=== PATIENT | female | born 1970 | race African-American/Black ===

== ENCOUNTER → 2016-05-26 | Outpatient (REF) | payer OTHER ==
[~2016-05-26] MED LIST: /CELE20CA OR; PERC5TAB8 OR; VALI10TA OR; VICO5TAB; ZITHTAB OR
[2016-05-26 13:46] LABS: AMPHETAMINES URINE REFLEX NEGATIVE (NEGATIVE); BARBITURATES URINE REFLEX NEGATIVE (NEGATIVE); BENZODIAZEPINES URINE REFLEX NEGATIVE (NEGATIVE); COCAINE METABOLITE URINE REFLE NEGATIVE (NEGATIVE); CONTROL LINE INT CTR LINE PRESENT; METHADONE URINE REFLEX NEGATIVE (NEGATIVE); OPIATES URINE REFLEX NEGATIVE (NEGATIVE); TRICYCLIC ANTIDEPRESS UR REFL NEGATIVE (NEGATIVE)
[2016-06-01 00:15] LABS: BENZODIAZEPINES, URINE SCREEN Negative ng/mL (Cutoff=200); METHADONE, URINE SCREEN Negative ng/mL (Cutoff=300); OXYCODONE URINE Negative (Cutoff=100); pH, URINE 5.7 (4.5-8.9)
== END | disposition home or self-care (01) ==
LOC: M SFHCPLAZ 12:44
PROVIDERS: ATTEND Internal Medicine
DX: R89.2 Abnormal level of other drugs, medicaments and biological substances in specimens from other organs, systems and tissues (principal)
CPT/HCPCS: G0479 ×2

== ENCOUNTER 2016-06-16 08:08 | Inpatient (IN) | payer MEDICAID, OTHER ==
[~2016-06-16] VITALS: Ht 172.7 cm; Wt 113.1 kg
[2016-06-16 08:52] LABS: BASO % 0.6 % (0.0-1.0); EOS # 0.1 K/mm3 (0.0-0.50); EOS % 1.4 % (0.0-3.0); LARGE UNSTAINED CELL # 0.1 K/mm3 (0.0-0.4); LARGE UNSTAINED CELL % 2.2 % (0.0-4.0); LYMPH # 2.7 K/mm3 (1.5-4.5); LYMPH % 45.6 % (24.0-44.0); MEAN CORPUSCULAR HEMOGLOBIN 33.6 pg (27.0-33.0); MEAN CORPUSCULAR HGB CONC 34.4 g/dl (32.0-36.5); MEAN CORPUSCULAR VOLUME 97.6 fl (80.0-96.0); MONO # 0.2 K/mm3 (0.0-0.8); MONO % 3.8 % (0.0-5.0); NEUTROPHILS # 2.8 K/mm3 (1.8-7.7); NEUTROPHILS % 46.4 % (36.0-66.0); PLATELET COUNT, AUTOMATED 266 k/mm3 (150-450); RED CELL DISTRIBUTION WIDTH 12.1 % (11.5-14.5)
[2016-06-16] MEDS ORDERED: ONDANSETRON 4MG/2ML VIAL (J2405) As Ordered ONE (08:57)
[2016-06-16] MEDS ORDERED: HYDROmorphone HCL 1 MG/ML SYRINGE (J1170) As Ordered ONE ×2 (08:57→11:01)
[2016-06-16] MEDS: SYMBICORT 160/4.5MCG INHALER 6GM INH SCH ×2 (09:00→21:00)
[2016-06-16 09:17] LABS: CONTROL LINE HCG INT CTR LINE PRESENT
[2016-06-16 09:21] LABS: ALBUMIN 3.8 GM/DL (3.2-5.2); ALBUMIN/GLOBULIN RATIO 0.97 (1.00-1.93); ALKALINE PHOSPHATASE 59 U/L (45-117); ALT/SGPT 43 U/L (12-78); ANION GAP 9 MEQ/L (8-16); AST/SGOT 30 U/L (15-37); BILIRUBIN,DIRECT 0.2 MG/DL (0.0-0.2); BILIRUBIN,TOTAL 0.7 MG/DL (0.2-1.0); BLOOD UREA NITROGEN 9 MG/DL (7-18); CALCIUM LEVEL 8.7 MG/DL (8.5-10.1); CARBON DIOXIDE LEVEL 25 MEQ/L (21-32); CHLORIDE LEVEL 108 MEQ/L (98-107); CREATININE FOR GFR 0.89 MG/DL (0.55-1.02); GLOMERULAR FILTRATION RATE > 60.0 (>58); GLUCOSE, FASTING 100 MG/DL (70-105); POTASSIUM SERUM 3.6 MEQ/L (3.5-5.1); SODIUM LEVEL 142 MEQ/L (136-145); TOTAL PROTEIN 7.7 GM/DL (6.4-8.2)
[2016-06-16] MEDS ORDERED: ISOVUE-370 76% 100ML VIAL (Q9967) As Ordered ONE (09:26)
--- NOTE | 2016-06-16 10:03 | REP ---
CT STUDY OF THE ABDOMEN AND PELVIS WITH IV BUT WITHOUT ORAL CONTRAST: HISTORY: Abdominal pain. CT contrast dose: 100 mL of Isovue 370 is administered intravenously by auto injector. FINDINGS: Digital preliminary inbound customer service representative radiograph demonstrates dilated loops of small bowel in the left mid abdomen. Axial images show that the lung bases are clear. There is no evidence of pleural effusion. The liver and the spleen are normal in size and homogeneous in texture. Gallbladder and pancreas show no abnormality. No adrenal lesion is seen on either side. The kidneys enhance symmetrically and are morphologically intact. No retroperitoneal mass or adenopathy is observed. Normal caliber aorta is seen with some vascular calcification. There is no evidence of free intraperitoneal air. There are air-filled, mildly dilated loops of jejunum in the left mid and upper abdomen. The distal ileum is decompressed suggesting partial small bowel obstruction. No mass lesion is appreciated. There is no evidence of abdominal wall defect. A normal appendix is seen. The patient is status post hysterectomy. There is a cyst in the left ovary measuring 4.7 cm in greatest diameter. A small quantity of fluid is seen in the cul-de-sac. No pelvic mass or adenopathy is appreciated otherwise. Bone window settings show no bony destructive lesion. IMPRESSION: Patient status post hysterectomy. 4.7 cm cystic lesion in the left ovary. Partial small bowel obstruction pattern with dilated jejunal loops and decompressed ileal loops. No obstructive lesion is seen. No free air is seen. Minimal fluid in the cul-de-sac. Signed by Ariel Lerma MD 06/16/2016 06:33 P
[2016-06-16] MEDS ORDERED: DULE200A INH (10:34)
[2016-06-16] MEDS ORDERED: ALBU17IN INH (10:34)
[2016-06-16] MEDS ORDERED: IBUP800T23 PO (10:34)
[2016-06-16] MEDS ORDERED: FLUO10TA30 PO (10:34)
[2016-06-16] MEDS ORDERED: TRAZ10TA PO (10:34)
[2016-06-16] MEDS ORDERED: CLON1TAB PO (10:34)
[2016-06-16] MEDS ORDERED: LORazepam 2 MG/ML VIAL (J2060) As Ordered ONE (11:01)
[2016-06-16] MEDS ORDERED: ALBUTEROL 90 MCG/ACT 8GM HFA INHALER INH PRN (11:30)
[2016-06-16] MEDS ORDERED: MORPHINE 2 MG/ML 1ML SYRINGE IV PRN (11:45)
[2016-06-16] MEDS ORDERED: ACETAMINOPHEN TAB 650MG DOSE (2X325MG) PO PRN (11:45)
[2016-06-16] MEDS ORDERED: ONDANSETRON 4MG/2ML VIAL (J2405) IV PRN (11:45)
--- NOTE | 2016-06-16 13:47 | EDDOCDS ---
Nurse's Notes [facility] Name: Grant Simms Age: 46 yrs Sex: Female : 1970 Arrival Date: 06/16/2016 Time: 08:08 Bed 7 Private MD: Diagnosis: Abdominal and pelvic pain Presentation: 06/16 08:16 Presenting complaint: Patient states: Has abdominal pain in lower abdomen. Risk mcp factors: the patient reports no vaginal bleeding. Adult Sepsis Screening: The patient does not have new or worsening altered mentation. Patient's respiratory rate is less than 22. Systolic blood pressure is greater than 100. Patient has a qSOFA score of 0- Negative Sepsis Screen. Suicide/Homicide risk assessment- the patient denies having any suicidal and/or homicidal ideations and does not present with any other emotional, behavioral or mental health complaints. Status: Patient is not a adoption services manager or dependent. Transition of care: patient was not received from another setting of care. 08:16 Acuity: CONRAD Level 3 [facility] 08:16 Method Of Arrival: Walkin/Carried/Asstd [facility] Triage Assessment: 08:20 General: Appears uncomfortable, Behavior is cooperative. Pain: Location: suprapubic [facility] area Pain currently is 9 out of 10 on a pain scale. HIV screening NA for this visit Offered previously. Neurological: No deficits noted. Respiratory: Airway is patent Respiratory effort is even, unlabored. GI: Reports lower abdominal pain. Derm: Skin is normal. 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 Klonopin 1 mg Oral tab 1 tab 2 times per day 2. Trazodone 250mg Oral 3. Prozac 10 mg Oral cap once daily 4. albuterol sulfate 90 mcg/actuation Inhl HFAA prn 5. Dulera inhalation 2 puffs 2 times per day - PMHx: Asthma; chronic abdominal pain; GERD; Sleep Apnea w/ CPAP; - PSHx: Hysterectomy; ; ovarian cyst removal; - Social history: Smoking status: Patient uses tobacco products, current some day smoker. No barriers to communication noted, The patient speaks fluent Egyptian. - Family history: Not pertinent. - : The pt / caregiver states he / she is not on anticoagulants. Home medication list is obtained from the patient. - Exposure Risk Screening:: None identified. Screenin:35 Screening information is obtained from the patient. Fall risk: No risks identified. ck1 Assistance ADL's: requires no assistance with activities of daily living. Abuse/DV Screen: The patient / caregiver reports he/she is: not in a situation that causes fear, pain or injury. Nutritional screening: No deficits noted. Advance Directives: Currently, there is no health care proxy. home support is adequate. Assessment: 08:35 General: Appears distressed, Behavior is crying. Pain: Location: suprapubic area Pain ck1 currently is 9 out of 10 on a pain scale. Neurological: Level of Consciousness is awake, alert, obeys commands, Oriented to person, place, time. Respiratory: Respiratory effort is unlabored, Respiratory pattern is regular, symmetrical. GI: Abdomen is obese, Bowel sounds present X 4 quads. Abd is soft and non tender X 4 quads. Reports anorexia, nausea. : Reports discharge "inside vagina" Denies burning with urination, vaginal bleeding. Derm: Skin is pink, warm & dry. Musculoskeletal: No deficits noted. 09:24 General: Appears distressed, Behavior is crying. Pain: Location: suprapubic area Pain ck1 currently is 5 out of 10 on a pain scale. Neurological: Level of Consciousness is awake, alert, obeys commands, Oriented to person, place, time. Respiratory: Respiratory effort is unlabored, Respiratory pattern is regular, symmetrical. GI: No deficits noted. Derm: Skin is intact, is healthy with good turgor, Skin is pink, warm & dry. Musculoskeletal: Circulation, motion, and sensation intact Range of motion intact in all extremities. 10:23 Reassessment: Patient appears in no apparent distress at this time. ck1 11:06 General: Appears distressed, Behavior is anxious, crying. Pain: Location: suprapubic ck1 area Pain currently is 8 out of 10 on a pain scale. Neurological: Level of Consciousness is awake, alert, obeys commands, Oriented to person, place, time. Respiratory: Respiratory effort is unlabored, Respiratory pattern is regular, symmetrical. GI: Denies nausea, vomiting. Derm: Skin is intact, is healthy with good turgor, Skin is pink, warm & dry. 11:10 General: Patient requesting provider explain to daughter diagnosis and plan of care. ck1 Provider aware. 12:00 General: Appears distressed, Behavior is anxious. Pain: Location: abdomen Pain ck1 currently is 10 out of 10 on a pain scale. Neurological: Level of Consciousness is awake, alert, obeys commands, Oriented to person, place, time. Respiratory: Respiratory effort is unlabored, Respiratory pattern is regular, symmetrical. GI: Denies nausea, vomiting. Derm: Skin is intact, is healthy with good turgor, Skin is pink, warm & dry. Musculoskeletal: Circulation, motion, and sensation intact Range of motion intact in all extremities. 12:37 General: Nursing Manager Fashion in room to discuss treatment plan with patient and family. ck1 12:49 General: Patient is resting quietly on stretcher. No acute distress noted at this time. ck1 Daughter at bedside. Awaiting bed availability on 4 bee. Call light in reach, will continue to monitor patient. 13:45 General: Appears Patient is sitting up in stretcher talking on cell phone. Tolerating ck1 diet tray without difficulty, also tolerating food in to go container from cafeteria without difficulty. No acute distress noted. Vital Signs: 08:19 BP 140 / 88; Pulse 80; Resp 18; Temp 98.3; Pulse Ox 97% on R/A; Weight 104.33 kg; [facility] Height 5 ft. 8 in. (172.72 cm); Pain 9/10; 09:20 BP 132 / 78; Pulse 72; Resp 18; Temp 98.7(O); Pulse Ox 99% on R/A; Pain 5/10; ck1 12:00 BP 153 / 66; Pulse 64; Resp 18; Temp 98.1(O); Pulse Ox 99% on R/A; Pain 10/10; ck1 13:45 BP 126 / 64 LA Sitting (auto/lg); Pulse 73; Resp 20; Temp 99.5; Pulse Ox 99% on R/A; bnb Pain 9/10; 08:19 Body Mass Index 34.97 (104.33 kg, 172.72 cm) [facility] Vitals: 08:19 Log In Time: June 16, 2016 at 08:08. [facility] ED Course: 08:09 Patient visited by Ronan Kellogg. mm15 08:09 Patient moved to Waiting mm15 08:17 Triage Initiated [facility] 08:21 Patient visited by Danielle Herrera RN. [facility] 08:21 Flor Starr MD is Attending Physician. fg 08:21 Patient moved to 7 [facility] 08:24 Patient visited by Flor Starr MD. fg 08:27 Urinalysis Sent. ck1 08:27 Urine Culture Sent. ck1 08:34 Patient visited by Lula Dominguez,SUZETTE. ck1 08:34 Basic Metabolic Profile Sent. ck1 08:34 CBC with Diff Sent. ck1 08:34 HCG,Serum Qualitative Sent. ck1 08:34 Lipase Sent. ck1 08:34 Liver Profile Sent. ck1 08:35 The patient / caregiver is instructed regarding the plan of care and ED course. ck1 08:35 Inserted saline lock: 20 gauge in left hand and blood collected. The patient tolerated ck1 the procedure well. 08:46 Patient visited by Amanda Gonzalez PCA. bnb 08:46 EKG done. (by ED staff). Reviewed by Flor Starr MD. bnb 08:56 Assist provider with pelvic exam: Set up pelvic tray. Specimens sent to lab. Performed ck1 by Flor Starr MD Patient tolerated well. 09:02 Patient visited by Lula Dominguez,SUZETTE. ck1 09:20 Patient name changed from Itia\\S\\Swapna\\S\\Delinquency Prevention Officer\\S\\ to Itia\\S\\T\\S\\Delinquency Prevention Officer. EDMS 09:20 [facility] Payment Agreement was scanned into [employer] and attached to record. lg 09:24 Patient visited by Lula Dominguez RN. ck1 09:40 Patient visited by Lula Dominguez RN. ck1 09:40 Warm blanket given. ck1 10:02 GC & Chlamydia Amplification Sent. ck1 10:02 Wet Prep Sent. ck1 10:03 Patient visited by Lula Dominguez,SUZETTE. ck1 10:16 CT ABD & PELVIS: IV Contrast Only Returned. EDMS 10:23 Carol Grande is Hospitalizing Provider. fg 13:20 Patient visited by Shelbi Flores PCA. rs6 13:20 Diet: Patient given regular meal. Tolerated well. rs6 13:28 T-Sheet-- Draft Copy was scanned into [employer] and attached to record. gb 13:46 Patient visited by Amanda Gonzalez PCA. bnb Administered Medications: 09:02 Drug: Dilaudid - HYDROmorphone 1 mg [hydromorphone 1 mg/mL injection syringe (1 mL)] ck1 Route: IVP; Site: left hand; 09:20 Follow up: BP 132 / 78; Pulse 72 bpm; Resp 18 bpm; Temp 98.7 Oral; Pulse Ox 99% RA; ck1 Pain 5/10 Adult; Response: Confirmed pt not driving.; No Adverse Reaction; Pain is decreased 09:02 Drug: Ondansetron 4 mg [ondansetron HCl 2 mg/mL intravenous solution (2 mL)] Route: ck1 IVP; Site: left hand; 11:05 Drug: Dilaudid - HYDROmorphone 1 mg [hydromorphone 1 mg/mL injection syringe (1 mL)] 1 Route: IVP; Site: left hand; 12:00 Follow up: BP 153 / 66; Pulse 64 bpm; Resp 18 bpm; Temp 98.1 Oral; Pulse Ox 99% RA; ck1 Pain 10/10 Adult; Response: Confirmed pt not driving.; No Adverse Reaction; No significant change. 11:05 Drug: LORazepam 0.5 mg [lorazepam 2 mg/mL injection solution (0.25 mL)] Route: IVP; ck1 Site: left hand; Order Results: Lab Order: Basic Metabolic Profile; SPEC'M 06/16/16 08:33 Test: GLUCOSE, FASTING; Value: 100; Range: 70-105; Units: MG/DL; Status: F Test: BLOOD UREA NITROGEN; Value: 9; Range: 7-18; Units: MG/DL; Status: F Test: CREATININE FOR GFR; Value: 0.89; Range: 0.55-1.02; Units: MG/DL; Status: F Test: SODIUM LEVEL; Range: 136-145; Units: MEQ/L; Status: I Test: POTASSIUM SERUM; Range: 3.5-5.1; Units: MEQ/L; Status: I Test: CHLORIDE LEVEL; Range: 98-107; Units: MEQ/L; Status: I Test: CARBON DIOXIDE LEVEL; Range: 21-32; Units: MEQ/L; Status: I Test: ANION GAP; Range: 8-16; Units: MEQ/L; Status: I Test: CALCIUM LEVEL; Range: 8.5-10.1; Units: MG/DL; Status: I Test: GLOMERULAR FILTRATION RATE; Value: > 60.0; Range: >58; Status: F Test: SODIUM LEVEL; Value: 142; Range: 136-145; Units: MEQ/L; Status: F Test: POTASSIUM SERUM; Value: 3.6; Range: 3.5-5.1; Units: MEQ/L; Status: F Test: CHLORIDE LEVEL; Value: 108; Range: 98-107; Abnormal: Above high normal; Units: MEQ/L; Status: F Test: CARBON DIOXIDE LEVEL; Value: 25; Range: 21-32; Units: MEQ/L; Status: F Test: ANION GAP; Value: 9; Range: 8-16; Units: MEQ/L; Status: F Test: CALCIUM LEVEL; Value: 8.7; Range: 8.5-10.1; Units: MG/DL; Status: F Test Note: ; Units are mL/min/1.73 m2 Chronic Kidney Disease Staging per NKF: Stage I & II GFR >=60 Normal to Mildly Decreased Stage III GFR 30-59 Moderately Decreased Stage IV GFR 15-29 Severely Decreased Stage V GFR <15 Very Little GFR Left ESRD GFR <15 on FORMULA CLERK Lab Order: CBC with Diff; SPEC'M 06/16/16 08:33 Test: WHITE BLOOD COUNT; Value: 6.0; Range: 4.0-10.0; Units: K/mm3; Status: F Test: RED BLOOD COUNT; Value: 3.80; Range: 4.00-5.40; Abnormal: Below low normal; Units: M/mm3; Status: F Test: HEMOGLOBIN; Value: 12.8; Range: 12.0-16.0; Units: g/dl; Status: F Test: HEMATOCRIT; Value: 37.1; Range: 36.0-47.0; Units: %; Status: F Test: MEAN CORPUSCULAR VOLUME; Value: 97.6; Range: 80.0-96.0; Abnormal: Above high normal; Units: fl; Status: F Test: MEAN CORPUSCULAR HEMOGLOBIN; Value: 33.6; Range: 27.0-33.0; Abnormal: Above high normal; Units: pg; Status: F Test: MEAN CORPUSCULAR HGB CONC; Value: 34.4; Range: 32.0-36.5; Units: g/dl; Status: F Test: RED CELL DISTRIBUTION WIDTH; Value: 12.1; Range: 11.5-14.5; Units: %; Status: F Test: PLATELET COUNT, AUTOMATED; Value: 266; Range: 150-450; Units: k/mm3; Status: F Test: NEUTROPHILS %; Value: 46.4; Range: 36.0-66.0; Units: %; Status: F Test: LYMPH %; Value: 45.6; Range: 24.0-44.0; Abnormal: Above high normal; Units: %; Status: F Test: MONO %; Value: 3.8; Range: 0.0-5.0; Units: %; Status: F Test: EOS %; Value: 1.4; Range: 0.0-3.0; Units: %; Status: F Test: BASO %; Value: 0.6; Range: 0.0-1.0; Units: %; Status: F Test: LARGE UNSTAINED CELL %; Value: 2.2; Range: 0.0-4.0; Units: %; Status: F Test: NEUTROPHILS #; Value: 2.8; Range: 1.8-7.7; Units: K/mm3; Status: F Test: LYMPH #; Value: 2.7; Range: 1.5-4.5; Units: K/mm3; Status: F Test: MONO #; Value: 0.2; Range: 0.0-0.8; Units: K/mm3; Status: F Test: EOS #; Value: 0.1; Range: 0.0-0.50; Units: K/mm3; Status: F Test: BASO #; Value: 0.0; Range: 0.0-0.2; Units: K/mm3; Status: F Test: LARGE UNSTAINED CELL #; Value: 0.1; Range: 0.0-0.4; Units: K/mm3; Status: F Lab Order: HCG,Serum Qualitative; SPEC'M 06/16/16 08:33 Test: HCG, SERUM QUALITATIVE; Value: NEGATIVE; Range: NEGATIVE; Status: F Lab Order: Lipase; SPEC'M 06/16/16 08:33 Test: LIPASE; Value: 94; Range: 73-393; Units: U/L; Status: F Lab Order: Liver Profile; [facility] 06/16/16 08:33 Test: AST/SGOT; Value: 30; Range: 15-37; Units: U/L; Status: F Test: ALT/SGPT; Value: 43; Range: 12-78; Units: U/L; Status: F Test: ALKALINE PHOSPHATASE; Value: 59; Range: 45-117; Units: U/L; Status: F Test: BILIRUBIN,TOTAL; Value: 0.7; Range: 0.2-1.0; Units: MG/DL; Status: F Test: BILIRUBIN,DIRECT; Value: 0.2; Range: 0.0-0.2; Units: MG/DL; Status: F Test: TOTAL PROTEIN; Value: 7.7; Range: 6.4-8.2; Units: GM/DL; Status: F Test: ALBUMIN; Value: 3.8; Range: 3.2-5.2; Units: GM/DL; Status: F Test: ALBUMIN/GLOBULIN RATIO; Value: 0.97; Range: 1.00-1.93; Abnormal: Below low normal; Status: F Lab Order: Urinalysis; [facility] 06/16/16 08:26 Test: APPEARANCE, URINE; Value: CLEAR; Range: CLEAR; Status: F Test: COLOR, URINE; Value: YELLOW; Range: YELLOW; Status: F Test: PH,URINE; Value: 5.0; Range: 5.0-9.0; Units: UNITS; Status: F Test: SPECIFIC GRAVITY URINE AUTO; Value: 1.029; Range: 1.002-1.035; Status: F Test: PROTEIN, URINE AUTO; Value: NEGATIVE; Range: NEGATIVE; Units: mg/dL; Status: F Test: GLUCOSE, URINE (UA) AUTO; Value: NEGATIVE; Range: NEGATIVE; Units: mg/dL; Status: F Test: KETONE, URINE AUTO; Value: TRACE; Range: NEGATIVE; Abnormal: Above high normal; Units: mg/dL; Status: F Test: UROBILINOGEN, URINE AUTO; Value: 0.2; Range: 0.0-2.0; Units: mg/dL; Status: F Test: BILIRUBIN, URINE AUTO; Value: NEGATIVE; Range: NEGATIVE; Status: F Test: NITRITE, URINE AUTO; Value: NEGATIVE; Range: NEGATIVE; Status: F Test: LEUKOCYTE ESTERASE, URINE AUTO; Value: NEGATIVE; Range: NEGATIVE; Status: F Test: BLOOD, URINE BLOOD; Value: 2+; Range: NEGATIVE; Abnormal: Above high normal; Status: F Test: WBC, URINE AUTO; Value: 1; Range: 0-3; Units: /HPF; Status: F Test: RBC, URINE AUTO; Value: 16; Range: 0-3; Abnormal: Above high normal; Units: /HPF; Status: F Test: BACTERIA, URINE AUTO; Value: NEGATIVE; Range: NEGATIVE; Status: F Test: SQUAMOUS EPITHELIAL CELL UR AU; Value: 4; Range: 0-6; Units: /HPF; Status: F Test: MUCUS, URINE; Value: SMALL; Range: NEGATIVE; Status: F Test: HYALINE CAST, URINE AUTO; Value: 0; Range: 0-1; Units: /LPF; Status: F Lab Order: Wet Prep; SPEC'M 06/16/16 08:54 Test: WET PREP; Value: WET PREP RESULT; Status: F Test: WET PREP; Value: MANY EPITHELIAL CELLS PRESENT; Status: F Test: WET PREP; Value: FEW SHORT RODS PRESENT; Status: F Test: WET PREP; Value: Comments:; Status: F Test Note: ; Specimen did not meet the 1 hour time limit from collection to examination. Trichomonas vaginalis loses motility quickly therefore, samples need to be examined within 1 hour of collection to optimally identify this organism. Lab Order: GC & Chlamydia Amplification; SPEC'M 06/16/16 08:54 Test: CHLAMYDIA DNA AMPLIFICATION; Value: NEGATIVE; Range: NEGATIVE; Status: F Test: GC DNA AMPLIFICATION; Value: NEGATIVE; Range: NEGATIVE; Status: F Lab Order: LACTIC ACID LEVEL, LACTATE; SPEC'M 06/16/16 11:45 Test: LACTIC ACID LEVEL, LACTATE; Value: 0.7; Range: 0.4-2.0; Units: MMOL/L; Status: F Radiology Order: CT ABD & PELVIS: IV Contrast Only Test: CT ABD & PELVIS: IV Contrast Only REASON FOR EXAMINATION: Abdomen Pain; CT STUDY OF THE ABDOMEN AND PELVIS WITH IV BUT WITHOUT ORAL CONTRAST:; ; HISTORY: Abdominal pain.; ; CT contrast dose: 100 mL of Isovue 370 is administered intravenously by auto; injector.; ; FINDINGS: Digital preliminary facilities administrator radiograph demonstrates dilated loops of; small bowel in the left mid abdomen. Axial images show that the lung bases are; clear. There is no evidence of pleural effusion. The liver and the spleen are; normal in size and homogeneous in texture. Gallbladder and pancreas show no; abnormality. No adrenal lesion is seen on either side. The kidneys enhance; symmetrically and are morphologically intact. No retroperitoneal mass or; adenopathy is observed. Normal caliber aorta is seen with some vascular; calcification.; ; There is no evidence of free intraperitoneal air. There are air-filled, mildly; dilated loops of jejunum in the left mid and upper abdomen. The distal ileum is; decompressed suggesting partial small bowel obstruction. No mass lesion is; appreciated. There is no evidence of abdominal wall defect. A normal appendix; is seen.; ; The patient is status post hysterectomy. There is a cyst in the left ovary; measuring 4.7 cm in greatest diameter. A small quantity of fluid is seen in the; cul-de-sac. No pelvic mass or adenopathy is appreciated otherwise. Bone window; settings show no bony destructive lesion.; ; IMPRESSION:; Patient status post hysterectomy. 4.7 cm cystic lesion in the left ovary.; Partial small bowel obstruction pattern with dilated jejunal loops and; decompressed ileal loops. No obstructive lesion is seen. No free air is seen.; Minimal fluid in the cul-de-sac.; ; ; ; ; Unreviewed; Outcome: 09:40 CT Study completed. ck1 10:23 Decision to Hospitalize by Provider. fg 13:38 Discharge Assessment: Patient awake, alert and oriented x 3. No cognitive and/or ck1 functional deficits noted. Patient verbalized understanding of disposition instructions. patient administered narcotics - yes. Patient was admitted to the hospital or transferred to another facility. The following High Risk Discharge criteria are identified: None. Admitted to Med/Surg accompanied by tech, via wheelchair, with chart. Condition: stable. Admission hand-off: Report Faxed Fax receipt verified by SUZETTE Leblanc. Property :Personal belongings accompany Pt. 13:47 Patient left the ED. ck1 Signatures: Dispatcher [facility] Danielle Oro RN RN mcp Barnhardt, Gloria, Reg Reg gb Yumiko Diaz, Reg Reg lg Alberto,Lula,RN RN ck1 Ronan Kellogg mm15 Shelbi Flores, DISTILLERY WORKER GENERAL DISTILLERY WORKER GENERAL rs6 Flor Starr MD MD Amanda Gonzalez, DISTILLERY WORKER GENERAL DISTILLERY WORKER GENERAL bnb MTDD
--- NOTE | 2016-06-16 13:47 | EDDOCDS ---
Physician Documentation [facility] Name: Grant Simms Age: 46 yrs Sex: Female : 1970 Arrival Date: 06/16/2016 Time: 08:08 Bed 7 Private MD: Disposition: 06/16/16 10:23 Hospitalization ordered by Carol Grande for Inpatient Admission. Preliminary diagnosis is Abdominal and pelvic pain. - Bed requested for 4 [place]. - Status is Inpatient Admission. ck1 - Condition is Stable. - Problem is chronic. - Symptoms have worsened. Historical: - Allergies: no known allergies; - Home Meds: 1. Klonopin 1 mg Oral tab 1 tab 2 times per day 2. Trazodone 250mg Oral 3. Prozac 10 mg Oral cap once daily 4. albuterol sulfate 90 mcg/actuation Inhl HFAA prn 5. Dulera inhalation 2 puffs 2 times per day - PMHx: Asthma; chronic abdominal pain; GERD; Sleep Apnea w/ CPAP; - PSHx: Hysterectomy; ; ovarian cyst removal; - Social history: Smoking status: Patient uses tobacco products, current some day smoker. No barriers to communication noted, The patient speaks fluent Kinyarwanda. - Family history: Not pertinent. - : The pt / caregiver states he / she is not on anticoagulants. Home medication list is obtained from the patient. - Exposure Risk Screening:: None identified. 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 8 in. (172.72 cm); Pain 9/10; 09:20 BP 132 / 78; Pulse 72; Resp 18; Temp 98.7(O); Pulse Ox 99% on R/A; Pain 5/10; ck1 12:00 BP 153 / 66; Pulse 64; Resp 18; Temp 98.1(O); Pulse Ox 99% on R/A; Pain 10/10; ck1 13:45 BP 126 / 64 LA Sitting (auto/lg); Pulse 73; Resp 20; Temp 99.5; Pulse Ox 99% on R/A; bnb Pain 9/10; 08:19 Body Mass Index 34.97 (104.33 kg, 172.72 cm) mcp MDM: 08:22 IV Saline Lock ordered. fg 08:22 Undress patient appropriately for examination ordered. fg 08:23 Basic Metabolic Profile Ordered. EDMS 08:23 CBC with Diff Ordered. EDMS 08:23 HCG,Serum Qualitative Ordered. EDMS 08:23 Lipase Ordered. EDMS 08:23 Liver Profile Ordered. EDMS 08:23 Urinalysis Ordered. EDMS 08:23 Urine Culture Ordered. EDMS 08:25 ECG WITH READING ER PHYS+CARDIAG ordered. EDMS 08:54 Dilaudid - HYDROmorphone 1 mg IVP once ordered. fg 08:54 Ondansetron 4 mg IVP once ordered. fg 08:56 CT ABD & PELVIS: IV Contrast Only Ordered. EDMS 09:07 Financial registration complete. lg 09:20 [facility] was scanned into [employer] and attached to record. lg 10:02 GC & Chlamydia Amplification Ordered. EDMS 10:02 Wet Prep Ordered. EDMS 10:23 BED REQUEST+ADM ordered. EDMS 10:51 Dilaudid - HYDROmorphone 1 mg IVP once ordered. fg 10:51 LORazepam 0.5 mg IVP once ordered. fg 11:33 LACTIC ACID LEVEL, LACTATE Ordered. EDMS 11:33 STOOL SODIUM Ordered. EDMS 11:33 STOOL POTASSIUM Ordered. EDMS 11:33 STOOL CHLORIDE Ordered. EDMS 11:33 OSMOLARITY STOOL Ordered. EDMS 11:33 STOOL POLYS Ordered. EDMS 11:33 GASTROINTESTINAL (GI) PANEL Ordered. EDMS 11:42 Admission / Observation Status ordered. EDMS 12:04 REGULAR DIET ordered. EDMS 13:28 T-Sheet-- Draft Copy was scanned into [employer] and attached to record. gb Administered Medications: 09:02 Drug: Dilaudid - HYDROmorphone 1 mg [hydromorphone 1 mg/mL injection syringe (1 mL)] ck1 Route: IVP; Site: left hand; 09:20 Follow up: BP 132 / 78; Pulse 72 bpm; Resp 18 bpm; Temp 98.7 Oral; Pulse Ox 99% RA; ck1 Pain 5/10 Adult; Response: Confirmed pt not driving.; No Adverse Reaction; Pain is decreased 09:02 Drug: Ondansetron 4 mg [ondansetron HCl 2 mg/mL intravenous solution (2 mL)] Route: ck1 IVP; Site: left hand; 11:05 Drug: Dilaudid - HYDROmorphone 1 mg [hydromorphone 1 mg/mL injection syringe (1 mL)] ck1 Route: IVP; Site: left hand; 12:00 Follow up: BP 153 / 66; Pulse 64 bpm; Resp 18 bpm; Temp 98.1 Oral; Pulse Ox 99% RA; ck1 Pain 03/01 Adult; Response: Confirmed pt not driving.; No Adverse Reaction; No significant change. 11:05 Drug: LORazepam 0.5 mg [lorazepam 2 mg/mL injection solution (0.25 mL)] Route: IVP; ck1 Site: left hand; Signatures: Dispatcher [employer] EDDanielle Singh, RN SUZETTE [facility] Maryam Hall, Reg Reg gb Yumiko Diaz, Reg Reg lg Lula Dominguez RN RN ck1 Harsh Russell, [employer]ATION WORKER William Benavides RN RN [facility] Flor Starr MD MD The chart was reviewed and I authenticate all verbal orders and agree with the evaluation and treatment provided.Corrections: (The following items were deleted from the chart) 11:33 11:33 GASTROINTESTINAL (GI) PANEL ordered. EDMS EDMS 11:33 11:33 GASTROINTESTINAL (GI) PANEL ordered. EDMS EDMS 12:04 08:23 NOTHING BY MOUTH+DIET ordered. EDMS EDMS Attachments: 09:20 [facility] Agreement lg 13:28 T-Sheet-- Draft Copy gb [facility]
[2016-06-16 14:00] VITALS: BP 126/62
[2016-06-16] MEDS: HEPARIN SOD (PORCINE) 5000 UNITS/ML VIAL SC SCH ×2 (14:30→20:14)
[2016-06-16] MEDS: FLUoxetine 10 MG CAP PO SCH (14:30)
[2016-06-16] MEDS: KCL 20MEQ IN D5/0.45NS 1000ML 1,000 ML IV SCH ×2 (14:31→23:47)
[2016-06-16] MEDS: PANTOPRAZOLE 40MG INJ (PROTONIX) (C9113) IV SCH (14:44)
[2016-06-16] MEDS: MORPHINE 2 MG/ML 1ML SYRINGE IV PRN ×3 (14:45→20:24)
--- NOTE | 2016-06-16 16:00 | HPEPDOC ---
General Date of Admission Jun 16, 2016 at 11:36 Primary Care Physician: MAGY TOM DO Attending Physician: ARTHUR ZEE MD Chief Complaint The patient is a 46-year-old female admitted with a reason for visit of Abdominal Pain. Source: Patient Exam Limitations: No limitations Timing/Duration: Getting worse Severity: Severe Associated Symptoms: Other (diarrhea) History of Present Illness 46 y/o F with h/o asthma, NIRALI not compliant with CPAP, GERD, smoker chronic abd pain presented with worsening abd pain. Patient reported cramping suprapubic abd pain with intermittent contractions for 4 years. recently primary provider stopped her pain medication because she is buying pain meds on the street, failed urine screening. Last taken vicodin 3am today, Vicodin from the street. reported diarrhea since Tuesday, 10 times watery non bloody over 24 hours. Denied fever chill, chest pain, palpitation, n/v, headache, or abnormal vaginal discharge. Spoke to primary provider Dr Tom, patient failed utox screen, uses medication that she purchased from street. Home Medications Scheduled (Fluoxetine HCl) 10 Mg Tab 10 MG PO DAILY (Reported) (Dulera 200-5 Mcg/Act) 1 Aer Aer 2 PUFFS INH BID (Reported) Scheduled PRN Albuterol Sulfate (Ventolin Hfa) 200 Puff/8 Gm Aers 2 PUFF INH Q4H PRN PRN SHORTNESS OF BREATH (Reported) Clonazepam (Clonazepam) 1 Mg Tab 1 MG PO BID PRN PRN ANXIETY (Reported) Ibuprofen (Ibuprofen) 800 Mg Tab 800 MG PO TID PRN PRN PAIN (Reported) Trazodone HCl (Trazodone HCl) 100 Mg Tab 250 MG PO QHS PRN PRN SLEEP (Reported) Allergies Coded Allergies: No Known Drug Allergy (Verified Allergy, Unknown, 08/21/12) Past Medical History Medical History Asthma, chronic abd pain, gerd, nirali Surgical History hysterectomy, , ovarian cyst removal Family History Significant Family History: Noncontributory Social History * Smoker: current smoker (1pack Q 2 weeks) Alcohol: occationally (q weekly) Drugs: other (opiods on the street) Recent Travel/Sick Contacts: Denies: Recent sick contacts, Recent travel Review of Symptoms Constitutional: Denies: Chills, Fever, Night Sweats Eyes: Denies: Pain, Vision change ENT: Denies: Dysphagia, Head Aches Skin: Denies: Lesions, Rash Pulmonary: Denies: Cough, Dyspnea Cardiovascular: Denies: Chest Pain, Palpitations Gastrointestinal: Reports: Abdominal Pain, Diarrhea, Denies: Nausea, Vomiting Genitourinary: Denies: Dysuria, Frequency Hematologic: Denies: Bleeding Excessively, Bruising Endocrine: Denies: Polydipsia, Polyphagia Neurological: Denies: Numbness, Weakness Psych: Reports: Anxiety, Denies: Depression Physical Examination General Exam: Positive: Alert, Mild Distress Eye Exam: Positive: Conjunctiva & lids normal, PERRLA ENT Exam: Positive: Atraumatic, Mucous membr. moist/pink Neck Exam: Positive: Supple Chest Exam: Positive: Clear to auscultation, Normal air movement Heart Exam: Positive: Normal S1, Normal S2, Rate Normal, Regular Rhythm Abdomen Exam: Positive: Mass, Normal bowel sounds, Soft, Tenderness ( suprapubic mild tender, pain out of proportion to exam, no reound no guarding) Skin Exam: Negative: Breakdown, Rash Vital Signs 140/88 hr 80, RR18, temp 98.3, pul ox97% Laboratory Data Labs 24H Laboratory Tests 2 06/16/16 08:26: Urine Amorphous Sediment , Urine Appearance CLEAR, Urine Color YELLOW, Urine pH 5.0, Urine Specific [place] 1.029, Urine Protein NEGATIVE, Urine Glucose (UA) NEGATIVE, Urine Ketones TRACEH, Urine Urobilinogen 0.2, Urine Bilirubin NEGATIVE , Urine Leukocyte Esterase NEGATIVE, Urine Bacteria (Auto) NEGATIVE, Urine Blood 2+H, Urine Calcium Carbonate Cryst(Auto) , Urine Calcium Oxalate Cryst ( Auto) , Urine Calcium Phosphate [place] (Auto) , Urine Cellular Casts , Urine Cystine Crystals , Urine Granular Casts (Auto) , Urine Hyaline Casts (Auto) 0, Urine Leucine Crystals , Urine Mucus (Auto) SMALL, Urine Nitrite NEGATIVE, Urine Oval Fat Bodies (Auto) , Urine RBC (Auto) 16H, Urine Renal Epithelial Cells , Urine Sperm (Auto) , Urine Squamous Epithelial Cells 4, Urine Transitional Epithelial Cells , Urine Trichomonas (Auto) , Urine Triple Phosphate Cryst (Auto) , Urine Tyrosine Crystals , Urine Uric Acid Crystals ( Auto) , Urine WBC (Auto) 1, Urine Waxy Casts (Auto) , Urine Yeast-Like Cells ( Auto) 06/16/16 08:33: Aspartate Amino Transf (AST/SGOT) 30, Alanine Aminotransferase (ALT/SGPT) 43, Alkaline Phosphatase 59, Total Bilirubin 0.7, Direct Bilirubin 0.2, Albumin 3.8 , Albumin/Globulin Ratio 0.97L, Anion Gap 9, White Blood Count 6.0, Red Blood Count 3.80L, Hemoglobin 12.8, Hematocrit 37.1, Mean Corpuscular Volume 97.6H, Mean Corpuscular Hemoglobin 33.6H, Mean Corpuscular Hemoglobin Concent 34.4, Red Cell Distribution Width 12.1, Platelet Count 266, Neutrophils (%) (Auto) 46.4, Lymphocytes (%) (Auto) 45.6H, Monocytes (%) (Auto) 3.8, Eosinophils (%) ( Auto) 1.4, Basophils (%) (Auto) 0.6, Neutrophils # (Auto) 2.8, Lymphocytes # ( Auto) 2.7, Monocytes # (Auto) 0.2, Eosinophils # (Auto) 0.1, Basophils # (Auto) 0.0, Calcium Level 8.7, Glomerular Filtration Rate > 60.0, Human Chorionic Gonadotropin, Qual NEGATIVE, Large Unclassified Cells # 0.1, Large Unclassified Cells % 2.2, Lipase 94, Total Protein 7.7 06/16/16 08:54: Chlamydia trachomatis DNA (KARINA) NEGATIVE, Neisseria gonorrhoeae DNA (KARINA) NEGATIVE 06/16/16 11:45: Lactic Acid Level 0.7 CBC/BMP Laboratory Tests 06/16/16 08:33 Red Blood Count 3.80 L, Mean Corpuscular Volume 97.6 H, Mean Corpuscular Hemoglobin 33.6 H, Mean Corpuscular Hemoglobin Concent 34.4, Red Cell Distribution Width 12.1, Neutrophils (%) (Auto) 46.4, Lymphocytes (%) (Auto) 45.6 H, Monocytes (%) (Auto) 3.8, Eosinophils (%) (Auto) 1.4, Basophils (%) ( Auto) 0.6, Neutrophils # (Auto) 2.8, Lymphocytes # (Auto) 2.7, Monocytes # (Auto ) 0.2, Eosinophils # (Auto) 0.1, Basophils # (Auto) 0.0 Microbiology Microbiology 06/16/16 Wet Prep - Final, Complete 06/16/16 Urine Culture, Received Pending Assessment/Plan Problems: (1) Abdominal pain Status: Acute Problem Text: acute on chronic abd pain, pain med, ct appreciated, lactic acid neg, pain management IVF (2) Partial small bowel obstruction Status: Acute Problem Text: have diarrhea, Surgery consulted, advanced diet and monitor IVF (3) Opioid withdrawal Status: Acute Problem Text: pain medication, supportive care, pain management consulted (4) Diarrhea Status: Acute Problem Text: likely due to opioid withdrawal, opioid addiction, stool studies , GI panel (5) Asthma Status: Chronic Problem Text: con't home med (6) NIRALI (obstructive sleep apnea) Status: Chronic Problem Text: non-compliance, nirali protocol Plan / VTE VTE Prophylaxis Ordered?: Yes (heparin SQ) Plan Plan pain control REBEKAH RUEDA MD Jun 16, 2016 16:00
[2016-06-16] MEDS: PERCOCET 5MG/325MG TAB PO PRN ×2 (16:07→20:15)
[2016-06-16 17:30] VITALS: BP 108/75
[2016-06-16] MEDS: SENOKOT S TAB PO SCH (20:14)
[2016-06-16] MEDS: traZODone 100 MG TAB PO PRN (20:14)
[2016-06-16] MEDS: clonazePAM 1 MG TAB PO PRN (20:34)
[2016-06-16 22:00] VITALS: BP 122/69
[2016-06-17] MEDS: PERCOCET 5MG/325MG TAB PO PRN ×4 (00:57→20:54)
[2016-06-17 06:00] VITALS: BP 99/61
[2016-06-17] MEDS: HEPARIN SOD (PORCINE) 5000 UNITS/ML VIAL SC SCH ×3 (06:22→20:53)
--- NOTE | 2016-06-17 06:44 | ECGEPIP ---
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
[2016-06-17 06:55] LABS: MEAN CORPUSCULAR HEMOGLOBIN 33.7 pg (27.0-33.0); MEAN CORPUSCULAR HGB CONC 33.1 g/dl (32.0-36.5); MEAN CORPUSCULAR VOLUME 101.8 fl (80.0-96.0); RED CELL DISTRIBUTION WIDTH 13.1 % (11.5-14.5)
[2016-06-17 07:07] LABS: ANION GAP 5 MEQ/L (8-16); BLOOD UREA NITROGEN 11 MG/DL (7-18); CALCIUM LEVEL 8.4 MG/DL (8.5-10.1); CARBON DIOXIDE LEVEL 27 MEQ/L (21-32); CHLORIDE LEVEL 111 MEQ/L (98-107); CREATININE FOR GFR 0.91 MG/DL (0.55-1.02); GLOMERULAR FILTRATION RATE > 60.0 (>58); GLUCOSE, FASTING 106 MG/DL (70-105); MAGNESIUM LEVEL 2.1 MG/DL (1.8-2.4); POTASSIUM SERUM 4.3 MEQ/L (3.5-5.1); SODIUM LEVEL 143 MEQ/L (136-145)
[2016-06-17] MEDS: SENOKOT S TAB PO SCH ×2 (08:09→20:54)
[2016-06-17] MEDS: FLUoxetine 10 MG CAP PO SCH (08:09)
[2016-06-17] MEDS: NS 1,000 ML IV SCH ×2 (08:09→17:46)
[2016-06-17] MEDS: PANTOPRAZOLE 40MG INJ (PROTONIX) (C9113) IV SCH (08:09)
[2016-06-17] MEDS: MORPHINE 2 MG/ML 1ML SYRINGE IV PRN ×4 (08:10→17:46)
[2016-06-17] MEDS ORDERED: IBUPROFEN 400 MG TAB PO PRN (09:15)
[2016-06-17] MEDS: SYMBICORT 160/4.5MCG INHALER 6GM INH SCH ×2 (10:56→19:59)
[2016-06-17] MEDS: MIRALAX *UNIT DOSE* 17GM PACKET PO SCH ×2 (10:58→20:53)
[2016-06-17] MEDS: clonazePAM 1 MG TAB PO PRN ×2 (13:02→20:54)
[2016-06-17 14:00] VITALS: BP 107/70
--- NOTE | 2016-06-17 17:49 | CR ---
DATE OF CONSULTATION: 06/16/2016 REQUESTING PHYSICIAN: Emergency room physician REASON FOR CONSULTATION: Regarding abdominal pain. HISTORY OF PRESENT ILLNESS: Ms. Simms has a 46-year-old female who has longstanding history of chronic abdominal pain. She presented herself to the emergency department today complaining of worsening of her chronic abdominal pain for the past two days. She reports that approximately three weeks ago, her primary care doctor was trying to wean her off the narcotics. Over the weekend, she started having multiple loose stools. She denies any sick contacts or any overseas travel. She describes about 5-6 loose watery stools, nonbloody every day, though last bowel movement was overnight. By Tuesday evening, her pain that is located right at the midline of her Pfannenstiel incision has gotten worse, become steady, causing her to stop what she is doing, and this persists throughout the night. She denies nausea or vomiting. She denies fevers or chills. She has no prior episodes of bowel obstruction. She reports that due to the pain, some time three years ago they had to take her year as an right ovary out, though after the surgery, she continues to have significant pain. She has been seen at the pain clinic but none of the modalities she has gotten, including trigger point injections, has relieved her pain and only the narcotics have helped her with the pain. ALLERGIES: No known drug allergies. MEDICATIONS: - albuterol sulfate. - clonazepam. - Dulera - fluoxetine - Ibuprofen 800 mg by mouth three times a day - trazodone 100 mg tablet at bedtime PAST MEDICAL HISTORY: 1. Asthma. 2 Chronic abdominal pain. 3. Gastroesophageal reflux disease. 4. Obstructive sleep apnea. PAST SURGICAL HISTORY: 1. Multiple sections 2. Hysterectomy and right salpingectomy. FAMILY HISTORY: Noncontributory. SOCIAL HISTORY: The patient smokes a pack every two weeks. Occasional alcohol intake. Reports to buying narcotic drugs off the street since her doctor is not prescribing her narcotics. REVIEW OF SYSTEMS: The patient denies fevers, chills, or any ongoing weight loss. Denies any problems with vision or hearing. The patient denies any chronic cough or colds. Denies chest pains, palpitations. Gastrointestinal symptoms enumerated in history of present illness (HPI). The patient denies any dysuria, reports chronic hematuria. Denies polydipsia, polyphagia, polyuria. Denies any migraine headaches, seizures, strokes. The patient reports anxiety. PHYSICAL EXAMINATION: GENERAL: Patient is seen in the emergency room sitting up on the stretcher folded over. Reports this is the most comfortable position for her. Visibly in some discomfort. She is awake. She is alert. She is cooperative. Moderately obese in built. SKIN: Is warm and moist. HEENT: Normocephalic, atraumatic. Has pink palpebral conjunctivae. Anicteric sclerae. Lips appear moist. NECK: Short but supple. No thyromegaly appreciated. RESPIRATORY: Lung sounds are clear to auscultation bilaterally. No wheezing appreciated. HEART: Rate and rhythm are regular with no murmurs. ABDOMEN: Is round, soft, nondistended. She has point tenderness at the center of her Pfannenstiel incision mostly on deep palpation, with some guarding, nontender anywhere else. EXTREMITIES: Without any edema or cyanosis. LABORATORY: White cell count 6.0, hemoglobin of 12.8, hematocrit 37.1, platelet count is 266. Chemistry: Sodium is 143, potassium 3.6, chloride is 108, BUN of 9, creatinine 0.89, lactic acid 0.7, glucose is 100. LFTs are all normal. Albumin is 3.8. HCG qualitative is negative. Lipase is 94. IMAGING: CT of the abdomen and pelvis was done. This was done with contrast both oral and IV. The radiologist read this as air-filled mildly dilated loops of jejunum in the left mid and upper abdomen. Distal ileum is decompressed suggesting partial small-bowel obstruction. No mass lesions appreciated. No evidence of abdominal wall defect. Normal appendix is seen. The patient is status post hysterectomy. There is a cyst in the left ovary measuring 4.7 cm. A small quantity of fluid is seen in the cul-de-sac. No pelvic mass or adenopathy. IMPRESSION: Acute worsening of her chronic abdominal pain. I was called in to see the patient to worsen with regard to possibility of bowel obstruction. By her history not complaining of any nausea or vomiting. Her more prominent symptom is diarrhea, probably some sort of viral enteritis which could also explain the mild dilatation of the left upper abdomen. Despite the proximal small bowel being mildly distended, the patient is without any nausea or vomiting. Her abdominal exam also not consistent with bowel obstruction. This is soft. This does not look to be distended. Her main area of tenderness centers on her Pfannenstiel incision and only on deep palpation. No rebound appreciated. Could be multifactorial. She is being weaned off from her narcotic so this could be rebound. She does not show any signs or symptoms of any inflammatory or infectious process. She does not show any signs of sepsis. A rupture of the ovarian cyst could worsen her already chronic abdominal discomfort. I do not think that she has bowel obstruction. I think she can resume diet. The patient is going to be admitted for observation and probably for pain control by the hospitalist service. I suggest asking the pain service to come take a look at her and suggest some pain regimen to help control her pain, as eventually she would still be needed to be weaned off her narcotics. I am not sure if this is feasible for her specifically. I will follow along during this admission but otherwise I see no need for any further imaging. I think this will be self evident if she has obstruction in the next day or so.
--- NOTE | 2016-06-17 18:12 | IPN ---
DATE: 06/17/2016 SUBJECTIVE: This is a 46-year-old female who was seen and examined at bedside. Overnight, no acute events. Was admitted for abdominal pain and opioid withdrawal. This morning, states that her pain is still persistent mostly suprapubic area. Has not had bowel movement. No fever, chills, nausea, vomiting, chest pain, shortness of breath. OBJECTIVE: VITAL SIGNS: Blood pressure this morning 99/61, heart rate 54, temperature 96.4, respiration rate 17, pulse oximetry 99% on room air. Intake and output in the last 24 hours 900 and 500. No bowel movement documented. GENERAL: The patient is sitting in bed eating breakfast. Comfortable, no acute distress. She is alert, awake, oriented times three. Cooperative. HEENT: Normocephalic, atraumatic. Moist oral mucosa. NECK: Supple. Trachea midline. CHEST: Symmetric chest rise. No accessory muscle use. Breath sounds were clear to auscultation bilaterally. HEART: Regular rate and rhythm. S1, S2 present. ABDOMEN: Soft, mildly tender to palpation suprapubic area. No guarding, no rebound, no peritoneal signs. EXTREMITIES: No pedal edema. Pedal pulses present bilaterally. LABORATORY DATA: WBC 5, hemoglobin 11.4 which is decreased from 12.8, hematocrit 34.4, platelets 231. Sodium 143, potassium 4.3, chloride 111, carbon dioxide 27, BUN 11, creatinine 0.91, glucose 106, calcium 8.4, magnesium 2.1. CRP is negative. IMAGING: CT abdomen and pelvis showed status post hysterectomy, 4.7 cystic lesion in left ovary, partial small bowel obstruction pattern with dilated jejunal loops and decompressed ileal loops. No obstructive lesion. Minimal fluid in the cul-de-sac. IMPRESSION AND PLAN: Ms. Simms is a 46-year-old female with history of adenomyosis status post total abdominal hysterectomy, presents with worsening abdominal pain and possible opiate withdrawal. 1. Abdominal pain. CT findings show a 4.7 cm cyst in her left ovary with a small amount of fluid in the cul-de-sac. Case discussed with Dr. Osborne. Per Dr. Osborne, the patient had already been seen by him outside in the past. She was supposed to followup with him; however, this was somehow not followed through. Although CT imaging showed an increase in her cystic lesion compared to the prior records, he does not think that she will benefit from surgery as this is not likely to be the cause of her pain and might worsen her adhesions and scarring. However, he did recommend to check pelvic ultrasound and also repeat in 6-8 weeks to reevaluate the size of the cyst. He would like to also see the patient whenever she is discharged. 2. Abnormal CT. CT abdomen and pelvis showed dilated jejunal loops and decompressed ileal loops, which was concerning for partial small bowel obstruction. However, the case was discussed between admitting provider and Dr. Irby, and at this time, it is believed that she likely does not have any small bowel obstruction. She appears to be tolerating oral diet well this morning. 3 Diarrhea. Has not had a bowel movement documented in the system since she got admitted. She is currently on pain regimen including morphine 2 mg IV, ibuprofen 400 every six, Percocet every four. 4. Anxiety. She is currently on Klonopin 1 mg by mouth twice a day as needed. 5. Obstructive sleep apnea (NIRALI). Recommend bringing in her home continuous positive airway pressure (CPAP). 6. Asthma. Continue Proventil two puffs every four hours. Symbicort two puffs inhaled twice a day. 7. Insomnia. She has trazodone by mouth at bedtime as needed. 8. Substance abuse. The patient has a history of abusing narcotics, both prescribed medications and also buying drugs off the street. This will continue to complicate medical management. 9. Deep venous thrombosis (DVT) prophylaxis. Sequential compression devices (SCDs), thromboembolism deterrent stockings (TEDs) and heparin. My preceptor for this patient encounter was Juan Carlos Taveras MD. The preceptor was physically present in the building during the encounter and was fully available as needed. All aspects of the patient interview, examination, medical decision making process, and medical care plan development were reviewed and approved by the preceptor. The preceptor is aware and concurs with the plan as stated in the body of this note and will attest to such by his/her co-signature. TRE
[2016-06-17] MEDS: traZODone 100 MG TAB PO PRN (20:53)
[2016-06-17 22:00] VITALS: BP 120/66
[2016-06-18] MEDS: MORPHINE 2 MG/ML 1ML SYRINGE IV PRN ×5 (02:12→17:47)
[2016-06-18] MEDS: NS 1,000 ML IV SCH ×3 (03:06→22:54)
--- NOTE | 2016-06-18 04:48 | REP ---
Clinical: Follow-up ovarian cyst. Comparison: CT dated 06/16/2016 . Technique: Transabdominal pelvic ultrasound followed by transvaginal examination for better evaluation of the adnexa with color Doppler evaluation of the ovary. Findings: Bladder is unremarkable and measures 7.9 x 8.7 x 6.9 cm . The patient is noted to be status post hysterectomy and right oophorectomy. Left ovary measures 4.9 x 4.4 x 4.2 cm and is dominated by a 4.1 cm cyst with mural soft tissue component measuring 2.7 cm maximal diameter. The left ovary demonstrates normal vascularity without evidence for torsion; RI equal 0.62. Trace pelvic free fluid is appreciated and likely physiologic. Impression: 1. 4.1 cm complex left ovarian cyst with mural soft tissue component. Finding likely represents a physiologic hemorrhagic cyst given the fact that it was not present on prior CTs dated 09/18/2015 or 10/24/2013 and only visible on recent CT dated 06/16/2016. Follow-up ultrasound in 4-6 weeks may be warranted to evaluate for resolution. Signed by Max Salazar MD 06/18/2016 04:40 A
[2016-06-18 06:00] VITALS: BP 127/59
[2016-06-18] MEDS: HEPARIN SOD (PORCINE) 5000 UNITS/ML VIAL SC SCH ×3 (06:03→21:51)
[2016-06-18] MEDS: PERCOCET 5MG/325MG TAB PO PRN ×3 (06:03→16:44)
[2016-06-18 07:03] LABS: ANION GAP 10 MEQ/L (8-16); BLOOD UREA NITROGEN 8 MG/DL (7-18); CALCIUM LEVEL 7.9 MG/DL (8.5-10.1); CARBON DIOXIDE LEVEL 22 MEQ/L (21-32); CHLORIDE LEVEL 113 MEQ/L (98-107); CREATININE FOR GFR 0.84 MG/DL (0.55-1.02); GLOMERULAR FILTRATION RATE > 60.0 (>58); GLUCOSE, FASTING 141 MG/DL (70-105); MAGNESIUM LEVEL 1.9 MG/DL (1.8-2.4); POTASSIUM SERUM 3.7 MEQ/L (3.5-5.1); SODIUM LEVEL 145 MEQ/L (136-145)
[2016-06-18 07:12] LABS: MEAN CORPUSCULAR HEMOGLOBIN 32.9 pg (27.0-33.0); MEAN CORPUSCULAR HGB CONC 32.9 g/dl (32.0-36.5); MEAN CORPUSCULAR VOLUME 99.9 fl (80.0-96.0); RED CELL DISTRIBUTION WIDTH 13.1 % (11.5-14.5); WHITE BLOOD COUNT 5.5 K/mm3 (4.0-10.0)
[2016-06-18] MEDS: SYMBICORT 160/4.5MCG INHALER 6GM INH SCH ×2 (07:16→21:00)
[2016-06-18] MEDS: PANTOPRAZOLE 40MG INJ (PROTONIX) (C9113) IV SCH (07:49)
[2016-06-18] MEDS: SENOKOT S TAB PO SCH ×2 (07:49→20:16)
[2016-06-18] MEDS: MIRALAX *UNIT DOSE* 17GM PACKET PO SCH ×2 (07:49→20:17)
[2016-06-18] MEDS: FLUoxetine 10 MG CAP PO SCH (07:49)
[2016-06-18] MEDS: clonazePAM 1 MG TAB PO PRN (08:03)
[2016-06-18] MEDS ORDERED: MOM 30ML SUSPENSION UDC PO SCH (09:00)
[2016-06-18] MEDS ORDERED: FLEET ENEMA PR PRN (14:45)
--- NOTE | 2016-06-18 14:47 | EDDOCDS ---
Physician Documentation [facility] Name: Grant Simms Age: 46 yrs Sex: Female : 1970 Arrival Date: 06/16/2016 Time: 08:08 Bed 7 Private MD: Disposition: 06/16/16 10:23 Hospitalization ordered by Carol Grande for Inpatient Admission. Preliminary diagnosis is Abdominal and pelvic pain. - Bed requested for 4 [place]. - Status is Inpatient Admission. ck1 - Condition is Stable. - Problem is chronic. - Symptoms have worsened. Historical: - Allergies: no known allergies; - Home Meds: 1. Klonopin 1 mg Oral tab 1 tab 2 times per day 2. Trazodone 250mg Oral 3. Prozac 10 mg Oral cap once daily 4. albuterol sulfate 90 mcg/actuation Inhl HFAA prn 5. Dulera inhalation 2 puffs 2 times per day - PMHx: Asthma; chronic abdominal pain; GERD; Sleep Apnea w/ CPAP; - PSHx: Hysterectomy; ; ovarian cyst removal; - Social history: Smoking status: Patient uses tobacco products, current some day smoker. No barriers to communication noted, The patient speaks fluent Tajik. - Family history: Not pertinent. - : The pt / caregiver states he / she is not on anticoagulants. Home medication list is obtained from the patient. - Exposure Risk Screening:: None identified. 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 8 in. (172.72 cm); Pain 9/10; 09:20 BP 132 / 78; Pulse 72; Resp 18; Temp 98.7(O); Pulse Ox 99% on R/A; Pain 5/10; ck1 12:00 BP 153 / 66; Pulse 64; Resp 18; Temp 98.1(O); Pulse Ox 99% on R/A; Pain 10/10; ck1 13:45 BP 126 / 64 LA Sitting (auto/lg); Pulse 73; Resp 20; Temp 99.5; Pulse Ox 99% on R/A; bnb Pain 9/10; 08:19 Body Mass Index 34.97 (104.33 kg, 172.72 cm) mcp MDM: 08:22 IV Saline Lock ordered. fg 08:22 Undress patient appropriately for examination ordered. fg 08:23 Basic Metabolic Profile Ordered. EDMS 08:23 CBC with Diff Ordered. EDMS 08:23 HCG,Serum Qualitative Ordered. EDMS 08:23 Lipase Ordered. EDMS 08:23 Liver Profile Ordered. EDMS 08:23 Urinalysis Ordered. EDMS 08:23 Urine Culture Ordered. EDMS 08:25 ECG WITH READING ER PHYS+CARDIAG ordered. EDMS 08:54 Dilaudid - HYDROmorphone 1 mg IVP once ordered. fg 08:54 Ondansetron 4 mg IVP once ordered. fg 08:56 CT ABD & PELVIS: IV Contrast Only Ordered. EDMS 09:07 Financial registration complete. lg 09:20 [facility] Payment Agreement was scanned into [employer] and attached to record. lg 10:02 GC & Chlamydia Amplification Ordered. EDMS 10:02 Wet Prep Ordered. EDMS 10:23 BED REQUEST+ADM ordered. EDMS 10:51 Dilaudid - HYDROmorphone 1 mg IVP once ordered. fg 10:51 LORazepam 0.5 mg IVP once ordered. fg 11:33 LACTIC ACID LEVEL, LACTATE Ordered. EDMS 11:33 STOOL SODIUM Ordered. EDMS 11:33 STOOL POTASSIUM Ordered. EDMS 11:33 STOOL CHLORIDE Ordered. EDMS 11:33 OSMOLARITY STOOL Ordered. EDMS 11:33 STOOL POLYS Ordered. EDMS 11:33 GASTROINTESTINAL (GI) PANEL Ordered. EDMS 11:42 Admission / Observation Status ordered. EDMS 12:04 REGULAR DIET ordered. EDMS 13:28 T-Sheet-- Draft Copy was scanned into [employer] and attached to record. gb 15:17 ECG/EKG was scanned into [employer] and attached to record. gb Administered Medications: 09:02 Drug: Dilaudid - HYDROmorphone 1 mg [hydromorphone 1 mg/mL injection syringe (1 mL)] ck1 Route: IVP; Site: left hand; 09:20 Follow up: BP 132 / 78; Pulse 72 bpm; Resp 18 bpm; Temp 98.7 Oral; Pulse Ox 99% RA; ck1 Pain 5/10 Adult; Response: Confirmed pt not driving.; No Adverse Reaction; Pain is decreased 09:02 Drug: Ondansetron 4 mg [ondansetron HCl 2 mg/mL intravenous solution (2 mL)] Route: ck1 IVP; Site: left hand; 11:05 Drug: Dilaudid - HYDROmorphone 1 mg [hydromorphone 1 mg/mL injection syringe (1 mL)] ck1 Route: IVP; Site: left hand; 12:00 Follow up: BP 153 / 66; Pulse 64 bpm; Resp 18 bpm; Temp 98.1 Oral; Pulse Ox 99% RA; ck1 Pain 03/01 Adult; Response: Confirmed pt not driving.; No Adverse Reaction; No significant change. 11:05 Drug: LORazepam 0.5 mg [lorazepam 2 mg/mL injection solution (0.25 mL)] Route: IVP; ck1 Site: left hand; Signatures: Dispatcher [employer] Danielle Oro RN RN [facility] Maryam Hall, Reg Reg gb Yumiko Diaz, Reg Reg lg Lula Dominguez RN RN ck1 Harsh Russell, TUSHAR MANAGER BUSINESS PROCESS William Benavides RN RN [facility] Flor Starr MD MD The chart was reviewed and I authenticate all verbal orders and agree with the evaluation and treatment provided.Corrections: (The following items were deleted from the chart) 11:33 11:33 GASTROINTESTINAL (GI) PANEL ordered. EDMS EDMS 11:33 11:33 GASTROINTESTINAL (GI) PANEL ordered. EDMS EDMS 12:04 08:23 NOTHING BY MOUTH+DIET ordered. EDMS EDMS Attachments: 09:20 [facility] Payment Agreement lg 13:28 T-Sheet-- Draft Copy gb 15:17 ECG/EKG gb Chart Complete [facility]
--- NOTE | 2016-06-18 14:47 | EDDOCDS ---
Physician Documentation [facility] Name: Grant Simms Age: 46 yrs Sex: Female : 1970 Arrival Date: 06/16/2016 Time: 08:08 Bed 7 Private MD: Disposition: 06/16/16 10:23 Hospitalization ordered by Carol Grande for Inpatient Admission. Preliminary diagnosis is Abdominal and pelvic pain. - Bed requested for 4 [place]. - Status is Inpatient Admission. ck1 - Condition is Stable. - Problem is chronic. - Symptoms have worsened. Historical: - Allergies: no known allergies; - Home Meds: 1. Klonopin 1 mg Oral tab 1 tab 2 times per day 2. Trazodone 250mg Oral 3. Prozac 10 mg Oral cap once daily 4. albuterol sulfate 90 mcg/actuation Inhl HFAA prn 5. Dulera inhalation 2 puffs 2 times per day - PMHx: Asthma; chronic abdominal pain; GERD; Sleep Apnea w/ CPAP; - PSHx: Hysterectomy; ; ovarian cyst removal; - Social history: Smoking status: Patient uses tobacco products, current some day smoker. No barriers to communication noted, The patient speaks fluent Hungarian. - Family history: Not pertinent. - : The pt / caregiver states he / she is not on anticoagulants. Home medication list is obtained from the patient. - Exposure Risk Screening:: None identified. 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 8 in. (172.72 cm); Pain 9/10; 09:20 BP 132 / 78; Pulse 72; Resp 18; Temp 98.7(O); Pulse Ox 99% on R/A; Pain 5/10; ck1 12:00 BP 153 / 66; Pulse 64; Resp 18; Temp 98.1(O); Pulse Ox 99% on R/A; Pain 10/10; ck1 13:45 BP 126 / 64 LA Sitting (auto/lg); Pulse 73; Resp 20; Temp 99.5; Pulse Ox 99% on R/A; bnb Pain 9/10; 08:19 Body Mass Index 34.97 (104.33 kg, 172.72 cm) mcp MDM: 08:22 IV Saline Lock ordered. fg 08:22 Undress patient appropriately for examination ordered. fg 08:23 Basic Metabolic Profile Ordered. EDMS 08:23 CBC with Diff Ordered. EDMS 08:23 HCG,Serum Qualitative Ordered. EDMS 08:23 Lipase Ordered. EDMS 08:23 Liver Profile Ordered. EDMS 08:23 Urinalysis Ordered. EDMS 08:23 Urine Culture Ordered. EDMS 08:25 ECG WITH READING ER PHYS+CARDIAG ordered. EDMS 08:54 Dilaudid - HYDROmorphone 1 mg IVP once ordered. fg 08:54 Ondansetron 4 mg IVP once ordered. fg 08:56 CT ABD & PELVIS: IV Contrast Only Ordered. EDMS 09:07 Financial registration complete. lg 09:20 [facility] [place] Agreement was scanned into [email or web address] and attached to record. lg 10:02 GC & Chlamydia Amplification Ordered. EDMS 10:02 Wet Prep Ordered. EDMS 10:23 BED REQUEST+ADM ordered. EDMS 10:51 Dilaudid - HYDROmorphone 1 mg IVP once ordered. fg 10:51 LORazepam 0.5 mg IVP once ordered. fg 11:33 LACTIC ACID LEVEL, LACTATE Ordered. EDMS 11:33 STOOL SODIUM Ordered. EDMS 11:33 STOOL POTASSIUM Ordered. EDMS 11:33 STOOL CHLORIDE Ordered. EDMS 11:33 OSMOLARITY STOOL Ordered. EDMS 11:33 STOOL POLYS Ordered. EDMS 11:33 GASTROINTESTINAL (GI) PANEL Ordered. EDMS 11:42 Admission / Observation Status ordered. EDMS 12:04 REGULAR DIET ordered. EDMS 13:28 T-Sheet-- Draft Copy was scanned into [email or web address] and attached to record. gb 15:17 ECG/EKG was scanned into [email or web address] and attached to record. gb Administered Medications: 09:02 Drug: Dilaudid - HYDROmorphone 1 mg [hydromorphone 1 mg/mL injection syringe (1 mL)] ck1 Route: IVP; Site: left hand; 09:20 Follow up: BP 132 / 78; Pulse 72 bpm; Resp 18 bpm; Temp 98.7 Oral; Pulse Ox 99% RA; ck1 Pain 5/10 Adult; Response: Confirmed pt not driving.; No Adverse Reaction; Pain is decreased 09:02 Drug: Ondansetron 4 mg [ondansetron HCl 2 mg/mL intravenous solution (2 mL)] Route: ck1 IVP; Site: left hand; 11:05 Drug: Dilaudid - HYDROmorphone 1 mg [hydromorphone 1 mg/mL injection syringe (1 mL)] ck1 Route: IVP; Site: left hand; 12:00 Follow up: BP 153 / 66; Pulse 64 bpm; Resp 18 bpm; Temp 98.1 Oral; Pulse Ox 99% RA; ck1 Pain 03/01 Adult; Response: Confirmed pt not driving.; No Adverse Reaction; No significant change. 11:05 Drug: LORazepam 0.5 mg [lorazepam 2 mg/mL injection solution (0.25 mL)] Route: IVP; ck1 Site: left hand; Signatures: Dispatcher [employer] Danielle Oro RN RN [facility] Maryam Hall, Reg Reg gb Yumiko Diaz, Reg Reg lg Lula Dominguez RN RN ck1 Harsh Russell, TUSHAR CARPENTER APPRENTICE William Benavides RN RN [facility] Flor Starr MD MD The chart was reviewed and I authenticate all verbal orders and agree with the evaluation and treatment provided.Corrections: (The following items were deleted from the chart) 11:33 11:33 GASTROINTESTINAL (GI) PANEL ordered. EDMS EDMS 11:33 11:33 GASTROINTESTINAL (GI) PANEL ordered. EDMS EDMS 12:04 08:23 NOTHING BY MOUTH+DIET ordered. EDMS EDMS Attachments: 09:20 [facility] Payment Agreement lg 13:28 T-Sheet-- Draft Copy gb 15:17 ECG/EKG gb Chart [facility]
--- NOTE | 2016-06-18 14:48 | EDDOCDS ---
Nurse's Notes [facility] Name: Grant Simms Age: 46 yrs Sex: Female : 1970 Arrival Date: 06/16/2016 Time: 08:08 Bed 7 Private MD: Diagnosis: Abdominal and pelvic pain Presentation: 06/16 08:16 Presenting complaint: Patient states: Has abdominal pain in lower abdomen. Risk mcp factors: the patient reports no vaginal bleeding. Adult Sepsis Screening: The patient does not have new or worsening altered mentation. Patient's respiratory rate is less than 22. Systolic blood pressure is greater than 100. Patient has a qSOFA score of 0- Negative Sepsis Screen. Suicide/Homicide risk assessment- the patient denies having any suicidal and/or homicidal ideations and does not present with any other emotional, behavioral or mental health complaints. 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 Transition of care: patient was not received from another setting of care. 08:16 Acuity: CONRAD Level 3 [facility] 08:16 Method Of Arrival: Walkin/Carried/Asstd [facility] Triage Assessment: 08:20 General: Appears uncomfortable, Behavior is cooperative. Pain: Location: suprapubic [facility] area Pain currently is 9 out of 10 on a pain scale. HIV screening NA for this visit Offered previously. Neurological: No deficits noted. Respiratory: Airway is patent Respiratory effort is even, unlabored. GI: Reports lower abdominal pain. Derm: Skin is normal. 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 Klonopin 1 mg Oral tab 1 tab 2 times per day 2. Trazodone 250mg Oral 3. Prozac 10 mg Oral cap once daily 4. albuterol sulfate 90 mcg/actuation Inhl HFAA prn 5. Dulera inhalation 2 puffs 2 times per day - PMHx: Asthma; chronic abdominal pain; GERD; Sleep Apnea w/ CPAP; - PSHx: Hysterectomy; ; ovarian cyst removal; - Social history: Smoking status: Patient uses tobacco products, current some day smoker. No barriers to communication noted, The patient speaks fluent Bermudian. - Family history: Not pertinent. - : The pt / caregiver states he / she is not on anticoagulants. Home medication list is obtained from the patient. - Exposure Risk Screening:: None identified. Screenin:35 Screening information is obtained from the patient. Fall risk: No risks identified. ck1 Assistance ADL's: requires no assistance with activities of daily living. Abuse/DV Screen: The patient / caregiver reports he/she is: not in a situation that causes fear, pain or injury. Nutritional screening: No deficits noted. Advance Directives: Currently, there is no health care proxy. home support is adequate. Assessment: 08:35 General: Appears distressed, Behavior is crying. Pain: Location: suprapubic area Pain ck1 currently is 9 out of 10 on a pain scale. Neurological: Level of Consciousness is awake, alert, obeys commands, Oriented to person, place, time. Respiratory: Respiratory effort is unlabored, Respiratory pattern is regular, symmetrical. GI: Abdomen is obese, Bowel sounds present X 4 quads. Abd is soft and non tender X 4 quads. Reports anorexia, nausea. : Reports discharge "inside vagina" Denies burning with urination, vaginal bleeding. Derm: Skin is pink, warm & dry. Musculoskeletal: No deficits noted. 09:24 General: Appears distressed, Behavior is crying. Pain: Location: suprapubic area Pain ck1 currently is 5 out of 10 on a pain scale. Neurological: Level of Consciousness is awake, alert, obeys commands, Oriented to person, place, time. Respiratory: Respiratory effort is unlabored, Respiratory pattern is regular, symmetrical. GI: No deficits noted. Derm: Skin is intact, is healthy with good turgor, Skin is pink, warm & dry. Musculoskeletal: Circulation, motion, and sensation intact Range of motion intact in all extremities. 10:23 Reassessment: Patient appears in no apparent distress at this time. ck1 11:06 General: Appears distressed, Behavior is anxious, crying. Pain: Location: suprapubic ck1 area Pain currently is 8 out of 10 on a pain scale. Neurological: Level of Consciousness is awake, alert, obeys commands, Oriented to person, place, time. Respiratory: Respiratory effort is unlabored, Respiratory pattern is regular, symmetrical. GI: Denies nausea, vomiting. Derm: Skin is intact, is healthy with good turgor, Skin is pink, warm & dry. 11:10 General: Patient requesting provider explain to daughter diagnosis and plan of care. ck1 Provider aware. 12:00 General: Appears distressed, Behavior is anxious. Pain: Location: abdomen Pain ck1 currently is 10 out of 10 on a pain scale. Neurological: Level of Consciousness is awake, alert, obeys commands, Oriented to person, place, time. Respiratory: Respiratory effort is unlabored, Respiratory pattern is regular, symmetrical. GI: Denies nausea, vomiting. Derm: Skin is intact, is healthy with good turgor, Skin is pink, warm & dry. Musculoskeletal: Circulation, motion, and sensation intact Range of motion intact in all extremities. 12:37 General: Nursing Security Escort in room to discuss treatment plan with patient and family. ck1 12:49 General: Patient is resting quietly on stretcher. No acute distress noted at this time. ck1 Daughter at bedside. Awaiting bed availability on 4 bee. Call light in reach, will continue to monitor patient. 13:45 General: Appears Patient is sitting up in stretcher talking on cell phone. Tolerating ck1 diet tray without difficulty, also tolerating food in to go container from cafeteria without difficulty. No acute distress noted. Vital Signs: 08:19 BP 140 / 88; Pulse 80; Resp 18; Temp 98.3; Pulse Ox 97% on R/A; Weight 104.33 kg; [facility] Height 5 ft. 8 in. (172.72 cm); Pain 9/10; 09:20 BP 132 / 78; Pulse 72; Resp 18; Temp 98.7(O); Pulse Ox 99% on R/A; Pain 5/10; ck1 12:00 BP 153 / 66; Pulse 64; Resp 18; Temp 98.1(O); Pulse Ox 99% on R/A; Pain 10/10; ck1 13:45 BP 126 / 64 LA Sitting (auto/lg); Pulse 73; Resp 20; Temp 99.5; Pulse Ox 99% on R/A; bnb Pain 9/10; 08:19 Body Mass Index 34.97 (104.33 kg, 172.72 cm) [facility] Vitals: 08:19 Log In Time: June 16, 2016 at 08:08. [facility] ED Course: 08:09 Patient visited by Ronan Kellogg. mm15 08:09 Patient moved to Waiting mm15 08:17 Triage Initiated [facility] 08:21 Patient visited by Danielle Herrera RN. [facility] 08:21 Flor Starr MD is Attending Physician. fg 08:21 Patient moved to 7 [facility] 08:24 Patient visited by Flor Starr MD. fg 08:27 Urinalysis Sent. ck1 08:27 Urine Culture Sent. ck1 08:34 Patient visited by Lula Dominguez,SUZETTE. ck1 08:34 Basic Metabolic Profile Sent. ck1 08:34 CBC with Diff Sent. ck1 08:34 HCG,Serum Qualitative Sent. ck1 08:34 Lipase Sent. ck1 08:34 Liver Profile Sent. ck1 08:35 The patient / caregiver is instructed regarding the plan of care and ED course. ck1 08:35 Inserted saline lock: 20 gauge in left hand and blood collected. The patient tolerated ck1 the procedure well. 08:46 Patient visited by Amanda Gonzalez PCA. bnb 08:46 EKG done. (by ED staff). Reviewed by Flor Starr MD. bnb 08:56 Assist provider with pelvic exam: Set up pelvic tray. Specimens sent to lab. Performed ck1 by Flor Starr MD Patient tolerated well. 09:02 Patient visited by Lula Dominguez,SUZETTE. 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 EDMS 09:20 [facility] Payment Agreement was scanned into [employer] and attached to record. lg 09:24 Patient visited by Lula Dominguez RN. ck1 09:40 Patient visited by Lula Dominguez RN. ck1 09:40 Warm blanket given. ck1 10:02 GC & Chlamydia Amplification Sent. ck1 10:02 Wet Prep Sent. ck1 10:03 Patient visited by Lula Dominguez,SUZETTE. ck1 10:16 CT ABD & PELVIS: IV Contrast Only Returned. EDMS 10:23 Carol Grande is Hospitalizing Provider. fg 13:20 Patient visited by Shelbi Flroes PCA. rs6 13:20 Diet: Patient given regular meal. Tolerated well. rs6 13:28 T-Sheet-- Draft Copy was scanned into [employer] and attached to record. gb 13:46 Patient visited by Amanda Gonzalez PCA. bnb 15:17 ECG/EKG was scanned into [employer] and attached to record. gb Administered Medications: 09:02 Drug: Dilaudid - HYDROmorphone 1 mg [hydromorphone 1 mg/mL injection syringe (1 mL)] ck1 Route: IVP; Site: left hand; 09:20 Follow up: BP 132 / 78; Pulse 72 bpm; Resp 18 bpm; Temp 98.7 Oral; Pulse Ox 99% RA; ck1 Pain 5/10 Adult; Response: Confirmed pt not driving.; No Adverse Reaction; Pain is decreased 09:02 Drug: Ondansetron 4 mg [ondansetron HCl 2 mg/mL intravenous solution (2 mL)] Route: ck1 IVP; Site: left hand; 11:05 Drug: Dilaudid - HYDROmorphone 1 mg [hydromorphone 1 mg/mL injection syringe (1 mL)] ck1 Route: IVP; Site: left hand; 12:00 Follow up: BP 153 / 66; Pulse 64 bpm; Resp 18 bpm; Temp 98.1 Oral; Pulse Ox 99% RA; ck1 Pain 10/10 Adult; Response: Confirmed pt not driving.; No Adverse Reaction; No significant change. 11:05 Drug: LORazepam 0.5 mg [lorazepam 2 mg/mL injection solution (0.25 mL)] Route: IVP; ck1 Site: left hand; Order Results: Lab Order: Basic Metabolic Profile; SPEC'M 06/16/16 08:33 Test: GLUCOSE, FASTING; Value: 100; Range: 70-105; Units: MG/DL; Status: F Test: BLOOD UREA NITROGEN; Value: 9; Range: 7-18; Units: MG/DL; Status: F Test: CREATININE FOR GFR; Value: 0.89; Range: 0.55-1.02; Units: MG/DL; Status: F Test: SODIUM LEVEL; Range: 136-145; Units: MEQ/L; Status: I Test: POTASSIUM SERUM; Range: 3.5-5.1; Units: MEQ/L; Status: I Test: CHLORIDE LEVEL; Range: 98-107; Units: MEQ/L; Status: I Test: CARBON DIOXIDE LEVEL; Range: 21-32; Units: MEQ/L; Status: I Test: ANION GAP; Range: 8-16; Units: MEQ/L; Status: I Test: CALCIUM LEVEL; Range: 8.5-10.1; Units: MG/DL; Status: I Test: GLOMERULAR FILTRATION RATE; Value: > 60.0; Range: >58; Status: F Test: SODIUM LEVEL; Value: 142; Range: 136-145; Units: MEQ/L; Status: F Test: POTASSIUM SERUM; Value: 3.6; Range: 3.5-5.1; Units: MEQ/L; Status: F Test: CHLORIDE LEVEL; Value: 108; Range: 98-107; Abnormal: Above high normal; Units: MEQ/L; Status: F Test: CARBON DIOXIDE LEVEL; Value: 25; Range: 21-32; Units: MEQ/L; Status: F Test: ANION GAP; Value: 9; Range: 8-16; Units: MEQ/L; Status: F Test: CALCIUM LEVEL; Value: 8.7; Range: 8.5-10.1; Units: MG/DL; Status: F Test Note: ; Units are mL/min/1.73 m2 Chronic Kidney Disease Staging per NKF: Stage I & II GFR >=60 Normal to Mildly Decreased Stage III GFR 30-59 Moderately Decreased Stage IV GFR 15-29 Severely Decreased Stage V GFR <15 Very Little GFR Left ESRD GFR <15 on TEA TASTER Lab Order: CBC with Diff; SPEC'M 06/16/16 08:33 Test: WHITE BLOOD COUNT; Value: 6.0; Range: 4.0-10.0; Units: K/mm3; Status: F Test: RED BLOOD COUNT; Value: 3.80; Range: 4.00-5.40; Abnormal: Below low normal; Units: M/mm3; Status: F Test: HEMOGLOBIN; Value: 12.8; Range: 12.0-16.0; Units: g/dl; Status: F Test: HEMATOCRIT; Value: 37.1; Range: 36.0-47.0; Units: %; Status: F Test: MEAN CORPUSCULAR VOLUME; Value: 97.6; Range: 80.0-96.0; Abnormal: Above high normal; Units: fl; Status: F Test: MEAN CORPUSCULAR HEMOGLOBIN; Value: 33.6; Range: 27.0-33.0; Abnormal: Above high normal; Units: pg; Status: F Test: MEAN CORPUSCULAR HGB CONC; Value: 34.4; Range: 32.0-36.5; Units: g/dl; Status: F Test: RED CELL DISTRIBUTION WIDTH; Value: 12.1; Range: 11.5-14.5; Units: %; Status: F Test: PLATELET COUNT, AUTOMATED; Value: 266; Range: 150-450; Units: k/mm3; Status: F Test: NEUTROPHILS %; Value: 46.4; Range: 36.0-66.0; Units: %; Status: F Test: LYMPH %; Value: 45.6; Range: 24.0-44.0; Abnormal: Above high normal; Units: %; Status: F Test: MONO %; Value: 3.8; Range: 0.0-5.0; Units: %; Status: F Test: EOS %; Value: 1.4; Range: 0.0-3.0; Units: %; Status: F Test: BASO %; Value: 0.6; Range: 0.0-1.0; Units: %; Status: F Test: LARGE UNSTAINED CELL %; Value: 2.2; Range: 0.0-4.0; Units: %; Status: F Test: NEUTROPHILS #; Value: 2.8; Range: 1.8-7.7; Units: K/mm3; Status: F Test: LYMPH #; Value: 2.7; Range: 1.5-4.5; Units: K/mm3; Status: F Test: MONO #; Value: 0.2; Range: 0.0-0.8; Units: K/mm3; Status: F Test: EOS #; Value: 0.1; Range: 0.0-0.50; Units: K/mm3; Status: F Test: BASO #; Value: 0.0; Range: 0.0-0.2; Units: K/mm3; Status: F Test: LARGE UNSTAINED CELL #; Value: 0.1; Range: 0.0-0.4; Units: K/mm3; Status: F Lab Order: HCG,Serum Qualitative; SPEC'M 06/16/16 08:33 Test: HCG, SERUM QUALITATIVE; Value: NEGATIVE; Range: NEGATIVE; Status: F Lab Order: Lipase; SPEC'M 06/16/16 08:33 Test: LIPASE; Value: 94; Range: 73-393; Units: U/L; Status: F Lab Order: Liver Profile; SPEC'M 06/16/16 08:33 Test: AST/SGOT; Value: 30; Range: 15-37; Units: U/L; Status: F Test: ALT/SGPT; Value: 43; Range: 12-78; Units: U/L; Status: F Test: ALKALINE PHOSPHATASE; Value: 59; Range: 45-117; Units: U/L; Status: F Test: BILIRUBIN,TOTAL; Value: 0.7; Range: 0.2-1.0; Units: MG/DL; Status: F Test: BILIRUBIN,DIRECT; Value: 0.2; Range: 0.0-0.2; Units: MG/DL; Status: F Test: TOTAL PROTEIN; Value: 7.7; Range: 6.4-8.2; Units: GM/DL; Status: F Test: ALBUMIN; Value: 3.8; Range: 3.2-5.2; Units: GM/DL; Status: F Test: ALBUMIN/GLOBULIN RATIO; Value: 0.97; Range: 1.00-1.93; Abnormal: Below low normal; Status: F Lab Order: Urinalysis; SPEC'M 06/16/16 08:26 Test: APPEARANCE, URINE; Value: CLEAR; Range: CLEAR; Status: F Test: COLOR, URINE; Value: YELLOW; Range: YELLOW; Status: F Test: PH,URINE; Value: 5.0; Range: 5.0-9.0; Units: UNITS; Status: F Test: SPECIFIC GRAVITY URINE AUTO; Value: 1.029; Range: 1.002-1.035; Status: F Test: PROTEIN, URINE AUTO; Value: NEGATIVE; Range: NEGATIVE; Units: mg/dL; Status: F Test: GLUCOSE, URINE (UA) AUTO; Value: NEGATIVE; Range: NEGATIVE; Units: mg/dL; Status: F Test: KETONE, URINE AUTO; Value: TRACE; Range: NEGATIVE; Abnormal: Above high normal; Units: mg/dL; Status: F Test: UROBILINOGEN, URINE AUTO; Value: 0.2; Range: 0.0-2.0; Units: mg/dL; Status: F Test: BILIRUBIN, URINE AUTO; Value: NEGATIVE; Range: NEGATIVE; Status: F Test: NITRITE, URINE AUTO; Value: NEGATIVE; Range: NEGATIVE; Status: F Test: LEUKOCYTE ESTERASE, URINE AUTO; Value: NEGATIVE; Range: NEGATIVE; Status: F Test: BLOOD, URINE BLOOD; Value: 2+; Range: NEGATIVE; Abnormal: Above high normal; Status: F Test: WBC, URINE AUTO; Value: 1; Range: 0-3; Units: /HPF; Status: F Test: RBC, URINE AUTO; Value: 16; Range: 0-3; Abnormal: Above high normal; Units: /HPF; Status: F Test: BACTERIA, URINE AUTO; Value: NEGATIVE; Range: NEGATIVE; Status: F Test: SQUAMOUS EPITHELIAL CELL UR AU; Value: 4; Range: 0-6; Units: /HPF; Status: F Test: MUCUS, URINE; Value: SMALL; Range: NEGATIVE; Status: F Test: HYALINE CAST, URINE AUTO; Value: 0; Range: 0-1; Units: /LPF; Status: F Lab Order: Wet Prep; SPEC'M 06/16/16 08:54 Test: WET PREP; Value: WET PREP RESULT; Status: F Test: WET PREP; Value: MANY EPITHELIAL CELLS PRESENT; Status: F Test: WET PREP; Value: FEW SHORT RODS PRESENT; Status: F Test: WET PREP; Value: Comments:; Status: F Test Note: ; Specimen did not meet the 1 hour time limit from collection to examination. Trichomonas vaginalis loses motility quickly therefore, samples need to be examined within 1 hour of collection to optimally identify this organism. Lab Order: GC & Chlamydia Amplification; SPEC'M 06/16/16 08:54 Test: CHLAMYDIA DNA AMPLIFICATION; Value: NEGATIVE; Range: NEGATIVE; Status: F Test: GC DNA AMPLIFICATION; Value: NEGATIVE; Range: NEGATIVE; Status: F Lab Order: LACTIC ACID LEVEL, LACTATE; SPEC'M 06/16/16 11:45 Test: LACTIC ACID LEVEL, LACTATE; Value: 0.7; Range: 0.4-2.0; Units: MMOL/L; Status: F Radiology Order: CT ABD & PELVIS: IV Contrast Only Test: CT ABD & PELVIS: IV Contrast Only REASON FOR EXAMINATION: Abdomen Pain; CT STUDY OF THE ABDOMEN AND PELVIS WITH IV BUT WITHOUT ORAL CONTRAST:; ; HISTORY: Abdominal pain.; ; CT contrast dose: 100 mL of Isovue 370 is administered intravenously by auto; injector.; ; FINDINGS: Digital preliminary beater dumper radiograph demonstrates dilated loops of; small bowel in the left mid abdomen. Axial images show that the lung bases are; clear. There is no evidence of pleural effusion. The liver and the spleen are; normal in size and homogeneous in texture. Gallbladder and pancreas show no; abnormality. No adrenal lesion is seen on either side. The kidneys enhance; symmetrically and are morphologically intact. No retroperitoneal mass or; adenopathy is observed. Normal caliber aorta is seen with some vascular; calcification.; ; There is no evidence of free intraperitoneal air. There are air-filled, mildly; dilated loops of jejunum in the left mid and upper abdomen. The distal ileum is; decompressed suggesting partial small bowel obstruction. No mass lesion is; appreciated. There is no evidence of abdominal wall defect. A normal appendix; is seen.; ; The patient is status post hysterectomy. There is a cyst in the left ovary; measuring 4.7 cm in greatest diameter. A small quantity of fluid is seen in the; cul-de-sac. No pelvic mass or adenopathy is appreciated otherwise. Bone window; settings show no bony destructive lesion.; ; IMPRESSION:; Patient status post hysterectomy. 4.7 cm cystic lesion in the left ovary.; Partial small bowel obstruction pattern with dilated jejunal loops and; decompressed ileal loops. No obstructive lesion is seen. No free air is seen.; Minimal fluid in the cul-de-sac.; ; ; ; ; Unreviewed; Outcome: 09:40 CT Study completed. ck1 10:23 Decision to Hospitalize by Provider. fg 13:38 Discharge Assessment: Patient awake, alert and oriented x 3. No cognitive and/or ck1 functional deficits noted. Patient verbalized understanding of disposition instructions. patient administered narcotics - yes. Patient was admitted to the hospital or transferred to another facility. The following High Risk Discharge criteria are identified: None. Admitted to Med/Surg accompanied by tech, via wheelchair, with chart. Condition: stable. Admission hand-off: Report Faxed Fax receipt verified by SUZETTE Leblanc. Property :Personal belongings accompany Pt. 13:47 Patient left the ED. ck1 Signatures: [facility] Danielle [facility], RN RN mcp Maryam Hall, Reg Reg gb Yumiko Diaz, Reg Reg lg Lula Dominguez,SUZETTE RN ck1 Ronan Kellogg mm15 Sandra, Shelbi, BOOT AND SHOE REPAIRMAN BOOT AND SHOE REPAIRMAN rs6 Flor Starr MD MD Amanda Gonzalez, BOOT AND SHOE REPAIRMAN BOOT AND SHOE REPAIRMAN bnb Chart Complete MTDD
[2016-06-18] MEDS: LACTULOSE 20 GM/30 ML SYRUP UD PO SCH ×2 (16:44→20:16)
--- NOTE | 2016-06-18 17:06 | CR ---
DATE OF CONSULTATION: 06/18/2016 CHIEF COMPLAINT: Abdominal pain. HISTORY OF PRESENT ILLNESS: Grant is a 46-year-old female with a 2-year history of abdominal pain. History of six section incisions. Also states she had a hysterectomy, which did not relieve pain. Was recently weaned down to 4 tablets from 8 tablets of Percocet 5-325 a day by family practice at [facility]. Actually, the patient states she was stopped completely two weeks ago. States that pain became unbearable in the suprapubic area. Describes pain as stabbing all the way through to her spine. Has trialed multiple different neuropathic pain medications without improvement in pain over the years. Has trialed what sounds like scar neuroma injections at [facility] here locally without improvement. Rating pain level as a 5/10. Currently receiving Percocet as needed (p.r.n.) and IV morphine p.r.n. that does seem to help for a short time. Also, the patient reports no bowel movement in 3 days. PAST MEDICAL HISTORY: Asthma, chronic abdominal pain, gastroesophageal reflux disease, obstructive sleep apnea (NIRALI). PAST SURGICAL HISTORY: Hysterectomy, , ovarian cyst removal. FAMILY HISTORY: Noncontributory. SOCIAL HISTORY: Current smoker, one pack every 2 weeks. Alcohol occasional every week. Apparently has reported at one point that she has obtained opioids on the street. She does works nights. REVIEW OF SYSTEMS: Constitutional: Denies recent fever, illness or weight loss. Eyes: Denies pain or visual changes. ENT: Denies dysphasia or headaches. Skin: Denies skin rash or lesions. Pulmonary: Denies cough or shortness of breath. Cardiovascular: Denies chest pain or palpitations. Gastrointestinal: Reporting abdominal pain, diarrhea, nausea, vomiting and constipation. : Denies dysuria. Denies frequency. Hematologic: Denies bleeding or excessive bruising. Endocrine: Denies polydipsia or polyphagia. Neurological: Denies numbness or weakness. Psychological: Reports chronic anxiety. Denies depression. PHYSICAL EXAMINATION: Awake, alert. Mild distress. Vital signs: 98.4, 62, 17, BP 127/59, O2 sats 94% on room air. Cardiac: S1-S2, normal rate and rhythm. Respiratory: Lung sounds clear. Respirations nonlabored. Abdomen is soft times four quadrants. Positive for bowel sounds x4 quadrants. Mildly tender over the left lower quadrant. The patient reports pain with light palpation over suprapubic scar. No redness or swelling noted. ASSESSMENT: Chronic abdominal pain. PLAN: I would recommend a trial of OxyContin 15 mg three times a day. Recommend stopping Percocet. Continue morphine IV periodically. She has exhausted all other conservative measures. Obviously she would need close monitoring upon discharge. Continue bowel regimen of Colace 100 mg three times a day. Thank you for allowing us to participate in the care of your patient. Should you have any questions or concerns please do not hesitate to contact me. Sincerely, Ena Flores Pain Management [facility]
[2016-06-18] MEDS: MOM 30ML SUSPENSION UDC PO SCH ×2 (17:46→22:54)
--- NOTE | 2016-06-18 18:06 | IPNPDOC ---
Text Note Date of Service The patient was seen on 06/18/16 at 17:46. NOTE Subjective: Patient states that she still has pelvic/suprapubic pain. Is very concerned about this ovarian cyst that was noted. I did spend more than 45 minutes discussing the findings on imaging as well as the recommendations of Dr. Regalado and Dr. Anne. Dr. Regalado has recommended an outpatient follow-up, and can be seen as soon as one week after discharge. The patient also had a pelvic ultrasound which was noted to be repeated in 4-6 weeks. I have explained to the patient these recommendations as this is said to be an outpatient follow- up per the grocery deliverer. The patient was also upset about her previous managements of her pain prior to presentation to the ED. She states that's her pain medications were stopped in the clinic. I have reassured her that we will be having her pain specialist evaluating her so that we may better control her pain. The patient was very tearful and upset and frustrated, and I have done my best to reassure her that we will help her obtain close outpt follow up on discharge. I have attempted to make a gynecology referral so that the patient may see Dr. Regalado as soon as possible after being discharged, however the office stated that the primary care physician will need to refer her. I have also spoken to Dr. Anne who does not feel that this is a bowel obstruction. Dr. Barnes was also contacted, and has agreed to evaluate the patient tomorrow morning. The patient states that if he tells her that she will need to follow- up outpatient and have her imaging repeated, she will leave here with her medical reports and seek a second opinion. I reassured her that she is well within her rights. She also states she would not want to go back to the resident clinic. Objective: Vitals: (see below) General: No acute distress, laying comfortably in bed. HEENT: Moist mucous membranes. Neck: No JVD or lymphadenopathy Cardiac: RRR, No murmurs Pulm: Clear to auscultation b/l. No wheezing, rhonchi Abd: Tenderness to palpation in the suprapubic region/ left lower quadrant. No rebound guarding or rigidity.ND + BS Ext: No edema or cyanosis Labs (see below) Images: CT abdomen/pelvis with contrast 06/18/16 FINDINGS: Digital preliminary prison officer radiograph demonstrates dilated loops of small bowel in the left mid abdomen. Axial images show that the lung bases are clear. There is no evidence of pleural effusion. The liver and the spleen are normal in size and homogeneous in texture. Gallbladder and pancreas show no abnormality. No adrenal lesion is seen on either side. The kidneys enhance symmetrically and are morphologically intact. No retroperitoneal mass or adenopathy is observed. Normal caliber aorta is seen with some vascular calcification. There is no evidence of free intraperitoneal air. There are air-filled, mildly dilated loops of jejunum in the left mid and upper abdomen. The distal ileum is decompressed suggesting partial small bowel obstruction. No mass lesion is appreciated. There is no evidence of abdominal wall defect. A normal appendix is seen. The patient is status post hysterectomy. There is a cyst in the left ovary measuring 4.7 cm in greatest diameter. A small quantity of fluid is seen in the cul-de-sac. No pelvic mass or adenopathy is appreciated otherwise. Bone window settings show no bony destructive lesion. IMPRESSION: Patient status post hysterectomy. 4.7 cm cystic lesion in the left ovary. Partial small bowel obstruction pattern with dilated jejunal loops and decompressed ileal loops. No obstructive lesion is seen. No free air is seen. Minimal fluid in the cul-de-sac. Pelvic u/s 06/18/16 Findings: Bladder is unremarkable and measures 7.9 x 8.7 x 6.9 cm . The patient is noted to be status post hysterectomy and right oophorectomy. Left ovary measures 4.9 x 4.4 x 4.2 cm and is dominated by a 4.1 cm cyst with mural soft tissue component measuring 2.7 cm maximal diameter. The left ovary demonstrates normal vascularity without evidence for torsion; RI equal 0.62. Trace pelvic free fluid is appreciated and likely physiologic. Impression: 1. 4.1 cm complex left ovarian cyst with mural soft tissue component. Finding likely represents a physiologic hemorrhagic cyst given the fact that it was not present on prior CTs dated 09/18/2015 or 10/24/2013 and only visible on recent CT dated 06/16/2016. Follow-up ultrasound in 4-6 weeks may be warranted to evaluate for resolution. Assessment/Plan 1. Acute on chronic abdominal pain- the patient has been evaluated outpatient for her chronic pain has felt to be secondary to possible scar tissue from her multiple abdominal surgeries. Patient was previously being followed in the resident clinic, and has been noted to have taken Vicodin on top of her prescribed opioid medications. Given multiple attempts to obtain a urine drug screen, and taking additional pain medications than prescribed, the patient's pain medication was stopped outpatient. Patient now presents with acute on chronic suprapubic pain, and initially had a CAT scan of the abdomen and pelvis which was thought to have a partial small bowel obstruction. Dr. Anne has evaluated the patient and does not believe that this is a small bowel obstruction. The patient was also noted to have an enlarged ovary with a greater than 4 cm cyst. A follow-up pelvic ultrasound was done noting this cystic lesion which may represent a hemorrhagic cyst. Dr. Regalado was contacted and recommended an outpatient follow-up in his clinic, as he has seen her in his clinic before. The patient was very concerned, as she had a prior cyst that enlarged rapidly on her right ovary which necessitated resection of the ovary. We have contacted Dr. Barnes who has agreed to evaluate the patient tomorrow. In the meantime, pain management has evaluated the patient today with recommendations for OxyContin 15 mg 3 times a day, which has been ordered. We' ll transfer patient to PCU for close monitoring and she does have a history of obstructive sleep apnea. 2. Asthma- continue Symbicort 3. History of substance abuse- history of abusing narcotics. Also history of buying drugs of the street, per medical records. 4. Constipation- patient has been started on the above bowel regimen. If this does continue, will obtain an obstructive series tomorrow. DVT prophy: Heparin subcutaneous Dispo: Plan to discharge patient in the next 24-48 hours after pain management is achieved. VS,Fishbone, I+O VS, Fishbone, I+O Laboratory Tests 06/18/16 06:22 Calcium Level 7.9 L, Red Blood Count 3.37 L, Mean Corpuscular Volume 99.9 H, Mean Corpuscular Hemoglobin 32.9, Mean Corpuscular Hemoglobin Concent 32.9, Red Cell Distribution Width 13.1 Vital Signs Date Time Temp Pulse Resp B/P Pulse Ox O2 Delivery O2 Flow Rate FiO2 06/18/16 16:44 18 06/18/16 06:00 98.4 62 127/59 94 Room Air I&O- Last 24 Hours up to 6 AM 06/18/16 06:00 Intake Total 3040 ml Output Total 1600 ml Balance 1440 ml ARTHUR ZEE MD Jun 18, 2016 18:06
[2016-06-18] MEDS: oxyCODONE 15 MG CR TAB PO SCH (20:16)
[2016-06-18] MEDS: BISACODYL 10 MG SUPP PR SCH (20:17)
[2016-06-18] MEDS: traZODone 100 MG TAB PO PRN (21:50)
[2016-06-18 23:59] VITALS: BP 129/90
[2016-06-19] MEDS: MORPHINE 2 MG/ML 1ML SYRINGE IV PRN (03:09)
[2016-06-19] MEDS: MOM 30ML SUSPENSION UDC PO SCH ×2 (03:14→10:40)
[2016-06-19 04:00] VITALS: BP 94/54
[2016-06-19 05:06] LABS: MEAN CORPUSCULAR HEMOGLOBIN 33.8 pg (27.0-33.0); MEAN CORPUSCULAR HGB CONC 33.4 g/dl (32.0-36.5); MEAN CORPUSCULAR VOLUME 101.1 fl (80.0-96.0); RED CELL DISTRIBUTION WIDTH 12.1 % (11.5-14.5); WHITE BLOOD COUNT 5.2 K/mm3 (4.0-10.0)
[2016-06-19 05:20] LABS: ANION GAP 9 MEQ/L (8-16); BLOOD UREA NITROGEN 4 MG/DL (7-18); CALCIUM LEVEL 7.8 MG/DL (8.5-10.1); CARBON DIOXIDE LEVEL 25 MEQ/L (21-32); CHLORIDE LEVEL 112 MEQ/L (98-107); CREATININE FOR GFR 0.68 MG/DL (0.55-1.02); GLOMERULAR FILTRATION RATE > 60.0 (>58); GLUCOSE, FASTING 105 MG/DL (70-105); MAGNESIUM LEVEL 2.3 MG/DL (1.8-2.4); POTASSIUM SERUM 3.6 MEQ/L (3.5-5.1); SODIUM LEVEL 146 MEQ/L (136-145)
[2016-06-19] MEDS: HEPARIN SOD (PORCINE) 5000 UNITS/ML VIAL SC SCH (06:10)
[2016-06-19] MEDS: SYMBICORT 160/4.5MCG INHALER 6GM INH SCH (07:13)
[2016-06-19] MEDS ORDERED: NS 1,000 ML IV SCH (07:45)
[2016-06-19 08:00] VITALS: BP 168/72
[2016-06-19] MEDS ORDERED: CALCIUM GLUCONATE 1,000 MG in D5W MINI-BAG PLUS 100 ML IV ONE (08:00)
[2016-06-19] MEDS: BISACODYL 10 MG SUPP PR SCH (08:47)
[2016-06-19] MEDS: LACTULOSE 20 GM/30 ML SYRUP UD PO SCH (09:00)
[2016-06-19] MEDS ORDERED: metroNIDAZOLE 500 MG in APPROPRIATE DILUENT 1 EA IV SCH (09:00)
[2016-06-19] MEDS: SENOKOT S TAB PO SCH (09:00)
[2016-06-19] MEDS: MIRALAX *UNIT DOSE* 17GM PACKET PO SCH (09:00)
[2016-06-19] MEDS: PANTOPRAZOLE 40MG INJ (PROTONIX) (C9113) IV SCH (09:18)
[2016-06-19] MEDS: FLUoxetine 10 MG CAP PO SCH (09:18)
[2016-06-19] MEDS: oxyCODONE 15 MG CR TAB PO SCH (09:19)
[2016-06-19] MEDS: NS 1,000 ML IV SCH (09:20)
[2016-06-19] MEDS ORDERED: OXYC15TA66 PO ×2 (11:04→11:05)
[2016-06-19] MEDS ORDERED: FLAG500T PO (11:04)
[2016-06-19] MEDS ORDERED: MIRA33504 PO (11:04)
[2016-06-19] MEDS ORDERED: SENN1TAB2 PO (11:04)
--- NOTE | 2016-06-19 15:15 | DS.PDOC ---
Discharge Summary General Date of Admission Jun 16, 2016 at 11:36 Date of Discharge Jun 19, 2016 at 12:27 Attending Physician: ARTHUR ZEE MD Discharge Summary PROCEDURES PERFORMED DURING STAY: None. COMPLICATIONS/CHIEF COMPLAINT: Abdominal Pain ADMISSION/DISCHARGE DIAGNOSES: 1. Acute on chronic abdominal pain, with a greater than 4 cm ovarian hemorrhagic cyst 2. Possible C. difficile 3. Asthma 4. History of substance abuse 5. Constipation HISTORY OF PRESENT ILLNESS/HOSPITAL COURSE: This is a 46-year-old female past medical history of asthma, substance abuse, chronic abdominal/pelvic pain with prior hysterectomy and right oophorectomy who presents complaining of suprapubic abdominal pain. The patient has been evaluated outpatient for her chronic pain has felt to be secondary to possible scar tissue from her multiple abdominal surgeries. Patient was previously being followed in the resident clinic, and has been noted to have taken Vicodin on top of her prescribed opioid medications. Given multiple attempts to obtain a urine drug screen, and taking additional pain medications than prescribed, the patient's pain medication was stopped outpatient. Patient now presents with acute on chronic suprapubic pain, and initially had a CAT scan of the abdomen and pelvis which was thought to have a partial small bowel obstruction. Dr. Anne has evaluated the patient and does not believe that this is a small bowel obstruction. The patient was also noted to have an enlarged ovary with a greater than 4 cm cyst. A follow-up pelvic ultrasound was done noting this cystic lesion which may represent a hemorrhagic cyst. Dr. Regalado was contacted and recommended an outpatient follow-up in his clinic, as he has seen her in his clinic before. The patient was very concerned , as she had a prior cyst that enlarged rapidly on her right ovary which necessitated resection of the ovary. In the meantime, pain management has evaluated the patient today with recommendations for OxyContin 15 mg 3 times a day, which has been ordered. Dr. Barnes has been consulted, and his evaluated the patient today. He reassured the patient that this can be followed on an outpatient basis. He will see her in 2 weeks. He is also stated that he will be obtaining a repeat pelvic ultrasound in 6 weeks. He will also be discussing the use of progesterone/ estrogen with the patient in the office. I have discussed the increased risk of stroke and heart attack with the use of OCP with concomitant tobacco abuse. The patient states that she will stop smoking and will follow-up with Dr. Barnes. The patient did have diarrhea for 3 days prior to presentation, although she does not have diarrhea at this point. Given his history of C. difficile was positive, will treat her with a course of Flagyl. The patient agrees. I have answered all of the patient's questions and she states that she is satisfied with her treatment. DISCHARGE MEDICATIONS: Please see below. ALLERGIES: Please see below. PHYSICAL EXAMINATION ON DISCHARGE: Vitals: (see below) General: No acute distress, laying comfortably in bed. HEENT: Moist mucous membranes. Neck: No JVD or lymphadenopathy Cardiac: RRR, No murmurs Pulm: Clear to auscultation b/l. No wheezing, rhonchi Abd: Mild tenderness to palpation in the suprapubic region/ left lower quadrant. Much improved since yesterday No rebound guarding or rigidity.ND + BS Ext: No edema or cyanosis LABORATORY DATA: Please see below. IMAGING: Images: CT abdomen/pelvis with contrast 06/18/16 FINDINGS: Digital preliminary group exercise instructor radiograph demonstrates dilated loops of small bowel in the left mid abdomen. Axial images show that the lung bases are clear. There is no evidence of pleural effusion. The liver and the spleen are normal in size and homogeneous in texture. Gallbladder and pancreas show no abnormality. No adrenal lesion is seen on either side. The kidneys enhance symmetrically and are morphologically intact. No retroperitoneal mass or adenopathy is observed. Normal caliber aorta is seen with some vascular calcification. There is no evidence of free intraperitoneal air. There are air-filled, mildly dilated loops of jejunum in the left mid and upper abdomen. The distal ileum is decompressed suggesting partial small bowel obstruction. No mass lesion is appreciated. There is no evidence of abdominal wall defect. A normal appendix is seen. The patient is status post hysterectomy. There is a cyst in the left ovary measuring 4.7 cm in greatest diameter. A small quantity of fluid is seen in the cul-de-sac. No pelvic mass or adenopathy is appreciated otherwise. Bone window settings show no bony destructive lesion. IMPRESSION: Patient status post hysterectomy. 4.7 cm cystic lesion in the left ovary. Partial small bowel obstruction pattern with dilated jejunal loops and decompressed ileal loops. No obstructive lesion is seen. No free air is seen. Minimal fluid in the cul-de-sac. Pelvic u/s 06/18/16 Findings: Bladder is unremarkable and measures 7.9 x 8.7 x 6.9 cm . The patient is noted to be status post hysterectomy and right oophorectomy. Left ovary measures 4.9 x 4.4 x 4.2 cm and is dominated by a 4.1 cm cyst with mural soft tissue component measuring 2.7 cm maximal diameter. The left ovary demonstrates normal vascularity without evidence for torsion; RI equal 0.62. Trace pelvic free fluid is appreciated and likely physiologic. Impression: 1. 4.1 cm complex left ovarian cyst with mural soft tissue component. Finding likely represents a physiologic hemorrhagic cyst given the fact that it was not present on prior CTs dated 09/18/2015 or 10/24/2013 and only visible on recent CT dated 06/16/2016. Follow-up ultrasound in 4-6 weeks may be warranted to evaluate for resolution. VTE Prophylaxis ordered?: Yes DISCHARGE CONDITION: Stable DISPOSITION: 01 Home, Self-Care ACTIVITY: As tolerated DIET: As tolerated ITEMS TO FOLLOWUP ON OUTPATIENT: 1. Patient will need to follow-up with Dr. Barnes and to have her pelvic ultrasound repeated in 4-6 weeks to ensure improvement and resolution of her hemorrhagic ovarian cyst. DISCHARGE PLAN AND INSTRUCTIONS: 1. Follow-up with PCP, Dr. Barnes, Ena Flores (pain management) in 1-2 weeks. TIME SPENT ON DISCHARGE: Greater than 30 minutes. Vital Signs/I&Os Vital Signs Date Time Temp Pulse Resp B/P Pulse Ox O2 Delivery O2 Flow Rate FiO2 06/19/16 09:19 18 06/19/16 08:00 97.8 76 168/72 98 Room Air I&O- Last 24 Hours up to 6 AM 06/19/16 06:00 Intake Total 1680 ml Output Total 1400 ml Balance 280 ml Laboratory Data Labs 24H Laboratory Tests 2 06/19/16 04:38: Anion Gap 9, Blood Urea Nitrogen 4L, Creatinine 0.68, Sodium Level 146H, Potassium Level 3.6, Chloride Level 112H, Carbon Dioxide Level 25, Calcium Level 7.8L, Glomerular Filtration Rate > 60.0, Magnesium Level 2.3 CBC/BMP Laboratory Tests 06/19/16 04:38 Calcium Level 7.8 L, Red Blood Count 3.18 L, Mean Corpuscular Volume 101.1 H, Mean Corpuscular Hemoglobin 33.8 H, Mean Corpuscular Hemoglobin Concent 33.4, Red Cell Distribution Width 12.1 Microbiology Microbiology 06/18/16 Stool Lactoferrin - Final, Complete 06/18/16 Gastrointestinal Tract Panel (PCR) - Final, Complete Clostridium Difficile A/B 06/16/16 Wet Prep - Final, Complete 06/16/16 Urine Culture - Final, Complete Medications Scheduled (Fluoxetine HCl) 10 Mg Tab 10 MG PO DAILY (Dulera 200-5 Mcg/Act) 1 Aer Aer 2 PUFFS INH BID (Senna Plus 8.6-50 mg) 1 Tab Tab 1 TAB PO BID Metronidazole (Flagyl) 500 Mg Tab 500 MG PO Q8H Oxycodone HCl (Oxycontin) 15 Mg Tab 15 MG PO TID Scheduled PRN Albuterol Sulfate (Ventolin Hfa) 200 Puff/8 Gm Aers 2 PUFF INH Q4H PRN PRN SHORTNESS OF BREATH Clonazepam (Clonazepam) 1 Mg Tab 1 MG PO BID PRN PRN ANXIETY Ibuprofen (Ibuprofen) 800 Mg Tab 800 MG PO TID PRN PRN PAIN Polyethylene Glycol (Miralax) 1 Pow Pow 17 GM PO DAILYPRN PRN PRN CONSTIPATION Trazodone HCl (Trazodone HCl) 100 Mg Tab 250 MG PO QHS PRN PRN SLEEP Allergies Coded Allergies: No Known Drug Allergy (Verified Allergy, Unknown, 08/21/12) ARTHUR ZEE MD Jun 19, 2016 15:15
--- NOTE | 2016-06-21 08:31 | CR ---
DATE OF CONSULTATION: 06/19/2016 REASON FOR CONSULTATION: Left ovarian cyst. HISTORY OF PRESENT ILLNESS: Ms. Simms is a 46-year-old, 3, para 3 female who is status post total abdominal hysterectomy, who was initially admitted on 06/16/2016 for chronic and acute abdominal pain. The patient presents with worsening of her chronic suprapubic, midline pain, which she has been experiencing for approximately four years. She states that over the course of several days, this pain has increased, along with some left side pelvic and flank pain. She was recently stopped on her opioids by her primary provider for her chronic pelvic pain. She denies any fever, chills, nausea, vomiting. PAST MEDICAL HISTORY: 1. Asthma. 2. Depression. 3. Chronic abdominal pain. PAST SURGICAL HISTORY: 1. She has had three sections. 2. She had an exploratory laparotomy with a myomectomy in 2010. 3. She had a total abdominal hysterectomy also in 2010. 4. She had exploratory laparotomy with a right salpingo-oophorectomy. MEDICATIONS: - albuterol - trazodone - Prozac ALLERGIES: She has no known drug allergies. SOCIAL HISTORY: She is as smoker. She reports decrease in her smoking habits. Occasional alcohol. Reports opioid use purchased on the street. PHYSICAL EXAMINATION: VITAL SIGNS: Stable. She is afebrile. GENERAL APPEARANCE: Well appearing, no acute distress. LUNGS: Clear to auscultation bilaterally. CARDIOVASCULAR: Heart regular rate and rhythm. ABDOMEN: Soft, distended, tenderness in the midline to deep palpation, otherwise nontender. PELVIC EXAM: Deferred. LABORATORY DATA: WBC 5.5, hemoglobin 11.1, hematocrit 33.7, platelets 221. Chemistry was unremarkable. IMAGING: She had a pelvic ultrasound that demonstrated a 4.1 complex left ovarian cyst, suspicious for a hemorrhagic cyst with small amount of free fluid in the pelvis. ASSESSMENT: Mrs. Simms is a 46-year-old, 3, para 3 who is now status post total abdominal hysterectomy with a left hemorrhagic cyst. PLAN: Discussed the nature of ovarian cysts with Mrs. Simms. I also discussed the differential diagnosis of ovarian cyst, to include a hemorrhagic cyst versus endometrioma versus mucinous adenoma. I reviewed the management of ovarian cyst to include repeat imaging in 4 to 6 weeks to demonstrate resolution. We have also reviewed ovulation suppression for prevention of recurrent cysts. We discussed these all in detail to the patient's satisfaction. She will followup as an outpatient in 2 weeks to establish care and further management.
== END 2016-06-19 12:27 | disposition home or self-care (01) | DRG 251 ==
LOC: M ED 08:08 → M ED INP 11:36 → M MSPAV 13:57 → M MS5PR 17:26 → M PCU 06-18 19:05
PROVIDERS: ADMIT Hospitalist; ATTEND Internal Medicine
DX: R10.30 Lower abdominal pain, unspecified (principal); F11.23 Opioid dependence with withdrawal; N83.202 Unspecified ovarian cyst, left side; J45.909 Unspecified asthma, uncomplicated; F17.210 Nicotine dependence, cigarettes, uncomplicated; K59.00 Constipation, unspecified; G47.00 Insomnia, unspecified; G47.33 Obstructive sleep apnea (adult) (pediatric); R19.7 Diarrhea, unspecified; F41.9 Anxiety disorder, unspecified; Z90.710 Acquired absence of both cervix and uterus; Z90.721 Acquired absence of ovaries, unilateral; Z79.899 Other long term (current) drug therapy; Z99.89 Dependence on other enabling machines and devices; Z91.19 Patient's noncompliance with other medical treatment and regimen

== ENCOUNTER 2016-06-24 08:07 | Emergency (ER) | payer OTHER ==
[~2016-06-24 08:07] MED LIST changes: +ALBU17IN INH; +CLON1TAB PO; +DULE200A INH; +FLAG500T PO; +FLUO10TA30 PO; +IBUP800T23 PO; +MIRA33504 PO; +OXYC15TA66 PO; +SENN1TAB2 PO; +TRAZ10TA PO
--- NOTE | 2016-06-24 08:40 | EDDOCDS ---
Nurse's Notes [facility] Name: Grant Simms Age: 46 yrs Sex: Female : 1970 Arrival Date: 06/24/2016 Time: 08:07 Bed I5 / M5 Private MD: Diagnosis: Other ovarian cysts;Low back pain Presentation: 06/24 08:10 Presenting complaint: Patient states: discharged from hospital on Tuesday, now pain to ck1 mid back radiating down both legs. Awaiting to hear back from pain management regarding referral. Risk factors: the patient reports no vaginal bleeding. Adult Sepsis Screening: The patient does not have new or worsening altered mentation. Patient's respiratory rate is less than 22. Systolic blood pressure is greater than 100. Patient has a qSOFA score of 0- Negative Sepsis Screen. Suicide/Homicide risk assessment- the patient denies having any suicidal and/or homicidal ideations and does not present with any other emotional, behavioral or mental health complaints. Status: Patient is not a electric refrigerator servicer or dependent. Transition of care: patient was not received from another setting of care. 08:10 Acuity: CONRAD Level 4 ck1 08:10 Method Of Arrival: Walkin/Carried/Asstd ck1 Triage Assessment: 08:16 General: Appears in no apparent distress, comfortable, Behavior is appropriate for age, ck1 cooperative. Pain: Location: back Pain currently is 8 out of 10 on a pain scale. HIV screening NA for this visit Offered previously. GI: Reports anorexia, Denies nausea, vomiting. : Denies burning with urination, urinary frequency, vaginal bleeding. Derm: Skin is intact, is healthy with good turgor, Skin is pink, warm & dry. CLINICAL ALLERGIST: 08:15 LMP N/A - Hysterectomy ck1 Historical: - Allergies: No known drug Allergies; - Home Meds: 1. albuterol sulfate 90 mcg/actuation Inhl HFAA prn 2. Dulera inhalation 2 puffs 2 times per day 3. Klonopin 1 mg Oral tab 1 tab 2 times per day 4. Prozac 10 mg Oral cap once daily 5. Trazodone 250mg Oral once daily 6. Miralax 17 gram/dose Oral powd once daily 7. OxyContin 15 mg Oral Tb12 three times a day (Last dose: 06/24/2016 05:45) 8. Cyclobenzaprine Unknown Oral nightly (Last dose: 06/24/2016 00:00) - PMHx: Asthma; Sleep Apnea w/ CPAP; GERD; chronic abdominal pain; - PSHx: Hysterectomy; ; ovarian cyst removal; - Social history: Smoking status: Patient uses tobacco products, current some day smoker. No barriers to communication noted, The patient speaks fluent Ghanaian, Speaks appropriately for age. - Family history: Not pertinent. - : The pt / caregiver states he / she is not on anticoagulants. Home medication list is obtained from the patient. - Exposure Risk Screening:: None identified. Screenin:38 Screening information is obtained from the patient. Fall risk: No risks identified. mcp Assistance ADL's: requires no assistance with activities of daily living. Abuse/DV Screen: The patient / caregiver reports he/she is: not in a situation that causes fear, pain or injury. Nutritional screening: No deficits noted. Advance Directives: There is no active DNR order. home support is adequate. Assessment: 08:35 General: Appears uncomfortable, Behavior is cooperative. Pain: Location: back, right mcp leg and left leg Pain currently is 8 out of 10 on a pain scale. Neurological: No deficits noted. Respiratory: Airway is patent Respiratory effort is even, unlabored. Derm: Skin is pink, warm & dry. Musculoskeletal: Circulation, motion, and sensation intact. Vital Signs: 08:15 BP 154 / 82; Pulse 85; Resp 20; Temp 98.0(T); Pulse Ox 97% on R/A; Weight 106.59 kg; ck1 Height 5 ft. 7 in. (170.18 cm); Pain 8/10; 08:15 Body Mass Index 36.81 (106.59 kg, 170.18 cm) ck1 Vitals: 08:15 Log In Time: June 24, 2016 at 08:08. ck1 ED Course: 08:08 Patient visited by Demetrius Trevino. jp5 08:08 Patient moved to Waiting jp5 08:11 Triage Initiated ck1 08:17 Patient moved to I5 / M5 ck1 08:21 Alex Saleem PA is PHCP. btw 08:21 Aurora Molina MD is Attending Physician. btw 08:21 Patient visited by Alex Saleem PA. btw 08:28 Phuong Barnes MD is Referral Physician. btw 08:38 The patient / caregiver is instructed regarding the plan of care and ED course. Patient mcp has correct armband on for positive identification. Placed in gown. Bed in low position. Call light in reach. 08:38 No IV's were initiated during this patient's visit. No procedures done that require mcp assistance. Order Results: There are currently no results for this order. Outcome: :28 Discharge ordered by Provider. btw 08:38 Discharge Assessment: patient administered narcotics - no. The following High Risk mcp Discharge criteria are identified: None. Discharged to home ambulatory. Condition: stable. Discharge instructions given to patient, Instructed on discharge instructions, follow up and referral plans. medication usage, Demonstrated understanding of instructions, medications, Pt was receptive of discharge instructions/ teaching. Prescriptions given X 2. No special radiology studies were completed. Property sent home with patient. 08:39 Patient left the ED. [facility] Signatures: Danielle Herrera RN RN Lula Mackenzie RN RN ck1 Alex Saleem PA PA btw Price, Jennalee jp5 TRE
--- NOTE | 2016-06-24 08:40 | EDDOCDS ---
Physician Documentation [facility] Name: Grant Simms Age: 46 yrs Sex: Female : 1970 Arrival Date: 06/24/2016 Time: 08:07 Bed I5 / M5 Private MD: Disposition: 06/24/16 08:28 Discharged to Home/Self Care. Impression: Other ovarian cysts, Low back pain. - Condition is Stable. - Discharge Instructions: Ovarian Cyst, Puru-yi-Xadi, Back Pain, Adult, Ykgs-fn-Mqix. - Prescriptions for Robaxin- 750 750 mg Oral Tablet - take 1 tablet by ORAL route every 6 hours As needed; 40 tablet. etodolac 200 mg Oral Capsule - take 1 capsule by ORAL route 3 times per day; 30 capsule. - Medication Reconciliation, Local Pharmacy Hours form. - Follow up: Phuong Barnes MD; When: As previously arranged; Reason: Further diagnostic work-up, Recheck today's complaints, Continuance of care. Follow up: Private Physician; When: Call to arrange an appointment; Reason: Further diagnostic work-up, Recheck today's complaints, Continuance of care. - Problem is chronic. - Symptoms are unchanged. Historical: - Allergies: No known drug Allergies; - Home Meds: 1. albuterol sulfate 90 mcg/actuation Inhl HFAA prn 2. Dulera inhalation 2 puffs 2 times per day 3. Klonopin 1 mg Oral tab 1 tab 2 times per day 4. Prozac 10 mg Oral cap once daily 5. Trazodone 250mg Oral once daily 6. Miralax 17 gram/dose Oral powd once daily 7. OxyContin 15 mg Oral Tb12 three times a day (Last dose: 06/24/2016 05:45) 8. Cyclobenzaprine Unknown Oral nightly (Last dose: 06/24/2016 00:00) - PMHx: Asthma; Sleep Apnea w/ CPAP; GERD; chronic abdominal pain; - PSHx: Hysterectomy; ; ovarian cyst removal; - Social history: Smoking status: Patient uses tobacco products, current some day smoker. No barriers to communication noted, The patient speaks fluent Welsh, Speaks appropriately for age. - Family history: Not pertinent. - : The pt / caregiver states he / she is not on anticoagulants. Home medication list is obtained from the patient. - Exposure Risk Screening:: None identified. 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 7 in. (170.18 cm); Pain 8/10; 08:15 Body Mass Index 36.81 (106.59 kg, 170.18 cm) ck1 Signatures: Danielle Herrera, RN RN [facility] Lula Dominguez RN RN ck1 Alex Saleem PA PA btw MTDD
--- NOTE | 2016-06-26 09:40 | EDDOCDS ---
Nurse's Notes [facility] Name: Grant Simms Age: 46 yrs Sex: Female : 1970 Arrival Date: 06/24/2016 Time: 08:07 Bed I5 / M5 Private MD: Diagnosis: Other ovarian cysts;Low back pain Presentation: 06/24 08:10 Presenting complaint: Patient states: discharged from hospital on Tuesday, now pain to ck1 mid back radiating down both legs. Awaiting to hear back from pain management regarding referral. Risk factors: the patient reports no vaginal bleeding. Adult Sepsis Screening: The patient does not have new or worsening altered mentation. Patient's respiratory rate is less than 22. Systolic blood pressure is greater than 100. Patient has a qSOFA score of 0- Negative Sepsis Screen. Suicide/Homicide risk assessment- the patient denies having any suicidal and/or homicidal ideations and does not present with any other emotional, behavioral or mental health complaints. 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 Transition of care: patient was not received from another setting of care. 08:10 Acuity: CONRAD Level 4 ck1 08:10 Method Of Arrival: Walkin/Carried/Asstd ck1 Triage Assessment: 08:16 General: Appears in no apparent distress, comfortable, Behavior is appropriate for age, ck1 cooperative. Pain: Location: back Pain currently is 8 out of 10 on a pain scale. HIV screening NA for this visit Offered previously. GI: Reports anorexia, Denies nausea, vomiting. : Denies burning with urination, urinary frequency, vaginal bleeding. Derm: Skin is intact, is healthy with good turgor, Skin is pink, warm & dry. 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 albuterol sulfate 90 mcg/actuation Inhl HFAA prn 2. Dulera inhalation 2 puffs 2 times per day 3. Klonopin 1 mg Oral tab 1 tab 2 times per day 4. Prozac 10 mg Oral cap once daily 5. Trazodone 250mg Oral once daily 6. Miralax 17 gram/dose Oral powd once daily 7. OxyContin 15 mg Oral Tb12 three times a day (Last dose: 06/24/2016 05:45) 8. Cyclobenzaprine Unknown Oral nightly (Last dose: 06/24/2016 00:00) - PMHx: Asthma; Sleep Apnea w/ CPAP; GERD; chronic abdominal pain; - PSHx: Hysterectomy; ; ovarian cyst removal; - Social history: Smoking status: Patient uses tobacco products, current some day smoker. No barriers to communication noted, The patient speaks fluent Amharic, Speaks appropriately for age. - Family history: Not pertinent. - : The pt / caregiver states he / she is not on anticoagulants. Home medication list is obtained from the patient. - Exposure Risk Screening:: None identified. Screenin:38 Screening information is obtained from the patient. Fall risk: No risks identified. mcp Assistance ADL's: requires no assistance with activities of daily living. Abuse/DV Screen: The patient / caregiver reports he/she is: not in a situation that causes fear, pain or injury. Nutritional screening: No deficits noted. Advance Directives: There is no active DNR order. home support is adequate. Assessment: 08:35 General: Appears uncomfortable, Behavior is cooperative. Pain: Location: back, right mcp leg and left leg Pain currently is 8 out of 10 on a pain scale. Neurological: No deficits noted. Respiratory: Airway is patent Respiratory effort is even, unlabored. Derm: Skin is pink, warm & dry. Musculoskeletal: Circulation, motion, and sensation intact. Vital Signs: 08:15 BP 154 / 82; Pulse 85; Resp 20; Temp 98.0(T); Pulse Ox 97% on R/A; Weight 106.59 kg; ck1 Height 5 ft. 7 in. (170.18 cm); Pain 8/10; 08:15 Body Mass Index 36.81 (106.59 kg, 170.18 cm) ck1 Vitals: 08:15 Log In Time: June 24, 2016 at 08:08. ck1 ED Course: 08:08 Patient visited by Demetrius Trevino. jp5 08:08 Patient moved to Waiting jp5 08:11 Triage Initiated ck1 08:17 Patient moved to I5 / M5 ck1 08:21 Alex Saleem PA is PHCP. btw 08:21 Aurora Molina MD is Attending Physician. btw 08:21 Patient visited by Alex Saleem PA. btw 08:28 Phuong Barnes MD is Referral Physician. btw 08:38 The patient / caregiver is instructed regarding the plan of care and ED course. Patient mcp has correct armband on for positive identification. Placed in gown. Bed in low position. Call light in reach. 08:38 No IV's were initiated during this patient's visit. No procedures done that require mcp assistance. 09:20 [facility] Payment Agreement was scanned into [employer] and attached to record. mm15 06/25 09:22 T-Sheet-- Draft Copy was scanned into [employer] and attached to record. gb Order Results: There are currently no results for this order. Outcome: 06/24 08:28 Discharge ordered by Provider. btw 08:38 Discharge Assessment: patient administered narcotics - no. The following High Risk mcp Discharge criteria are identified: None. Discharged to home ambulatory. Condition: stable. Discharge instructions given to patient, Instructed on discharge instructions, follow up and referral plans. medication usage, Demonstrated understanding of instructions, medications, Pt was receptive of discharge instructions/ teaching. Prescriptions given X 2. No special radiology studies were completed. Property sent home with patient. 08:39 Patient left the ED. mcp Signatures: Danielle Herrera, RN RN Maryam Garay, Todd Reg Lula Nash,RN RN ck1 Alex Saleem PA PA btw Ronan Kellogg mm15 Demetrius Trevino jp5 Chart Complete MTDD
--- NOTE | 2016-06-26 09:40 | EDDOCDS ---
Physician Documentation [facility] Name: Grant Simms Age: 46 yrs Sex: Female : 1970 Arrival Date: 06/24/2016 Time: 08:07 Bed I5 / M5 Private MD: Disposition: 06/24/16 08:28 Discharged to Home/Self Care. Impression: Other ovarian cysts, Low back pain. - Condition is Stable. - Discharge Instructions: Ovarian Cyst, Mvds-xp-Arzf, Back Pain, Adult, Cvxg-qm-Qgbn. - Prescriptions for Robaxin- 750 750 mg Oral Tablet - take 1 tablet by ORAL route every 6 hours As needed; 40 tablet. etodolac 200 mg Oral Capsule - take 1 capsule by ORAL route 3 times per day; 30 capsule. - Medication Reconciliation, Local Pharmacy Hours form. - Follow up: Phuong Barnes MD; When: As previously arranged; Reason: Further diagnostic work-up, Recheck today's complaints, Continuance of care. Follow up: Private Physician; When: Call to arrange an appointment; Reason: Further diagnostic work-up, Recheck today's complaints, Continuance of care. - Problem is chronic. - Symptoms are unchanged. Historical: - Allergies: No known drug Allergies; - Home Meds: 1. albuterol sulfate 90 mcg/actuation Inhl HFAA prn 2. Dulera inhalation 2 puffs 2 times per day 3. Klonopin 1 mg Oral tab 1 tab 2 times per day 4. Prozac 10 mg Oral cap once daily 5. Trazodone 250mg Oral once daily 6. Miralax 17 gram/dose Oral powd once daily 7. OxyContin 15 mg Oral Tb12 three times a day (Last dose: 06/24/2016 05:45) 8. Cyclobenzaprine Unknown Oral nightly (Last dose: 06/24/2016 00:00) - PMHx: Asthma; Sleep Apnea w/ CPAP; GERD; chronic abdominal pain; - PSHx: Hysterectomy; ; ovarian cyst removal; - Social history: Smoking status: Patient uses tobacco products, current some day smoker. No barriers to communication noted, The patient speaks fluent Kinyarwanda, Speaks appropriately for age. - Family history: Not pertinent. - : The pt / caregiver states he / she is not on anticoagulants. Home medication list is obtained from the patient. - Exposure Risk Screening:: None identified. 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 7 in. (170.18 cm); Pain 8/10; 08:15 Body Mass Index 36.81 (106.59 kg, 170.18 cm) ck1 MDM: 09:20 Financial registration complete. mm15 09:20 [facility] Payment Agreement was scanned into [email or web address] and attached to record. mm15 06/25 09:22 T-Sheet-- Draft Copy was scanned into [email or web address] and attached to record. gb Signatures: Danielle Herrera RN RN [facility] Maryam Hall, Reg Reg gb Lula Dominguez RN RN ck1 Alex Saleem PA PA btw Ronan Kellogg mm15 The chart was reviewed and I authenticate all verbal orders and agree with the evaluation and treatment provided.Attachments: 06/24 09:20 [facility] Payment Agreement mm15 06/25 09:22 T-Sheet-- Draft Copy gb Chart Complete MTDD
--- NOTE | 2016-06-26 09:40 | EDDOCDS ---
Physician Documentation [facility] Name: Grant Simms Age: 46 yrs Sex: Female : 1970 Arrival Date: 06/24/2016 Time: 08:07 Bed I5 / M5 Private MD: Disposition: 06/24/16 08:28 Discharged to Home/Self Care. Impression: Other ovarian cysts, Low back pain. - Condition is Stable. - Discharge Instructions: Ovarian Cyst, Aygb-fq-Xpqq, Back Pain, Adult, Rljm-gz-Nwlo. - Prescriptions for Robaxin- 750 750 mg Oral Tablet - take 1 tablet by ORAL route every 6 hours As needed; 40 tablet. etodolac 200 mg Oral Capsule - take 1 capsule by ORAL route 3 times per day; 30 capsule. - Medication Reconciliation, Local Pharmacy Hours form. - Follow up: Phuong Barnes MD; When: As previously arranged; Reason: Further diagnostic work-up, Recheck today's complaints, Continuance of care. Follow up: Private Physician; When: Call to arrange an appointment; Reason: Further diagnostic work-up, Recheck today's complaints, Continuance of care. - Problem is chronic. - Symptoms are unchanged. Historical: - Allergies: No known drug Allergies; - Home Meds: 1. albuterol sulfate 90 mcg/actuation Inhl HFAA prn 2. Dulera inhalation 2 puffs 2 times per day 3. Klonopin 1 mg Oral tab 1 tab 2 times per day 4. Prozac 10 mg Oral cap once daily 5. Trazodone 250mg Oral once daily 6. Miralax 17 gram/dose Oral powd once daily 7. OxyContin 15 mg Oral Tb12 three times a day (Last dose: 06/24/2016 05:45) 8. Cyclobenzaprine Unknown Oral nightly (Last dose: 06/24/2016 00:00) - PMHx: Asthma; Sleep Apnea w/ CPAP; GERD; chronic abdominal pain; - PSHx: Hysterectomy; ; ovarian cyst removal; - Social history: Smoking status: Patient uses tobacco products, current some day smoker. No barriers to communication noted, The patient speaks fluent Portuguese, Speaks appropriately for age. - Family history: Not pertinent. - : The pt / caregiver states he / she is not on anticoagulants. Home medication list is obtained from the patient. - Exposure Risk Screening:: None identified. 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 7 in. (170.18 cm); Pain 8/10; 08:15 Body Mass Index 36.81 (106.59 kg, 170.18 cm) ck1 MDM: 09:20 Financial registration complete. mm15 09:20 [facility] Payment Agreement was scanned into [employer] and attached to record. mm15 06/25 09:22 T-Sheet-- Draft Copy was scanned into [employer] and attached to record. gb Signatures: Danielle Herrera RN RN [facility] Maryam Hall, Reg Reg gb Lula Dominguez RN RN ck1 Alex Saleem PA PA btw Ronan Kellogg mm15 The chart was reviewed and I authenticate all verbal orders and agree with the evaluation and treatment provided.Attachments: 06/24 09:20 [facility] Payment Agreement mm15 06/25 09:22 T-Sheet-- Draft Copy gb Chart Complete MTDD
== END 2016-06-24 08:39 | disposition home or self-care (01) ==
LOC: M ED 08:07
DX: N83.202 Unspecified ovarian cyst, left side (principal); G89.29 Other chronic pain; M54.5 Low back pain; J45.909 Unspecified asthma, uncomplicated; G47.30 Sleep apnea, unspecified; R10.9 Unspecified abdominal pain; Z90.79 Acquired absence of other genital organ(s); F17.200 Nicotine dependence, unspecified, uncomplicated; Z79.51 Long term (current) use of inhaled steroids; Z79.891 Long term (current) use of opiate analgesic; Z79.899 Other long term (current) drug therapy

== ENCOUNTER → 2016-07-15 | Outpatient (CLI) | payer OTHER ==
--- NOTE | 2016-07-17 00:16 | ECWPNPC ---
PATIENT NAME: MISBAH DELACRUZ : 1970 GENDER: FEMALE VISIT DATE: 07/15/2016 DISCHARGE DATE: 07/15/16 1243 VISIT LOCKED DATE TIME: PHYSICIAN: ED RICARDO RESOURCE: ED RICARDO REASON FOR APPOINTMENT 1. ABDOMINAL PAIN HISTORY OF PRESENT ILLNESS NEW PATIENT CONSULT: WHEN DID YOUR PAIN FIRST START? . BRIEFLY DESCRIBE HOW YOUR PAIN STARTED? . HOW DOES YOUR PAIN CHANGE WITH TIME? . DOES YOUR PAIN AWAKEN YOU FROM SLEEP? . HOW MANY HOURS OF SLEEP DO YOU NORMALLY GET? . ANY DIAGNOSTIC TESTING? . FACILITY WHERE TESTS WERE DONE? ____. PAIN TREATMENT TREATMENT YES CANCER HAVE YOU EVER HAD ANY TYPE OF CANCER?NO NO. 46 Y/O FEMALE WITH 2 YEAR HX OF ABDOMINAL PAIN.THIS BEGAN 2 YEARS AGO.HX OF 6 C-SECTIONS AND PAIN IS LOCATED ALNG BIKINI CCUT INCISION SUPRA PUBIC AREA.COMPLAINING OF CONSTANT WITH INTERMITTENT SEVERE CONTRACTION LIKE PAIN.SHE IS CRYING AND ANXIOUS DURING VISIT.STATES NOT HAVING PAIN MEDICATION MAKES IT ALMOST IMPOSSIBLE TO DO HER JOB AND FUNCTION.RATING PAIN VAS 7/10.DISCUSSED MEDICATION AND TREATMENT OPTIONS.HAS HAD TPI IN PAST ALONG SCAR THAT DID NOT HELP AND AGGREVATED PAIN.DENIES BOWEL OR BLADDER ISSUES.HAS SEEN MULTIPLE SPECIALISTS LOCALLY WITH EXTENSIVE IMAGINFG AND WORK [employer]. WAS HOSPITALIZED END OF MAY-ONE MONTH AGO FOR INTRACTABLE ABDOMINAL PAIN.SHE IS MOST UPSET THAT NOBODY CAN FIND A REASON FOR HER PAIN.SHE HAS BEEN WITHOUT ANY PAIN MEDICATION FOR TWO WEEKS AND IS IN OBVIOUS DISTRESS.STATES SHE HAS TRIALE MULTIPLE MEDICATIONS IN PAST WITHOUT IMPROVEMENT.STATES THAT SHE WAS ON PERCOCET AT ONE POINT THAT WAS HELPFUL AT REDUCING PAIN AND KEEPING HER COMFORTABLE AND ABLE TO TOLERATE HER WORK.SHE IS VERY NERVOUS THAT SHE IS NOT GOING TO BE ABLE TO WORK AND SUPPORT HER FAMILY. PAIN SCREENING: PATIENT HAS A COMPLAINT OF ACUTE OR CHRONIC PAIN YES FALL RISK SCREENING: SCREENING :NO FALLS IN THE PAST YEAR [place] INVENTORY: QUESTIONNAIRE ASSESSEDTBD SCORE VALUE CALCULATED TBD CURRENT MEDICATIONS TAKING TRAZODONE HCL 100 MG TABLET 2 1/2 TABS ORALLY AT BEDTIME TAKING KLONOPIN 1 MG TABLET 1 TABLET ORALLY TWICE A DAY MDD:2 ([facility]) TAKING CPAP MACHINE TAKING ALBUTEROL SULFATE (2.5 MG/3ML) 0.083% NEBULIZATION SOLUTION 3 ML INHALATION THREE TIMES A DAY TAKING DULERA 200-5 MCG/ACT AEROSOL 2 PUFFS INHALATION TWICE A DAY TAKING ALBUTEROL SULFATE HFA 108 MCG/ACT AEROSOL SOLUTION 2 PUFFS NEEDED INHALATION EVERY 4 HRS TAKING SPACER/AERO-HOLDING CHAMBERS 1 DEVICE DIRECTED WITH INHALER Q4HRS PRN SOB/WHEEZE TAKING COLACE 100 MG CAPSULE 1 CAPSULE NEEDED ORALLY 3 TIMES A DAY NEEDED TAKING IBUPROFEN 800 MG TABLET 1 TABLET ORALLY THREE TIMES A DAY TAKING MIRALAX - PACKET 1 PACKET MIXED WITH 8 OUNCES OF FLUID ORALLY ONCE A DAY TAKING SENNA PLUS 8.6-50 MG TABLET 1 TABLET IN THE EVENING NEEDED ORALLY ONCE A DAY TAKING PROZAC 10 MG CAPSULE 1 CAPSULE IN THE MORNING ORALLY ONCE A DAY TAKING TYLENOL 325 MG TABLET 2 TABLETS NEEDED ORALLY EVERY 6 HRS TAKING ALEVE 220 MG CAPSULE ORALLY NOT-TAKING CYCLOBENZAPRINE HCL 10 MG TABLET 1 TABLET ORALLY BEFORE BEDTIME NOT-TAKING ZOLOFT 100 MG TABLET 1 TABLET ORALLY ONCE A DAY NOT-TAKING OXYCONTIN 15 MG TABLET EXTENDED RELEASE 12 HOUR 1 TABLET ORALLY THREE TIMES DAILY NEEDED MDD:3 (PAIN CLINIC) NOT-TAKING FLAGYL 500 MG TABLET 1 TABLET ORALLY EVERY 8 HRS NOT-TAKING PERCOCET 5-325 MG TABLET 1 TABLET NEEDED ORALLY EVERY 3-4 HRS (MDD: 4) NOT-TAKING OMEPRAZOLE 40 MG CAPSULE DELAYED RELEASE 1 CAPSULE ORALLY ONCE A DAY NOT-TAKING CLONIDINE HCL 0.1 MG TABLET 1 TABLET ORALLY THREE TIMES DAILY NOT-TAKING FLUTICASONE PROPIONATE 50 MCG/ACT SUSPENSION 1 SPRAY IN EACH NOSTRIL NASALLY ONCE A DAY NOT-TAKING MOBIC 7.5 MG TABLET 1 TABLET ORALLY BID (WITH FOOD) NOT-TAKING AMITRIPTYLINE HCL 10 MG TABLET 1 TABLET AT BEDTIME ORALLY ONCE A DAY NOT-TAKING BACLOFEN 10 MG 1 1 TAB(S) P.O. THREE TIMES A DAY NOT-TAKING OXYBUTYNIN CHLORIDE 5 MG TABLET 1 TABLET ORALLY TID NOT-TAKING CIPRO 500 MG TABLET 1 TABLET ORALLY DIRECTED- 1 HOUR BEFORE CYSTOSCOPY MEDICATION LIST REVIEWED AND RECONCILED WITH THE PATIENT PAST MEDICAL HISTORY PTSD PANIC ATTACKS KIDNEY STONES HEMATURIA AUB/FIBROID/PELVIC PAIN - NOW S/P PARTIAL HYSTERECTOMY, RIGHT OVARIAN INTACT ABDOMINAL PAIN NOS - LIKELY ADHESIONS - PREVIOUSLY NOTED IN OP REPORT NIRALI COMPLIANCE DRUG SEEK BEHAVIOR SUSPICIOUS TOXICOLOGY SCREEN ALLERGIES N.K.D.A. 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 2 SON(S) , 1 DAUGHTER(S) - HEALTHY. . SOCIAL HISTORY GENERAL: TOBACCO USE ARE YOU A:CURRENT SMOKER HOW OFTEN DO YOU SMOKE CIGARETTES?SOME DAYS, BUT NOT EVERY DAY HOW SOON AFTER YOU WAKE UP DO YOU SMOKE YOUR FIRST CIGARETTE?AFTER 60 MIN HOW MANY CIGARETTES A DAY DO YOU SMOKE?5 OR LESS HASNT SMOKED SINCE BEING IN THE HOSPITAL ARE YOU INTERESTED IN QUITTING?READY TO QUIT PATIENT COUNSELED ON THE DANGERS OF TOBACCO USE AND URGED TO QUIT:06/23/2016 COUNSELED THE PATIENT ON TOBACCO USE, CESSATION [id number]/01/2017 ARE YOU A:NONSMOKER PAIN CLINIC PFS, CLERGY, PUBLIC HEALTH REFERRALS CLERGY REFERRAL NEEDED?NO WAS THE PROVIDER NOTIFIED OF ANY PERTINENT INFO?NO PFS REFERRAL NEEDED?NO PUBLIC HEALTH REFERRAL NEEDED?NO PSYCHOLOGICAL HX TREATMENTNO ALCOHOL OR DRUG TREATMENTNO PATIENT: ____. ADVANCED DIRECTIVES HEALTH CARE PROXY?NO POWER OF MACHINE CLOTH EXAMINER?NO SCREENING/ASSESSMENT TOOL NUTRITION ASSESSEDYES ARE YOU ON ANY SPECIAL DIET?NO ANY SIGNIFICANT CHANGES RELATED TO EATING, WEIGHT GAIN/LOSS, OR BOWEL HABITS?NO IF YES, IS YOUR PRIMARY CARE PROVIDER AWARE OF THIS?NO SPECIAL NEEDS LEVEL OF CARE? SELF, GLASSES: NO, CONTACTS: NO, HEARING AIDS: NO, DENTURES: NO, WALKER: NO, CANE: NO, WHEELCHAIR: NO, REFERRALS NEEDED: NO. BMI CARE GOAL FOLLOW-UP ABOVE NORMAL BMI FOLLOW-UPDIETARY NEEDS EDUCATION ALCOHOL SCREENING POINTS: 0, INTERPRETATION: NEGATIVE. RECREATIONAL DRUG USE DRUG USE?NO CAFFEINE CAFFEINE USE?NO SEXUAL HX HAD SEX IN THE LAST 12 MONTHS (VAGINAL, ORAL, OR ANAL)?: NO, HAVE YOU EVER HAD AN STD?: NO. OCCUPATION: [employer], [employer]. DIET: REGULAR. EXERCISE: GYM EVERY OTHER DAY, NOT ABLET O LAST 2 WEEKS. MARITAL STATUS: .. OTHERS AT HOME: CHILDREN. PETS: NONE. ADVENT: NO RESTORATIONISM BELIEFS THAT WOULD IMPACT HEALTH CARE. LANGUAGE: TURKISH. LEARNING BARRIERS / SPECIAL NEEDS BARRIERS TO LEARNING?NO HEARING IMPAIRED?NO VISION IMPAIRED?NO COGNITIVELY IMPAIRED?NO READINESS TO LEARN?YES LEARNING PREFERENCES?NO LEARNING CAPABILITIES PRESENT?YES EMOTIONAL BARRIERS?NO SPECIAL DEVICES?NO HOUSING: RENTS APARTMENT. HOSPITALIZATION/MAJOR DIAGNOSTIC PROCEDURE ABD PAIN, OVARIAN CYST 06/16/2016 ECTOPIC 1993 REVIEW OF SYSTEMS CONSTITUTIONAL: ANY CHANGE IN YOUR MEDICAL CONDITION? NO . CHILLS NO . FEVER NO . INFECTION: DO YOU HAVE NEW INFECTIONS? NO . DO YOU HAVE HISTORY OF MRSA? NO . MUSCULOSKELETAL: ANY NEW PATTERNS OF PAIN OR NUMBNESS? NO . SYTEMIC LUPUS NO . GASTROENTEROLOGY: ANY NEW CHANGE IN BOWEL CONTROL? NO . BARRETTS ESOPHAGUS NO . CIRRHOSIS NO . HEPATITIS NO . LIVER FAILURE NO . ACID REFLUX NO . UNEXPLAINED WEIGHT LOSS NO . GENITOURINARY: ANY NEW CHANGE IN BLADDER CONTROL? NO . IS THERE A CHANCE YOU COULD BE ? NO . HEMATOLOGY/LYMPH: DO YOU TAKE ANY BLOOD THINNERS? (FOR EXAMPLE- COUMADIN, PLAVIX, AGGRENOX, PLATEL, PRADAXA, OR XARELTO) NO . WHEN WAS YOUR LAST DOSE? DATE: TIME: . LOW PLATELET COUNT NO . SICKLE CELL DISEASE NO . VON WILLIEBRANDS NO . FACTOR V LEIDEN NO . THALLASEMIA NO . ANEMIA NO . EASY BRUISING NO . NEUROLOGY: HAVE YOU FALLEN IN THE PAST 6 MONTHS? NO . ANY NEW EXTREMITY NUMBNESS OR WEAKNESS? NO . HEAD INJURY NO . DEMENTIA NO . CEREBRAL PALSY NO . MULTIPLE SCLEROSIS NO . DIZZINESS NO . HEADACHE NO . STROKES NO . VERTIGO NO . CARDIOLOGY: DO YOU HAVE A PACEMAKER OR DEFIBRILLATOR? NO . ANGINA NO . HEART ATTACK NO . HEART SURGERY NO . CONGESTIVE HEART FAILURE/FLUID OVERLOAD NO . CHEST PAIN NO . HIGH BLOOD PRESSURE NO . IRREGULAR HEART BEAT NO . RESPIRATORY: HAVE YOU BEEN SICK IN THE PAST WEEK? NO . FEVER NO . FLU LIKE SYMPTOMS? NO . CPAP NO . BYPAP NO . ASTHMA NO . EMPHYSEMA NO . CHRONIC LUNG DISEASES NO . SHORTNESS OF BREATH ON EXERTION NO . DO YOU USE ANY TYPE OF TOBACCO (SMOKE, SMOKELESS, CHEW)? NO . COUGH NO . SNORING NO . INTEGUMENTARY: DO YOU HAVE ANY RASHES OR OPEN SORES? NO . ALLERGIC/IMMUNO: ARE YOU ALLERGIC TO SHELLFISH OR IV DYE? NO . ANY NEW ALLERGIES? NO . PSYCHIATRIC: DO YOU HAVE THOUGHTS OF HURTING YOURSELF OR SOMEONE ELSE? NO . ARE YOU ABUSED, NEGLECTED, OR IN AN UNSAFE ENVIRONMENT? NO . ENDOCRINOLOGY: ARE YOU DIABETIC? NO . THYROID DISORDER NO . OTHER: DO YOU NEED ANY PRESCRIPTIONS? NO . IF YES, PLEASE LIST: ____ . ANY NEW PROBLEMS WITH YOUR MEDICATIONS? NO . WHEN DID YOU LAST EAT? ____ . WHEN DID YOU LAST DRINK? ____ . WHAT DID YOU LAST DRINK? ____ . NAME OF PERSON DRIVING YOU HOME? ____ . DO YOU HAVE ANY OTHER QUESTIONS OR CONCERNS NO . REVIEWED BY: PROVIDER: ED CONNER . VITAL SIGNS WT 239 LBS, HT 67.5 IN, BMI 36.88 INDEX, BP 139/85 MM HG, HR 79 /MIN, RR 18 /MIN, TEMP 98.6 F, OXYGEN SAT % 96%, NA INITIALS SC 11:40. EXAMINATION GENERAL EXAMINATION: GENERAL APPEARANCE:APPEARS TO BE IN AGONY. PSYCHANXIOUS. NECK:NEGATIVE FOR LYMPHADENOPATHY. LUNGS:LUNG SOUNDS ARE CLEAR. HEART:HEART RATE REGULAR. ABDOMEN:BS PRESENT X4 QUADS.SOFT .MARKED TENDERNESS TO LIGHT TOUCH OVER INCISION SUPRAPUBIC ARE.. ASSESSMENTS LOWER ABDOMINAL PAIN - R10.30 (PRIMARY) CHRONIC POST-OPERATIVE PAIN - G89.28 TREATMENT LOWER ABDOMINAL PAIN START OXYCODONE HCL TABLET, 10 MG, 1 TABLET NEEDED, ORALLY, EVERY 6 HRS PRN MDD4, 30 DAY(S), 120, REFILLS 0 PROCEDURE CODES FA211 ESTABILISHED PATIENT [facility] CHARGE DISPOSITION & COMMUNICATION FOLLOW UP 2 WEEKS ELECTRONICALLY SIGNED BY UBALDO WEAVER ON 07/16/2016 AT 09:42 AM EST DISCLAIMER : THIS IS A VISIT SUMMARY EXTRACTED FROM THE [employer] CHART. IT IS NOT A COPY OF THE [employer] PROGRESS NOTE. MTDD
== END ==
LOC: M PAIN 11:20
PROVIDERS: ATTEND Nurse Practitioner Family
DX: G89.28 Other chronic postprocedural pain (principal); R10.30 Lower abdominal pain, unspecified; J45.40 Moderate persistent asthma, uncomplicated; F43.10 Post-traumatic stress disorder, unspecified; E66.9 Obesity, unspecified; E55.9 Vitamin D deficiency, unspecified; R89.2 Abnormal level of other drugs, medicaments and biological substances in specimens from other organs, systems and tissues; G47.33 Obstructive sleep apnea (adult) (pediatric); F17.200 Nicotine dependence, unspecified, uncomplicated; Z79.1 Long term (current) use of non-steroidal anti-inflammatories (NSAID); Z79.899 Other long term (current) drug therapy; Z90.710 Acquired absence of both cervix and uterus

== ENCOUNTER → 2016-07-26 | Outpatient (CLI) | payer OTHER ==
--- NOTE | 2016-07-26 10:57 | REP ---
Pelvic sonogram: History: Ovarian cyst. Pelvic and perineal pain. The patient is status post hysterectomy and right oophorectomy. Comparison pelvic sonography June 17, 2016. Comparison CT study June 16, 2016. Findings: Transabdominal and transvaginal scanning are performed. The left ovary measures 3.1 x 1.6 x 1.9 cm in overall dimension. There is a 1.5 x 1.9 x 2.0 cm cyst in the left ovary. On today's exam this is sonographically simple. The previous study showed a larger complex cyst containing a 2.5 cm area of increased echogenicity within it. This has resolved. No free fluid is seen in the cul-de-sac. No right adnexal mass or cyst is seen. The right ovary and uterus are surgically absent. Visualized bladder powers are smooth. Impression: 2.0 cm simple cyst in the left ovary. Previously noted complex cyst has resolved. Signed by Ariel Lerma MD 07/26/2016 02:28 P
== END ==
LOC: M RAD 09:25
PROVIDERS: ATTEND Obstetrics & Gynecology
DX: N83.202 Unspecified ovarian cyst, left side (principal)

== ENCOUNTER → 2016-08-09 | Outpatient (CLI) | payer OTHER ==
--- NOTE | 2016-08-10 01:06 | ECWPNPC ---
PATIENT NAME: MISBAH DELACRUZ : 1970 GENDER: FEMALE VISIT DATE: 08/09/2016 DISCHARGE DATE: 08/09/1638 VISIT LOCKED DATE TIME: PHYSICIAN: ED RICARDO RESOURCE: ED RICARDO REASON FOR APPOINTMENT 1. ABDOMINAL PAIN HISTORY OF PRESENT ILLNESS HISTORY OF PRESENT ILLNESS: PAIN THE PATIENT DESCRIBES THE PAIN... HERE FOR F/U AND MANAGEMENT OF CHRONIC PELVIC PAIN.DESCRIBES PAIN INTERMITTENT THROBBING AND TENDER.LAST VISIT SHE WAS STARTED ON OXYCODONE 10MG Q6H PRN PAIN WHICH HAS BEEN HELPFUL.STATES PAIN LEVEL DOWN TO 6/10 VAS.ABLE TO WORK NOW DUE TO BETTER PAIN CONTROL.USING ACETAMINOPHEN OR IBUPROFEN PRN FOR PAIN INBETWEEN.DENIES SIDE EFFECTS. FALL RISK SCREENING: SCREENING :NO FALLS IN THE PAST YEAR CURRENT MEDICATIONS TAKING TRAZODONE HCL 100 MG TABLET 2 1/2 TABS ORALLY AT BEDTIME TAKING KLONOPIN 1 MG TABLET 1 TABLET ORALLY TWICE A DAY MDD:2 ([facility]) TAKING CPAP MACHINE TAKING ALBUTEROL SULFATE (2.5 MG/3ML) 0.083% NEBULIZATION SOLUTION 3 ML INHALATION THREE TIMES A DAY TAKING DULERA 200-5 MCG/ACT AEROSOL 2 PUFFS INHALATION TWICE A DAY TAKING ALBUTEROL SULFATE HFA 108 MCG/ACT AEROSOL SOLUTION 2 PUFFS NEEDED INHALATION EVERY 4 HRS TAKING SPACER/AERO-HOLDING CHAMBERS 1 DEVICE DIRECTED WITH INHALER Q4HRS PRN SOB/WHEEZE TAKING COLACE 100 MG CAPSULE 1 CAPSULE NEEDED ORALLY 3 TIMES A DAY NEEDED TAKING IBUPROFEN 800 MG TABLET 1 TABLET ORALLY THREE TIMES A DAY TAKING MIRALAX - PACKET 1 PACKET MIXED WITH 8 OUNCES OF FLUID ORALLY ONCE A DAY TAKING SENNA PLUS 8.6-50 MG TABLET 1 TABLET IN THE EVENING NEEDED ORALLY ONCE A DAY TAKING PROZAC 20 MG CAPSULE 1 CAPSULE IN THE MORNING ORALLY ONCE A DAY TAKING TYLENOL 325 MG TABLET 2 TABLETS NEEDED ORALLY EVERY 6 HRS TAKING ALEVE 220 MG CAPSULE ORALLY TAKING OXYCODONE HCL 10 MG TABLET 1 TABLET NEEDED ORALLY EVERY 6 HRS PRN MDD4 NOT-TAKING SUDAFED 30 MG TABLET 1 TABLET NEEDED ORALLY TWICE DAILY NOT-TAKING ZYRTEC 10 MG TABLET 1 TABLET ORALLY ONCE A DAY NOT-TAKING CYCLOBENZAPRINE HCL 10 MG TABLET 1 TABLET ORALLY BEFORE BEDTIME NOT-TAKING ZOLOFT 100 MG TABLET 1 TABLET ORALLY ONCE A DAY NOT-TAKING OXYCONTIN 15 MG TABLET EXTENDED RELEASE 12 HOUR 1 TABLET ORALLY THREE TIMES DAILY NEEDED MDD:3 (PAIN CLINIC) NOT-TAKING FLAGYL 500 MG TABLET 1 TABLET ORALLY EVERY 8 HRS NOT-TAKING PERCOCET 5-325 MG TABLET 1 TABLET NEEDED ORALLY EVERY 3-4 HRS (MDD: 4) NOT-TAKING OMEPRAZOLE 40 MG CAPSULE DELAYED RELEASE 1 CAPSULE ORALLY ONCE A DAY NOT-TAKING CLONIDINE HCL 0.1 MG TABLET 1 TABLET ORALLY THREE TIMES DAILY NOT-TAKING FLUTICASONE PROPIONATE 50 MCG/ACT SUSPENSION 1 SPRAY IN EACH NOSTRIL NASALLY ONCE A DAY NOT-TAKING MOBIC 7.5 MG TABLET 1 TABLET ORALLY BID (WITH FOOD) NOT-TAKING AMITRIPTYLINE HCL 10 MG TABLET 1 TABLET AT BEDTIME ORALLY ONCE A DAY NOT-TAKING BACLOFEN 10 MG 1 1 TAB(S) P.O. THREE TIMES A DAY NOT-TAKING OXYBUTYNIN CHLORIDE 5 MG TABLET 1 TABLET ORALLY TID NOT-TAKING CIPRO 500 MG TABLET 1 TABLET ORALLY DIRECTED- 1 HOUR BEFORE CYSTOSCOPY MEDICATION LIST REVIEWED AND RECONCILED WITH THE PATIENT PAST MEDICAL HISTORY PTSD PANIC ATTACKS KIDNEY STONES HEMATURIA AUB/FIBROID/PELVIC PAIN - NOW S/P PARTIAL HYSTERECTOMY, RIGHT OVARIAN INTACT ABDOMINAL PAIN NOS - LIKELY ADHESIONS - PREVIOUSLY NOTED IN OP REPORT NIRALI COMPLIANCE DRUG SEEK BEHAVIOR SUSPICIOUS TOXICOLOGY SCREEN ALLERGIES N.K.D.A. SOCIAL HISTORY GENERAL: TOBACCO USE ARE YOU A:NONSMOKER LEARNING BARRIERS / SPECIAL NEEDS ORIENTED TO PLAN OF CARE: PATIENT, PAIN MANAGEMENT PATIENT, ORIENTED TO PLAN OF CARE: PATIENT, PAIN MANAGEMENT PATIENT. NEW PATIENT PAIN DIARY TODAY'S VISITNOTES FROM 0-10, WHAT LEVEL IS YOUR PAIN TODAY?0 PAIN CLINIC PFS, CLERGY, PUBLIC HEALTH REFERRALS PFS REFERRAL NEEDED?NO CLERGY REFERRAL NEEDED?NO PUBLIC HEALTH REFERRAL NEEDED?NO WAS THE PROVIDER NOTIFIED OF ANY PERTINENT INFO?NO PFS REFERRAL NEEDED?NO CLERGY REFERRAL NEEDED?NO PUBLIC HEALTH REFERRAL NEEDED?NO WAS THE PROVIDER NOTIFIED OF ANY PERTINENT INFO?NO REVIEW OF SYSTEMS CONSTITUTIONAL: ANY CHANGE IN YOUR MEDICAL CONDITION? NO . CHILLS NO . FEVER NO . INFECTION: DO YOU HAVE NEW INFECTIONS? NO . DO YOU HAVE HISTORY OF MRSA? NO . MUSCULOSKELETAL: ANY NEW PATTERNS OF PAIN OR NUMBNESS? NO . GASTROENTEROLOGY: ANY NEW CHANGE IN BOWEL CONTROL? NO . GENITOURINARY: ANY NEW CHANGE IN BLADDER CONTROL? NO . IS THERE A CHANCE YOU COULD BE ? NO . HEMATOLOGY/LYMPH: DO YOU TAKE ANY BLOOD THINNERS? (FOR EXAMPLE- COUMADIN, PLAVIX, AGGRENOX, PLATEL, PRADAXA, OR XARELTO) NO . WHEN WAS YOUR LAST DOSE? DATE: TIME: . NEUROLOGY: HAVE YOU FALLEN IN THE PAST 6 MONTHS? NO . ANY NEW EXTREMITY NUMBNESS OR WEAKNESS? NO . CARDIOLOGY: DO YOU HAVE A PACEMAKER OR DEFIBRILLATOR? NO . RESPIRATORY: HAVE YOU BEEN SICK IN THE PAST WEEK? YES PT REPORTS SHE HAD A URI OVER THE PAST SEVERAL WEEKS, TREATED WITH SUDAFED AND ZYRTEC . FEVER NO . FLU LIKE SYMPTOMS? NO . COUGH NO . INTEGUMENTARY: DO YOU HAVE ANY RASHES OR OPEN SORES? NO . ALLERGIC/IMMUNO: ARE YOU ALLERGIC TO SHELLFISH OR IV DYE? NO . ANY NEW ALLERGIES? NO . PSYCHIATRIC: DO YOU HAVE THOUGHTS OF HURTING YOURSELF OR SOMEONE ELSE? NO . ARE YOU ABUSED, NEGLECTED, OR IN AN UNSAFE ENVIRONMENT? NO . ENDOCRINOLOGY: ARE YOU DIABETIC? NO . OTHER: DO YOU NEED ANY PRESCRIPTIONS? NO . IF YES, PLEASE LIST: ____ . ANY NEW PROBLEMS WITH YOUR MEDICATIONS? NO . WHEN DID YOU LAST EAT? ____ . WHEN DID YOU LAST DRINK? ____ . WHAT DID YOU LAST DRINK? ____ . NAME OF PERSON DRIVING YOU HOME? ____ . DO YOU HAVE ANY OTHER QUESTIONS OR CONCERNS YES PT REPORTS HER INSURANCE DOES NOT COVER THE 10 MG OF OXYCODONE AND SHE HAD TO PAY A LOT FOR HER OXYCODONE, HER PHARMACY SAYS THAT THE 5 MG AND 15 MG ARE BOTH COVERED. . REVIEWED BY: PROVIDER: ED CONNER . VITAL SIGNS WT 229.8 LBS, HT 67.5 IN, BMI 35.46 INDEX, BP 152/94 MM HG, HR 105 /MIN, RR 18 /MIN, TEMP 99.0 F, OXYGEN SAT % 94%, SAFE IN ENV? (Y/N) YES, NA INITIALS LA 08:55, REVIEWED BY: NADEEN. EXAMINATION GENERAL EXAMINATION: GENERAL APPEARANCE:COMFORTABLE AND SMILING.. PSYCHANXIOUS. NECK:NEGATIVE FOR LYMPHADENOPATHY. LUNGS:LUNG SOUNDS ARE CLEAR. HEART:HEART RATE REGULAR. ABDOMEN:BS PRESENT X4 QUADS.SOFT .MARKED TENDERNESS TO LIGHT TOUCH OVER INCISION SUPRAPUBIC ARE.. ASSESSMENTS LOWER ABDOMINAL PAIN - R10.30 (PRIMARY) CHRONIC POST-OPERATIVE PAIN - G89.28 CHRONIC PRESCRIPTION OPIATE USE - Z79.891 TREATMENT LOWER ABDOMINAL PAIN STOP OXYCODONE HCL TABLET, 10 MG, 1 TABLET NEEDED, ORALLY, EVERY 6 HRS PRN MDD4 START OXYCODONE HCL TABLET, 5 MG, 1-2 TAB, ORALLY, EVERY 6 HRS MDD8, 30 DAY(S), 240, REFILLS 0 NOTES: ISTOP REGISTRY REVIEWED AND DEMNOSTRATES COMPLLIANCE. BRINGS IN MEDICATIONS WHICH IS APPROPRIATE FOR WHAT WAS DISPENSED. RECENT URINE TOXICOLOGY REVIEWED. NO UNAUTHORIZED MEDICATIONS. NO ILLICIT SUBSTANCES AND PRESCRIBED MEDICATIONS WERE PRESENT. , RISKS AND BENEFITS OF NARCOTIC/OPIOD MEDICATIONS WERE REVIEWED WITH PATIENT - THIS INCLUDES BUT IS NOT LIMITED TO RISK OF DEPENDANCE/DEVELOPMENT OF ADDICTION, MOOD DISTURBANCE AND DEPRESSION, OSTEOPOROSIS, HORMONAL AND LABIDAL CHANGES, RESPIRATORY DEPRESSION AND . PATIENT IS ADVISED NOT TO DRIVE WHILE ON THESE MEDICATIONS.URINE TOX TODAY. PROCEDURE CODES FA211 ESTABILISHED PATIENT [facility] CHARGE DISPOSITION & COMMUNICATION FOLLOW UP 4 WEEKS ELECTRONICALLY SIGNED BY UBALDO WEAVER ON 08/09/2016 AT 12:16 PM EDT DISCLAIMER : THIS IS A VISIT SUMMARY EXTRACTED FROM THE [employer] CHART. IT IS NOT A COPY OF THE [employer] PROGRESS NOTE. MTDD
== END ==
LOC: M PAIN 08:40
PROVIDERS: ATTEND Nurse Practitioner Family
DX: R10.30 Lower abdominal pain, unspecified (principal); G89.28 Other chronic postprocedural pain; Z79.891 Long term (current) use of opiate analgesic; Z79.899 Other long term (current) drug therapy; J45.40 Moderate persistent asthma, uncomplicated; F43.12 Post-traumatic stress disorder, chronic; F41.9 Anxiety disorder, unspecified

== ENCOUNTER → 2016-08-11 | Outpatient (CLI) | payer OTHER ==
--- NOTE | 2016-08-11 16:49 | REP ---
Clinical: Pain and swelling . Technique: Shell scale and color Doppler evaluation using linear high frequency transducer. Findings: Ultrasound examination of the left lower extremity deep venous structures from the common femoral vein to the popliteal vein demonstrates normal compressibility flow and wave patterns in response to respiration and augmentation. There is no evidence for deep venous thrombosis. Impression: No evidence for deep venous thrombosis. Signed by Max Salazar MD 08/11/2016 04:40 P
== END ==
LOC: M RAD 16:13
PROVIDERS: ATTEND Physician Assistant
DX: M79.662 Pain in left lower leg (principal)

== ENCOUNTER → 2016-09-06 | Outpatient (CLI) | payer OTHER ==
--- NOTE | 2016-09-18 00:39 | ECWPNPC ---
PATIENT NAME: MISBAH DELACRUZ : 1970 GENDER: FEMALE VISIT DATE: 09/06/2016 DISCHARGE DATE: 09/06/1658 VISIT LOCKED DATE TIME: PHYSICIAN: ED RICARDO RESOURCE: ED RICARDO REASON FOR APPOINTMENT 1. FOLLOWUP HISTORY OF PRESENT ILLNESS HISTORY OF PRESENT ILLNESS: PAIN THE PATIENT DESCRIBES THE PAIN... THE PATIENT DESCRIBES THE PAIN... THE PATIENT DESCRIBES THE PAIN... HERE FOR F/U AND MANAGEMENT OF CHRONIC PELVIC PAIN.DESCRIBES PAIN INTERMITTENT THROBBING AND TENDER.USING OXYCODONE 5MG 1-2 TAB PRN FOR PAIN.RATING PAIN VAS8/10.DENIES SIDE EFFECTS. ABLE TO WORK NOW DUE TO BETTER PAIN CONTROL.USING ACETAMINOPHEN OR IBUPROFEN PRN FOR PAIN IN BETWEEN.DENIES SIDE EFFECTS. FALL RISK SCREENING: SCREENING :NO FALLS IN THE PAST YEAR CURRENT MEDICATIONS TAKING TRAZODONE HCL 100 MG TABLET 3 TABS ORALLY AT BEDTIME TAKING KLONOPIN 1 MG TABLET 1 TABLET ORALLY TWICE A DAY MDD:2 ([facility]) TAKING CPAP MACHINE TAKING ALBUTEROL SULFATE (2.5 MG/3ML) 0.083% NEBULIZATION SOLUTION 3 ML INHALATION THREE TIMES A DAY TAKING ALBUTEROL SULFATE HFA 108 MCG/ACT AEROSOL SOLUTION 2 PUFFS NEEDED INHALATION EVERY 4 HRS TAKING SPACER/AERO-HOLDING CHAMBERS 1 DEVICE DIRECTED WITH INHALER Q4HRS PRN SOB/WHEEZE TAKING COLACE 100 MG CAPSULE 1 CAPSULE NEEDED ORALLY 3 TIMES A DAY NEEDED TAKING IBUPROFEN 800 MG TABLET 1 TABLET ORALLY THREE TIMES A DAY TAKING MIRALAX - PACKET 1 PACKET MIXED WITH 8 OUNCES OF FLUID ORALLY ONCE A DAY TAKING SENNA PLUS 8.6-50 MG TABLET 1 TABLET IN THE EVENING NEEDED ORALLY ONCE A DAY TAKING PROZAC 20 MG CAPSULE 1 CAPSULE IN THE MORNING ORALLY ONCE A DAY TAKING TYLENOL 325 MG TABLET 2 TABLETS NEEDED ORALLY EVERY 6 HRS TAKING ALEVE 220 MG CAPSULE ORALLY TAKING OXYCODONE HCL 5 MG TABLET 1-2 TAB ORALLY EVERY 6 HRS MDD8 NOT-TAKING DULERA 200-5 MCG/ACT AEROSOL 2 PUFFS INHALATION TWICE A DAY NOT-TAKING SUDAFED 30 MG TABLET 1 TABLET NEEDED ORALLY TWICE DAILY NOT-TAKING ZYRTEC 10 MG TABLET 1 TABLET ORALLY ONCE A DAY NOT-TAKING CYCLOBENZAPRINE HCL 10 MG TABLET 1 TABLET ORALLY BEFORE BEDTIME NOT-TAKING ZOLOFT 100 MG TABLET 1 TABLET ORALLY ONCE A DAY NOT-TAKING OXYCONTIN 15 MG TABLET EXTENDED RELEASE 12 HOUR 1 TABLET ORALLY THREE TIMES DAILY NEEDED MDD:3 (PAIN CLINIC) NOT-TAKING FLAGYL 500 MG TABLET 1 TABLET ORALLY EVERY 8 HRS NOT-TAKING PERCOCET 5-325 MG TABLET 1 TABLET NEEDED ORALLY EVERY 3-4 HRS (MDD: 4) NOT-TAKING OMEPRAZOLE 40 MG CAPSULE DELAYED RELEASE 1 CAPSULE ORALLY ONCE A DAY NOT-TAKING CLONIDINE HCL 0.1 MG TABLET 1 TABLET ORALLY THREE TIMES DAILY NOT-TAKING FLUTICASONE PROPIONATE 50 MCG/ACT SUSPENSION 1 SPRAY IN EACH NOSTRIL NASALLY ONCE A DAY NOT-TAKING MOBIC 7.5 MG TABLET 1 TABLET ORALLY BID (WITH FOOD) NOT-TAKING AMITRIPTYLINE HCL 10 MG TABLET 1 TABLET AT BEDTIME ORALLY ONCE A DAY NOT-TAKING BACLOFEN 10 MG 1 1 TAB(S) P.O. THREE TIMES A DAY NOT-TAKING OXYBUTYNIN CHLORIDE 5 MG TABLET 1 TABLET ORALLY TID NOT-TAKING CIPRO 500 MG TABLET 1 TABLET ORALLY DIRECTED- 1 HOUR BEFORE CYSTOSCOPY MEDICATION LIST REVIEWED AND RECONCILED WITH THE PATIENT PAST MEDICAL HISTORY PTSD PANIC ATTACKS KIDNEY STONES HEMATURIA AUB/FIBROID/PELVIC PAIN - NOW S/P PARTIAL HYSTERECTOMY, RIGHT OVARIAN INTACT ABDOMINAL PAIN NOS - LIKELY ADHESIONS - PREVIOUSLY NOTED IN OP REPORT NIRALI COMPLIANCE DRUG SEEK BEHAVIOR SUSPICIOUS TOXICOLOGY SCREEN SOCIAL HISTORY GENERAL: PAIN CLINIC PFS, CLERGY, PUBLIC HEALTH REFERRALS CLERGY REFERRAL NEEDED?NO WAS THE PROVIDER NOTIFIED OF ANY PERTINENT INFO?NO PFS REFERRAL NEEDED?NO PUBLIC HEALTH REFERRAL NEEDED?NO PATIENT: ____. REVIEW OF SYSTEMS CONSTITUTIONAL: ANY CHANGE IN YOUR MEDICAL CONDITION? NO . CHILLS NO . FEVER NO . INFECTION: DO YOU HAVE NEW INFECTIONS? NO . DO YOU HAVE HISTORY OF MRSA? NO . MUSCULOSKELETAL: ANY NEW PATTERNS OF PAIN OR NUMBNESS? YES . GASTROENTEROLOGY: ANY NEW CHANGE IN BOWEL CONTROL? NO . GENITOURINARY: ANY NEW CHANGE IN BLADDER CONTROL? NO . IS THERE A CHANCE YOU COULD BE ? NO . HEMATOLOGY/LYMPH: DO YOU TAKE ANY BLOOD THINNERS? (FOR EXAMPLE- COUMADIN, PLAVIX, AGGRENOX, PLATEL, PRADAXA, OR XARELTO) NO . WHEN WAS YOUR LAST DOSE? DATE: TIME: . NEUROLOGY: HAVE YOU FALLEN IN THE PAST 6 MONTHS? NO . ANY NEW EXTREMITY NUMBNESS OR WEAKNESS? NO . CARDIOLOGY: DO YOU HAVE A PACEMAKER OR DEFIBRILLATOR? NO . RESPIRATORY: HAVE YOU BEEN SICK IN THE PAST WEEK? NO . FEVER NO . FLU LIKE SYMPTOMS? NO . COUGH NO . INTEGUMENTARY: DO YOU HAVE ANY RASHES OR OPEN SORES? NO . ALLERGIC/IMMUNO: ARE YOU ALLERGIC TO SHELLFISH OR IV DYE? NO . ANY NEW ALLERGIES? NO . PSYCHIATRIC: DO YOU HAVE THOUGHTS OF HURTING YOURSELF OR SOMEONE ELSE? NO . ARE YOU ABUSED, NEGLECTED, OR IN AN UNSAFE ENVIRONMENT? NO . ENDOCRINOLOGY: ARE YOU DIABETIC? NO . OTHER: DO YOU NEED ANY PRESCRIPTIONS? NO . IF YES, PLEASE LIST: ____ . ANY NEW PROBLEMS WITH YOUR MEDICATIONS? NO . WHEN DID YOU LAST EAT? ____ . WHEN DID YOU LAST DRINK? ____ . WHAT DID YOU LAST DRINK? ____ . NAME OF PERSON DRIVING YOU HOME? ____ . DO YOU HAVE ANY OTHER QUESTIONS OR CONCERNS NO . REVIEWED BY: PROVIDER: ED CONNER . VITAL SIGNS WT 225.6 LBS, HT 67.5 IN, BMI 34.81 INDEX, BP 148/89 MM HG, HR 99 /MIN, RR 18 /MIN, TEMP 98.0 F, OXYGEN SAT % 98%, NA INITIALS AW 0916, REVIEWED BY: KG. EXAMINATION GENERAL EXAMINATION: GENERAL APPEARANCE:COMFORTABLE AND SMILING.. PSYCHANXIOUS. NECK:NEGATIVE FOR LYMPHADENOPATHY. LUNGS:LUNG SOUNDS ARE CLEAR. HEART:HEART RATE REGULAR. ABDOMEN:BS PRESENT X4 QUADS.SOFT .MARKED TENDERNESS TO LIGHT TOUCH OVER INCISION SUPRAPUBIC ARE.. ASSESSMENTS LOWER ABDOMINAL PAIN - R10.30 (PRIMARY) CHRONIC POST-OPERATIVE PAIN - G89.28 CHRONIC PRESCRIPTION OPIATE USE - Z79.891 TREATMENT LOWER ABDOMINAL PAIN REFILL OXYCODONE HCL TABLET, 5 MG, 1-2 TAB, ORALLY, EVERY 6 HRS MDD8, 30 DAY(S), 240, REFILLS 0 PROCEDURE CODES FA211 ESTABILISHED PATIENT [facility] FACILITY CHARGE DISPOSITION & COMMUNICATION FOLLOW UP 4 WEEKS ELECTRONICALLY SIGNED BY UBALDO WEAVER ON 09/17/2016 AT 01:07 PM EDT DISCLAIMER : THIS IS A VISIT SUMMARY EXTRACTED FROM THE [employer] CHART. IT IS NOT A COPY OF THE [employer] PROGRESS NOTE. MTDD
== END ==
LOC: M PAIN 09:20
PROVIDERS: ATTEND Nurse Practitioner Family
DX: G89.28 Other chronic postprocedural pain (principal); R10.30 Lower abdominal pain, unspecified; F43.10 Post-traumatic stress disorder, unspecified; F41.0 Panic disorder [episodic paroxysmal anxiety]; G47.33 Obstructive sleep apnea (adult) (pediatric); K66.0 Peritoneal adhesions (postprocedural) (postinfection); Z79.1 Long term (current) use of non-steroidal anti-inflammatories (NSAID); Z79.899 Other long term (current) drug therapy; Z79.891 Long term (current) use of opiate analgesic

== ENCOUNTER → 2016-10-06 | Outpatient (CLI) | payer OTHER ==
--- NOTE | 2016-10-21 00:10 | ECWPNPC ---
PATIENT NAME: MISBAH DELACRUZ : 1970 GENDER: FEMALE VISIT DATE: 10/06/2016 DISCHARGE DATE: 10/06/16922 VISIT LOCKED DATE TIME: PHYSICIAN: ED RICARDO RESOURCE: ED RICARDO REASON FOR APPOINTMENT 1. PELIVI PAIN 4 WEEKS HISTORY OF PRESENT ILLNESS HISTORY OF PRESENT ILLNESS: PAIN THE PATIENT DESCRIBES THE PAIN... THE PATIENT DESCRIBES THE PAIN... THE PATIENT DESCRIBES THE PAIN... THE PATIENT DESCRIBES THE PAIN... PAIN THE PATIENT DESCRIBES THE PAIN... THE PATIENT DESCRIBES THE PAIN... THE PATIENT DESCRIBES THE PAIN... THE PATIENT DESCRIBES THE PAIN... HERE FOR F/U AND MANAGEMENT OF CHRONIC PELVIC PAIN.DESCRIBES PAIN INTERMITTENT THROBBING AND TENDER.USING OXYCODONE 5MG 1-2 TAB PRN FOR PAIN.RATING PAIN VAS8/10.DENIES SIDE EFFECTS. ABLE TO WORK NOW DUE TO BETTER PAIN CONTROL.USING ACETAMINOPHEN OR IBUPROFEN PRN FOR PAIN IN BETWEEN.DENIES SIDE EFFECTS. FALL RISK SCREENING: SCREENING :NO FALLS IN THE PAST YEAR CURRENT MEDICATIONS TAKING OXYCODONE HCL 5 MG TABLET 1-2 TAB ORALLY EVERY 6 HRS MDD8, NOTES: TAKING 1 TAB Q 4 H TAKING TRAZODONE HCL 100 MG TABLET 4 TABS ORALLY AT BEDTIME TAKING KLONOPIN 1 MG TABLET 1 TABLET ORALLY TWICE A DAY MDD:2 ([facility]) TAKING CPAP MACHINE TAKING ALBUTEROL SULFATE (2.5 MG/3ML) 0.083% NEBULIZATION SOLUTION 3 ML INHALATION THREE TIMES A DAY PRN TAKING ALBUTEROL SULFATE HFA 108 MCG/ACT AEROSOL SOLUTION 2 PUFFS NEEDED INHALATION EVERY 4 HRS TAKING SPACER/AERO-HOLDING CHAMBERS 1 DEVICE DIRECTED WITH INHALER Q4HRS PRN SOB/WHEEZE TAKING COLACE 100 MG CAPSULE 1 CAPSULE NEEDED ORALLY 3 TIMES A DAY NEEDED TAKING IBUPROFEN 800 MG TABLET 1 TABLET ORALLY THREE TIMES A DAY TAKING MIRALAX - PACKET 1 PACKET MIXED WITH 8 OUNCES OF FLUID ORALLY ONCE A DAY TAKING SENNA PLUS 8.6-50 MG TABLET 1 TABLET IN THE EVENING NEEDED ORALLY ONCE A DAY TAKING PROZAC 20 MG CAPSULE 1 CAPSULE IN THE MORNING ORALLY ONCE A DAY TAKING TYLENOL 325 MG TABLET 2 TABLETS NEEDED ORALLY EVERY 6 HRS TAKING VRAYLAR 1.5 MG CAPSULE 1 CAPSULE ORALLY DAILY NOT-TAKING ALEVE 220 MG CAPSULE ORALLY NOT-TAKING DULERA 200-5 MCG/ACT AEROSOL 2 PUFFS INHALATION TWICE A DAY NOT-TAKING SUDAFED 30 MG TABLET 1 TABLET NEEDED ORALLY TWICE DAILY NOT-TAKING ZYRTEC 10 MG TABLET 1 TABLET ORALLY ONCE A DAY NOT-TAKING CYCLOBENZAPRINE HCL 10 MG TABLET 1 TABLET ORALLY BEFORE BEDTIME NOT-TAKING ZOLOFT 100 MG TABLET 1 TABLET ORALLY ONCE A DAY NOT-TAKING OXYCONTIN 15 MG TABLET EXTENDED RELEASE 12 HOUR 1 TABLET ORALLY THREE TIMES DAILY NEEDED MDD:3 (PAIN CLINIC) NOT-TAKING FLAGYL 500 MG TABLET 1 TABLET ORALLY EVERY 8 HRS NOT-TAKING PERCOCET 5-325 MG TABLET 1 TABLET NEEDED ORALLY EVERY 3-4 HRS (MDD: 4) NOT-TAKING OMEPRAZOLE 40 MG CAPSULE DELAYED RELEASE 1 CAPSULE ORALLY ONCE A DAY NOT-TAKING CLONIDINE HCL 0.1 MG TABLET 1 TABLET ORALLY THREE TIMES DAILY NOT-TAKING FLUTICASONE PROPIONATE 50 MCG/ACT SUSPENSION 1 SPRAY IN EACH NOSTRIL NASALLY ONCE A DAY NOT-TAKING MOBIC 7.5 MG TABLET 1 TABLET ORALLY BID (WITH FOOD) NOT-TAKING AMITRIPTYLINE HCL 10 MG TABLET 1 TABLET AT BEDTIME ORALLY ONCE A DAY NOT-TAKING BACLOFEN 10 MG 1 1 TAB(S) P.O. THREE TIMES A DAY NOT-TAKING OXYBUTYNIN CHLORIDE 5 MG TABLET 1 TABLET ORALLY TID NOT-TAKING CIPRO 500 MG TABLET 1 TABLET ORALLY DIRECTED- 1 HOUR BEFORE CYSTOSCOPY MEDICATION LIST REVIEWED AND RECONCILED WITH THE PATIENT PAST MEDICAL HISTORY PTSD PANIC ATTACKS KIDNEY STONES HEMATURIA AUB/FIBROID/PELVIC PAIN - NOW S/P PARTIAL HYSTERECTOMY, RIGHT OVARIAN INTACT ABDOMINAL PAIN NOS - LIKELY ADHESIONS - PREVIOUSLY NOTED IN OP REPORT NIRALI COMPLIANCE DRUG SEEK BEHAVIOR SUSPICIOUS TOXICOLOGY SCREEN ALLERGIES N.K.D.A. SOCIAL HISTORY GENERAL: TOBACCO USE ARE YOU A:CURRENT SMOKER HOW MANY CIGARETTES A DAY DO YOU SMOKE?5 OR LESS HASNT SMOKED SINCE BEING IN THE HOSPITAL. STATES SHE SMOKES 1 ONCE IN A GREAT WHILE HOW SOON AFTER YOU WAKE UP DO YOU SMOKE YOUR FIRST CIGARETTE?AFTER 60 MIN HOW OFTEN DO YOU SMOKE CIGARETTES?SOME DAYS, BUT NOT EVERY DAY PATIENT COUNSELED ON THE DANGERS OF TOBACCO USE AND URGED TO QUIT:10/06/2016 ARE YOU INTERESTED IN QUITTING?READY TO QUIT COUNSELED THE PATIENT ON TOBACCO USE, CESSATION [id number] BMI CARE GOAL FOLLOW-UP ABOVE NORMAL BMI FOLLOW-UPDIETARY NEEDS EDUCATION ALCOHOL SCREENING POINTS: 0, INTERPRETATION: NEGATIVE. RECREATIONAL DRUG USE DENIES, DRUG USE? NO. CAFFEINE 2-5/DAY, CAFFEINE USE? NO . SEXUAL HX HAD SEX IN THE LAST 12 MONTHS (VAGINAL, ORAL, OR ANAL)?: NO, HAVE YOU EVER HAD AN STD?: NO. OCCUPATION: [employer], [employer]. DIET: REGULAR. EXERCISE: GYM EVERY OTHER DAY, NOT ABLET O LAST 2 WEEKS. MARITAL STATUS: .. OTHERS AT HOME: CHILDREN. PETS: NONE. HINDU NO QUAKER BELIEFS THAT WOULD IMPACT HEALTH CARE. LANGUAGE AZERI. LEARNING BARRIERS / SPECIAL NEEDS CHANGE FROM LAST VISIT?NO BARRIERS TO LEARNING?NO HEARING IMPAIRED?NO VISION IMPAIRED?NO COGNITIVELY IMPAIRED?NO READINESS TO LEARN?YES LEARNING PREFERENCES?NO LEARNING CAPABILITIES PRESENT?YES EMOTIONAL BARRIERS?NO SPECIAL DEVICES?NO TREE TRIMMER HELPER NEEDED?NO PSYCHOLOGICAL HX TREATMENT NO . PAIN CLINIC PFS, CLERGY, PUBLIC HEALTH REFERRALS PFS REFERRAL NEEDED? NO , CLERGY REFERRAL NEEDED? NO , PUBLIC HEALTH REFERRAL NEEDED? NO , WAS THE PROVIDER NOTIFIED OF ANY PERTINENT INFO? NO . PATIENT: ____. ADVANCED DIRECTIVES HEALTH CARE PROXY? NO, POWER OF MACROECONOMICS PROFESSOR? NO. HOUSING: RENTS APARTMENT. REVIEW OF SYSTEMS CONSTITUTIONAL: ANY CHANGE IN YOUR MEDICAL CONDITION? NO . CHILLS NO . FEVER NO . INFECTION: DO YOU HAVE NEW INFECTIONS? NO . DO YOU HAVE HISTORY OF MRSA? NO . MUSCULOSKELETAL: ANY NEW PATTERNS OF PAIN OR NUMBNESS? NO . GASTROENTEROLOGY: ANY NEW CHANGE IN BOWEL CONTROL? NO . GENITOURINARY: ANY NEW CHANGE IN BLADDER CONTROL? NO . IS THERE A CHANCE YOU COULD BE ? NO . HEMATOLOGY/LYMPH: DO YOU TAKE ANY BLOOD THINNERS? (FOR EXAMPLE- COUMADIN, PLAVIX, AGGRENOX, PLATEL, PRADAXA, OR XARELTO) NO . WHEN WAS YOUR LAST DOSE? DATE: TIME: . NEUROLOGY: HAVE YOU FALLEN IN THE PAST 6 MONTHS? NO . ANY NEW EXTREMITY NUMBNESS OR WEAKNESS? NO . CARDIOLOGY: DO YOU HAVE A PACEMAKER OR DEFIBRILLATOR? NO . RESPIRATORY: HAVE YOU BEEN SICK IN THE PAST WEEK? NO . FEVER NO . FLU LIKE SYMPTOMS? NO . COUGH NO . INTEGUMENTARY: DO YOU HAVE ANY RASHES OR OPEN SORES? NO . ALLERGIC/IMMUNO: ARE YOU ALLERGIC TO SHELLFISH OR IV DYE? NO . ANY NEW ALLERGIES? NO . PSYCHIATRIC: DO YOU HAVE THOUGHTS OF HURTING YOURSELF OR SOMEONE ELSE? NO . ARE YOU ABUSED, NEGLECTED, OR IN AN UNSAFE ENVIRONMENT? NO . ENDOCRINOLOGY: ARE YOU DIABETIC? NO . OTHER: DO YOU NEED ANY PRESCRIPTIONS? YES, . IF YES, PLEASE LIST: OXYCODONE . ANY NEW PROBLEMS WITH YOUR MEDICATIONS? NO . WHEN DID YOU LAST EAT? ____ . WHEN DID YOU LAST DRINK? ____ . WHAT DID YOU LAST DRINK? ____ . NAME OF PERSON DRIVING YOU HOME? ____ . DO YOU HAVE ANY OTHER QUESTIONS OR CONCERNS LOSING WT. WITHOUT TRYING. STATES SHE HAS LOST 25LBS SINCE MAY. STILL HAVING PAIN IN PELVIS RADIATING TO HER RECTUM. . REVIEWED BY: PROVIDER: ED CONNER . VITAL SIGNS WT 218 LBS, HT 67.5 IN, BMI 33.64 INDEX, BP 137/78 MM HG, HR 70 /MIN, RR 16 /MIN, TEMP 98.1 F, OXYGEN SAT % 99, REVIEWED BY: AD. EXAMINATION GENERAL EXAMINATION: GENERAL APPEARANCE:COMFORTABLE AND SMILING.. PSYCHANXIOUS. NECK:NEGATIVE FOR LYMPHADENOPATHY. LUNGS:LUNG SOUNDS ARE CLEAR. HEART:HEART RATE REGULAR. ABDOMEN:BS PRESENT X4 QUADS.SOFT .MARKED TENDERNESS TO LIGHT TOUCH OVER INCISION SUPRAPUBIC ARE.. ASSESSMENTS LOWER ABDOMINAL PAIN - R10.30 (PRIMARY) CHRONIC POST-OPERATIVE PAIN - G89.28 CHRONIC PRESCRIPTION OPIATE USE - Z79.891 TREATMENT LOWER ABDOMINAL PAIN REFILL OXYCODONE HCL TABLET, 5 MG, 1-2 TAB, ORALLY, EVERY 6 HRS MDD8, 30 DAY(S), 240, REFILLS 0, NOTES: TAKING 1 TAB Q 4 H REFILL IBUPROFEN TABLET, 800 MG, 1 TABLET, ORALLY, THREE TIMES A DAY, 30 DAYS, 90, REFILLS 1 CONTINUE COLACE CAPSULE, 100 MG, 1 CAPSULE NEEDED, ORALLY, 3 TIMES A DAY NEEDED NOTES: ISTOP REGISTRY REVIEWED AND DEMNOSTRATES COMPLLIANCE. BRINGS IN MEDICATIONS WHICH IS APPROPRIATE FOR WHAT WAS DISPENSED. RECENT URINE TOXICOLOGY REVIEWED. NO UNAUTHORIZED MEDICATIONS. NO ILLICIT SUBSTANCES AND PRESCRIBED MEDICATIONS WERE PRESENT. , RISKS AND BENEFITS OF NARCOTIC/OPIOD MEDICATIONS WERE REVIEWED WITH PATIENT - THIS INCLUDES BUT IS NOT LIMITED TO RISK OF DEPENDANCE/DEVELOPMENT OF ADDICTION, MOOD DISTURBANCE AND DEPRESSION, OSTEOPOROSIS, HORMONAL AND LABIDAL CHANGES, RESPIRATORY DEPRESSION AND . PATIENT IS ADVISED NOT TO DRIVE WHILE ON THESE MEDICATIONS. PROCEDURE CODES FA211 ESTABILISHED PATIENT [facility] CHARGE DISPOSITION & COMMUNICATION FOLLOW UP 2 MONTHS ELECTRONICALLY SIGNED BY UBALDO WEAVER ON 10/20/2016 AT 02:06 PM EDT DISCLAIMER : THIS IS A VISIT SUMMARY EXTRACTED FROM THE [employer] CHART. IT IS NOT A COPY OF THE [employer] PROGRESS NOTE. TRE
== END ==
LOC: M PAIN 08:40
PROVIDERS: ATTEND Nurse Practitioner Family
DX: G89.28 Other chronic postprocedural pain (principal); R10.30 Lower abdominal pain, unspecified; F43.10 Post-traumatic stress disorder, unspecified; F41.0 Panic disorder [episodic paroxysmal anxiety]; G47.33 Obstructive sleep apnea (adult) (pediatric); F17.210 Nicotine dependence, cigarettes, uncomplicated; Z79.891 Long term (current) use of opiate analgesic; Z90.710 Acquired absence of both cervix and uterus; Z79.1 Long term (current) use of non-steroidal anti-inflammatories (NSAID); Z79.899 Other long term (current) drug therapy

== ENCOUNTER → 2016-12-01 | Outpatient (CLI) | payer OTHER ==
[~2016-12-01] MED LIST changes: +IBUP1TAB7 PO; -IBUP800T23 PO; +NEUR300C PO
--- NOTE | 2016-12-20 01:28 | ECWPNPC ---
PATIENT NAME: MISBAH DELACRUZ : 1970 GENDER: FEMALE VISIT DATE: 12/01/2016 DISCHARGE DATE: 12/01/16934 VISIT LOCKED DATE TIME: PHYSICIAN: ED RICARDO RESOURCE: ED RICARDO HISTORY OF PRESENT ILLNESS HISTORY OF PRESENT ILLNESS: PAIN THE PATIENT DESCRIBES THE PAIN... THE PATIENT DESCRIBES THE PAIN... THE PATIENT DESCRIBES THE PAIN... THE PATIENT DESCRIBES THE PAIN... THE PATIENT DESCRIBES THE PAIN... HERE FOR F/U AND MANAGEMENT OF CHRONIC PELVIC PAIN.DESCRIBES PAIN INTERMITTENT THROBBING AND TENDER.USING OXYCODONE 5MG 1-2 TAB PRN FOR PAIN.RATING PAIN VAS 5/10.DENIES SIDE EFFECTS. ABLE TO WORK NOW DUE TO BETTER PAIN CONTROL.USING ACETAMINOPHEN OR IBUPROFEN PRN FOR PAIN IN BETWEEN.DENIES SIDE EFFECTS. FALL RISK SCREENING: SCREENING :NO FALLS IN THE PAST YEAR CURRENT MEDICATIONS TAKING TRAZODONE HCL 100 MG TABLET 4 TABS ORALLY AT BEDTIME TAKING KLONOPIN 1 MG TABLET 1 TABLET ORALLY TWICE A DAY MDD:2 (VELASCO) TAKING CPAP MACHINE TAKING ALBUTEROL SULFATE (2.5 MG/3ML) 0.083% NEBULIZATION SOLUTION 3 ML INHALATION THREE TIMES A DAY PRN TAKING ALBUTEROL SULFATE HFA 108 MCG/ACT AEROSOL SOLUTION 2 PUFFS NEEDED INHALATION EVERY 4 HRS TAKING SPACER/AERO-HOLDING CHAMBERS 1 DEVICE DIRECTED WITH INHALER Q4HRS PRN SOB/WHEEZE TAKING MIRALAX - PACKET 1 PACKET MIXED WITH 8 OUNCES OF FLUID ORALLY ONCE A DAY TAKING SENNA PLUS 8.6-50 MG TABLET 1 TABLET IN THE EVENING NEEDED ORALLY ONCE A DAY TAKING PROZAC 20 MG CAPSULE 1 1/2 CAPSULE IN THE MORNING ORALLY ONCE A DAY TAKING TYLENOL 325 MG TABLET 2 TABLETS NEEDED ORALLY EVERY 6 HRS TAKING IBUPROFEN 800 MG TABLET 1 TABLET ORALLY THREE TIMES A DAY TAKING COLACE 100 MG CAPSULE 1 CAPSULE NEEDED ORALLY 3 TIMES A DAY NEEDED TAKING OXYCODONE HCL 5 MG TABLET 1-2 TAB ORALLY EVERY 6 HRS MDD8, NOTES: TAKING 1 TAB Q 4 H NOT-TAKING VRAYLAR 1.5 MG CAPSULE 1 CAPSULE ORALLY DAILY NOT-TAKING ALEVE 220 MG CAPSULE ORALLY NOT-TAKING DULERA 200-5 MCG/ACT AEROSOL 2 PUFFS INHALATION TWICE A DAY NOT-TAKING SUDAFED 30 MG TABLET 1 TABLET NEEDED ORALLY TWICE DAILY NOT-TAKING ZYRTEC 10 MG TABLET 1 TABLET ORALLY ONCE A DAY NOT-TAKING CYCLOBENZAPRINE HCL 10 MG TABLET 1 TABLET ORALLY BEFORE BEDTIME NOT-TAKING ZOLOFT 100 MG TABLET 1 TABLET ORALLY ONCE A DAY NOT-TAKING OXYCONTIN 15 MG TABLET EXTENDED RELEASE 12 HOUR 1 TABLET ORALLY THREE TIMES DAILY NEEDED MDD:3 (PAIN CLINIC) NOT-TAKING FLAGYL 500 MG TABLET 1 TABLET ORALLY EVERY 8 HRS NOT-TAKING PERCOCET 5-325 MG TABLET 1 TABLET NEEDED ORALLY EVERY 3-4 HRS (MDD: 4) NOT-TAKING OMEPRAZOLE 40 MG CAPSULE DELAYED RELEASE 1 CAPSULE ORALLY ONCE A DAY NOT-TAKING CLONIDINE HCL 0.1 MG TABLET 1 TABLET ORALLY THREE TIMES DAILY NOT-TAKING FLUTICASONE PROPIONATE 50 MCG/ACT SUSPENSION 1 SPRAY IN EACH NOSTRIL NASALLY ONCE A DAY NOT-TAKING MOBIC 7.5 MG TABLET 1 TABLET ORALLY BID (WITH FOOD) NOT-TAKING AMITRIPTYLINE HCL 10 MG TABLET 1 TABLET AT BEDTIME ORALLY ONCE A DAY NOT-TAKING BACLOFEN 10 MG 1 1 TAB(S) P.O. THREE TIMES A DAY NOT-TAKING OXYBUTYNIN CHLORIDE 5 MG TABLET 1 TABLET ORALLY TID NOT-TAKING CIPRO 500 MG TABLET 1 TABLET ORALLY DIRECTED- 1 HOUR BEFORE CYSTOSCOPY MEDICATION LIST REVIEWED AND RECONCILED WITH THE PATIENT PAST MEDICAL HISTORY PTSD PANIC ATTACKS KIDNEY STONES HEMATURIA AUB/FIBROID/PELVIC PAIN - NOW S/P PARTIAL HYSTERECTOMY, RIGHT OVARIAN INTACT ABDOMINAL PAIN NOS - LIKELY ADHESIONS - PREVIOUSLY NOTED IN OP REPORT NIRALI COMPLIANCE DRUG SEEK BEHAVIOR SUSPICIOUS TOXICOLOGY SCREEN ALLERGIES N.K.D.A. 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 CONSTITUTIONAL: ANY CHANGE IN YOUR MEDICAL CONDITION? NO . CHILLS NO . FEVER NO . INFECTION: DO YOU HAVE NEW INFECTIONS? NO . DO YOU HAVE HISTORY OF MRSA? NO . MUSCULOSKELETAL: ANY NEW PATTERNS OF PAIN OR NUMBNESS? YES, VAGINAL AND RECTAL PAIN X 2 WEEKS . GASTROENTEROLOGY: ANY NEW CHANGE IN BOWEL CONTROL? YES, DIARRHEA . GENITOURINARY: ANY NEW CHANGE IN BLADDER CONTROL? NO . IS THERE A CHANCE YOU COULD BE ? NO . HEMATOLOGY/LYMPH: DO YOU TAKE ANY BLOOD THINNERS? (FOR EXAMPLE- COUMADIN, PLAVIX, AGGRENOX, PLATEL, PRADAXA, OR XARELTO) NO . WHEN WAS YOUR LAST DOSE? DATE: TIME: . NEUROLOGY: HAVE YOU FALLEN IN THE PAST 6 MONTHS? NO . ANY NEW EXTREMITY NUMBNESS OR WEAKNESS? NO . CARDIOLOGY: DO YOU HAVE A PACEMAKER OR DEFIBRILLATOR? NO . RESPIRATORY: HAVE YOU BEEN SICK IN THE PAST WEEK? NO . FEVER NO . FLU LIKE SYMPTOMS? NO . COUGH NO . INTEGUMENTARY: DO YOU HAVE ANY RASHES OR OPEN SORES? NO . ALLERGIC/IMMUNO: ARE YOU ALLERGIC TO SHELLFISH OR IV DYE? NO . ANY NEW ALLERGIES? NO . PSYCHIATRIC: DO YOU HAVE THOUGHTS OF HURTING YOURSELF OR SOMEONE ELSE? NO . ARE YOU ABUSED, NEGLECTED, OR IN AN UNSAFE ENVIRONMENT? NO . ENDOCRINOLOGY: ARE YOU DIABETIC? NO . OTHER: DO YOU NEED ANY PRESCRIPTIONS? NO . IF YES, PLEASE LIST: ____ . ANY NEW PROBLEMS WITH YOUR MEDICATIONS? NO . WHEN DID YOU LAST EAT? ____ . WHEN DID YOU LAST DRINK? ____ . WHAT DID YOU LAST DRINK? ____ . NAME OF PERSON DRIVING YOU HOME? ____ . DO YOU HAVE ANY OTHER QUESTIONS OR CONCERNS NO . VITAL SIGNS WT 214 LBS, HT 67.5 IN, BMI 33.02 INDEX, BP 116/73 MM HG, HR 74 /MIN, RR 16 /MIN, TEMP 97.5 F, OXYGEN SAT % 100, SAFE IN ENV? (Y/N) Y, REVIEWED BY: EM. EXAMINATION GENERAL EXAMINATION: GENERAL APPEARANCE:COMFORTABLE AND SMILING.. PSYCHANXIOUS. NECK:NEGATIVE FOR LYMPHADENOPATHY. LUNGS:LUNG SOUNDS ARE CLEAR. HEART:HEART RATE REGULAR. ABDOMEN:BS PRESENT X4 QUADS.SOFT .MARKED TENDERNESS TO LIGHT TOUCH OVER INCISION SUPRAPUBIC ARE.. ASSESSMENTS LOWER ABDOMINAL PAIN - R10.30 (PRIMARY) CHRONIC PRESCRIPTION OPIATE USE - Z79.891 TREATMENT LOWER ABDOMINAL PAIN CONTINUE IBUPROFEN TABLET, 800 MG, 1 TABLET, ORALLY, THREE TIMES A DAY, 30 DAY(S), 90 TABLET, REFILLS 2 STOP COLACE CAPSULE, 100 MG, 1 CAPSULE NEEDED, ORALLY, 3 TIMES A DAY NEEDED CONTINUE OXYCODONE HCL TABLET, 5 MG, 1-2 TAB, ORALLY, EVERY 6 HRS MDD8, 30 DAY(S), 240, REFILLS 0, NOTES: TAKING 1 TAB Q 4 H PROCEDURE CODES FA211 ESTABILISHED PATIENT [facility] CHARGE DISPOSITION & COMMUNICATION FOLLOW UP 9WK F/U W DR. KESSLER/ED ELECTRONICALLY SIGNED BY UBALDO WEAVER ON 12/16/2016 AT 08:46 AM EDT DISCLAIMER : THIS IS A VISIT SUMMARY EXTRACTED FROM THE [employer] CHART. IT IS NOT A COPY OF THE [employer] PROGRESS NOTE. MTDD
== END ==
LOC: M PAIN 08:40
PROVIDERS: ATTEND Nurse Practitioner Family
DX: G89.29 Other chronic pain (principal); R10.30 Lower abdominal pain, unspecified; F43.10 Post-traumatic stress disorder, unspecified; R10.2 Pelvic and perineal pain; F41.0 Panic disorder [episodic paroxysmal anxiety]; Z87.442 Personal history of urinary calculi; Z90.710 Acquired absence of both cervix and uterus; G47.33 Obstructive sleep apnea (adult) (pediatric); Z79.1 Long term (current) use of non-steroidal anti-inflammatories (NSAID); Z79.891 Long term (current) use of opiate analgesic; Z79.899 Other long term (current) drug therapy

== ENCOUNTER → 2017-01-19 | Outpatient (CLI) | payer OTHER ==
[~2017-01-19] MED LIST changes: +GASTROGRAFIN SOLUTION 30ML (Q9963) As Ordered ONE; +ISOVUE-370 76% 100ML VIAL (Q9967) As Ordered ONE
--- NOTE | 2017-01-20 08:03 | REP ---
Clinical: Abdominal pain and weight loss. Technique: Axial contrast enhanced images from the lung bases to the pubic symphysis using oral and 100 ml Isovue 370 intravenous contrast material with coronal and sagittal re-formations. Comparison: 06/16/2016. Findings: Lung bases are clear. Visualized heart and pericardium normal. Liver, spleen, pancreas, gallbladder, bilateral adrenal glands and kidneys are normal. The enteric system is without obstruction or acute inflammatory process and a normal terminal ileum and appendix are identified in the right lower quadrant. Pelvis demonstrates normal bladder and evidence for prior hysterectomy. Previously noted left ovarian cyst has resolved and likely reflected physiologic change. No pelvic fluid or ascites. No adenopathy. No mass lesion. No free air. Stable phleboliths noted in the pelvis. Musculoskeletal structures without focal osseous abnormality. Impression: No acute abdominopelvic pathology appreciated. Previously identified left ovarian cyst has resolved. Signed by Max Salazar MD 01/20/2017 07:54 A
== END ==
LOC: M RAD 15:29
PROVIDERS: ATTEND Family Medicine
DX: R10.84 Generalized abdominal pain (principal); R63.4 Abnormal weight loss
CPT/HCPCS: 74177; Q9963; Q9967

== ENCOUNTER 2017-02-04 12:36 | Emergency (ER) | payer MEDICAID, OTHER, SELFPAY ==
[~2017-02-04] VITALS: Ht 172.7 cm; Wt 92.3 kg
[2017-02-04 12:36] VITALS: BP 140/90
[~2017-02-04 12:36] MED LIST changes: -GASTROGRAFIN SOLUTION 30ML (Q9963) As Ordered ONE; -ISOVUE-370 76% 100ML VIAL (Q9967) As Ordered ONE; -NEUR300C PO
[2017-02-04] MEDS ORDERED: NEUR300C PO (13:42)
== END 2017-02-04 13:46 | disposition home or self-care (01) ==
LOC: M ED 12:36
DX: G62.9 Polyneuropathy, unspecified (principal); D25.9 Leiomyoma of uterus, unspecified; F41.9 Anxiety disorder, unspecified; F17.210 Nicotine dependence, cigarettes, uncomplicated; Z79.899 Other long term (current) drug therapy; Z79.891 Long term (current) use of opiate analgesic; Z98.890 Other specified postprocedural states

== ENCOUNTER → 2017-03-04 | Outpatient (CLI) | payer MEDICAID ==
[~2017-03-04] MED LIST changes: +NEUR300C PO
== END ==
LOC: M PAIN 10:30
PROVIDERS: ATTEND Anesthesiology
DX: Z53.29 Procedure and treatment not carried out because of patient's decision for other reasons (principal)

== ENCOUNTER → 2017-03-04 | Outpatient (CLI) | payer MEDICAID ==
[2017-03-04 08:51] LABS: MEAN CORPUSCULAR HEMOGLOBIN 32.4 pg (27.0-33.0); MEAN CORPUSCULAR HGB CONC 32.1 g/dl (32.0-36.5); MEAN CORPUSCULAR VOLUME 100.8 fl (80.0-96.0); RED CELL DISTRIBUTION WIDTH 12.5 % (11.5-14.5); WHITE BLOOD COUNT 5.1 10^3/uL (4.0-10.0)
--- NOTE | 2017-03-04 09:06 | REP ---
Chest two views HISTORY: Abdominal pain Comparison: 09/06/2014 The lungs are clear. The heart is normal in size. The pulmonary vasculature is normal in appearance. The bony structure is intact. IMPRESSION: No acute disease. Signed by Anjel Keen MD 03/04/2017 08:57 A
[2017-03-04 09:24] LABS: ANION GAP 12 MEQ/L (8-16); BLOOD UREA NITROGEN 8 MG/DL (7-18); CALCIUM LEVEL 9.2 MG/DL (8.5-10.1); CARBON DIOXIDE LEVEL 24 MEQ/L (21-32); CHLORIDE LEVEL 107 MEQ/L (98-107); CREATININE FOR GFR 0.78 MG/DL (0.55-1.02); GLOMERULAR FILTRATION RATE > 60.0 (>58); GLUCOSE, FASTING 81 MG/DL (70-105); POTASSIUM SERUM 4.1 MEQ/L (3.5-5.1); SODIUM LEVEL 143 MEQ/L (136-145)
== END ==
LOC: M LAB 08:05
PROVIDERS: ATTEND Family Medicine
DX: R10.30 Lower abdominal pain, unspecified (principal); R35.8 Other polyuria; E55.9 Vitamin D deficiency, unspecified; R53.83 Other fatigue; R10.84 Generalized abdominal pain

== ENCOUNTER → 2017-03-24 | Outpatient (CLI) | payer MEDICAID ==
--- NOTE | 2017-04-13 02:03 | ECWPNPC ---
PATIENT NAME: MISBAH DELACRUZ : 1970 GENDER: FEMALE VISIT DATE: 03/24/2017 DISCHARGE DATE: 03/24/17 1100 VISIT LOCKED DATE TIME: PHYSICIAN: ED RICARDO RESOURCE: ED RICARDO HISTORY OF PRESENT ILLNESS HISTORY OF PRESENT ILLNESS: PAIN THE PATIENT DESCRIBES THE PAIN... THE PATIENT DESCRIBES THE PAIN... THE PATIENT DESCRIBES THE PAIN... THE PATIENT DESCRIBES THE PAIN... THE PATIENT DESCRIBES THE PAIN... THE PATIENT DESCRIBES THE PAIN... HERE FOR F/U AND MANAGEMENT OF CHRONIC PELVIC PAIN.DESCRIBES PAIN INTERMITTENT THROBBING AND TENDER.USING OXYCODONE 5MG 1-2 TAB PRN FOR PAIN.RATING PAIN VAS 9/10.DENIES SIDE EFFECTS. SHE IS IN SEVERE PAIN TODAY.FOLLOWING WITH GASTRENTEROLOGY AND THEY WANT TO DO COLONOSCOPY.SHE IS VERY DISTRAUGHT TODAY WITH DEPRESSED AFFECT. FALL RISK SCREENING: SCREENING :NO FALLS IN THE PAST YEAR CURRENT MEDICATIONS TAKING IBUPROFEN 800 MG TABLET 1 TABLET ORALLY THREE TIMES A DAY TAKING TRAZODONE HCL 100 MG TABLET 4 TABS ORALLY AT BEDTIME TAKING KLONOPIN 1 MG TABLET 1 TABLET ORALLY TWICE A DAY MDD:2 ([facility]AS[facility]) TAKING CPAP MACHINE TAKING ALBUTEROL SULFATE HFA 108 MCG/ACT AEROSOL SOLUTION 2 PUFFS NEEDED INHALATION EVERY 4 HRS TAKING SPACER/AERO-HOLDING CHAMBERS 1 DEVICE DIRECTED WITH INHALER Q4HRS PRN SOB/WHEEZE TAKING PROZAC 40 MG CAPSULE 1 TAB ORALLY ONCE A DAY WITH 10 MG TAKING TYLENOL 325 MG TABLET 2 TABLETS NEEDED ORALLY EVERY 6 HRS TAKING DEPO-PROVERA 150 MG/ML SUSPENSION 1 ML INTRAMUSCULAR TAKING MIRALAX - PACKET 1 PACKET MIXED WITH 8 OUNCES OF FLUID ORALLY ONCE A DAY TAKING ALBUTEROL SULFATE (2.5 MG/3ML) 0.083% NEBULIZATION SOLUTION 3 ML INHALATION THREE TIMES A DAY PRN TAKING NEBULIZER - DEVICE 1 ICD: J45.901 EVERY 4 HOURS NEEDED TAKING NEBULIZER/TUBING/MOUTHPIECE 1 ICD: J45.901 EVERY 4 HOURS NEEDED TAKING DULERA 200-5 MCG/ACT AEROSOL 2 PUFFS INHALATION TWICE A DAY TAKING DRISDOL 65776 UNIT CAPSULE 1 CAPSULE ORALLY TAKING OXYCODONE HCL 5 MG TABLET 1-2 TAB ORALLY EVERY 6 HRS MDD8 NOT-TAKING PROZAC 10 MG CAPSULE 1 CAPSULE IN THE MORNING ORALLY ONCE A DAY WITH A 20 MG UNKNOWN SENNA PLUS 8.6-50 MG TABLET 1 TABLET IN THE EVENING NEEDED ORALLY ONCE A DAY UNKNOWN VRAYLAR 1.5 MG CAPSULE 1 CAPSULE ORALLY DAILY UNKNOWN ALEVE 220 MG CAPSULE ORALLY UNKNOWN SUDAFED 30 MG TABLET 1 TABLET NEEDED ORALLY TWICE DAILY UNKNOWN ZYRTEC 10 MG TABLET 1 TABLET ORALLY ONCE A DAY UNKNOWN CYCLOBENZAPRINE HCL 10 MG TABLET 1 TABLET ORALLY BEFORE BEDTIME UNKNOWN ZOLOFT 100 MG TABLET 1 TABLET ORALLY ONCE A DAY UNKNOWN OXYCONTIN 15 MG TABLET EXTENDED RELEASE 12 HOUR 1 TABLET ORALLY THREE TIMES DAILY NEEDED MDD:3 (PAIN CLINIC) UNKNOWN FLAGYL 500 MG TABLET 1 TABLET ORALLY EVERY 8 HRS UNKNOWN PERCOCET 5-325 MG TABLET 1 TABLET NEEDED ORALLY EVERY 3-4 HRS (MDD: 4) UNKNOWN OMEPRAZOLE 40 MG CAPSULE DELAYED RELEASE 1 CAPSULE ORALLY ONCE A DAY UNKNOWN CLONIDINE HCL 0.1 MG TABLET 1 TABLET ORALLY THREE TIMES DAILY UNKNOWN FLUTICASONE PROPIONATE 50 MCG/ACT SUSPENSION 1 SPRAY IN EACH NOSTRIL NASALLY ONCE A DAY UNKNOWN MOBIC 7.5 MG TABLET 1 TABLET ORALLY BID (WITH FOOD) UNKNOWN AMITRIPTYLINE HCL 10 MG TABLET 1 TABLET AT BEDTIME ORALLY ONCE A DAY UNKNOWN BACLOFEN 10 MG 1 1 TAB(S) P.O. THREE TIMES A DAY UNKNOWN OXYBUTYNIN CHLORIDE 5 MG TABLET 1 TABLET ORALLY TID UNKNOWN CIPRO 500 MG TABLET 1 TABLET ORALLY DIRECTED- 1 HOUR BEFORE CYSTOSCOPY MEDICATION LIST REVIEWED AND RECONCILED WITH THE PATIENT PAST MEDICAL HISTORY PTSD PANIC ATTACKS KIDNEY STONES HEMATURIA AUB/FIBROID/PELVIC PAIN - NOW S/P PARTIAL HYSTERECTOMY, RIGHT OVARIAN INTACT ABDOMINAL PAIN NOS - LIKELY ADHESIONS - PREVIOUSLY NOTED IN OP REPORT NIRALI COMPLIANCE DRUG SEEK BEHAVIOR SUSPICIOUS TOXICOLOGY SCREEN ALLERGIES N.K.D.A. 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 STATES SHE SMOKES 1 ONCE IN A GREAT WHILE HOW SOON AFTER YOU WAKE UP DO YOU SMOKE YOUR FIRST CIGARETTE?AFTER 60 MIN HOW OFTEN DO YOU SMOKE CIGARETTES?SOME DAYS, BUT NOT EVERY DAY PATIENT COUNSELED ON THE DANGERS OF TOBACCO USE AND URGED TO QUIT:01/11/2017 ARE YOU INTERESTED IN QUITTING?READY TO QUIT COUNSELED THE PATIENT ON TOBACCO USE, CESSATION [id number]/2017 BMI CARE GOAL FOLLOW-UP ABOVE NORMAL BMI FOLLOW-UPDIETARY NEEDS EDUCATION ALCOHOL SCREENING POINTS: 0, INTERPRETATION: NEGATIVE. RECREATIONAL DRUG USE DENIES, DRUG USE? NO. CAFFEINE 2-5/DAY, CAFFEINE USE? NO . SEXUAL HX HAD SEX IN THE LAST 12 MONTHS (VAGINAL, ORAL, OR ANAL)?: NO, HAVE YOU EVER HAD AN STD?: NO. 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 DIET: REGULAR. EXERCISE: GYM EVERY OTHER DAY, NOT ABLET O LAST 2 WEEKS. MARITAL STATUS: .. OTHERS AT HOME: CHILDREN. PETS: NONE. BAPTISM NO HINDU BELIEFS THAT WOULD IMPACT HEALTH CARE. LANGUAGE MARSHALLESE. LEARNING BARRIERS / SPECIAL NEEDS CHANGE FROM LAST VISIT?NO BARRIERS TO LEARNING?NO HEARING IMPAIRED?NO VISION IMPAIRED?NO COGNITIVELY IMPAIRED?NO READINESS TO LEARN?YES LEARNING PREFERENCES?NO LEARNING CAPABILITIES PRESENT?YES EMOTIONAL BARRIERS?NO SPECIAL DEVICES?NO NAIL TECH NEEDED?NO PSYCHOLOGICAL HX TREATMENT NO . PAIN CLINIC PFS, CLERGY, PUBLIC HEALTH REFERRALS HAS THE PATIENT BEEN EDUCATED REGARDING HIS/HER PLAN OF CARE?YES HAS THE PATIENT BEEN EDUCATED REGARDING PAIN, THE RISK FOR PAIN, THE IMPORTANCE OF EFFECTIVE PAIN MANAGEMENT, AND THE PAIN ASSESSMENT PROCESS?YES PATIENT: ____. ADVANCE DIRECTIVES HEALTH CARE PROXY? NO, POWER OF SUPERVISOR GELATIN PLANT? NO. HOUSING: RENTS APARTMENT. HOSPITALIZATION/MAJOR DIAGNOSTIC PROCEDURE ABD PAIN, OVARIAN CYST 06/16/2016 ECTOPIC 1993 REVIEW OF SYSTEMS REVIEWED BY: PROVIDER: ED CONNER . CONSTITUTIONAL: ANY CHANGE IN YOUR MEDICAL CONDITION? NO . CHILLS NO . FEVER NO . INFECTION: DO YOU HAVE NEW INFECTIONS? NO . DO YOU HAVE HISTORY OF MRSA? NO . MUSCULOSKELETAL: ANY NEW PATTERNS OF PAIN OR NUMBNESS? YES, PAIN AND NUMBNESS IN BILAT FINGERS . GASTROENTEROLOGY: ANY NEW CHANGE IN BOWEL CONTROL? NO . GENITOURINARY: ANY NEW CHANGE IN BLADDER CONTROL? NO . IS THERE A CHANCE YOU COULD BE ? NO . HEMATOLOGY/LYMPH: DO YOU TAKE ANY BLOOD THINNERS? (FOR EXAMPLE- COUMADIN, PLAVIX, AGGRENOX, PLATEL, PRADAXA, OR XARELTO) NO . WHEN WAS YOUR LAST DOSE? DATE: TIME: . NEUROLOGY: HAVE YOU FALLEN IN THE PAST 6 MONTHS? NO . ANY NEW EXTREMITY NUMBNESS OR WEAKNESS? NO . CARDIOLOGY: DO YOU HAVE A PACEMAKER OR DEFIBRILLATOR? NO . RESPIRATORY: HAVE YOU BEEN SICK IN THE PAST WEEK? YES, COLD S/S . FEVER NO . FLU LIKE SYMPTOMS? NO . COUGH NO . INTEGUMENTARY: DO YOU HAVE ANY RASHES OR OPEN SORES? NO . ALLERGIC/IMMUNO: ARE YOU ALLERGIC TO SHELLFISH OR IV DYE? NO . ANY NEW ALLERGIES? NO . PSYCHIATRIC: DO YOU HAVE THOUGHTS OF HURTING YOURSELF OR SOMEONE ELSE? NO . ARE YOU ABUSED, NEGLECTED, OR IN AN UNSAFE ENVIRONMENT? NO . ENDOCRINOLOGY: ARE YOU DIABETIC? NO . OTHER: DO YOU NEED ANY PRESCRIPTIONS? YES, OXYCODONE . IF YES, PLEASE LIST: ____ . ANY NEW PROBLEMS WITH YOUR MEDICATIONS? NO . WHEN DID YOU LAST EAT? ____ . WHEN DID YOU LAST DRINK? ____ . WHAT DID YOU LAST DRINK? ____ . NAME OF PERSON DRIVING YOU HOME? ____ . DO YOU HAVE ANY OTHER QUESTIONS OR CONCERNS NO, PT DENIES GETTING FLU VACCINE THIS SEASON, NOR DOES SHE PLAN TO . VITAL SIGNS WT 206.2 LBS, HT 67.5 IN, BMI 31.82 INDEX, BP 144/86 MM HG, HR 90 /MIN, RR 18 /MIN, TEMP 98.2 F, OXYGEN SAT % 100%, NA INITIALS TL 1007, REVIEWED BY: EM. EXAMINATION GENERAL EXAMINATION: GENERAL APPEARANCE:ANXIOUS,IN PAIN. PSYCHANXIOUS. NECK:NEGATIVE FOR LYMPHADENOPATHY. LUNGS:LUNG SOUNDS ARE CLEAR. HEART:HEART RATE REGULAR. ABDOMEN:BS PRESENT X4 QUADS.SOFT .MARKED TENDERNESS TO LIGHT TOUCH OVER INCISION SUPRAPUBIC AREA.. ASSESSMENTS LOWER ABDOMINAL PAIN - R10.30 (PRIMARY) CHRONIC PRESCRIPTION OPIATE USE - Z79.891 TREATMENT LOWER ABDOMINAL PAIN REFILL OXYCODONE HCL TABLET, 5 MG, 1-2 TAB, ORALLY, EVERY 6 HRS MDD8, 20 DAYS, 160, REFILLS 0 START OXYCODONE HCL TABLET, 5 MG, 1-2, ORALLY, Q4-6H PRN MDD8, 10 DAY(S), 80, REFILLS 0 NOTES: ISTOP REGISTRY [id number] AND DEMNOSTRATES COMPLLIANCE. BRINGS IN MEDICATIONS WHICH IS APPROPRIATE FOR WHAT WAS DISPENSED. RECENT URINE TOXICOLOGY REVIEWED. NO UNAUTHORIZED MEDICATIONS. NO ILLICIT SUBSTANCES AND PRESCRIBED MEDICATIONS WERE PRESENT. URINE TOX TODAY., RISKS AND BENEFITS OF NARCOTIC/OPIOD MEDICATIONS WERE REVIEWED WITH PATIENT - THIS INCLUDES BUT IS NOT LIMITED TO RISK OF DEPENDANCE/DEVELOPMENT OF ADDICTION, MOOD DISTURBANCE AND DEPRESSION, OSTEOPOROSIS, HORMONAL AND LABIDAL CHANGES, RESPIRATORY DEPRESSION AND . PATIENT IS ADVISED NOT TO DRIVE WHILE ON THESE MEDICATIONS, REVIEWED WITH PATIENT THE POTENTIAL RISK OF INCREASED SEDATION, RESPIRATORY SUPPRESSION AND WITH THE COMBINATION OF BENZODIAZAPINE AND OPIOD MEDICATIONS. PATIENT STATES HE UNDERSTANDS THIS RISK AND WISHES TO CONTINUE WITH THERAPY. PROCEDURE CODES FA211 ESTABILISHED PATIENT [facility] CHARGE DISPOSITION & COMMUNICATION FOLLOW UP 4 WEEKS ELECTRONICALLY SIGNED BY UBALDO WEAVER ON 04/11/2017 AT 10:48 AM EST DISCLAIMER : THIS IS A VISIT SUMMARY EXTRACTED FROM THE [employer] CHART. IT IS NOT A COPY OF THE [employer] PROGRESS NOTE. MORALESD
== END ==
LOC: M PAIN 10:15
PROVIDERS: ATTEND Nurse Practitioner Family
DX: G89.29 Other chronic pain (principal); R10.30 Lower abdominal pain, unspecified; R10.2 Pelvic and perineal pain; J45.40 Moderate persistent asthma, uncomplicated; E55.9 Vitamin D deficiency, unspecified; F43.10 Post-traumatic stress disorder, unspecified; F17.210 Nicotine dependence, cigarettes, uncomplicated; Z79.1 Long term (current) use of non-steroidal anti-inflammatories (NSAID); Z79.891 Long term (current) use of opiate analgesic; Z79.899 Other long term (current) drug therapy

== ENCOUNTER → 2017-04-19 | Outpatient (CLI) | payer OTHER ==
[~2017-04-19] MED LIST changes: +ALBU83IN INH; +IRON65TA PO; +MEDR1VL IM; +OXYC-517 PO; +PROZ40CA PO; +VITA1TAB27 PO
--- NOTE | 2017-04-19 09:58 | REPMRS ---
Patient History The patient states she has not had a clinical breast exam in over a year. Baseline Mammogram Family history of colorectal cancer in maternal uncle at age 50. Taking hormonal contraceptives for 11 months. Digital Woman Screen Mammo: April 19, 2017 - Exam #: [id number] Bilateral CC and MLO view(s) were taken. Technologist: Bina Reynolds, Technologist No prior studies available for comparison. FINDINGS: There are scattered fibroglandular densities. Nipple jewelry is seen in place bilaterally. There is no evidence of dominant mass, architectural distortion, or clustered microcalcification typical of malignancy. ASSESSMENT: BI-RADS/ACR category 1 mammogram. Negative. Recommendation Routine screening mammogram of both breasts in 1 year (for women over age 40). This mammogram was interpreted with the aid of an FDA-approved computer-aided dectection system. Electronically Signed By: Tristan Lerma MD 04/19/17 0958
== END ==
LOC: M WHC 09:13
PROVIDERS: ATTEND Internal Medicine
DX: Z12.31 Encounter for screening mammogram for malignant neoplasm of breast (principal)

== ENCOUNTER → 2017-04-26 | Outpatient (REF) | payer MEDICAID | LOC: M LAB REF 11:47 | PROVIDERS: ATTEND Internal Medicine Gastroenterology | DX: R10.2 Pelvic and perineal pain (principal) ==

== ENCOUNTER 2017-04-29 12:30 | Day surgery (SDC) | payer OTHER ==
[~2017-04-29] VITALS: Ht 172.7 cm; Wt 96.6 kg
[2017-04-29] MEDS ORDERED: NS 1,000 ML IV ONE (13:00)
[2017-04-29] MEDS ORDERED: CLON1TAB PO (13:48)
[2017-04-29] MEDS ORDERED: PROPOFOL 200 MG/20 ML VIAL As Ordered ONE (14:30)
[2017-04-29] MEDS ORDERED: LIDOCAINE 2% INJ 100 MG/5 ML SDV (FOR ANES.) As Ordered ONE (14:30)
--- NOTE | 2017-04-29 14:32 | ROOR ---
Patient Name: Grant Simms Procedure Date: 04/29/2017 2:05 PM Date of : 1970 Age: 47 Room: [facility] Gender: Female Note Status: Finalized Procedure: Upper GI endoscopy Indications: Pelvic pain, Weight loss Providers: Vadim CM MD Ref[facility] CLE[facility] Requesting Provider: Medicines: Monitored Anesthesia Care Complications: No immediate complications. Procedure: Pre-Anesthesia Assessment: - The heart rate, respiratory rate, oxygen saturations, blood pressure, adequacy of pulmonary ventilation, and response to care were monitored throughout the procedure. The Endoscope was introduced through the mouth, and advanced to the second part of duodenum. The upper GI endoscopy was accomplished without difficulty. The patient tolerated the procedure well. Findings: The esophagus was normal. The stomach was normal. The examined duodenum was normal. Impression: - Normal esophagus. - Normal stomach. - Normal examined duodenum. - No specimens collected. Recommendation: - Continue present medications. - Perform a colonoscopy today. Vadim Cm MD Vadim CM MD 04/29/2017 2:31:52 PM This report has been signed electronically. Number of Addenda: 0 Note Initiated On: 04/29/2017 2:05 PM Estimated Blood Loss: Estimated blood loss: none.
--- NOTE | 2017-04-29 15:01 | ROOR ---
Patient Name: Grant Simms Procedure Date: 04/29/2017 2:05 PM Date of : 1970 Age: 47 Room: [facility] Gender: Female Note Status: Finalized Procedure: Colonoscopy Indications: Pelvic pain, Change in bowel habits Providers: Vadim MONTALVO MD Referring MD: [facility] Requesting Provider: Medicines: Monitored Anesthesia Care Complications: No immediate complications. Procedure: Pre-Anesthesia Assessment: - The heart rate, respiratory rate, oxygen saturations, blood pressure, adequacy of pulmonary ventilation, and response to care were monitored throughout the procedure. The Colonoscope was introduced through the anus and advanced to 5 cm into the ileum. The colonoscopy was performed without difficulty. The patient tolerated the procedure well. The quality of the bowel preparation was adequate. Findings: The perianal and digital rectal examinations were normal. A 5 mm polyp was found in the splenic flexure. The polyp was sessile. The polyp was removed with a cold snare. Resection and retrieval were complete. A diminutive polyp was found in the sigmoid colon. The polyp was sessile. The polyp was removed with a cold snare. Resection and retrieval were complete. Internal hemorrhoids were found during retroflexion. The hemorrhoids were medium-sized. The exam was otherwise normal throughout the examined colon. The terminal ileum appeared normal. Biopsies for histology were taken with a cold forceps for evaluation of microscopic colitis. Impression: - One 5 mm polyp at the splenic flexure, removed with a cold snare. Resected and retrieved. - One diminutive polyp in the sigmoid colon, removed with a cold snare. Resected and retrieved. - Moderate Internal hemorrhoids. - The colon and examined portion of the ileum was otherwise normal. - Biopsies were taken with a cold forceps for evaluation of microscopic colitis. - (cause of pevic pain is not determined on this colonoscopy) Recommendation: - Telephone endoscopist for pathology results in 2 weeks. - If the pathology report reveals adenomatous tissue, then repeat the colonoscopy for surveillance in 3 years. Vadim Montalvo MD Vadim MONTALVO MD 04/29/2017 3:00:46 PM This report has been signed electronically. Number of Addenda: 0 Note Initiated On: 04/29/2017 2:05 PM Estimated Blood Loss: Estimated blood loss: none.
[2017-04-29 16:06] VITALS: BP 176/94
== END 2017-04-29 16:13 | disposition home or self-care (01) ==
LOC: M OPP 12:30
PROVIDERS: ATTEND Internal Medicine Gastroenterology
DX: D12.3 Benign neoplasm of transverse colon (principal); D12.5 Benign neoplasm of sigmoid colon; K64.8 Other hemorrhoids; R10.2 Pelvic and perineal pain; R19.4 Change in bowel habit; R63.4 Abnormal weight loss; J45.909 Unspecified asthma, uncomplicated; G47.30 Sleep apnea, unspecified; F17.210 Nicotine dependence, cigarettes, uncomplicated; Z79.891 Long term (current) use of opiate analgesic; Z79.899 Other long term (current) drug therapy

== ENCOUNTER 2017-05-11 07:59 | Emergency (ER) | payer MEDICAID, OTHER ==
[~2017-05-11] VITALS: Ht 170.2 cm; Wt 95.5 kg
[2017-05-11] MEDS ORDERED: MORPHINE 4 MG/ML 1ML SYRINGE IM ONE (09:15)
[2017-05-11] MEDS ORDERED: CLINDAMYCIN 150 MG CAP PO ONE (09:15)
[2017-05-11] MEDS ORDERED: KETOROLAC 60 MG/2 ML VIAL (J1885) IM ONE (09:15)
[2017-05-11 10:55] VITALS: BP 115/65
[2017-05-11] MEDS ORDERED: KETO10TAB PO (10:56)
[2017-05-11] MEDS ORDERED: CLEO300C2 PO (10:56)
[2017-05-11] MEDS ORDERED: NORCO, ANEXSIA 5/325MG TABLET (HYDROcodone/ACETAMINOPHEN) PO ONE (11:00)
[2017-05-11] MEDS ORDERED: DIFL150T PO (11:21)
--- NOTE | 2017-05-11 18:50 | REP ---
PELVIC ULTRASOUND: Real-time sonographic evaluation of the pelvis performed utilizing transabdominal and endovaginal technique. The patient has had prior hysterectomy and right salpingo-oophorectomy. The bladder measures 5.3 x 3.1 x 5.0 cm. The left ovary measures 3.4 x 2.8 x 3.1 cm. There is a stable cystic structure in the left ovary measuring 2.1 x 2.0 x 2.0 cm. There is blood flow seen in the left ovary with duplex Doppler evaluation, with no torsion, RI 0.50. No free fluid or other evidence of adnexal mass. IMPRESSION: Status post hysterectomy and right salpingo-oophorectomy. 2.1 cm cystic structure in the left ovary without torsion or free fluid. Signed by Hamzah Shell MD 05/12/2017 08:28 P
== END 2017-05-11 11:24 | disposition home or self-care (01) ==
LOC: M ED 07:59
DX: N83.292 Other ovarian cyst, left side (principal); N76.4 Abscess of vulva; J45.909 Unspecified asthma, uncomplicated; R10.9 Unspecified abdominal pain; G89.29 Other chronic pain; F41.9 Anxiety disorder, unspecified; F17.210 Nicotine dependence, cigarettes, uncomplicated; Z79.3 Long term (current) use of hormonal contraceptives; Z79.899 Other long term (current) drug therapy; Z87.2 Personal history of diseases of the skin and subcutaneous tissue; Z87.42 Personal history of other diseases of the female genital tract; Z98.890 Other specified postprocedural states
CPT/HCPCS: 76830; 76856; 93976; 96372; 99283; J1885

== ENCOUNTER → 2017-06-07 | Outpatient (REF) | payer OTHER ==
[2017-06-07 14:27] LABS: BASO % 0.8 % (0.0-1.0); EOS # 0.1 10^3/uL (0.0-0.50); EOS % 1.7 % (0.0-3.0); HEMATOCRIT 38.8 % (36.0-47.0); HEMOGLOBIN 12.8 g/dl (12.0-16.0); IMMATURE GRANULOCYTE % 0.2 % (0-0); LYMPH # 2.7 10^3/uL (1.5-4.5); LYMPH % 50.9 % (24.0-44.0); MONO # 0.2 10^3/uL (0.0-0.8); MONO % 4.2 % (0.0-5.0); NEUTROPHILS # 2.2 10^3/uL (1.8-7.7); NEUTROPHILS % 42.2 % (36.0-66.0); PLATELET COUNT, AUTOMATED 296 10^3/uL (150-450); RED BLOOD COUNT 3.88 10^6/uL (4.00-5.40); RED CELL DISTRIBUTION WIDTH 12.4 % (11.5-14.5); WHITE BLOOD COUNT 5.3 10^3/uL (4.0-10.0)
[2017-06-07 14:46] LABS: ALBUMIN/GLOBULIN RATIO 1.21 (1.00-1.93); ALKALINE PHOSPHATASE 62 U/L (45-117); ALT/SGPT 15 U/L (12-78); ANION GAP 3 MEQ/L (8-16); AST/SGOT 15 U/L (7-37); BILIRUBIN,TOTAL 0.2 MG/DL (0.2-1.0); BLOOD UREA NITROGEN 12 MG/DL (7-18); CALCIUM LEVEL 8.8 MG/DL (8.5-10.1); CARBON DIOXIDE LEVEL 28 MEQ/L (21-32); CHLORIDE LEVEL 108 MEQ/L (98-107); CREATININE FOR GFR 0.86 MG/DL (0.55-1.02); GLOMERULAR FILTRATION RATE > 60.0 (>58); GLUCOSE, FASTING 94 MG/DL (70-105); POTASSIUM SERUM 4.2 MEQ/L (3.5-5.1); RHEUMATOID FACTOR QUANT < 10.0 IU/ML (0-15.0); SODIUM LEVEL 139 MEQ/L (136-145); THYROID STIMULATING HORMONE 0.404 uIU/ML (0.358-3.740); TOTAL PROTEIN 7.3 GM/DL (6.4-8.2); VITAMIN B12 LEVEL 463 PG/ML
[2017-06-07 15:00] LABS: ESTIMATED AVERAGE GLUCOSE 108 MG/DL (60-110); HEMOGLOBIN A1c 5.4 %
[2017-06-07 15:33] LABS: ERYTHROCYTE SEDIMENTATION RATE 14 mm/hr (0-20)
[2017-06-10 11:03] LABS: ALBUMIN 4.23 GM/DL (3.29-5.55); ALBUMIN % 57.9 % (55.8-66.1); ALPHA-1-GLOBULIN % 4.5 % (2.9-4.9); ALPHA-1-GLOBULINS 0.33 GM/DL (0.17-0.41); ALPHA-2-GLOBULINS 0.64 GM/DL (0.42-0.99); ALPHA-2-GLOBULINS % 8.8 % (7.1-11.8); BETA-1-GLOBULINS % 6.6 % (4.7-7.2); BETA-2-GLOBULINS % 5.4 % (3.2-6.5); GAMMA GLOBULIN % 16.8 % (11.1-18.8)
[2017-06-10 11:04] LABS: BETA-1-GLOBULINS 0.48 GM/DL (0.28-0.60); BETA-2-GLOBULINS 0.39 GM/DL (0.19-0.55); GAMMA GLOBULINS 1.23 GM/DL (0.65-1.58)
[2017-06-13 14:11] LABS: ANCA-ATYPICAL <1:20 titer (Neg:<1:20); ANTI DOUBLE STRAND-DNA AB <1 IU/mL (0-9); ANTINUCLEAR ANTIBODIES DIRECT Negative (Negative); CYTOPLASMIC NEUTROP AB ANCA-C <1:20 titer (Neg:<1:20); LEAD BLOOD ADULT 1 ug/dL (0-19); Lyme Disease IgG/IgM Antibodie <0.91 ISR (0.00-0.90); Lyme Disease IgM Ab Quantitati <0.80 index (0.00-0.79); MERCURY LEVEL 1.2 ug/L (0.0-14.9); PERINUCLEAR AB ANCA-P <1:20 titer (Neg:<1:20); SJOGREN'S ANTI SS-A <0.2 AI (0.0-0.9); SJOGREN'S ANTI SS-B <0.2 AI (0.0-0.9); VITAMIN B1 LEVEL WHOLE BLOOD 88.3 nmol/L (66.5-200.0); VITAMIN B6,PYRIDOXAL PHOSPHATE 8.7 ug/L (2.0-32.8); VITAMIN E LEVEL 12.6 mg/L (5.3-16.8)
== END ==
LOC: M LABNEURO 08:54
DX: G60.9 Hereditary and idiopathic neuropathy, unspecified (principal)

== ENCOUNTER → 2017-06-16 | Outpatient (CLI) | payer OTHER | LOC: M PAIN 08:30 | DX: G89.29 Other chronic pain (principal); R10.30 Lower abdominal pain, unspecified; F43.10 Post-traumatic stress disorder, unspecified; F41.9 Anxiety disorder, unspecified; G47.33 Obstructive sleep apnea (adult) (pediatric); F17.210 Nicotine dependence, cigarettes, uncomplicated; R51 Headache; R39.81 Functional urinary incontinence; Z91.041 Radiographic dye allergy status; Z79.1 Long term (current) use of non-steroidal anti-inflammatories (NSAID); Z79.899 Other long term (current) drug therapy; Z79.891 Long term (current) use of opiate analgesic; Z90.711 Acquired absence of uterus with remaining cervical stump | CPT/HCPCS: G0463 ==

== ENCOUNTER 2017-07-02 21:29 | Emergency (ER) | payer OTHER, MEDICAID | END 2017-07-02 22:16 | disposition left against medical advice (07) | LOC: M ED 21:29 | DX: R51 Headache (principal); Z53.21 Procedure and treatment not carried out due to patient leaving prior to being seen by health care provider ==

== ENCOUNTER → 2017-07-28 | Outpatient (REF) | payer OTHER, MEDICAID ==
[2017-07-28 19:12] LABS: APPEARANCE, URINE CLEAR (CLEAR); BACTERIA, URINE AUTO NEGATIVE (NEGATIVE); BILIRUBIN, URINE AUTO NEGATIVE (NEGATIVE); BLOOD, URINE BLOOD 2+ (NEGATIVE); COLOR, URINE YELLOW (YELLOW); GLUCOSE, URINE (UA) AUTO NEGATIVE (NEGATIVE); KETONE, URINE AUTO TRACE mg/dL (NEGATIVE); LEUKOCYTE ESTERASE, URINE AUTO NEGATIVE (NEGATIVE); MUCUS, URINE SMALL (NEGATIVE); NITRITE, URINE AUTO NEGATIVE (NEGATIVE); PROTEIN, URINE AUTO NEGATIVE (NEGATIVE); RBC, URINE AUTO 12 /HPF (0-3); SPECIFIC GRAVITY URINE AUTO 1.039 (1.002-1.035); SQUAMOUS EPITHELIAL CELL UR AU 1 /HPF (0-6); UROBILINOGEN, URINE AUTO 0.2 mg/dL (0.0-2.0); WBC, URINE AUTO 2 /HPF (0-3)
== END ==
LOC: M LAB REF 16:48
DX: N39.0 Urinary tract infection, site not specified (principal)

== ENCOUNTER → 2017-09-08 | Outpatient (REF) | payer OTHER, MEDICAID | LOC: M LAB REF 13:20 | DX: R30.0 Dysuria (principal) ==

== ENCOUNTER → 2017-09-19 | Outpatient (CLI) | payer OTHER | LOC: M PAIN 09:00 | DX: R10.2 Pelvic and perineal pain (principal); G89.29 Other chronic pain; F43.10 Post-traumatic stress disorder, unspecified; F41.0 Panic disorder [episodic paroxysmal anxiety]; G47.33 Obstructive sleep apnea (adult) (pediatric); M19.90 Unspecified osteoarthritis, unspecified site; F17.210 Nicotine dependence, cigarettes, uncomplicated; Z79.891 Long term (current) use of opiate analgesic; Z79.899 Other long term (current) drug therapy; Z90.721 Acquired absence of ovaries, unilateral | CPT/HCPCS: G0463 ==

== ENCOUNTER → 2017-09-28 | Outpatient (REF) | payer OTHER ==
[2017-09-28 12:03] LABS: TOTAL 25(OH) VITAMIN D 19.1 NG/ML (30.0-100.0)
[2017-09-28 12:05] LABS: APPEARANCE, URINE HAZY (CLEAR); BACTERIA, URINE AUTO NEGATIVE (NEGATIVE); BILIRUBIN, URINE AUTO NEGATIVE (NEGATIVE); BLOOD, URINE BLOOD 1+ (NEGATIVE); COLOR, URINE YELLOW (YELLOW); GLUCOSE, URINE (UA) AUTO NEGATIVE (NEGATIVE); KETONE, URINE AUTO NEGATIVE (NEGATIVE); LEUKOCYTE ESTERASE, URINE AUTO NEGATIVE (NEGATIVE); MUCUS, URINE SMALL (NEGATIVE); NITRITE, URINE AUTO NEGATIVE (NEGATIVE); PROTEIN, URINE AUTO NEGATIVE (NEGATIVE); RBC, URINE AUTO 7 /HPF (0-3); SPECIFIC GRAVITY URINE AUTO 1.023 (1.002-1.035); SQUAMOUS EPITHELIAL CELL UR AU 1 /HPF (0-6); UROBILINOGEN, URINE AUTO 0.2 mg/dL (0.0-2.0); WBC, URINE AUTO 0 /HPF (0-3)
== END ==
LOC: M SFHCPLAZ 09:06
DX: E55.9 Vitamin D deficiency, unspecified (principal); R31.9 Hematuria, unspecified

== ENCOUNTER → 2017-12-08 | Outpatient (CLI) | payer OTHER | LOC: M PAIN 08:45 | DX: R10.30 Lower abdominal pain, unspecified (principal); M54.5 Low back pain; G89.29 Other chronic pain; F43.10 Post-traumatic stress disorder, unspecified; F41.0 Panic disorder [episodic paroxysmal anxiety]; G47.33 Obstructive sleep apnea (adult) (pediatric); F17.210 Nicotine dependence, cigarettes, uncomplicated; Z79.891 Long term (current) use of opiate analgesic; Z79.899 Other long term (current) drug therapy; Z90.710 Acquired absence of both cervix and uterus | CPT/HCPCS: G0463 ==

== ENCOUNTER 2018-01-09 10:08 | Emergency (ER) | payer OTHER ==
[2018-01-09 10:58] LABS: KETONE, URINE AUTO RFX NEGATIVE (NEGATIVE); LEUKOCYTE ESTERASE UR AUTO RFX NEGATIVE (NEGATIVE); MUCUS, URINE RFX SMALL (NEGATIVE); NITRITE, URINE AUTO RFX NEGATIVE (NEGATIVE); RBC, URINE AUTO RFX 17 /HPF (0-3); SPECIFIC GRAVITY UR AUTO RFX 1.017 (1.002-1.035); SQUAM EPITHELIAL CELL UR AURFX 0 /HPF (0-6); WBC, URINE AUTO RFX 1 /HPF (0-3)
[2018-01-09] MEDS: ONDANSETRON 4 MG ORAL DISINTEGRATING TAB (Q0162 PER 1MG) PO (11:11)
[2018-01-09] MEDS: MORPHINE 4 MG/ML 1ML VIAL/SYRINGE (J2270) IM (11:12)
== END 2018-01-09 13:40 | disposition home or self-care (01) ==
LOC: M ED 10:08
DX: N83.202 Unspecified ovarian cyst, left side (principal); J45.909 Unspecified asthma, uncomplicated; R10.9 Unspecified abdominal pain; G89.29 Other chronic pain; F17.210 Nicotine dependence, cigarettes, uncomplicated; Z87.42 Personal history of other diseases of the female genital tract; Z79.899 Other long term (current) drug therapy
CPT/HCPCS: J2270

== ENCOUNTER → 2018-02-07 | Outpatient (REF) | payer OTHER ==
[2018-02-07 19:05] LABS: APPEARANCE, URINE CLEAR (CLEAR); BACTERIA, URINE AUTO NEGATIVE (NEGATIVE); BILIRUBIN, URINE AUTO NEGATIVE (NEGATIVE); BLOOD, URINE BLOOD 2+ (NEGATIVE); COLOR, URINE YELLOW (YELLOW); GLUCOSE, URINE (UA) AUTO NEGATIVE (NEGATIVE); KETONE, URINE AUTO TRACE mg/dL (NEGATIVE); LEUKOCYTE ESTERASE, URINE AUTO NEGATIVE (NEGATIVE); MUCUS, URINE SMALL (NEGATIVE); NITRITE, URINE AUTO NEGATIVE (NEGATIVE); PROTEIN, URINE AUTO NEGATIVE (NEGATIVE); RBC, URINE AUTO 16 /HPF (0-3); SPECIFIC GRAVITY URINE AUTO 1.017 (1.002-1.035); SQUAMOUS EPITHELIAL CELL UR AU 0 /HPF (0-6); UROBILINOGEN, URINE AUTO 0.2 mg/dL (0.0-2.0); WBC, URINE AUTO 0 /HPF (0-3)
== END ==
LOC: M SFHCPLAZ 17:15
DX: R32 Unspecified urinary incontinence (principal)

== ENCOUNTER 2018-02-23 09:46 | Emergency (ER) | payer OTHER | END 2018-02-23 10:50 | disposition home or self-care (01) | LOC: M ED 09:46 | DX: M96.830 Postprocedural hemorrhage of a musculoskeletal structure following a musculoskeletal system procedure (principal); M25.531 Pain in right wrist; Z79.899 Other long term (current) drug therapy; F17.210 Nicotine dependence, cigarettes, uncomplicated | CPT/HCPCS: 99282 ==

== ENCOUNTER → 2018-03-16 | Outpatient (CLI) | payer OTHER | LOC: M PAIN 10:30 | DX: R10.30 Lower abdominal pain, unspecified (principal); G89.29 Other chronic pain; F43.10 Post-traumatic stress disorder, unspecified; F41.0 Panic disorder [episodic paroxysmal anxiety]; G47.33 Obstructive sleep apnea (adult) (pediatric); M19.90 Unspecified osteoarthritis, unspecified site; F17.210 Nicotine dependence, cigarettes, uncomplicated; Z79.891 Long term (current) use of opiate analgesic; Z79.51 Long term (current) use of inhaled steroids; Z79.899 Other long term (current) drug therapy; Z90.710 Acquired absence of both cervix and uterus | CPT/HCPCS: G0463 ==

== ENCOUNTER → 2018-05-08 | Outpatient (REF) | payer OTHER, MEDICAID ==
[~2018-05-08] MED LIST changes: +ARNU1INH3 PO; +CLEO300C2 PO; -CLON1TAB PO; +CLON1TAB8 PO; +DIFL150T PO; +FLUO60TA PO; +HYDR-3713 PO; +IBUP80TA PO; +KETO10TAB PO; +METR1TAB66 PO
[2018-05-08 12:33] LABS: APPEARANCE, URINE HAZY (CLEAR); BACTERIA, URINE AUTO NEGATIVE (NEGATIVE); BILIRUBIN, URINE AUTO NEGATIVE (NEGATIVE); BLOOD, URINE BLOOD 2+ (NEGATIVE); CALCIUM OXALATE CRYSTALS LARGE; COLOR, URINE YELLOW (YELLOW); GLUCOSE, URINE (UA) AUTO NEGATIVE (NEGATIVE); KETONE, URINE AUTO TRACE mg/dL (NEGATIVE); LEUKOCYTE ESTERASE, URINE AUTO NEGATIVE (NEGATIVE); NITRITE, URINE AUTO NEGATIVE (NEGATIVE); PROTEIN, URINE AUTO NEGATIVE (NEGATIVE); RBC, URINE AUTO 29 /HPF (0-3); SPECIFIC GRAVITY URINE AUTO 1.032 (1.002-1.035); SQUAMOUS EPITHELIAL CELL UR AU 3 /HPF (0-6); UROBILINOGEN, URINE AUTO 0.2 mg/dL (0.0-2.0); WBC, URINE AUTO 0 /HPF (0-3)
== END ==
LOC: M SFHCPLAZ 11:48
PROVIDERS: ATTEND Student in an Organized Health Care Education/Training Program
DX: N30.00 Acute cystitis without hematuria (principal)

== ENCOUNTER 2018-06-09 08:09 | Emergency (ER) | payer MEDICAID, OTHER ==
[~2018-06-09] VITALS: Ht 172.7 cm; Wt 104.5 kg
[~2018-06-09 08:09] MED LIST changes: +METR-201 PO; -METR1TAB66 PO
[2018-06-09] MEDS ORDERED: CYCL10TA (08:18)
[2018-06-09] MEDS ORDERED: VENTAER (08:18)
[2018-06-09] MEDS ORDERED: ONDANSETRON 4 MG ORAL DISINTEGRATING TAB (Q0162 PER 1MG) PO ONE (09:00)
[2018-06-09 09:38] LABS: BASO % 0.5 % (0.0-1.0); EOS # 0.1 10^3/uL (0.0-0.50); HEMATOCRIT 33.6 % (36.0-47.0); HEMOGLOBIN 11.1 g/dl (12.0-15.5); LYMPH # 2.7 10^3/uL (1.5-4.5); LYMPH % 44.5 % (24.0-44.0); MEAN CORPUSCULAR HEMOGLOBIN 32.1 pg (27.0-33.0); MEAN CORPUSCULAR VOLUME 97.1 fl (80.0-96.0); MONO # 0.5 10^3/uL (0.0-0.8); MONO % 8.1 % (0.0-5.0); NEUTROPHILS # 2.7 10^3/uL (1.8-7.7); NEUTROPHILS % 44.7 % (36.0-66.0); PLATELET COUNT, AUTOMATED 213 10^3/uL (150-450); RED BLOOD COUNT 3.46 10^6/uL (4.00-5.40)
[2018-06-09 10:10] LABS: HCG, SERUM QUALITATIVE NEGATIVE (NEGATIVE)
--- NOTE | 2018-06-09 10:19 | REP ---
CT ABDOMEN PELVIS WITHOUT IV OR ORAL CONTRAST: HISTORY: Right flank pain. Comparison CT study January 19, 2017. CT FINDINGS: Preliminary digital carbonation tester radiograph demonstrates moderate stool. Bowel gas pattern is otherwise unremarkable. The lung bases are clear on axial CT images. There is no evidence of pleural or pericardial effusion. No upper abdominal ascites is seen. The liver and the spleen are normal in size homogeneous in texture. No adrenal lesion is seen. No pancreatic abnormalities observed. The gallbladder is small and contracted in appearance. No calcification is seen. There is no evidence of intrarenal calculus either. No hydronephrosis is seen. No retroperitoneal mass or adenopathy is observed. There is moderate amount of formed stool in the rectum, rectosigmoid and transverse segments of the colon. Normal appendix is seen in the right lower quadrant. The uterus is not seen consistent with post hysterectomy. There is a 2.6 cm cystic area in the left adnexa consistent with an ovarian follicle cyst. No free fluid, mass or adenopathy is seen. Bone window settings show minimal degenerative lumbar spine changes. IMPRESSION: No urinary tract calculus or hydronephrosis seen. Moderate colonic stool. Post hysterectomy. Normal appendix. Electronically Signed by Ariel Lerma MD 06/09/2018 10:39 A
[2018-06-09 10:23] LABS: ALBUMIN 3.4 GM/DL (3.2-5.2); ALT/SGPT 25 U/L (12-78); BILIRUBIN,DIRECT < 0.1 MG/DL (0.0-0.2); BILIRUBIN,TOTAL 0.3 MG/DL (0.2-1.0); BLOOD UREA NITROGEN 7 MG/DL (7-18); CALCIUM LEVEL 8.5 MG/DL (8.5-10.1); CARBON DIOXIDE LEVEL 24 MEQ/L (21-32); CHLORIDE LEVEL 107 MEQ/L (98-107); CREATININE FOR GFR 0.81 MG/DL (0.55-1.30); GLOMERULAR FILTRATION RATE > 60.0 (>58); GLUCOSE, FASTING 95 MG/DL (70-100); LIPASE 30 U/L (73-393); POTASSIUM SERUM 5.4 MEQ/L (3.5-5.1); SODIUM LEVEL 137 MEQ/L (136-145)
[2018-06-09 10:49] VITALS: BP 131/60
[2018-06-10 15:16] LABS: Lyme Disease IgG/IgM Antibodie <0.91 ISR (0.00-0.90); Lyme Disease IgM Ab Quantitati <0.80 index (0.00-0.79)
== END 2018-06-09 11:24 | disposition home or self-care (01) ==
LOC: M ED 08:09
DX: R51 Headache (principal); R10.9 Unspecified abdominal pain; R11.2 Nausea with vomiting, unspecified; F41.9 Anxiety disorder, unspecified; G47.30 Sleep apnea, unspecified; Z79.899 Other long term (current) drug therapy; F17.210 Nicotine dependence, cigarettes, uncomplicated
CPT/HCPCS: 36415; 74176; 80048; 80076; 81001; 83690; 84703; 85025; 86617; 93041; 99284; Q0162

== ENCOUNTER → 2018-06-21 | Outpatient (CLI) | payer OTHER ==
[~2018-06-21] MED LIST changes: +CYCL10TA; +VENTAER
--- NOTE | 2018-07-02 23:43 | ECWPNPC ---
PATIENT NAME: MISBAH DELACRUZ : 1970 GENDER: FEMALE VISIT DATE: 06/21/2018 DISCHARGE DATE: 06/21/18 1403 VISIT LOCKED DATE TIME: PHYSICIAN: ED RICARDO RESOURCE: ED RICARDO REASON FOR APPOINTMENT 1. 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 PAIN THE PATIENT DESCRIBES THE PAIN... FALL RISK SCREENING: SCREENING :NO FALLS IN THE PAST YEAR CURRENT MEDICATIONS TAKING TRAZODONE HCL 100 MG TABLET 3 1/2 TABS ORALLY AT BEDTIME NEEDED TAKING CPAP MACHINE TAKING SPACER/AERO-HOLDING CHAMBERS 1 DEVICE DIRECTED WITH INHALER Q4HRS PRN SOB/WHEEZE TAKING TYLENOL 325 MG TABLET 2 TABLETS NEEDED ORALLY EVERY 6 HRS TAKING DEPO-PROVERA 150 MG/ML SUSPENSION 1 ML INTRAMUSCULAR EVERY 3 MONTHS, NOTES: MISSED HER SHOT TAKING MIRALAX - PACKET 1 PACKET MIXED WITH 8 OUNCES OF FLUID ORALLY ONCE A DAY NEEDED TAKING ALBUTEROL SULFATE (2.5 MG/3ML) 0.083% NEBULIZATION SOLUTION 3 ML INHALATION THREE TIMES A DAY PRN TAKING NEBULIZER - DEVICE 1 ICD: J45.901 EVERY 4 HOURS NEEDED TAKING NEBULIZER/TUBING/MOUTHPIECE 1 ICD: J45.901 EVERY 4 HOURS NEEDED TAKING OXYBUTYNIN CHLORIDE ER 15 MG TABLET EXTENDED RELEASE 24 HOUR 1 TABLET ORALLY ONCE A DAY TAKING ZOFRAN ODT 4 MG TABLET DISINTEGRATING 1 TABLET ON THE TONGUE AND ALLOW TO DISSOLVE ORALLY EVERY 8 HRS NEEDED TAKING DRISDOL 84522 UNIT CAPSULE 1 CAPSULE ORALLY EVERY TUESDAY TAKING LORATADINE 10 MG TABLET 1 TABLET ORALLY ONCE A DAY NEEDED TAKING ARNUITY ELLIPTA 200 MCG/ACT AEROSOL POWDER BREATH ACTIVATED 1 PUFF INHALATION ONCE A DAY TAKING FLEXERIL 10 MG 30 10 MG TABLETS ONE TABLET ORALLY DAILY TAKING KLONOPIN 1 MG TABLET 1 TABLET ORALLY TWICE A DAY MDD:2 (VELASCO) TAKING GABAPENTIN 300 MG CAPSULE 1 CAPSULE ORALLY THREE TIMES A DAY TAKING OXYCODONE HCL 15 MG TABLET 1 TABLET ORALLY EVERY 6 HRS MDD4 TAKING NORCO 5-325 MG TABLET 1 TABLET NEEDED ORALLY Q8H PRN MDD3 TAKING ALBUTEROL SULFATE HFA 108 MCG/ACT AEROSOL SOLUTION 2 PUFFS NEEDED INHALATION EVERY 4 HRS TAKING IBUPROFEN 800 MG TABLET 1 TABLET ORALLY THREE TIMES A DAY, NOTES: TAKING 2 800'S EVERY 3 HOURS NOT-TAKING PROZAC 60 MG 1 TABLET IN THE MORNING ORALLY DAILY NOT-TAKING PERCOCET 5-325 MG TABLET 1 TABLET NEEDED ORALLY EVERY 6 HRS PRN PAIN MDD4 MEDICATION LIST REVIEWED AND RECONCILED WITH THE PATIENT PAST MEDICAL HISTORY PTSD PANIC ATTACKS KIDNEY STONES HEMATURIA AUB/FIBROID/PELVIC PAIN - NOW S/P PARTIAL HYSTERECTOMY, RIGHT OVARIAN INTACT ABDOMINAL PAIN NOS - LIKELY ADHESIONS - PREVIOUSLY NOTED IN OP REPORT NIRALI COMPLIANCE DRUG SEEK BEHAVIOR SUSPICIOUS TOXICOLOGY SCREEN URINARY INCONTINENCE CARPAL TUNNEL ARTHRITIS ALLERGIES N.K.D.A. 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 2 SON(S) , 1 DAUGHTER(S) - HEALTHY. SOCIAL HISTORY GENERAL: TOBACCO USE ARE YOU A:CURRENT SMOKER ARE YOU INTERESTED IN QUITTING?READY TO QUIT COUNSELED THE PATIENT ON TOBACCO USE, CESSATION [id number]/2019 HOW MANY CIGARETTES A DAY DO YOU SMOKE?5 OR LESS STATES SHE ONLY SMOKES SOMETIMES. HOW SOON AFTER YOU WAKE UP DO YOU SMOKE YOUR FIRST CIGARETTE?AFTER 60 MIN HOW OFTEN DO YOU SMOKE CIGARETTES?SOME DAYS, BUT NOT EVERY DAY PATIENT COUNSELED ON THE DANGERS OF TOBACCO USE AND URGED TO QUIT:06/21/2018 BMI CARE GOAL FOLLOW-UP ABOVE NORMAL BMI FOLLOW-UPDIETARY NEEDS EDUCATION ALCOHOL SCREENING POINTS: 0, INTERPRETATION: NEGATIVE. RECREATIONAL DRUG USE DENIES, DRUG USE? NO. CAFFEINE 2-5/DAY, CAFFEINE USE? NO . SEXUAL HX HAD SEX IN THE LAST 12 MONTHS (VAGINAL, ORAL, OR ANAL)?: NO, HAVE YOU EVER HAD AN STD?: NO. HIV / HEP-C SCREENING HIV TEST OFFERED TO PATIENT:YES DATE OFFERED:02/22/2017 HEP-C TEST OFFERED TO PATIENT:YES DATE OFFERED:02/22/2017 [employer] NO HINDUISM BELIEFS THAT WOULD IMPACT HEALTH CARE. LANGUAGE MAURITANIAN. EDUCATION LEVEL OF EDUCATION:HIGH SCHOOL LEARNING BARRIERS / SPECIAL NEEDS CHANGE FROM LAST VISIT?NO BARRIERS TO LEARNING?NO HEARING IMPAIRED?NO VISION IMPAIRED?NO COGNITIVELY IMPAIRED?NO READINESS TO LEARN?YES LEARNING PREFERENCES?NO LEARNING CAPABILITIES PRESENT?YES EMOTIONAL BARRIERS?NO SPECIAL DEVICES?NO HEAD LOADER NEEDED?NO OCCUPATION: OFF WORK SINCE OCT 12 2017. DIET: REGULAR. EXERCISE: GYM EVERY OTHER DAY, NOT ABLET O LAST 2 WEEKS. MARITAL STATUS: .. OTHERS AT HOME: CHILDREN. PAIN CLINIC PFS, CLERGY, PUBLIC HEALTH REFERRALS HAS THE PATIENT BEEN EDUCATED REGARDING HIS/HER PLAN OF CARE?YES HAS THE PATIENT BEEN EDUCATED REGARDING PAIN, THE RISK FOR PAIN, THE IMPORTANCE OF EFFECTIVE PAIN MANAGEMENT, AND THE PAIN ASSESSMENT PROCESS?YES HOUSING: RENTS APARTMENT. ADVANCE DIRECTIVE ADVANCE DIRECTIVE DISCUSSED WITH PATIENT:YES HCP - VICENTE MALDONADO (DAUGHTER) REVIEWED WITH PATIENT 06/21/18 1339 JS. HOSPITALIZATION/MAJOR DIAGNOSTIC PROCEDURE ABD PAIN, OVARIAN CYST 06/16/2016 ECTOPIC 1993 REVIEW OF SYSTEMS REVIEWED BY: PROVIDER: ED CONNER . CONSTITUTIONAL: ANY CHANGE IN YOUR MEDICAL CONDITION? YES, STATES ARTHRITIS . CHILLS NO . FEVER NO . INFECTION: DO YOU HAVE NEW INFECTIONS? NO . DO YOU HAVE HISTORY OF MRSA? NO . MUSCULOSKELETAL: ANY NEW PATTERNS OF PAIN OR NUMBNESS? NO . GASTROENTEROLOGY: ANY NEW CHANGE IN BOWEL CONTROL? NO . GENITOURINARY: ANY NEW CHANGE IN BLADDER CONTROL? YES, STATES FREQUENCY, URGENCY, AND STRESS INCONTINENCE AT TIMES . IS THERE A CHANCE YOU COULD BE ? NO . HEMATOLOGY/LYMPH: DO YOU TAKE ANY BLOOD THINNERS? (FOR EXAMPLE- COUMADIN, PLAVIX, AGGRENOX, PLATEL, PRADAXA, OR XARELTO) NO . WHEN WAS YOUR LAST DOSE? DATE: TIME: . NEUROLOGY: HAVE YOU FALLEN IN THE PAST 12 MONTHS? NO . ANY NEW EXTREMITY NUMBNESS OR WEAKNESS? NO . CARDIOLOGY: DO YOU HAVE A PACEMAKER OR DEFIBRILLATOR? NO . RESPIRATORY: HAVE YOU BEEN SICK IN THE PAST WEEK? NO . FEVER NO . FLU LIKE SYMPTOMS? NO . COUGH NO . INTEGUMENTARY: DO YOU HAVE ANY RASHES OR OPEN SORES? NO . ALLERGIC/IMMUNO: ARE YOU ALLERGIC TO IV DYE? NO . ANY NEW ALLERGIES? NO . PSYCHIATRIC: DO YOU HAVE THOUGHTS OF HURTING YOURSELF OR SOMEONE ELSE? NO . ARE YOU ABUSED, NEGLECTED, OR IN AN UNSAFE ENVIRONMENT? NO . ENDOCRINOLOGY: ARE YOU DIABETIC? NO . OTHER: DO YOU NEED ANY PRESCRIPTIONS? NO . IF YES, PLEASE LIST: ____ . ANY NEW PROBLEMS WITH YOUR MEDICATIONS? NO . WHEN DID YOU LAST EAT? ____ . WHEN DID YOU LAST DRINK? ____ . WHAT DID YOU LAST DRINK? ____ . NAME OF PERSON DRIVING YOU HOME? ____ . DO YOU HAVE ANY OTHER QUESTIONS OR CONCERNS NO . VITAL SIGNS WT 237 LBS, HT 67.5 IN, BMI 36.57 INDEX, BP 151/99 MM HG, HR 99 /MIN, RR 18 /MIN, TEMP 97.4 F, OXYGEN SAT % 99%, SAFE IN ENV? (Y/N) YES, REVIEWED BY: HELENA06/21/18 1341 DISCUSSED ELEVATED BP WITH PATIENT, STATED THAT SHE WAS VERY STRESSED OUT AND HAS NOT HAD MUCH SLEEP LATELY. ADVISED PATIENT TO SPEAK WITH PCP IF BP ELEVATED FREQUENTLY. HELENA. EXAMINATION GENERAL EXAMINATION: GENERAL APPEARANCE:AWAKE,ALERT ,PLEAASANT . PSYCHAFFECT NORMAL . LUNGS:LUNG LAZCANO ARE CLEAR TO AUSCULTATION BILATERALLY. GOOD MOVEMENT OF AIR . HEART:S1, S2 IN A REGULAR RATE AND RHYTHM. NO SIGNIFICANT MURMURS, RUBS OR GALLOPS NOTED . ASSESSMENTS LOWER ABDOMINAL PAIN - R10.30 (PRIMARY) TREATMENT LOWER ABDOMINAL PAIN CONTINUE GABAPENTIN CAPSULE, 300 MG, 1 CAPSULE, ORALLY, THREE TIMES A DAY REFILL OXYCODONE HCL TABLET, 15 MG, 1 TABLET, ORALLY, EVERY 6 HRS MDD4, 30 DAY(S), 120, REFILLS 0 REFILL NORCO TABLET, 5-325 MG, 1 TABLET NEEDED, ORALLY, Q8H PRN MDD3, 30 DAY(S), 90, REFILLS 0 NOTES: ISTOP REGISTRY REVIEWED AND DEMONSTRATES COMPLLIANCE. (REF # [id number] ) BRINGS IN MEDICATIONS WHICH IS APPROPRIATE FOR WHAT WAS DISPENSED. RECENT URINE TOXICOLOGY REVIEWED. NO UNAUTHORIZED MEDICATIONS. NO ILLICIT SUBSTANCES AND PRESCRIBED MEDICATIONS WERE PRESENT. , RISKS AND BENEFITS OF NARCOTIC/OPIOD MEDICATIONS WERE REVIEWED WITH PATIENT - THIS INCLUDES BUT IS NOT LIMITED TO RISK OF DEPENDANCE/DEVELOPMENT OF ADDICTION, MOOD DISTURBANCE AND DEPRESSION, OSTEOPOROSIS, HORMONAL AND LABIDAL CHANGES, RESPIRATORY DEPRESSION AND . PATIENT IS ADVISED NOT TO DRIVE OR DRINK ALCOHOL WHILE ON THESE MEDICATIONS. PROCEDURE CODES FA211 ESTABILISHED PATIENT [facility] CHARGE DISPOSITION & COMMUNICATION FOLLOW UP 6-8WKS ELECTRONICALLY SIGNED BY UBALDO MAYERS ON 07/02/2018 AT 03:12 PM EST DISCLAIMER : THIS IS A VISIT SUMMARY EXTRACTED FROM THE [employer] CHART. IT IS NOT A COPY OF THE [employer] PROGRESS NOTE. TRE
== END ==
LOC: M PAIN 13:30
PROVIDERS: ATTEND Nurse Practitioner Family
DX: R10.30 Lower abdominal pain, unspecified (principal); F43.10 Post-traumatic stress disorder, unspecified; F41.0 Panic disorder [episodic paroxysmal anxiety]; G47.33 Obstructive sleep apnea (adult) (pediatric); R32 Unspecified urinary incontinence; Z87.442 Personal history of urinary calculi; F17.210 Nicotine dependence, cigarettes, uncomplicated; Z79.891 Long term (current) use of opiate analgesic; Z79.899 Other long term (current) drug therapy

== ENCOUNTER → 2018-07-12 | Outpatient (REF) | payer OTHER ==
[2018-07-12 13:00] LABS: BLOOD UREA NITROGEN 10 MG/DL (7-18); CALCIUM LEVEL 8.5 MG/DL (8.5-10.1); CARBON DIOXIDE LEVEL 27 MEQ/L (21-32); CHLORIDE LEVEL 107 MEQ/L (98-107); CHOLESTEROL LEVEL 161 MG/DL (<200); CHOLESTEROL RISK RATIO 2.927 (<5); CREATININE FOR GFR 0.81 MG/DL (0.55-1.30); GLOMERULAR FILTRATION RATE > 60.0 (>58); GLUCOSE, FASTING 95 MG/DL (70-100); HDL CHOLESTEROL 55 MG/DL (>40); LDL CHOLESTEROL 92 MG/DL (<100); NON-HDL-C 106 MG/DL; POTASSIUM SERUM 3.8 MEQ/L (3.5-5.1); SODIUM LEVEL 139 MEQ/L (136-145); TRIGLYCERIDES LEVEL 72 MG/DL (<150)
== END ==
LOC: M SFHCPLAZ 08:56
PROVIDERS: ATTEND Family Medicine
DX: I10 Essential (primary) hypertension (principal)

== ENCOUNTER → 2018-07-28 | Outpatient (REF) | payer OTHER ==
[2018-07-28 11:04] LABS: BLOOD UREA NITROGEN 14 MG/DL (7-18); CALCIUM LEVEL 8.7 MG/DL (8.5-10.1); CARBON DIOXIDE LEVEL 26 MEQ/L (21-32); CHLORIDE LEVEL 104 MEQ/L (98-107); CREATININE FOR GFR 0.86 MG/DL (0.55-1.30); GLOMERULAR FILTRATION RATE > 60.0 (>58); GLUCOSE, FASTING 104 MG/DL (70-100); POTASSIUM SERUM 3.1 MEQ/L (3.5-5.1); SODIUM LEVEL 139 MEQ/L (136-145)
== END ==
LOC: M SFHCPLAZ 07:51
PROVIDERS: ATTEND Obstetrics & Gynecology
DX: I10 Essential (primary) hypertension (principal)

== ENCOUNTER → 2018-09-01 | Outpatient (CLI) | payer OTHER ==
[~2018-09-01] MED LIST changes: -/CELE20CA OR; +CELE1CAP4 OR; -METR-201 PO; +METR-265 PO; -SENN1TAB2 PO; +SENN1TAB40 PO
--- NOTE | 2018-09-01 10:30 | REPMRS ---
Patient History The patient states she had a clinical breast exam in April 2019. Family history of colorectal cancer at age 50 in maternal uncle. Taking hormonal contraceptives for 11 months. Digital Mammo Screening Bilat: September 01, 2018 - Exam #: [id number] Bilateral CC and MLO view(s) were taken. Technologist: Maia Alarcon Technologist Prior study comparison: April 19, 2017, digital woman screen mammo, performed at [facility]. FINDINGS: There are scattered fibroglandular densities. There has been no change in the appearance of the mammogram from the prior studies. There is a mild amount of scattered fibroglandular density which is fairly symmetric. There is no interval development of dominant mass, architectural distortion, or clustered microcalcification suggestive of malignancy. 3-D tomosynthesis shows no additional findings. Assessment: BI-RADS/ACR category 1 mammogram. Negative Mammogram. Recommendation Routine screening mammogram of both breasts in 1 year (for women over age 40). This patient's Lifetime Breast Cancer RIsk is estimated at 9.1 %. This mammogram was interpreted with the aid of an FDA-approved computer-aided dectection system. Electronically Signed By: Tristan Lerma MD 09/01/18 9319
== END ==
LOC: M RAD 08-04 07:54
PROVIDERS: ATTEND Obstetrics & Gynecology
DX: Z12.31 Encounter for screening mammogram for malignant neoplasm of breast (principal)

== ENCOUNTER → 2018-09-19 | Outpatient (CLI) | payer OTHER ==
--- NOTE | 2018-09-20 00:16 | ECWPNPC ---
PATIENT NAME: MISBAH DELACRUZ : 1970 GENDER: FEMALE VISIT DATE: 09/19/2018 DISCHARGE DATE: 09/19/18920 VISIT LOCKED DATE TIME: PHYSICIAN: ED RICARDO RESOURCE: ED RICARDO REASON FOR APPOINTMENT 1. 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 PAIN THE PATIENT DESCRIBES THE PAIN... THE PATIENT DESCRIBES THE PAIN... FALL RISK SCREENING: SCREENING :NO FALLS REPORTED IN THE LAST YEAR CURRENT MEDICATIONS TAKING NEBULIZER/TUBING/MOUTHPIECE 1 ICD: J45.901 EVERY 4 HOURS NEEDED TAKING ALBUTEROL SULFATE (2.5 MG/3ML) 0.083% NEBULIZATION SOLUTION 3 ML INHALATION THREE TIMES A DAY PRN TAKING CPAP MACHINE TAKING SPACER/AERO-HOLDING CHAMBERS 1 DEVICE DIRECTED WITH INHALER Q4HRS PRN SOB/WHEEZE TAKING TYLENOL 325 MG TABLET 2 TABLETS NEEDED ORALLY EVERY 6 HRS TAKING DEPO-PROVERA 150 MG/ML SUSPENSION 1 ML INTRAMUSCULAR EVERY 3 MONTHS, NOTES: MISSED HER SHOT TAKING MIRALAX - PACKET 1 PACKET MIXED WITH 8 OUNCES OF FLUID ORALLY ONCE A DAY NEEDED TAKING OXYBUTYNIN CHLORIDE ER 15 MG TABLET EXTENDED RELEASE 24 HOUR 1 TABLET ORALLY ONCE A DAY TAKING DRISDOL 40576 UNIT CAPSULE 1 CAPSULE ORALLY EVERY TUESDAY TAKING LORATADINE 10 MG TABLET 1 TABLET ORALLY ONCE A DAY NEEDED TAKING ARNUITY ELLIPTA 200 MCG/ACT AEROSOL POWDER BREATH ACTIVATED 1 PUFF INHALATION ONCE A DAY TAKING ALBUTEROL SULFATE HFA 108 MCG/ACT AEROSOL SOLUTION 2 PUFFS NEEDED INHALATION EVERY 4 HRS TAKING GABAPENTIN 300 MG CAPSULE 1 CAPSULE ORALLY THREE TIMES A DAY TAKING POTASSIUM CHLORIDE ER 20 MEQ TABLET EXTENDED RELEASE 1 TABLET WITH FOOD ORALLY ONCE A DAY TAKING ZOFRAN ODT 4 MG TABLET DISINTEGRATING 1 TABLET ON THE TONGUE AND ALLOW TO DISSOLVE ORALLY EVERY 8 HRS NEEDED TAKING HYDROCORTISONE 1 % CREAM 1 APPLICATION TO AFFECTED AREA EXTERNALLY TWICE A DAY NEEDED TO ARMS AND BACK TAKING FLUOXETINE HCL 40 MG CAPSULE 1 CAPSULE ORALLY ONCE A DAY TAKING HYDROXYZINE HCL 25 MG TABLET 1 TABLET NEEDED ORALLY TAKING PERMETHRIN 5 % CREAM 1 APPLICATION TO AFFECTED AREA EXTERNALLY ONCE TAKING OXYCODONE HCL 15 MG TABLET 1 TABLET ORALLY EVERY 6 HRS MDD4 TAKING NORCO 5-325 MG TABLET 1 TABLET NEEDED ORALLY Q8H PRN MDD3 TAKING IBUPROFEN 800 MG TABLET 1 TABLET ORALLY THREE TIMES A DAY, NOTES: TAKING 2 800'S EVERY 3 HOURS TAKING FLEXERIL 10 MG 30 10 MG TABLETS ONE TABLET ORALLY DAILY TAKING LOSARTAN POTASSIUM 25 MG TABLET 1 TABLET ORALLY ONCE A DAY NOT-TAKING TRAZODONE HCL 100 MG TABLET 3 1/2 TABS ORALLY AT BEDTIME NEEDED DISCONTINUED MIRALAX SUSPENSION 17 GRAMS ORALLY AT HOUR OF SLEEP, NOTES: DUPLICATE DISCONTINUED FLUOXETINE HCL 20 MG TABLET 2 TABLET IN THE MORNING ORALLY ONCE A DAY, NOTES: DUPLICATE MEDICATION LIST REVIEWED AND RECONCILED WITH THE PATIENT PAST MEDICAL HISTORY PTSD PANIC ATTACKS KIDNEY STONES HEMATURIA AUB/FIBROID/PELVIC PAIN - NOW S/P PARTIAL HYSTERECTOMY, RIGHT OVARIAN INTACT ABDOMINAL PAIN NOS - LIKELY ADHESIONS - PREVIOUSLY NOTED IN OP REPORT NIRALI COMPLIANCE DRUG SEEK BEHAVIOR SUSPICIOUS TOXICOLOGY SCREEN URINARY INCONTINENCE CARPAL TUNNEL ARTHRITIS HTN, GOAL < 140/< 90 ASCVD RISK 07/12/18: 5.6% ALLERGIES N.K.D.A. 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 2 SON(S) , 1 DAUGHTER(S) - HEALTHY. SOCIAL HISTORY GENERAL: TOBACCO USE ARE YOU A:CURRENT SMOKER ARE YOU INTERESTED IN QUITTING?THINKING ABOUT QUITTING COUNSELED THE PATIENT ON SMOKING CESSATION, EDUCATION [id number]/30/2019 HOW MANY CIGARETTES A DAY DO YOU SMOKE?5 OR LESS STATES SHE ONLY SMOKES SOMETIMES. HOW SOON AFTER YOU WAKE UP DO YOU SMOKE YOUR FIRST CIGARETTE?AFTER 60 MIN HOW OFTEN DO YOU SMOKE CIGARETTES?SOME DAYS, BUT NOT EVERY DAY PATIENT COUNSELED ON THE DANGERS OF TOBACCO USE AND URGED TO QUIT:09/19/2018 LATEX QUESTIONNAIRE LATEX ALLERGY : HAVE YOU EVER DEVELOPED ANY TYPE OF REACTION AFTER HANDLING LATEX PRODUCTS SUCH RUBBER GLOVES, CONDOMS, DIAPHRAGMS, BALLOONS, SOCKS, OR UNDERWEAR?NO LATEX ALLERGY : HAVE YOU EVER DEVELOPED ANY TYPE OF REACTION DURING OR AFTER DENTAL APPOINTMENT, VAGINAL/RECTAL EXAMINATION, SURGICAL PROCEDURE, OR ANY OTHER EXPOSURE?NO LATEX RISK : HAVE YOU EVER HAD ANY DIFFICULTY BREATHING OR HIVES AFTER EATING OR HANDLING ANY FRUITS, OR VEGETABLES; SUCH KIWI, BANANAS, STONE FRUITS, OR CHESTNUTSNO LATEX RISK : DO YOU HAVE A PREVIOUS PERSONAL HISTORY OF MORE THAN NINE SURGERIES, SPINA BIFIDA, OR REPEATED CATHERTIZATIONS? NO LATEX RISK : ARE YOU FREQUENTLY EXPOSED TO LATEX PRODUCTS IN YOUR OCCUPATION?NO DATE ASKED : 09/19/2018 BMI CARE GOAL FOLLOW-UP ABOVE NORMAL BMI FOLLOW-UPDIETARY NEEDS EDUCATION ALCOHOL SCREENING POINTS: 0, INTERPRETATION: NEGATIVE. RECREATIONAL DRUG USE DENIES, DRUG USE? NO. CAFFEINE 2-5/DAY, CAFFEINE USE? NO . SEXUAL HX HAD SEX IN THE LAST 12 MONTHS (VAGINAL, ORAL, OR ANAL)?: NO, HAVE YOU EVER HAD AN STD?: NO. HIV / HEP-C SCREENING HIV TEST OFFERED TO PATIENT:YES DATE OFFERED:02/22/2017 HEP-C TEST OFFERED TO PATIENT:YES DATE OFFERED:02/22/2017 [place] NO TENRIISM BELIEFS THAT WOULD IMPACT HEALTH CARE. LANGUAGE ARGENTINE. 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 DIET: REGULAR. EXERCISE: GYM EVERY OTHER DAY, NOT ABLET O LAST 2 WEEKS. MARITAL STATUS: .. OTHERS AT HOME: CHILDREN. PAIN CLINIC PFS, CLERGY, PUBLIC HEALTH REFERRALS HAS THE PATIENT BEEN EDUCATED REGARDING HIS/HER PLAN OF CARE?YES HAS THE PATIENT BEEN EDUCATED REGARDING PAIN, THE RISK FOR PAIN, THE IMPORTANCE OF EFFECTIVE PAIN MANAGEMENT, AND THE PAIN ASSESSMENT PROCESS?YES HOUSING: RENTS APARTMENT. ADVANCE DIRECTIVE ADVANCE DIRECTIVE DISCUSSED WITH PATIENT:YES HCP - VICENTE MALDONADO (DAUGHTER) REVIEWED WITH PATIENT 06/21/18 2739 JSREVIEWED WITH PATIENT 09/19/18 1635 BV. HOSPITALIZATION/MAJOR DIAGNOSTIC PROCEDURE ABD PAIN, OVARIAN CYST 06/16/2016 ECTOPIC 1993 REVIEW OF SYSTEMS REVIEWED BY: PROVIDER: ED CONNER . CONSTITUTIONAL: ANY CHANGE IN YOUR MEDICAL CONDITION? NO . CHILLS NO . FEVER NO . INFECTION: DO YOU HAVE NEW INFECTIONS? NO . DO YOU HAVE HISTORY OF MRSA? NO . MUSCULOSKELETAL: ANY NEW PATTERNS OF PAIN OR NUMBNESS? NO . GASTROENTEROLOGY: ANY NEW CHANGE IN BOWEL CONTROL? NO . GENITOURINARY: ANY NEW CHANGE IN BLADDER CONTROL? YES, PT COMPLAINS OF STRESS INCONTINENCE. THIS IS NOT NEW TO HER. PRIMARY DOCTOR IS AWARE. . IS THERE A CHANCE YOU COULD BE ? NO . HEMATOLOGY/LYMPH: DO YOU TAKE ANY BLOOD THINNERS? (FOR EXAMPLE- COUMADIN, PLAVIX, AGGRENOX, PLATEL, PRADAXA, OR XARELTO) NO . WHEN WAS YOUR LAST DOSE? DATE: TIME: . NEUROLOGY: HAVE YOU FALLEN IN THE PAST 12 MONTHS? NO . ANY NEW EXTREMITY NUMBNESS OR WEAKNESS? NO . CARDIOLOGY: DO YOU HAVE A PACEMAKER OR DEFIBRILLATOR? NO . RESPIRATORY: HAVE YOU BEEN SICK IN THE PAST WEEK? NO . FEVER NO . FLU LIKE SYMPTOMS? NO . COUGH NO . INTEGUMENTARY: DO YOU HAVE ANY RASHES OR OPEN SORES? NO . ALLERGIC/IMMUNO: ARE YOU ALLERGIC TO IV DYE? NO . ANY NEW ALLERGIES? NO . PSYCHIATRIC: DO YOU HAVE THOUGHTS OF HURTING YOURSELF OR SOMEONE ELSE? NO . ARE YOU ABUSED, NEGLECTED, OR IN AN UNSAFE ENVIRONMENT? NO . ENDOCRINOLOGY: ARE YOU DIABETIC? NO . OTHER: DO YOU NEED ANY PRESCRIPTIONS? YES, OXYCODONE, NORCO . IF YES, PLEASE LIST: ____ . ANY NEW PROBLEMS WITH YOUR MEDICATIONS? NO . WHEN DID YOU LAST EAT? ____ . WHEN DID YOU LAST DRINK? ____ . WHAT DID YOU LAST DRINK? ____ . NAME OF PERSON DRIVING YOU HOME? ____ . DO YOU HAVE ANY OTHER QUESTIONS OR CONCERNS NO . VITAL SIGNS WT 217.4 LBS, HT 67.5 IN, BMI 33.54 INDEX, BP 152/88 MM HG, HR 103 /MIN, RR 18 /MIN, TEMP 97.2 F, OXYGEN SAT % 998%, SAFE IN ENV? (Y/N) YES, REVIEWED BY: [id number]. EXAMINATION GENERAL EXAMINATION: GENERAL APPEARANCE:AWAKE,ALERT ,PLEAASANT . PSYCHAFFECT NORMAL . LUNGS:LUNG LAZCANO ARE CLEAR TO AUSCULTATION BILATERALLY. GOOD MOVEMENT OF AIR . HEART:S1, S2 IN A REGULAR RATE AND RHYTHM. NO SIGNIFICANT MURMURS, RUBS OR GALLOPS NOTED . ASSESSMENTS LOWER ABDOMINAL PAIN - R10.30 (PRIMARY) CHRONIC POST-OPERATIVE PAIN - G89.28 CHRONIC PRESCRIPTION OPIATE USE - Z79.891 TREATMENT LOWER ABDOMINAL PAIN INCREASE GABAPENTIN CAPSULE, 300 MG, 1 CAPSULE, ORALLY, FOUR TIMES DAILY, 30 DAY(S), 120, REFILLS 5 REFILL OXYCODONE HCL TABLET, 15 MG, 1 TABLET, ORALLY, EVERY 6 HRS MDD4, 30 DAY(S), 120, REFILLS 0 DECREASE NORCO TABLET, 5-325 MG, 1 TABLET NEEDED, ORALLY, BID PRN MDD2, 30 DAY(S), 60, REFILLS 0 NOTES: ISTOP REGISTRY REVIEWED AND DEMONSTRATES COMPLLIANCE. (REF # ) FORGOT TO BRING IN MEDICATIONRECENT URINE TOXICOLOGY REVIEWED. NO UNAUTHORIZED MEDICATIONS. NO ILLICIT SUBSTANCES AND PRESCRIBED MEDICATIONS WERE PRESENT. URINE TOX TODAY, RISKS AND BENEFITS OF NARCOTIC/OPIOD MEDICATIONS WERE REVIEWED WITH PATIENT - THIS INCLUDES BUT IS NOT LIMITED TO RISK OF DEPENDANCE/DEVELOPMENT OF ADDICTION, MOOD DISTURBANCE AND DEPRESSION, OSTEOPOROSIS, HORMONAL AND LABIDAL CHANGES, RESPIRATORY DEPRESSION AND . PATIENT IS ADVISED NOT TO DRIVE OR DRINK ALCOHOL WHILE ON THESE MEDICATIONS. PROCEDURE CODES FA211 ESTABILISHED PATIENT [facility] CHARGE DISPOSITION & COMMUNICATION FOLLOW UP 2 MONTHS OR NEXT AVAILABLE 3 MOS ELECTRONICALLY SIGNED BY UBALDO MAYERS ON 09/19/2018 AT 09:25 AM EDT DISCLAIMER : THIS IS A VISIT SUMMARY EXTRACTED FROM THE [employer] CHART. IT IS NOT A COPY OF THE [employer] PROGRESS NOTE. TRE
== END ==
LOC: M PAIN 08:30
PROVIDERS: ATTEND Nurse Practitioner Family
DX: R10.30 Lower abdominal pain, unspecified (principal); G89.28 Other chronic postprocedural pain; I10 Essential (primary) hypertension; G47.33 Obstructive sleep apnea (adult) (pediatric); F17.210 Nicotine dependence, cigarettes, uncomplicated; Z79.51 Long term (current) use of inhaled steroids; Z79.891 Long term (current) use of opiate analgesic; Z79.899 Other long term (current) drug therapy; Z86.59 Personal history of other mental and behavioral disorders

== ENCOUNTER 2018-11-22 06:13 | Emergency (ER) | payer OTHER ==
[~2018-11-22] VITALS: Ht 172.7 cm; Wt 97.7 kg
[2018-11-22 06:14] VITALS: BP 130/77
[2018-11-22] MEDS ORDERED: HYDR-3363 PO (06:26)
[2018-11-22] MEDS ORDERED: LOSA25TA14 PO (06:27)
--- NOTE | 2018-11-22 08:09 | REP ---
Clinical: Trauma. Technique: AP, lateral, bilateral oblique views of the left wrist. Findings: While no definite acute fracture or dislocation is appreciated, a very subtle buckle fracture involving the distal radial metaphysis cannot be excluded and should be correlated with mechanism of injury and point of tenderness. Consider presumptive treatment and reevaluation and 3-5 days. Impression: No definite fracture although injury cannot be excluded. Consider presumptive treatment and reevaluation and 3-5 days. Electronically Signed by Max Slaazar MD 11/22/2018 08:00 A
== END 2018-11-22 08:00 | disposition home or self-care (01) ==
LOC: M ED 06:13
DX: S63.502A Unspecified sprain of left wrist, initial encounter (principal); W07.XXXA Fall from chair, initial encounter; Y92.098 Other place in other non-institutional residence as the place of occurrence of the external cause; I10 Essential (primary) hypertension; E78.5 Hyperlipidemia, unspecified; F17.210 Nicotine dependence, cigarettes, uncomplicated; Z79.899 Other long term (current) drug therapy; Z79.1 Long term (current) use of non-steroidal anti-inflammatories (NSAID); Z79.51 Long term (current) use of inhaled steroids

== ENCOUNTER → 2018-12-19 | Outpatient (CLI) | payer OTHER ==
[~2018-12-19] MED LIST changes: +HYDR-3363 PO; +LOSA25TA14 PO
--- NOTE | 2018-12-27 00:10 | ECWPNPC ---
PATIENT NAME: MISBAH DELACRUZ : 1970 GENDER: FEMALE VISIT DATE: 12/19/2018 DISCHARGE DATE: 12/19/18 0951 VISIT LOCKED DATE TIME: PHYSICIAN: ED RICARDO RESOURCE: ED RICARDO REASON FOR APPOINTMENT 1. 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 PAIN THE PATIENT DESCRIBES THE PAIN... THE PATIENT DESCRIBES THE PAIN... THE PATIENT DESCRIBES THE PAIN... THE PATIENT DESCRIBES THE PAIN... PAIN THE PATIENT DESCRIBES THE PAIN... THE PATIENT DESCRIBES THE PAIN... THE PATIENT DESCRIBES THE PAIN... THE PATIENT DESCRIBES THE PAIN... PAIN THE PATIENT DESCRIBES THE PAIN... THE PATIENT DESCRIBES THE PAIN... THE PATIENT DESCRIBES THE PAIN... THE PATIENT DESCRIBES THE PAIN... FALL RISK SCREENING: SCREENING :NO FALLS REPORTED IN THE LAST YEAR :NO FALLS REPORTED IN THE LAST YEAR SCREENING :NO FALLS REPORTED IN THE LAST YEAR :NO FALLS REPORTED IN THE LAST YEAR CURRENT MEDICATIONS TAKING NEBULIZER/TUBING/MOUTHPIECE 1 ICD: J45.901 EVERY 4 HOURS NEEDED TAKING ALBUTEROL SULFATE (2.5 MG/3ML) 0.083% NEBULIZATION SOLUTION 3 ML INHALATION THREE TIMES A DAY PRN TAKING CPAP MACHINE , NOTES: SOMETIMES TAKING SPACER/AERO-HOLDING CHAMBERS 1 DEVICE DIRECTED WITH INHALER Q4HRS PRN SOB/WHEEZE TAKING TYLENOL 325 MG TABLET 2 TABLETS NEEDED ORALLY EVERY 6 HRS TAKING DEPO-PROVERA 150 MG/ML SUSPENSION 1 ML INTRAMUSCULAR EVERY 3 MONTHS, NOTES: MISSED HER SHOT TAKING MIRALAX - PACKET 1 PACKET MIXED WITH 8 OUNCES OF FLUID ORALLY ONCE A DAY NEEDED TAKING LORATADINE 10 MG TABLET 1 TABLET ORALLY ONCE A DAY NEEDED TAKING ARNUITY ELLIPTA 200 MCG/ACT AEROSOL POWDER BREATH ACTIVATED 1 PUFF INHALATION ONCE A DAY TAKING ALBUTEROL SULFATE HFA 108 MCG/ACT AEROSOL SOLUTION 2 PUFFS NEEDED INHALATION EVERY 4 HRS TAKING POTASSIUM CHLORIDE ER 20 MEQ TABLET EXTENDED RELEASE 1 TABLET WITH FOOD ORALLY ONCE A DAY TAKING IBUPROFEN 800 MG TABLET 1 TABLET ORALLY THREE TIMES A DAY, NOTES: TAKING 2 800'S EVERY 3 HOURS TAKING GABAPENTIN 300 MG CAPSULE 1 CAPSULE ORALLY FOUR TIMES DAILY TAKING FLEXERIL 10 MG 30 10 MG TABLETS ONE TABLET ORALLY DAILY TAKING DRISDOL 13338 UNIT CAPSULE 1 CAPSULE ORALLY EVERY TUESDAY TAKING ZOFRAN ODT 4 MG TABLET DISINTEGRATING 1 TABLET ON THE TONGUE AND ALLOW TO DISSOLVE ORALLY EVERY 8 HRS NEEDED TAKING OXYCODONE HCL 15 MG TABLET 1 TABLET ORALLY EVERY 6 HRS MDD4 TAKING NORCO 5-325 MG TABLET 1 TABLET NEEDED ORALLY BID PRN MDD2 TAKING FLUOXETINE HCL 20 MG CAPSULE 3 TABS ORALLY ONCE A DAY TAKING LOSARTAN POTASSIUM 25 MG TABLET 1 TABLET ORALLY ONCE A DAY TAKING FLUOXETINE HCL 60 MG TABLET 1 TABLET ORALLY ONCE A DAY TAKING HYDROXYZINE HCL 50 MG TABLET 1 TABLET NEEDED ORALLY THREE TIMES DAILY NEEDED TAKING OXYBUTYNIN CHLORIDE ER 15 MG TABLET EXTENDED RELEASE 24 HOUR 1 TABLET ORALLY BID NOT-TAKING HYDROCORTISONE 1 % CREAM 1 APPLICATION TO AFFECTED AREA EXTERNALLY TWICE A DAY NEEDED TO ARMS AND BACK NOT-TAKING PERMETHRIN 5 % CREAM 1 APPLICATION TO AFFECTED AREA EXTERNALLY ONCE NOT-TAKING CYCLOBENZAPRINE HCL 10 MG TABLET TAKE 1 TABLET BY MOUTH ONCE DAILY UNKNOWN TRAZODONE HCL 100 MG TABLET 3 1/2 TABS ORALLY AT BEDTIME NEEDED MEDICATION LIST REVIEWED AND RECONCILED WITH THE PATIENT PAST MEDICAL HISTORY PTSD PANIC ATTACKS KIDNEY STONES HEMATURIA AUB/FIBROID/PELVIC PAIN - NOW S/P PARTIAL HYSTERECTOMY, RIGHT OVARIAN INTACT ABDOMINAL PAIN NOS - LIKELY ADHESIONS - PREVIOUSLY NOTED IN OP REPORT NIRALI COMPLIANCE DRUG SEEK BEHAVIOR SUSPICIOUS TOXICOLOGY SCREEN URINARY INCONTINENCE CARPAL TUNNEL ARTHRITIS HTN, GOAL < 140/< 90 ASCVD RISK 07/12/18: 5.6% ALLERGIES N.K.D.A. 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 2 SON(S) , 1 DAUGHTER(S) - HEALTHY. SOCIAL HISTORY GENERAL: TOBACCO USE ARE YOU A:CURRENT SMOKER ARE YOU INTERESTED IN QUITTING?THINKING ABOUT QUITTING COUNSELED THE PATIENT ON SMOKING CESSATION, EDUCATION [id number]/10/2019 HOW MANY CIGARETTES A DAY DO YOU SMOKE?5 OR LESS STATES SHE ONLY SMOKES SOMETIMES. HOW SOON AFTER YOU WAKE UP DO YOU SMOKE YOUR FIRST CIGARETTE?AFTER 60 MIN HOW OFTEN DO YOU SMOKE CIGARETTES?SOME DAYS, BUT NOT EVERY DAY PATIENT COUNSELED ON THE DANGERS OF TOBACCO USE AND URGED TO QUIT:11/29/2018 SMOKING CESSATION INFORMATION GIVEN12/19/2018 PT STATES SHE HAS 2 CIGARETTES A DAY HIV / HEP-C SCREENING HIV TEST OFFERED TO PATIENT:YES DATE OFFERED:02/22/2017 HEP-C TEST OFFERED TO PATIENT:YES DATE OFFERED:02/22/2017 OTHERS AT HOME: CHILDREN. HOUSING: RENTS APARTMENT. EDUCATION LEVEL OF EDUCATION:HIGH SCHOOL DIET: REGULAR. LANGUAGE HEBREW. BMI CARE GOAL FOLLOW-UP ABOVE NORMAL BMI FOLLOW-UPDIETARY NEEDS EDUCATION RECREATIONAL DRUG USE DENIES, DRUG USE? NO. EXERCISE: GYM EVERY OTHER DAY, NOT ABLET O LAST 2 WEEKS. LEARNING BARRIERS / SPECIAL NEEDS CHANGE FROM LAST VISIT?NO BARRIERS TO LEARNING?NO HEARING IMPAIRED?NO VISION IMPAIRED?NO COGNITIVELY IMPAIRED?NO READINESS TO LEARN?YES LEARNING PREFERENCES?NO LEARNING CAPABILITIES PRESENT?YES EMOTIONAL BARRIERS?NO SPECIAL DEVICES?NO SILVER SOLDERER NEEDED?NO PAIN CLINIC PFS, CLERGY, PUBLIC HEALTH REFERRALS HAS THE PATIENT BEEN EDUCATED REGARDING HIS/HER PLAN OF CARE?YES HAS THE PATIENT BEEN EDUCATED REGARDING PAIN, THE RISK FOR PAIN, THE IMPORTANCE OF EFFECTIVE PAIN MANAGEMENT, AND THE PAIN ASSESSMENT PROCESS?YES LATEX QUESTIONNAIRE LATEX ALLERGY : HAVE YOU EVER DEVELOPED ANY TYPE OF REACTION AFTER HANDLING LATEX PRODUCTS SUCH RUBBER GLOVES, CONDOMS, DIAPHRAGMS, BALLOONS, SOCKS, OR UNDERWEAR?NO LATEX ALLERGY : HAVE YOU EVER DEVELOPED ANY TYPE OF REACTION DURING OR AFTER DENTAL APPOINTMENT, VAGINAL/RECTAL EXAMINATION, SURGICAL PROCEDURE, OR ANY OTHER EXPOSURE?NO LATEX RISK : HAVE YOU EVER HAD ANY DIFFICULTY BREATHING OR HIVES AFTER EATING OR HANDLING ANY FRUITS, OR VEGETABLES; SUCH KIWI, BANANAS, STONE FRUITS, OR CHESTNUTSNO LATEX RISK : DO YOU HAVE A PREVIOUS PERSONAL HISTORY OF MORE THAN NINE SURGERIES, SPINA BIFIDA, OR REPEATED CATHERIZATIONS? NO LATEX RISK : ARE YOU FREQUENTLY EXPOSED TO LATEX PRODUCTS IN YOUR OCCUPATION?NO DATE ASKED : 09/19/2018 CAFFEINE 2-5/DAY, CAFFEINE USE? NO. ADVANCE DIRECTIVE ADVANCE DIRECTIVE DISCUSSED WITH PATIENT:YES HCP - VICENTE MALDONADO (DAUGHTER) MU-ISM NO SCIENTOLOGIST BELIEFS THAT WOULD IMPACT HEALTH CARE. MARITAL STATUS: .. ALCOHOL SCREENING DID YOU HAVE A DRINK CONTAINING ALCOHOL IN THE PAST YEAR?NO POINTS0 INTERPRETATIONNEGATIVE OCCUPATION: OFF WORK SINCE OCT 12 2017. SEXUAL HX HAD SEX IN THE LAST 12 MONTHS (VAGINAL, ORAL, OR ANAL)?: NO, HAVE YOU EVER HAD AN STD?: NO. REVIEWED WITH PATIENT 06/21/18 1339 JSREVIEWED WITH PATIENT 09/19/18 08 BV. HOSPITALIZATION/MAJOR DIAGNOSTIC PROCEDURE ABD PAIN, OVARIAN CYST 06/16/2016 ECTOPIC 1993 REVIEW OF SYSTEMS REVIEWED BY: PROVIDER: , ED CONNER . CONSTITUTIONAL: ANY CHANGE IN YOUR MEDICAL CONDITION? NO, NO . CHILLS NO, NO . FEVER NO, NO . INFECTION: DO YOU HAVE NEW INFECTIONS? PT STATES LAST WEEK HAD A RESP INFECTION NO MEDICL TREATMENT OBTAINED FOR IT . DO YOU HAVE HISTORY OF MRSA? NO, NO . MUSCULOSKELETAL: ANY NEW PATTERNS OF PAIN OR NUMBNESS? NO, NO . GASTROENTEROLOGY: ANY NEW CHANGE IN BOWEL CONTROL? NO, NO . GENITOURINARY: ANY NEW CHANGE IN BLADDER CONTROL? NO, NO . IS THERE A CHANCE YOU COULD BE ? NO, NO . HEMATOLOGY/LYMPH: DO YOU TAKE ANY BLOOD THINNERS? (FOR EXAMPLE- COUMADIN, PLAVIX, AGGRENOX, PLATEL, PRADAXA, OR XARELTO) NO, NO . WHEN WAS YOUR LAST DOSE? DATE: TIME: , DATE: TIME: . NEUROLOGY: HAVE YOU FALLEN IN THE PAST 12 MONTHS? YES NOVEMBER 22 HAD A FALL WHOLE MOVING AND HAD A SPLINT APPIED TO LEFT WRIST . ANY NEW EXTREMITY NUMBNESS OR WEAKNESS? NO, NO . CARDIOLOGY: DO YOU HAVE A PACEMAKER OR DEFIBRILLATOR? NO, NO . RESPIRATORY: HAVE YOU BEEN SICK IN THE PAST WEEK? NO, NO . FEVER NO, NO . FLU LIKE SYMPTOMS? NO, NO . COUGH NO, NO . INTEGUMENTARY: DO YOU HAVE ANY RASHES OR OPEN SORES? NO, NO . ALLERGIC/IMMUNO: ARE YOU ALLERGIC TO IV DYE? NO, NO . ANY NEW ALLERGIES? NO, NO . PSYCHIATRIC: DO YOU HAVE THOUGHTS OF HURTING YOURSELF OR SOMEONE ELSE? NO, NO . ARE YOU ABUSED, NEGLECTED, OR IN AN UNSAFE ENVIRONMENT? NO, NO . ENDOCRINOLOGY: ARE YOU DIABETIC? NO, NO . OTHER: DO YOU NEED ANY PRESCRIPTIONS? YES NORCO AND OXYCODONE . IF YES, PLEASE LIST: ____, ____ . ANY NEW PROBLEMS WITH YOUR MEDICATIONS? NO, NO . WHEN DID YOU LAST EAT? ____, ____ . WHEN DID YOU LAST DRINK? ____, ____ . WHAT DID YOU LAST DRINK? ____, ____ . NAME OF PERSON DRIVING YOU HOME? ____, ____ . DO YOU HAVE ANY OTHER QUESTIONS OR CONCERNS NO, NO . VITAL SIGNS WT 225.8 LBS, HT 67.5 IN, BMI 34.84 INDEX, BP 168/85 MM HG, HR 86 /MIN, RR 18 /MIN, TEMP 97.9 F, OXYGEN SAT % 99%, NA INITIALS AW 0909. EXAMINATION GENERAL EXAMINATION: GENERALAWAKE,ALERT ,PLEAASANT . PSYCHAFFECT NORMAL . LUNGS:LUNG LAZCANO ARE CLEAR TO AUSCULTATION BILATERALLY. GOOD MOVEMENT OF AIR . HEART:S1, S2 IN A REGULAR RATE AND RHYTHM. NO SIGNIFICANT MURMURS, RUBS OR GALLOPS NOTED . ASSESSMENTS LOWER ABDOMINAL PAIN - R10.30 (PRIMARY) TREATMENT LOWER ABDOMINAL PAIN CONTINUE IBUPROFEN TABLET, 800 MG, 1 TABLET, ORALLY, THREE TIMES A DAY, NOTES: TAKING 2 800'S EVERY 3 HOURS CONTINUE GABAPENTIN CAPSULE, 300 MG, 1 CAPSULE, ORALLY, FOUR TIMES DAILY INCREASE FLEXERIL 10 MG 30 TABLETS, 10 MG, 1 TAB, ORALLY, Q8H PRN PAIN MDD3, 30 DAY(S), 90, REFILLS 0 REFILL OXYCODONE HCL TABLET, 15 MG, 1 TABLET, ORALLY, EVERY 6 HRS MDD4, 30 DAY(S), 120, REFILLS 0 DECREASE NORCO TABLET, 5-325 MG, 1 TABLET NEEDED, ORALLY, 1 TAB DAILY PRN MDD1, 30 DAYS, 30, REFILLS 0 NOTES: SLOWLY DECREASE AND DISCONTINUE NORCO 5/325 .TAKE ONE PER DAY NOW X30 DAYS THEN USE CYCLOBENZAPRINE 10MG TAB NEEDED MAX 3 PER DAY., ISTOP REGISTRY REVIEWED AND DEMONSTRATES COMPLLIANCE. BRINGS IN MEDICATIONS WHICH IS APPROPRIATE FOR WHAT WAS DISPENSED. RECENT URINE TOXICOLOGY REVIEWED. NO UNAUTHORIZED MEDICATIONS. NO ILLICIT SUBSTANCES AND PRESCRIBED MEDICATIONS WERE PRESENT. , RISKS AND BENEFITS OF NARCOTIC/OPIOD MEDICATIONS WERE REVIEWED WITH PATIENT - THIS INCLUDES BUT IS NOT LIMITED TO RISK OF DEPENDANCE/DEVELOPMENT OF ADDICTION, MOOD DISTURBANCE AND DEPRESSION, OSTEOPOROSIS, HORMONAL AND LABIDAL CHANGES, RESPIRATORY DEPRESSION AND . PATIENT IS ADVISED NOT TO DRIVE OR DRINK ALCOHOL WHILE ON THESE MEDICATIONS. PROCEDURE CODES FA211 ESTABILISHED PATIENT [facility] CHARGE DISPOSITION & COMMUNICATION FOLLOW UP 3 MONTHS (REASON: MED MGMNT) ELECTRONICALLY SIGNED BY UBALDO MAYERS ON 12/26/2018 AT 09:00 AM EDT DISCLAIMER : THIS IS A VISIT SUMMARY EXTRACTED FROM THE [employer] CHART. IT IS NOT A COPY OF THE [employer] PROGRESS NOTE. TRE
== END ==
LOC: M PAIN 09:30
PROVIDERS: ATTEND Nurse Practitioner Family
DX: R10.30 Lower abdominal pain, unspecified (principal); G89.29 Other chronic pain; Z86.59 Personal history of other mental and behavioral disorders; G47.33 Obstructive sleep apnea (adult) (pediatric); M19.90 Unspecified osteoarthritis, unspecified site; I10 Essential (primary) hypertension; F17.210 Nicotine dependence, cigarettes, uncomplicated; Z79.51 Long term (current) use of inhaled steroids; Z79.891 Long term (current) use of opiate analgesic; Z79.899 Other long term (current) drug therapy

== ENCOUNTER → 2018-12-21 | Outpatient (CLI) | payer OTHER ==
[2018-12-21 12:39] LABS: BLOOD UREA NITROGEN 17 MG/DL (7-18); CALCIUM LEVEL 8.4 MG/DL (8.5-10.1); CARBON DIOXIDE LEVEL 26 MEQ/L (21-32); CHLORIDE LEVEL 108 MEQ/L (98-107); GLOMERULAR FILTRATION RATE > 60.0 (>58); GLUCOSE, FASTING 83 MG/DL (70-100); POTASSIUM SERUM 3.4 MEQ/L (3.5-5.1); SODIUM LEVEL 142 MEQ/L (136-145)
== END ==
LOC: M LAB 11:36
PROVIDERS: ATTEND Obstetrics & Gynecology
DX: I10 Essential (primary) hypertension (principal)

== ENCOUNTER → 2019-02-26 | Outpatient (REF) | payer OTHER ==
[~2019-02-26] MED LIST changes: +ALL10TAB2 PO; +CVS55SPR NARES; +ERYTOIN8 OS; +GABA-843; +ONDA4TAB6; +OXYB15TA14; +PYRI1TAB5 PO; +SENN-53 PO; -SENN1TAB40 PO; +SERT50TA29; -TRAZ10TA PO; +TRAZ1TAB12 PO
== END ==
LOC: M SFHCPLAZ 08:48
PROVIDERS: ATTEND Family Medicine
DX: Z53.9 Procedure and treatment not carried out, unspecified reason (principal)

== ENCOUNTER 2019-03-16 20:50 | Emergency (ER) | payer OTHER ==
[~2019-03-16] VITALS: Ht 172.7 cm; Wt 97.7 kg
[~2019-03-16 20:50] MED LIST changes: -ALL10TAB2 PO; -CVS55SPR NARES; -ERYTOIN8 OS; -GABA-843; -ONDA4TAB6; -OXYB15TA14; -PYRI1TAB5 PO; -SERT50TA29; +TRAZ10TA PO; -TRAZ1TAB12 PO
[2019-03-16 20:51] VITALS: BP 149/99
[2019-03-16] MEDS ORDERED: GABA-843 (20:57)
[2019-03-16] MEDS ORDERED: SERT50TA29 (20:57)
[2019-03-16] MEDS ORDERED: ONDA4TAB6 (20:57)
[2019-03-16] MEDS ORDERED: OXYB15TA (20:57)
[2019-03-16] MEDS ORDERED: ERYTOIN8 OS (21:49)
[2019-03-16] MEDS ORDERED: CVS55SPR NARES (21:49)
[2019-03-16] MEDS ORDERED: ALL10TAB2 PO (21:49)
== END 2019-03-16 22:07 | disposition home or self-care (01) ==
LOC: M ED 20:50
DX: H10.32 Unspecified acute conjunctivitis, left eye (principal); I10 Essential (primary) hypertension; Z79.899 Other long term (current) drug therapy; F17.210 Nicotine dependence, cigarettes, uncomplicated

== ENCOUNTER → 2019-03-20 | Outpatient (CLI) | payer OTHER ==
[~2019-03-20] MED LIST changes: +ALL10TAB2 PO; +CVS55SPR NARES; +ERYTOIN8 OS; +GABA-843; +ONDA4TAB6; +OXYB15TA; +SERT50TA29
== END ==
LOC: M PAIN 08:45
PROVIDERS: ATTEND Nurse Practitioner Family
DX: R10.30 Lower abdominal pain, unspecified (principal); Z53.20 Procedure and treatment not carried out because of patient's decision for unspecified reasons

== ENCOUNTER 2019-04-17 08:13 | Emergency (ER) | payer OTHER ==
[~2019-04-17] VITALS: Ht 170.2 cm; Wt 105.0 kg
[~2019-04-17 08:13] MED LIST changes: -PYRI1TAB5 PO
[2019-04-17 08:14] VITALS: BP 168/88
[2019-04-17] MEDS ORDERED: PHENAZOPYRIDINE 100 MG TAB PO ONE (09:30)
[2019-04-17] MEDS ORDERED: PYRI1TAB5 PO (09:34)
== END 2019-04-17 09:39 | disposition home or self-care (01) ==
LOC: M ED 08:13
DX: N32.89 Other specified disorders of bladder (principal); R10.2 Pelvic and perineal pain; Z87.42 Personal history of other diseases of the female genital tract; F17.210 Nicotine dependence, cigarettes, uncomplicated; Z79.899 Other long term (current) drug therapy; Z79.891 Long term (current) use of opiate analgesic

== ENCOUNTER → 2019-04-17 | Outpatient (CLI) | payer OTHER ==
[~2019-04-17] MED LIST changes: -OXYB15TA; +OXYB1TAB13; +PYRI1TAB5 PO
--- NOTE | 2019-05-01 01:58 | ECWPNPC ---
PATIENT NAME: MISBAH DELACRUZ : 1970 GENDER: FEMALE VISIT DATE: 04/17/2019 DISCHARGE DATE: 04/17/19 1044 VISIT LOCKED DATE TIME: PHYSICIAN: ED RICARDO RESOURCE: ED RICARDO REASON FOR APPOINTMENT 1. 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 PAIN THE PATIENT DESCRIBES THE PAIN... FALL RISK SCREENING: SCREENING :NO FALLS REPORTED IN THE LAST YEAR CURRENT MEDICATIONS TAKING SERTRALINE HCL 50 MG TABLET 1 TABLET ORALLY ONCE A DAY TAKING MIRALAX - PACKET 1 PACKET MIXED WITH 8 OUNCES OF FLUID ORALLY ONCE A DAY NEEDED TAKING NEBULIZER/TUBING/MOUTHPIECE 1 ICD: J45.901 EVERY 4 HOURS NEEDED TAKING ALBUTEROL SULFATE (2.5 MG/3ML) 0.083% NEBULIZATION SOLUTION 3 ML INHALATION THREE TIMES A DAY PRN TAKING CPAP MACHINE , NOTES: SOMETIMES TAKING SPACER/AERO-HOLDING CHAMBERS 1 DEVICE DIRECTED WITH INHALER Q4HRS PRN SOB/WHEEZE TAKING TYLENOL 325 MG TABLET 2 TABLETS NEEDED ORALLY EVERY 6 HRS TAKING DEPO-PROVERA 150 MG/ML SUSPENSION 1 ML INTRAMUSCULAR EVERY 3 MONTHS, NOTES: MISSED HER SHOT TAKING LORATADINE 10 MG TABLET 1 TABLET ORALLY ONCE A DAY NEEDED TAKING ARNUITY ELLIPTA 200 MCG/ACT AEROSOL POWDER BREATH ACTIVATED 1 PUFF INHALATION ONCE A DAY TAKING ALBUTEROL SULFATE HFA 108 MCG/ACT AEROSOL SOLUTION 2 PUFFS NEEDED INHALATION EVERY 4 HRS TAKING DRISDOL 41829 UNIT CAPSULE 1 CAPSULE ORALLY EVERY TUESDAY TAKING HYDROXYZINE HCL 50 MG TABLET 1 TABLET NEEDED ORALLY THREE TIMES DAILY NEEDED TAKING OXYBUTYNIN CHLORIDE ER 15 MG TABLET EXTENDED RELEASE 24 HOUR 1 TABLET ORALLY BID TAKING IBUPROFEN 800 MG TABLET 1 TABLET ORALLY THREE TIMES A DAY, NOTES: TAKING 2 800'S EVERY 3 HOURS TAKING ZOFRAN ODT 4 MG TABLET DISINTEGRATING 1 TABLET ON THE TONGUE AND ALLOW TO DISSOLVE ORALLY EVERY 8 HRS NEEDED TAKING LOSARTAN POTASSIUM 25 MG TABLET 1 TABLET ORALLY ONCE A DAY TAKING FLEXERIL 10 MG 30 10 MG TABLETS 1 TAB ORALLY TWICE A DAY NEEDED TAKING GABAPENTIN 300 MG CAPSULE 1 CAPSULE ORALLY FOUR TIMES DAILY TAKING OXYCODONE HCL 15 MG TABLET 1 TABLET ORALLY EVERY 6 HRS MDD4 TAKING NORCO 5-325 MG TABLET 1 TABLET NEEDED ORALLY 1 TAB DAILY PRN MDD1 TAKING PYRIDIUM 200 MG TABLET 1 TABLET AFTER MEALS ORALLY THREE TIMES A DAY MEDICATION LIST REVIEWED AND RECONCILED WITH THE PATIENT PAST MEDICAL HISTORY PTSD PANIC ATTACKS KIDNEY STONES HEMATURIA AUB/FIBROID/PELVIC PAIN - NOW S/P PARTIAL HYSTERECTOMY, RIGHT OVARIAN INTACT ABDOMINAL PAIN NOS - LIKELY ADHESIONS - PREVIOUSLY NOTED IN OP REPORT NIRALI COMPLIANCE DRUG SEEK BEHAVIOR SUSPICIOUS TOXICOLOGY SCREEN URINARY INCONTINENCE CARPAL TUNNEL ARTHRITIS HTN, GOAL < 140/< 90 ASCVD RISK 07/12/18: 5.6% ALLERGIES N.K.D.A. 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 2 SON(S) , 1 DAUGHTER(S) - HEALTHY. SOCIAL HISTORY GENERAL: TOBACCO USE ARE YOU A:CURRENT SMOKER ARE YOU INTERESTED IN QUITTING?THINKING ABOUT QUITTING COUNSELED THE PATIENT ON SMOKING CESSATION, EDUCATION [id number]/26/2019 HOW MANY CIGARETTES A DAY DO YOU SMOKE?5 OR LESS STATES SHE ONLY SMOKES SOMETIMES. HOW SOON AFTER YOU WAKE UP DO YOU SMOKE YOUR FIRST CIGARETTE?AFTER 60 MIN HOW OFTEN DO YOU SMOKE CIGARETTES?SOME DAYS, BUT NOT EVERY DAY PATIENT COUNSELED ON THE DANGERS OF TOBACCO USE AND URGED TO QUIT:11/29/2018 SMOKING CESSATION INFORMATION GIVEN12/19/2018 PT STATES SHE HAS 2 CIGARETTES A DAY HIV / HEP-C SCREENING HIV TEST OFFERED TO PATIENT:YES DATE OFFERED:02/22/2017 HEP-C TEST OFFERED TO PATIENT:YES DATE OFFERED:02/22/2017 OTHERS AT HOME: CHILDREN. HOUSING: RENTS APARTMENT. EDUCATION LEVEL OF EDUCATION:HIGH SCHOOL DIET: REGULAR. LANGUAGE URDU. BMI CARE GOAL FOLLOW-UP ABOVE NORMAL BMI FOLLOW-UPDIETARY NEEDS EDUCATION RECREATIONAL DRUG USE DENIES, DRUG USE? NO. EXERCISE: GYM EVERY OTHER DAY, NOT ABLET O LAST 2 WEEKS. LEARNING BARRIERS / SPECIAL NEEDS CHANGE FROM LAST VISIT?NO BARRIERS TO LEARNING?NO HEARING IMPAIRED?NO VISION IMPAIRED?NO COGNITIVELY IMPAIRED?NO READINESS TO LEARN?YES LEARNING PREFERENCES?NO LEARNING CAPABILITIES PRESENT?YES EMOTIONAL BARRIERS?NO SPECIAL DEVICES?NO WELDER RAILCAR MECHANIC NEEDED?NO PAIN CLINIC PFS, CLERGY, PUBLIC HEALTH REFERRALS HAS THE PATIENT BEEN EDUCATED REGARDING HIS/HER PLAN OF CARE?YES HAS THE PATIENT BEEN EDUCATED REGARDING PAIN, THE RISK FOR PAIN, THE IMPORTANCE OF EFFECTIVE PAIN MANAGEMENT, AND THE PAIN ASSESSMENT PROCESS?YES LATEX QUESTIONNAIRE LATEX ALLERGY : HAVE YOU EVER DEVELOPED ANY TYPE OF REACTION AFTER HANDLING LATEX PRODUCTS SUCH RUBBER GLOVES, CONDOMS, DIAPHRAGMS, BALLOONS, SOCKS, OR UNDERWEAR?NO LATEX ALLERGY : HAVE YOU EVER DEVELOPED ANY TYPE OF REACTION DURING OR AFTER DENTAL APPOINTMENT, VAGINAL/RECTAL EXAMINATION, SURGICAL PROCEDURE, OR ANY OTHER EXPOSURE?NO DATE ASKED : 03/28/2019 LATEX RISK : HAVE YOU EVER HAD ANY DIFFICULTY BREATHING OR HIVES AFTER EATING OR HANDLING ANY FRUITS, OR VEGETABLES; SUCH KIWI, BANANAS, STONE FRUITS, OR CHESTNUTSNO LATEX RISK : DO YOU HAVE A PREVIOUS PERSONAL HISTORY OF MORE THAN NINE SURGERIES, SPINA BIFIDA, OR REPEATED CATHERIZATIONS? NO LATEX RISK : ARE YOU FREQUENTLY EXPOSED TO LATEX PRODUCTS IN YOUR OCCUPATION?NO CAFFEINE 2-5/DAY, CAFFEINE USE? NO. ADVANCE DIRECTIVE ADVANCE DIRECTIVE DISCUSSED WITH PATIENT:YES HCP - VICENTE ERICA (DAUGHTER) SHINTO NO TAOIST BELIEFS THAT WOULD IMPACT HEALTH CARE. MARITAL STATUS: .. ALCOHOL SCREENING DID YOU HAVE A DRINK CONTAINING ALCOHOL IN THE PAST YEAR?NO POINTS0 INTERPRETATIONNEGATIVE OCCUPATION: OFF WORK SINCE OCT 12 2017. SEXUAL HX HAD SEX IN THE LAST 12 MONTHS (VAGINAL, ORAL, OR ANAL)?NO HAVE YOU EVER HAD AN STD?NO REVIEWED WITH PATIENT 06/21/18 1339 JSREVIEWED WITH PATIENT 09/19/18 0837 BV. HOSPITALIZATION/MAJOR DIAGNOSTIC PROCEDURE ABD PAIN, OVARIAN CYST 06/16/2016 ECTOPIC 1993 REVIEW OF SYSTEMS REVIEWED BY: PROVIDER: ED CONNER . CONSTITUTIONAL: ANY CHANGE IN YOUR MEDICAL CONDITION? NO . CHILLS NO . FEVER NO . INFECTION: DO YOU HAVE NEW INFECTIONS? NO . DO YOU HAVE HISTORY OF MRSA? NO . MUSCULOSKELETAL: ANY NEW PATTERNS OF PAIN OR NUMBNESS? NO . GASTROENTEROLOGY: ANY NEW CHANGE IN BOWEL CONTROL? NO . GENITOURINARY: ANY NEW CHANGE IN BLADDER CONTROL? NO . IS THERE A CHANCE YOU COULD BE ? NO . HEMATOLOGY/LYMPH: DO YOU TAKE ANY BLOOD THINNERS? (FOR EXAMPLE- COUMADIN, PLAVIX, AGGRENOX, PLATEL, PRADAXA, OR XARELTO) NO . WHEN WAS YOUR LAST DOSE? DATE: TIME: . NEUROLOGY: HAVE YOU FALLEN IN THE PAST 12 MONTHS? NO . ANY NEW EXTREMITY NUMBNESS OR WEAKNESS? NO . CARDIOLOGY: DO YOU HAVE A PACEMAKER OR DEFIBRILLATOR? NO . RESPIRATORY: HAVE YOU BEEN SICK IN THE PAST WEEK? NO . FEVER NO . FLU LIKE SYMPTOMS? NO . COUGH NO . INTEGUMENTARY: DO YOU HAVE ANY RASHES OR OPEN SORES? NO . ALLERGIC/IMMUNO: ARE YOU ALLERGIC TO IV DYE? NO . ANY NEW ALLERGIES? NO . PSYCHIATRIC: DO YOU HAVE THOUGHTS OF HURTING YOURSELF OR SOMEONE ELSE? NO . ARE YOU ABUSED, NEGLECTED, OR IN AN UNSAFE ENVIRONMENT? NO . ENDOCRINOLOGY: ARE YOU DIABETIC? NO . OTHER: DO YOU NEED ANY PRESCRIPTIONS? NO . IF YES, PLEASE LIST: ____ . ANY NEW PROBLEMS WITH YOUR MEDICATIONS? NO . WHEN DID YOU LAST EAT? ____ . WHEN DID YOU LAST DRINK? ____ . WHAT DID YOU LAST DRINK? ____ . NAME OF PERSON DRIVING YOU HOME? ____ . DO YOU HAVE ANY OTHER QUESTIONS OR CONCERNS NO . VITAL SIGNS WT 232.0 LBS, HT 67.5 IN, BMI 35.80 INDEX, BP 178/77 MM HG, HR 100 /MIN, RR 18 /MIN, TEMP 96.9 F, OXYGEN SAT % 100%, NA INITIALS AW 0953, REVIEWED BY: EM. EXAMINATION GENERAL EXAMINATION: GENERALAWAKE,ALERT ,PLEAASANT . PSYCHAFFECT NORMAL . LUNGS:LUNG LAZCANO ARE CLEAR TO AUSCULTATION BILATERALLY. GOOD MOVEMENT OF AIR . HEART:S1, S2 IN A REGULAR RATE AND RHYTHM. NO SIGNIFICANT MURMURS, RUBS OR GALLOPS NOTED . ASSESSMENTS LOWER ABDOMINAL PAIN - R10.30 (PRIMARY) TREATMENT LOWER ABDOMINAL PAIN REFILL NORCO TABLET, 5-325 MG, 1 TABLET NEEDED, ORALLY, 1 TAB DAILY PRN MDD1, 30 DAYS, 30, REFILLS 0 REFILL OXYCODONE HCL TABLET, 15 MG, 1 TABLET, ORALLY, EVERY 6 HRS MDD4, 30 DAY(S), 120, REFILLS 0 CONTINUE GABAPENTIN CAPSULE, 300 MG, 1 CAPSULE, ORALLY, FOUR TIMES DAILY CONTINUE FLEXERIL 10 MG 30 TABLETS, 10 MG, 1 TAB, ORALLY, TWICE A DAY NEEDED NOTES: ISTOP REGISTRY REVIEWED AND DEMONSTRATES COMPLLIANCE. BRINGS IN MEDICATIONS WHICH IS APPROPRIATE FOR WHAT WAS DISPENSED. RECENT URINE TOXICOLOGY REVIEWED. NO UNAUTHORIZED MEDICATIONS. NO ILLICIT SUBSTANCES AND PRESCRIBED MEDICATIONS WERE PRESENT. . PROCEDURE CODES FA211 ESTABILISHED PATIENT [facility] CHARGE DISPOSITION & COMMUNICATION FOLLOW UP 6 WEEKS ELECTRONICALLY SIGNED BY UBALDO MAYERS ON 04/30/2019 AT 09:16 AM EST DISCLAIMER : THIS IS A VISIT SUMMARY EXTRACTED FROM THE [employer] CHART. IT IS NOT A COPY OF THE [employer] PROGRESS NOTE. TRE
== END ==
LOC: M PAIN 09:45
PROVIDERS: ATTEND Nurse Practitioner Family
DX: R10.30 Lower abdominal pain, unspecified (principal); M54.5 Low back pain; F17.210 Nicotine dependence, cigarettes, uncomplicated; I10 Essential (primary) hypertension; G47.30 Sleep apnea, unspecified; F41.9 Anxiety disorder, unspecified; Z79.891 Long term (current) use of opiate analgesic; Z79.899 Other long term (current) drug therapy

== ENCOUNTER → 2019-05-11 | Outpatient (CLI) | payer OTHER ==
[~2019-05-11] MED LIST changes: +PYRI1TAB5 PO
--- NOTE | 2019-05-11 20:00 | REP ---
HISTORY: Pain after trauma. COMPARISON: No prior exams for comparison. FINDINGS: No acute fracture or destructive osseous lesion. Electronically Signed by Boni Esquivel DO 05/12/2019 09:30 A
== END ==
LOC: M WUC 18:00
PROVIDERS: ATTEND Physician Assistant
DX: S60.211A Contusion of right wrist, initial encounter (principal); Y92.9 Unspecified place or not applicable; Y93.9 Activity, unspecified; Y99.9 Unspecified external cause status

== ENCOUNTER → 2019-06-19 | Outpatient (CLI) | payer OTHER ==
[~2019-06-19] MED LIST changes: +OXYB15TA14; -OXYB1TAB13; -TRAZ10TA PO; +TRAZ1TAB12 PO
--- NOTE | 2019-07-05 02:41 | ECWPNPC ---
PATIENT NAME: MISBAH DELACRUZ : 1970 GENDER: FEMALE VISIT DATE: 06/19/2019 DISCHARGE DATE: 06/19/19 1217 VISIT LOCKED DATE TIME: PHYSICIAN: ED RICARDO RESOURCE: ED RICARDO REASON FOR APPOINTMENT 1. MED MGMNT HISTORY OF PRESENT ILLNESS HISTORY OF PRESENT ILLNESS: PAIN THE PATIENT DESCRIBES THE PAIN... FALL RISK SCREENING: SCREENING :NO FALLS REPORTED IN THE LAST YEAR CURRENT MEDICATIONS TAKING MIRALAX - PACKET 1 PACKET MIXED WITH 8 OUNCES OF FLUID ORALLY ONCE A DAY NEEDED TAKING NEBULIZER/TUBING/MOUTHPIECE 1 ICD: J45.901 EVERY 4 HOURS NEEDED TAKING ALBUTEROL SULFATE (2.5 MG/3ML) 0.083% NEBULIZATION SOLUTION 3 ML INHALATION THREE TIMES A DAY PRN TAKING CPAP MACHINE , NOTES: SOMETIMES TAKING SPACER/AERO-HOLDING CHAMBERS 1 DEVICE DIRECTED WITH INHALER Q4HRS PRN SOB/WHEEZE TAKING TYLENOL 325 MG TABLET 2 TABLETS NEEDED ORALLY EVERY 6 HRS TAKING DEPO-PROVERA 150 MG/ML SUSPENSION 1 ML INTRAMUSCULAR EVERY 3 MONTHS, NOTES: MISSED HER SHOT TAKING LORATADINE 10 MG TABLET 1 TABLET ORALLY ONCE A DAY NEEDED TAKING ARNUITY ELLIPTA 200 MCG/ACT AEROSOL POWDER BREATH ACTIVATED 1 PUFF INHALATION ONCE A DAY TAKING ALBUTEROL SULFATE HFA 108 MCG/ACT AEROSOL SOLUTION 2 PUFFS NEEDED INHALATION EVERY 4 HRS TAKING DRISDOL 75371 UNIT CAPSULE 1 CAPSULE ORALLY EVERY TUESDAY TAKING OXYBUTYNIN CHLORIDE ER 15 MG TABLET EXTENDED RELEASE 24 HOUR 1 TABLET ORALLY BID TAKING IBUPROFEN 800 MG TABLET 1 TABLET ORALLY THREE TIMES A DAY, NOTES: TAKING 2 800'S EVERY 3 HOURS TAKING GABAPENTIN 300 MG CAPSULE 1 CAPSULE ORALLY FOUR TIMES DAILY TAKING ZOFRAN ODT 4 MG TABLET DISINTEGRATING 1 TABLET ON THE TONGUE AND ALLOW TO DISSOLVE ORALLY EVERY 8 HRS NEEDED TAKING CLINDAMYCIN HCL 300 MG CAPSULE TAKE 1 CAPSULE BY MOUTH EVERY 6 HOURS ORAL TAKING HYDROXYZINE HCL 50 MG TABLET 1 TABLET NEEDED ORALLY THREE TIMES DAILY NEEDED TAKING QUETIAPINE FUMARATE 25 MG TABLET 1 TABLET AT BEDTIME ORALLY ONCE A DAY TAKING LOSARTAN POTASSIUM 25 MG TABLET 1 TABLET ORALLY EVERY OTHER DAY TAKING FLUTICASONE PROPIONATE 50 MCG/ACT SUSPENSION 1 SPRAY IN EACH NOSTRIL NASALLY ONCE A DAY TAKING FLUTICASONE PROPIONATE 50 MCG/ACT SUSPENSION 1 SPRAY IN EACH NOSTRIL NASALLY ONCE A DAY TAKING OXYCODONE HCL 15 MG TABLET 1 TABLET ORALLY EVERY 6 HRS MDD4 TAKING NORCO 5-325 MG TABLET 1 TABLET NEEDED ORALLY 1 TAB DAILY PRN MDD1 TAKING FLEXERIL 10 MG 30 10 MG TABLETS 1 TAB ORALLY TWICE A DAY NEEDED TAKING SEROQUEL 25 MG TABLET 1 TABLET AT BEDTIME ORALLY ONCE A DAY MEDICATION LIST REVIEWED AND RECONCILED WITH THE PATIENT PAST MEDICAL HISTORY PTSD PANIC ATTACKS KIDNEY STONES HEMATURIA AUB/FIBROID/PELVIC PAIN - NOW S/P PARTIAL HYSTERECTOMY, RIGHT OVARIAN INTACT ABDOMINAL PAIN NOS - LIKELY ADHESIONS - PREVIOUSLY NOTED IN OP REPORT NIRALI COMPLIANCE DRUG SEEK BEHAVIOR SUSPICIOUS TOXICOLOGY SCREEN URINARY INCONTINENCE CARPAL TUNNEL ARTHRITIS HTN, GOAL < 140/< 90 ASCVD RISK 07/12/18: 5.6% FX RIGHT WIRST ALLERGIES N.K.D.A. 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 2 SON(S) , 1 DAUGHTER(S) - HEALTHY. SOCIAL HISTORY GENERAL: TOBACCO USE ARE YOU A:CURRENT SMOKER HOW OFTEN DO YOU SMOKE CIGARETTES?SOME DAYS, BUT NOT EVERY DAY HOW SOON AFTER YOU WAKE UP DO YOU SMOKE YOUR FIRST CIGARETTE?AFTER 60 MIN HOW MANY CIGARETTES A DAY DO YOU SMOKE?5 OR LESS STATES SHE ONLY SMOKES SOMETIMES. ARE YOU INTERESTED IN QUITTING?THINKING ABOUT QUITTING PATIENT COUNSELED ON THE DANGERS OF TOBACCO USE AND URGED TO QUIT:11/29/2018 COUNSELED THE PATIENT ON SMOKING CESSATION, EDUCATION FIVVGNOO16/26/2019 SMOKING CESSATION INFORMATION GIVEN12/19/2018 PT STATES SHE HAS 2 CIGARETTES A DAY HIV / HEP-C SCREENING HIV TEST OFFERED TO PATIENT:YES DATE OFFERED:02/22/2017 HEP-C TEST OFFERED TO PATIENT:YES DATE OFFERED:02/22/2017 OTHERS AT HOME: CHILDREN. HOUSING: RENTS APARTMENT. EDUCATION LEVEL OF EDUCATION:HIGH SCHOOL DIET: REGULAR. LANGUAGE WOLOF. BMI CARE GOAL FOLLOW-UP ABOVE NORMAL BMI FOLLOW-UPDIETARY NEEDS EDUCATION RECREATIONAL DRUG USE DENIES, DRUG USE? NO. EXERCISE: GYM EVERY OTHER DAY, NOT ABLET O LAST 2 WEEKS. LEARNING BARRIERS / SPECIAL NEEDS CHANGE FROM LAST VISIT?NO BARRIERS TO LEARNING?NO HEARING IMPAIRED?NO VISION IMPAIRED?NO COGNITIVELY IMPAIRED?NO READINESS TO LEARN?YES LEARNING PREFERENCES?NO LEARNING CAPABILITIES PRESENT?YES EMOTIONAL BARRIERS?NO SPECIAL DEVICES?NO CMO & PRESIDENT NEEDED?NO PAIN CLINIC PFS, CLERGY, PUBLIC HEALTH REFERRALS HAS THE PATIENT BEEN EDUCATED REGARDING HIS/HER PLAN OF CARE?YES HAS THE PATIENT BEEN EDUCATED REGARDING PAIN, THE RISK FOR PAIN, THE IMPORTANCE OF EFFECTIVE PAIN MANAGEMENT, AND THE PAIN ASSESSMENT PROCESS?YES LATEX QUESTIONNAIRE LATEX ALLERGY : HAVE YOU EVER DEVELOPED ANY TYPE OF REACTION AFTER HANDLING LATEX PRODUCTS SUCH RUBBER GLOVES, CONDOMS, DIAPHRAGMS, BALLOONS, SOCKS, OR UNDERWEAR?NO LATEX ALLERGY : HAVE YOU EVER DEVELOPED ANY TYPE OF REACTION DURING OR AFTER DENTAL APPOINTMENT, VAGINAL/RECTAL EXAMINATION, SURGICAL PROCEDURE, OR ANY OTHER EXPOSURE?NO LATEX RISK : HAVE YOU EVER HAD ANY DIFFICULTY BREATHING OR HIVES AFTER EATING OR HANDLING ANY FRUITS, OR VEGETABLES; SUCH KIWI, BANANAS, STONE FRUITS, OR CHESTNUTSNO LATEX RISK : DO YOU HAVE A PREVIOUS PERSONAL HISTORY OF MORE THAN NINE SURGERIES, SPINA BIFIDA, OR REPEATED CATHERIZATIONS? NO LATEX RISK : ARE YOU FREQUENTLY EXPOSED TO LATEX PRODUCTS IN YOUR OCCUPATION?NO DATE ASKED : 06/19/2019 CAFFEINE 2-5/DAY, CAFFEINE USE? NO. ADVANCE DIRECTIVE ADVANCE DIRECTIVE DISCUSSED WITH PATIENT:YES HCP - VICENTE MALDONADO (DAUGHTER) GNOSTICISM NO EVANGELICAL BELIEFS THAT WOULD IMPACT HEALTH CARE. MARITAL STATUS: .. ALCOHOL SCREENING DID YOU HAVE A DRINK CONTAINING ALCOHOL IN THE PAST YEAR?NO POINTS0 INTERPRETATIONNEGATIVE OCCUPATION: OFF WORK SINCE OCT 12 2017. SEXUAL HX HAD SEX IN THE LAST 12 MONTHS (VAGINAL, ORAL, OR ANAL)?NO HAVE YOU EVER HAD AN STD?NO REVIEWED WITH PATIENT 06/21/18 1339 JSREVIEWED WITH PATIENT 09/19/18 0829 06/19/19 REVIEWED WITH PT. MORIAH. HOSPITALIZATION/MAJOR DIAGNOSTIC PROCEDURE ABD PAIN, OVARIAN CYST 06/16/2016 ECTOPIC 1993 REVIEW OF SYSTEMS REVIEWED BY: PROVIDER: ED CONNER . CONSTITUTIONAL: ANY CHANGE IN YOUR MEDICAL CONDITION? YES . CHILLS NO . FEVER NO . INFECTION: DO YOU HAVE NEW INFECTIONS? YES, INFECTED TOOTH . DO YOU HAVE HISTORY OF MRSA? NO . MUSCULOSKELETAL: ANY NEW PATTERNS OF PAIN OR NUMBNESS? YES . GASTROENTEROLOGY: ANY NEW CHANGE IN BOWEL CONTROL? NO . GENITOURINARY: ANY NEW CHANGE IN BLADDER CONTROL? YES . IS THERE A CHANCE YOU COULD BE ? NO . HEMATOLOGY/LYMPH: DO YOU TAKE ANY BLOOD THINNERS? (FOR EXAMPLE- COUMADIN, PLAVIX, AGGRENOX, PLATEL, PRADAXA, OR XARELTO) NO . WHEN WAS YOUR LAST DOSE? DATE: TIME: . NEUROLOGY: HAVE YOU FALLEN IN THE PAST 12 MONTHS? YES . ANY NEW EXTREMITY NUMBNESS OR WEAKNESS? NO . CARDIOLOGY: DO YOU HAVE A PACEMAKER OR DEFIBRILLATOR? NO . RESPIRATORY: HAVE YOU BEEN SICK IN THE PAST WEEK? NO . FEVER NO . FLU LIKE SYMPTOMS? NO . COUGH NO . INTEGUMENTARY: DO YOU HAVE ANY RASHES OR OPEN SORES? NO . ALLERGIC/IMMUNO: ARE YOU ALLERGIC TO IV DYE? NO . ANY NEW ALLERGIES? NO . PSYCHIATRIC: DO YOU HAVE THOUGHTS OF HURTING YOURSELF OR SOMEONE ELSE? NO . ARE YOU ABUSED, NEGLECTED, OR IN AN UNSAFE ENVIRONMENT? NO . ENDOCRINOLOGY: ARE YOU DIABETIC? NO . OTHER: DO YOU NEED ANY PRESCRIPTIONS? YES . IF YES, PLEASE LIST: ____FLEXERIL, OXCODONE, NOCO . ANY NEW PROBLEMS WITH YOUR MEDICATIONS? NO . WHEN DID YOU LAST EAT? ____ . WHEN DID YOU LAST DRINK? ____ . WHAT DID YOU LAST DRINK? ____ . NAME OF PERSON DRIVING YOU HOME? ____ . DO YOU HAVE ANY OTHER QUESTIONS OR CONCERNS NO . VITAL SIGNS WT 246 LBS, HT 67.5 IN, BMI 37.96 INDEX, BP 149/83 MM HG, HR 97 /MIN, RR 18 /MIN, TEMP 97.8 F, OXYGEN SAT % 99, SAFE IN ENV? (Y/N) YES, REVIEWED BY: VD. EXAMINATION GENERAL EXAMINATION: GENERALAWAKE,ALERT ,PLEAASANT . PSYCHAFFECT NORMAL . LUNGS:LUNG LAZCANO ARE CLEAR TO AUSCULTATION BILATERALLY. GOOD MOVEMENT OF AIR . HEART:S1, S2 IN A REGULAR RATE AND RHYTHM. NO SIGNIFICANT MURMURS, RUBS OR GALLOPS NOTED . ASSESSMENTS LOWER ABDOMINAL PAIN - R10.30 (PRIMARY) TREATMENT LOWER ABDOMINAL PAIN CONTINUE OXYCODONE HCL TABLET, 15 MG, 1 TABLET, ORALLY, EVERY 6 HRS MDD4 CONTINUE NORCO TABLET, 5-325 MG, 1 TABLET NEEDED, ORALLY, 1 TAB DAILY PRN MDD1 CONTINUE FLEXERIL 10 MG 30 TABLETS, 10 MG, 1 TAB, ORALLY, TWICE A DAY NEEDED CONTINUE GABAPENTIN CAPSULE, 300 MG, 1 CAPSULE, ORALLY, FOUR TIMES DAILY NOTES: DISCUSSED WITH PATIENT NARCOTIC AGREEMENT AND THE FACT THAT SHE CANNOT ADJUST HER PAIN MEDICATIONS DUE TO ACUTE PAIN, I.E. CARPAL TUNNEL SYNDROME OR TOOTH PAIN. SHE IS MADE AWARE THAT ACUTE PAIN SITUATIONS MAY REQUIRE A PRESCRIPTION FOR PAIN MEDICINE ON TOP OF WHAT WE GIVE HER FOR CHRONIC PAIN, BUT SHE NEEDS TO LET US KNOW. SHE SEEMS TO UNDERSTAND. SHE RECENTLY INCREASED PAIN MEDICATION FOR A SHORT TIME DUE TO RIGHT WRIST PAIN. SHE WILL RUN OUT OF HER PAIN MEDICATION EARLY. OUR GOAL IS TO DISCONTINUE HYDROCODONE SLOWLY OVER THE COURSE OF THE NEXT FEW MONTHS. CURRENTLY, SHE IS BEEN GIVEN ENOUGH FOR 1 TABLET PER DAY.. SHE ALSO IS USING OXYCODONE 15 MG 4 TABLETS PER DAY, WHICH WE WILL CONTINUE WITH PLANS TO DISCONTINUE HYDROCODONE AT NEXT VISIT. PREVENTIVE MEDICINE PAIN CLINIC TEACHING: MEDICATIONS UTOX OBTAINED 06/19/19. PROCEDURE CODES FA211 ESTABILISHED PATIENT [facility] CHARGE DISPOSITION & COMMUNICATION FOLLOW UP 6-8WKS (REASON: MED MGMNT) ELECTRONICALLY SIGNED BY UBALDO MAYERS ON 07/04/2019 AT 10:20 AM EST DISCLAIMER : THIS IS A VISIT SUMMARY EXTRACTED FROM THE [employer] CHART. IT IS NOT A COPY OF THE [employer] PROGRESS NOTE. TRE
== END ==
LOC: M PAIN 10:45
PROVIDERS: ATTEND Nurse Practitioner Family
DX: R10.30 Lower abdominal pain, unspecified (principal); G89.29 Other chronic pain; Z86.59 Personal history of other mental and behavioral disorders; G47.33 Obstructive sleep apnea (adult) (pediatric); I10 Essential (primary) hypertension; F17.210 Nicotine dependence, cigarettes, uncomplicated; Z79.51 Long term (current) use of inhaled steroids; Z79.891 Long term (current) use of opiate analgesic; Z79.899 Other long term (current) drug therapy

== ENCOUNTER 2019-07-25 14:26 | Emergency (ER) | payer OTHER ==
[~2019-07-25] VITALS: Ht 172.7 cm; Wt 112.1 kg
--- NOTE | 2019-07-25 15:40 | REP ---
RIGHT WRIST, FOUR VIEWS: There is no evidence of an acute fracture, dislocation or intrinsic bone disease. IMPRESSION: No fracture or dislocation. Electronically Signed by Hamzah Shell MD 07/25/2019 04:15 P
[2019-07-25 17:37] VITALS: BP 142/78
== END 2019-07-25 17:40 | disposition home or self-care (01) ==
LOC: M ED 14:26
DX: S63.501A Unspecified sprain of right wrist, initial encounter (principal); X58.XXXA Exposure to other specified factors, initial encounter; Y92.89 Other specified places as the place of occurrence of the external cause; I10 Essential (primary) hypertension; F33.9 Major depressive disorder, recurrent, unspecified; F41.9 Anxiety disorder, unspecified; Z79.899 Other long term (current) drug therapy; F17.210 Nicotine dependence, cigarettes, uncomplicated

== ENCOUNTER → 2019-09-14 | Outpatient (CLI) | payer OTHER ==
[~2019-09-14] MED LIST changes: +CYCL-707; -CYCL10TA
[2019-09-14 10:58] LABS: BLOOD UREA NITROGEN 12 MG/DL (7-18); CALCIUM LEVEL 9.3 MG/DL (8.5-10.1); CARBON DIOXIDE LEVEL 27 MEQ/L (21-32); CHLORIDE LEVEL 106 MEQ/L (98-107); CHOLESTEROL LEVEL 198 MG/DL (<200); CHOLESTEROL RISK RATIO 2.444 (<5); CREATININE FOR GFR 0.97 MG/DL (0.55-1.30); GLOMERULAR FILTRATION RATE > 60.0 (>58); GLUCOSE, FASTING 112 MG/DL (70-100); HDL CHOLESTEROL 81 MG/DL (>40); LDL CHOLESTEROL 95 MG/DL (<100); NON-HDL-C 117 MG/DL; POTASSIUM SERUM 4.2 MEQ/L (3.5-5.1); SODIUM LEVEL 139 MEQ/L (136-145); TRIGLYCERIDES LEVEL 110 MG/DL (<150)
== END ==
LOC: M LAB 09:38
PROVIDERS: ATTEND Obstetrics & Gynecology
DX: I10 Essential (primary) hypertension (principal)

== ENCOUNTER → 2019-09-14 | Outpatient (CLI) | payer OTHER ==
--- NOTE | 2019-09-17 23:42 | ECWPNPC ---
PATIENT NAME: MISBAH DELACRUZ : 1970 GENDER: FEMALE VISIT DATE: 09/14/2019 DISCHARGE DATE: 09/14/19917 VISIT LOCKED DATE TIME: PHYSICIAN: ED RICARDO RESOURCE: ED RICARDO REASON FOR APPOINTMENT 1. LOWER ABDOMEN HISTORY OF PRESENT ILLNESS HISTORY OF PRESENT ILLNESS: HERE FOR FOLLOW-UP OF CHRONIC ABDOMINAL PAIN. FINDS CURRENT CHRONIC PAIN MEDICATION SOMEWHAT EFFECTIVE AT REDUCING PAIN AND KEEPING HER FUNCTIONAL. 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 CURRENTLY USING OXYCODONE 15 MG 4 TIMES A DAY AND IBUPROFEN 800 3 TIMES A DAY. USING HYDROCODONE 09/22/2024 SPARINGLY FOR SEVERE PAIN EPISODES WELL GABAPENTIN. TODAY WE WILL BE DISCONTINUING HYDROCODONE. PLAN IS TO USE LESS NARCOTIC PAIN MEDICATION. RATING PAIN VAS 7/10. PAIN THE PATIENT DESCRIBES THE PAIN... FALL RISK SCREENING: SCREENING :NO FALLS REPORTED IN THE LAST YEAR CURRENT MEDICATIONS TAKING MIRALAX - PACKET 1 PACKET MIXED WITH 8 OUNCES OF FLUID ORALLY ONCE A DAY NEEDED TAKING NEBULIZER/TUBING/MOUTHPIECE 1 ICD: J45.901 EVERY 4 HOURS NEEDED TAKING ALBUTEROL SULFATE (2.5 MG/3ML) 0.083% NEBULIZATION SOLUTION 3 ML INHALATION THREE TIMES A DAY PRN TAKING CPAP MACHINE , NOTES: SOMETIMES TAKING SPACER/AERO-HOLDING CHAMBERS 1 DEVICE DIRECTED WITH INHALER Q4HRS PRN SOB/WHEEZE TAKING TYLENOL 325 MG TABLET 2 TABLETS NEEDED ORALLY EVERY 6 HRS TAKING DEPO-PROVERA 150 MG/ML SUSPENSION 1 ML INTRAMUSCULAR EVERY 3 MONTHS, NOTES: MISSED HER SHOT TAKING LORATADINE 10 MG TABLET 1 TABLET ORALLY ONCE A DAY NEEDED TAKING ARNUITY ELLIPTA 200 MCG/ACT AEROSOL POWDER BREATH ACTIVATED 1 PUFF INHALATION ONCE A DAY TAKING ALBUTEROL SULFATE HFA 108 MCG/ACT AEROSOL SOLUTION 2 PUFFS NEEDED INHALATION EVERY 4 HRS TAKING DRISDOL [id number] UNIT CAPSULE 1 CAPSULE ORALLY EVERY TUESDAY TAKING ZOFRAN ODT 4 MG TABLET DISINTEGRATING 1 TABLET ON THE TONGUE AND ALLOW TO DISSOLVE ORALLY EVERY 8 HRS NEEDED TAKING CLINDAMYCIN HCL 300 MG CAPSULE TAKE 1 CAPSULE BY MOUTH EVERY 6 HOURS ORAL TAKING HYDROXYZINE HCL 50 MG TABLET 1 TABLET NEEDED ORALLY THREE TIMES DAILY NEEDED TAKING LOSARTAN POTASSIUM 25 MG TABLET 1 TABLET ORALLY EVERY OTHER DAY TAKING FLUTICASONE PROPIONATE 50 MCG/ACT SUSPENSION 1 SPRAY IN EACH NOSTRIL NASALLY ONCE A DAY TAKING FLUTICASONE PROPIONATE 50 MCG/ACT SUSPENSION 1 SPRAY IN EACH NOSTRIL NASALLY ONCE A DAY TAKING SEROQUEL 25 MG TABLET 2 TABS ORALLY ONCE A DAY TAKING FLEXERIL 10 MG 30 10 MG TABLETS 1 TAB ORALLY TWICE A DAY NEEDED TAKING OXYBUTYNIN CHLORIDE ER 15 MG TABLET EXTENDED RELEASE 24 HOUR 1 TABLET ORALLY BID TAKING QUETIAPINE FUMARATE 50 MG TABLET 1 TABLET AT BEDTIME ORALLY ONCE A DAY TAKING NORCO 5-325 MG TABLET 1 TABLET NEEDED ORALLY 1 TAB DAILY PRN MDD1 TAKING GABAPENTIN 300 MG CAPSULE 1 CAPSULE ORALLY FOUR TIMES DAILY TAKING OXYCODONE HCL 15 MG TABLET 1 TABLET ORALLY EVERY 6 HRS MDD4 TAKING IBUPROFEN 800 MG TABLET 1 TABLET ORALLY THREE TIMES A DAY, NOTES: TAKING 2 800'S EVERY 3 HOURS MEDICATION LIST REVIEWED AND RECONCILED WITH THE PATIENT PAST MEDICAL HISTORY PTSD PANIC ATTACKS KIDNEY STONES HEMATURIA AUB/FIBROID/PELVIC PAIN - NOW S/P PARTIAL HYSTERECTOMY, RIGHT OVARIAN INTACT ABDOMINAL PAIN NOS - LIKELY ADHESIONS - PREVIOUSLY NOTED IN OP REPORT NIRALI COMPLIANCE DRUG SEEK BEHAVIOR SUSPICIOUS TOXICOLOGY SCREEN URINARY INCONTINENCE CARPAL TUNNEL ARTHRITIS HTN, GOAL < 140/< 90 ASCVD RISK 07/12/18: 5.6% FX RIGHT WIRST ALLERGIES N.K.D.A. 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 2 SON(S) , 1 DAUGHTER(S) - HEALTHY. SOCIAL HISTORY GENERAL: TOBACCO USE ARE YOU A:CURRENT SMOKER ARE YOU INTERESTED IN QUITTING?THINKING ABOUT QUITTING COUNSELED THE PATIENT ON SMOKING CESSATION, EDUCATION SSMESWEC85/26/2019 HOW MANY CIGARETTES A DAY DO YOU SMOKE?5 OR LESS STATES SHE ONLY SMOKES SOMETIMES. HOW SOON AFTER YOU WAKE UP DO YOU SMOKE YOUR FIRST CIGARETTE?AFTER 60 MIN HOW OFTEN DO YOU SMOKE CIGARETTES?SOME DAYS, BUT NOT EVERY DAY PATIENT COUNSELED ON THE DANGERS OF TOBACCO USE AND URGED TO QUIT:09/14/2019 SMOKING CESSATION INFORMATION GIVEN12/19/2018 PT STATES SHE HAS 2 CIGARETTES A DAY LATEX QUESTIONNAIRE LATEX ALLERGY : HAVE YOU EVER DEVELOPED ANY TYPE OF REACTION AFTER HANDLING LATEX PRODUCTS SUCH RUBBER GLOVES, CONDOMS, DIAPHRAGMS, BALLOONS, SOCKS, OR UNDERWEAR?NO LATEX ALLERGY : HAVE YOU EVER DEVELOPED ANY TYPE OF REACTION DURING OR AFTER DENTAL APPOINTMENT, VAGINAL/RECTAL EXAMINATION, SURGICAL PROCEDURE, OR ANY OTHER EXPOSURE?NO DATE ASKED : 06/19/2019 LATEX RISK : HAVE YOU EVER HAD ANY DIFFICULTY BREATHING OR HIVES AFTER EATING OR HANDLING ANY FRUITS, OR VEGETABLES; SUCH KIWI, BANANAS, STONE FRUITS, OR CHESTNUTSNO LATEX RISK : DO YOU HAVE A PREVIOUS PERSONAL HISTORY OF MORE THAN NINE SURGERIES, SPINA BIFIDA, OR REPEATED CATHERIZATIONS? NO LATEX RISK : ARE YOU FREQUENTLY EXPOSED TO LATEX PRODUCTS IN YOUR OCCUPATION?NO BMI CARE GOAL FOLLOW-UP ABOVE NORMAL BMI FOLLOW-UPDIETARY NEEDS EDUCATION ALCOHOL SCREENING DID YOU HAVE A DRINK CONTAINING ALCOHOL IN THE PAST YEAR?NO POINTS0 INTERPRETATIONNEGATIVE RECREATIONAL DRUG USE DENIES, DRUG USE? NO. CAFFEINE 2-5/DAY, CAFFEINE USE? NO. SEXUAL HX HAD SEX IN THE LAST 12 MONTHS (VAGINAL, ORAL, OR ANAL)?NO HAVE YOU EVER HAD AN STD?NO HIV / HEP-C SCREENING HIV TEST OFFERED TO PATIENT:YES DATE OFFERED:02/22/2017 HEP-C TEST OFFERED TO PATIENT:YES DATE OFFERED:02/22/2017 GNOSTICISM NO UATSDIN BELIEFS THAT WOULD IMPACT HEALTH CARE. LANGUAGE YAKUT. EDUCATION LEVEL OF EDUCATION:HIGH SCHOOL LEARNING BARRIERS / SPECIAL NEEDS CHANGE FROM LAST VISIT?NO BARRIERS TO LEARNING?NO HEARING IMPAIRED?NO VISION IMPAIRED?NO COGNITIVELY IMPAIRED?NO READINESS TO LEARN?YES LEARNING PREFERENCES?NO LEARNING CAPABILITIES PRESENT?YES EMOTIONAL BARRIERS?NO SPECIAL DEVICES?NO SURGICAL NURSE NEEDED?NO OCCUPATION: OFF WORK SINCE OCT 12 2017. DIET: REGULAR. EXERCISE: GYM EVERY OTHER DAY, NOT ABLET O LAST 2 WEEKS. MARITAL STATUS: .. OTHERS AT HOME: CHILDREN. NEW PATIENT PAIN DIARY TODAY'S VISITNOTES PATIENT DESCRIBES PAIN :HAVE IT ALL THE TIME, OTHER STATES PAIN FEELS LIKE CONTRACTION FROM 0-10, WHAT LEVEL IS YOUR PAIN TODAY?7 PAIN CLINIC PFS, CLERGY, PUBLIC HEALTH REFERRALS HAS THE PATIENT BEEN EDUCATED REGARDING HIS/HER PLAN OF CARE?YES HAS THE PATIENT BEEN EDUCATED REGARDING PAIN, THE RISK FOR PAIN, THE IMPORTANCE OF EFFECTIVE PAIN MANAGEMENT, AND THE PAIN ASSESSMENT PROCESS?YES HOUSING: RENTS APARTMENT. ADVANCE DIRECTIVE ADVANCE DIRECTIVE DISCUSSED WITH PATIENT:YES HCP - VICENTE MALDONADO (DAUGHTER) REVIEWED WITH PATIENT 06/21/18 1339 JSREVIEWED WITH PATIENT 09/19/18 0851 06/19/19 REVIEWED WITH PT. MORIAH. HOSPITALIZATION/MAJOR DIAGNOSTIC PROCEDURE ABD PAIN, OVARIAN CYST 06/16/2016 ECTOPIC 1993 REVIEW OF SYSTEMS REVIEWED BY: PROVIDER: ED CONNER . CONSTITUTIONAL: ANY CHANGE IN YOUR MEDICAL CONDITION? YES- BROKE RIGHT WRIST IN APRIL . CHILLS NO . FEVER NO . INFECTION: DO YOU HAVE NEW INFECTIONS? NO . DO YOU HAVE HISTORY OF MRSA? NO . MUSCULOSKELETAL: ANY NEW PATTERNS OF PAIN OR NUMBNESS? NO . GASTROENTEROLOGY: ANY NEW CHANGE IN BOWEL CONTROL? NO . GENITOURINARY: ANY NEW CHANGE IN BLADDER CONTROL? NO . IS THERE A CHANCE YOU COULD BE ? NO . HEMATOLOGY/LYMPH: DO YOU TAKE ANY BLOOD THINNERS? (FOR EXAMPLE- COUMADIN, PLAVIX, AGGRENOX, PLATEL, PRADAXA, OR XARELTO) NO . WHEN WAS YOUR LAST DOSE? DATE: TIME: . NEUROLOGY: HAVE YOU FALLEN IN THE PAST 12 MONTHS? NO . ANY NEW EXTREMITY NUMBNESS OR WEAKNESS? NO . CARDIOLOGY: DO YOU HAVE A PACEMAKER OR DEFIBRILLATOR? NO . RESPIRATORY: HAVE YOU BEEN SICK IN THE PAST WEEK? NO . FEVER NO . FLU LIKE SYMPTOMS? NO . COUGH NO . INTEGUMENTARY: DO YOU HAVE ANY RASHES OR OPEN SORES? NO . ALLERGIC/IMMUNO: ARE YOU ALLERGIC TO IV DYE? NO . ANY NEW ALLERGIES? NO . PSYCHIATRIC: DO YOU HAVE THOUGHTS OF HURTING YOURSELF OR SOMEONE ELSE? NO . ARE YOU ABUSED, NEGLECTED, OR IN AN UNSAFE ENVIRONMENT? NO . ENDOCRINOLOGY: ARE YOU DIABETIC? NO . OTHER: DO YOU NEED ANY PRESCRIPTIONS? NO . IF YES, PLEASE LIST: ____ . ANY NEW PROBLEMS WITH YOUR MEDICATIONS? NO . WHEN DID YOU LAST EAT? ____ . WHEN DID YOU LAST DRINK? ____ . WHAT DID YOU LAST DRINK? ____ . NAME OF PERSON DRIVING YOU HOME? ____ . DO YOU HAVE ANY OTHER QUESTIONS OR CONCERNS NO . VITAL SIGNS WT 249.8 LBS, HT 67.5 IN, BMI 38.54 INDEX, BP 133/79 MM HG, HR 87 /MIN, RR 18 /MIN, TEMP 98.5 F, OXYGEN SAT % 99%, SAFE IN ENV? (Y/N) YES, REVIEWED BY: ELBERT. EXAMINATION GENERAL EXAMINATION: GENERALAWAKE,ALERT ,PLEAASANT . PSYCHAFFECT NORMAL . LUNGS:LUNG LAZCANO ARE CLEAR TO AUSCULTATION BILATERALLY. GOOD MOVEMENT OF AIR . HEART:S1, S2 IN A REGULAR RATE AND RHYTHM. NO SIGNIFICANT MURMURS, RUBS OR GALLOPS NOTED . ASSESSMENTS LOWER ABDOMINAL PAIN - R10.30 (PRIMARY) CHRONIC PRESCRIPTION OPIATE USE - Z79.891 TREATMENT LOWER ABDOMINAL PAIN CONTINUE TYLENOL TABLET, 325 MG, 2 TABLETS NEEDED, ORALLY, EVERY 6 HRS STOP NORCO TABLET, 5-325 MG, 1 TABLET NEEDED, ORALLY, 1 TAB DAILY PRN MDD1 CONTINUE GABAPENTIN CAPSULE, 300 MG, 1 CAPSULE, ORALLY, FOUR TIMES DAILY CONTINUE OXYCODONE HCL TABLET, 15 MG, 1 TABLET, ORALLY, EVERY 6 HRS MDD4 NOTES: ISTOP REGISTRY REVIEWED AND DEMONSTRATES COMPLLIANCE. BRINGS IN MEDICATIONS WHICH IS APPROPRIATE FOR WHAT WAS DISPENSED. RECENT URINE TOXICOLOGY REVIEWED. NO UNAUTHORIZED MEDICATIONS. NO ILLICIT SUBSTANCES AND PRESCRIBED MEDICATIONS WERE PRESENT. , RISKS OF NARCOTIC/OPIOD MEDICATIONS INCLUDES BUT IS NOT LIMITED TO RISK OF DEPENDANCE/DEVELOPMENT OF ADDICTION, MOOD DISTURBANCE AND DEPRESSION, OSTEOPOROSIS, HORMONAL AND LABIDAL CHANGES, RESPIRATORY DEPRESSION AND . PATIENT IS ADVISED NOT TO DRIVE OR DRINK ALCOHOL WHILE ON THESE MEDICATIONS. PROCEDURE CODES FA211 ESTABILISHED PATIENT [facility] CHARGE DISPOSITION & COMMUNICATION FOLLOW UP 2 MONTHS (REASON: MED MGMNT) ELECTRONICALLY SIGNED BY UBALDO MAYERS ON 09/17/2019 AT 08:51 AM EDT DISCLAIMER : THIS IS A VISIT SUMMARY EXTRACTED FROM THE [employer] CHART. IT IS NOT A COPY OF THE [employer] PROGRESS NOTE. TRE
== END ==
LOC: M PAIN 08:45
PROVIDERS: ATTEND Nurse Practitioner Family
DX: R10.30 Lower abdominal pain, unspecified (principal); G89.29 Other chronic pain; Z86.59 Personal history of other mental and behavioral disorders; G47.33 Obstructive sleep apnea (adult) (pediatric); I10 Essential (primary) hypertension; F17.210 Nicotine dependence, cigarettes, uncomplicated; Z79.51 Long term (current) use of inhaled steroids; Z79.891 Long term (current) use of opiate analgesic; Z79.899 Other long term (current) drug therapy

== ENCOUNTER → 2019-10-12 | Outpatient (CLI) | payer OTHER ==
[2019-10-12 10:13] LABS: HEMOGLOBIN A1c 5.9 %
== END ==
LOC: M LAB 08:58
PROVIDERS: ATTEND Obstetrics & Gynecology
DX: Z13.1 Encounter for screening for diabetes mellitus (principal)

== ENCOUNTER → 2020-03-05 | Outpatient (CLI) | payer OTHER ==
[~2020-03-05] MED LIST changes: +IRON65TA2 PO
--- NOTE | 2020-03-07 16:12 | ECWPNPC ---
PATIENT NAME: MISBAH DELACRUZ : 1970 GENDER: FEMALE VISIT DATE: 03/05/2020 DISCHARGE DATE: 03/05/20 1022 VISIT LOCKED DATE TIME: PHYSICIAN: ED RICARDO PHYSICIAN PAGER NO: ACTIVE RESOURCE: ED RICARDO REASON FOR APPOINTMENT 1. ABDOMINAL PAIN HISTORY OF PRESENT ILLNESS DEPRESSION SCREENING: BEING SEEN FOR ROUTINE 3 MONTH FOLLOW-UP AND MEDICINE MANAGEMENT FOR CHRONIC ABDOMINAL PAIN. CONTINUES TO BENEFIT WITH CURRENT CHRONIC PAIN MEDICATIONS. DENIES ADVERSE SIDE EFFECTS WITH HER MEDICATIONS. URINE TOXICOLOGY DONE AT LAST VISIT IS REVIEWED AND WITHIN NORMAL LIMITS. PATIENT BRINGS IN HER MEDICATIONS WHICH ARE APPROPRIATE FOR WHAT WAS DISPENSED. PHQ-2 (2015 EDITION) LITTLE INTEREST OR PLEASURE IN DOING THINGS?NOT AT ALL FEELING DOWN, DEPRESSED, OR HOPELESS?NOT AT ALL TOTAL SCORE0 GENERAL: - -. FALL RISK SCREENING: SCREENING :NO FALLS REPORTED IN THE LAST YEAR NONE PAIN SCREENING: PATIENT HAS A COMPLAINT OF ACUTE OR CHRONIC PAIN :YES LOCATION OF PAIN:ABDOMEN INTENSITY OF PAIN (SCALE OF 1 TO 10):6 WHAT DOES YOUR PAIN FEEL LIKE:STABBING FEELS LIKE CONTRACTIONS DURATION:CONTINOUS, CONSTANT PAIN IS INCREASED BY:OTHERS ALWAYS HAS PAIN PAIN IS DECREASED BY:USE OF PAIN MEDICATIONS, OTHERS NURSING NOTE: - -. PAIN CENTER INTAKE QUESTIONS: DO YOU HAVE A HISTORY OF MRSA? :NO DO YOU TAKE A BLOOD THINNERS? :NO DO YOU HAVE ANY BLEEDING DISORDERS? :NO ANY NEW NUMBNESS OR WEAKNESS IN YOUR LEGS OR ARMS? :NO ANY PACEMAKER,DEFIBRILLATOR, OR DORSAL COLUMN STIMULATOR? :NO DO YOU HAVE ANY RASHES OR OPEN SORES? :NO ARE YOU ALLERGIC TO IV DYE? :YES BURNED THE LAST TIME SHE HAD A IV PUT IN ARE YOU DIABETIC? :NO ANY NEW PROBLEMS WITH YOUR MEDICATIONS? :NO HAVE YOU RECEIVED A VACCINE IN THE PAST 30 DAYS? :NO DO YOU PLAN TO RECEIVE A VACCINE IN THE NEXT 21 DAYS? :NO DO YOU NEED ANY PRESCRIPTION? :NO DO YOU TAKE ANY IMMUNOSUPPRESSIVE MEDICATIONS? :NO IS THERE A CHANCE YOU COULD BE ? :NO ARE YOU BREAST FEEDING? :NO CURRENT MEDICATIONS TAKING MIRALAX - PACKET 1 PACKET MIXED WITH 8 OUNCES OF FLUID ORALLY ONCE A DAY NEEDED TAKING NEBULIZER/TUBING/MOUTHPIECE 1 ICD: J45.901 EVERY 4 HOURS NEEDED TAKING SPACER/AERO-HOLDING CHAMBERS 1 DEVICE DIRECTED WITH INHALER Q4HRS PRN SOB/WHEEZE TAKING FLUTICASONE PROPIONATE 50 MCG/ACT SUSPENSION 1 SPRAY IN EACH NOSTRIL NASALLY ONCE A DAY TAKING ZOFRAN ODT 4 MG TABLET DISINTEGRATING 1 TABLET ON THE TONGUE AND ALLOW TO DISSOLVE ORALLY EVERY 8 HRS NEEDED TAKING QUETIAPINE FUMARATE 50 MG TABLET 2 TABLET AT BEDTIME ORALLY ONCE A DAY TAKING DRISDOL 98157 UNIT CAPSULE 1 CAPSULE ORALLY EVERY TUESDAY TAKING LOSARTAN POTASSIUM 25 MG TABLET 1 TABLET ORALLY EVERY OTHER DAY TAKING HYDROXYZINE HCL 50 MG TABLET 1 TABLET NEEDED ORALLY THREE TIMES DAILY NEEDED TAKING ALBUTEROL SULFATE HFA 108 MCG/ACT AEROSOL SOLUTION 2 PUFFS NEEDED INHALATION EVERY 4 HRS TAKING ARNUITY ELLIPTA 200 MCG/ACT AEROSOL POWDER BREATH ACTIVATED 1 PUFF INHALATION ONCE A DAY TAKING LORATADINE 10 MG TABLET 1 TABLET ORALLY ONCE A DAY NEEDED TAKING CPAP MACHINE , NOTES: SOMETIMES TAKING ALBUTEROL SULFATE (2.5 MG/3ML) 0.083% NEBULIZATION SOLUTION 3 ML INHALATION THREE TIMES A DAY PRN TAKING FLUTICASONE PROPIONATE 50 MCG/ACT SUSPENSION 1 SPRAY IN EACH NOSTRIL NASALLY ONCE A DAY TAKING DIFLUCAN 150 MG TABLET 1 TABLET ORALLY ONE TIME TAKING BUPROPION HCL 100 MG TABLET 1 TABLET ORALLY DAILY TAKING OMEPRAZOLE 40 MG CAPSULE DELAYED RELEASE 1 CAPSULE 30 MINUTES BEFORE MORNING MEAL ORALLY ONCE A DAY TAKING FLEXERIL 10 MG 30 10 MG TABLETS 1 TAB ORALLY TWICE A DAY NEEDED TAKING IBUPROFEN 800 MG TABLET 1 TABLET ORALLY THREE TIMES A DAY, NOTES: TAKING 2 800'S EVERY 3 HOURS TAKING TYLENOL 325 MG TABLET 2 TABLETS NEEDED ORALLY EVERY 6 HRS TAKING GABAPENTIN 300 MG CAPSULE 1 CAPSULE ORALLY FOUR TIMES DAILY TAKING OXYBUTYNIN CHLORIDE ER 15 MG TABLET EXTENDED RELEASE 24 HOUR 1 TABLET ORALLY BID TAKING OXYCODONE HCL 15 MG TABLET 1 TABLET ORALLY EVERY 6 HRS MDD4 NOT-TAKING CLINDAMYCIN HCL 150 MG CAPSULE 3 CAPSULES ORALLY EVERY 8 HRS MEDICATION LIST REVIEWED AND RECONCILED WITH THE PATIENT PAST MEDICAL HISTORY PTSD PANIC ATTACKS KIDNEY STONES HEMATURIA AUB/FIBROID/PELVIC PAIN - NOW S/P PARTIAL HYSTERECTOMY, RIGHT OVARY INTACT ABDOMINAL PAIN NOS - LIKELY ADHESIONS - PREVIOUSLY NOTED IN OP REPORT NIRALI COMPLIANCE DRUG SEEK BEHAVIOR SUSPICIOUS TOXICOLOGY SCREEN URINARY INCONTINENCE CARPAL TUNNEL ARTHRITIS HTN, GOAL < 140/< 90 ASCVD RISK 07/12/18: 5.6% FX RIGHT WIRST ALLERGIES N.K.D.A. 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 2 SON(S) , 1 DAUGHTER(S) - HEALTHY. SOCIAL HISTORY GENERAL: TOBACCO USE ARE YOU A:CURRENT SMOKER HOW OFTEN DO YOU SMOKE CIGARETTES?SOME DAYS, BUT NOT EVERY DAY HOW SOON AFTER YOU WAKE UP DO YOU SMOKE YOUR FIRST CIGARETTE?AFTER 60 MIN HOW MANY CIGARETTES A DAY DO YOU SMOKE?5 OR LESS STATES SHE ONLY SMOKES SOMETIMES. ARE YOU INTERESTED IN QUITTING?THINKING ABOUT QUITTING PATIENT COUNSELED ON THE DANGERS OF TOBACCO USE AND URGED TO QUIT:09/14/2019 COUNSELED THE PATIENT ON SMOKING CESSATION, EDUCATION [id number]/23/2020 VAPORNO E-CIGARETTENO SMOKING CESSATION INFORMATION GIVEN12/13/2019 PT STATES SHE HAS 2 CIGARETTES A DAY LATEX QUESTIONNAIRE LATEX ALLERGY : HAVE YOU EVER DEVELOPED ANY TYPE OF REACTION AFTER HANDLING LATEX PRODUCTS SUCH RUBBER GLOVES, CONDOMS, DIAPHRAGMS, BALLOONS, SOCKS, OR UNDERWEAR?NO LATEX ALLERGY : HAVE YOU EVER DEVELOPED ANY TYPE OF REACTION DURING OR AFTER DENTAL APPOINTMENT, VAGINAL/RECTAL EXAMINATION, SURGICAL PROCEDURE, OR ANY OTHER EXPOSURE?NO LATEX RISK : HAVE YOU EVER HAD ANY DIFFICULTY BREATHING OR HIVES AFTER EATING OR HANDLING ANY FRUITS, OR VEGETABLES; SUCH KIWI, BANANAS, STONE FRUITS, OR CHESTNUTSNO LATEX RISK : DO YOU HAVE A PREVIOUS PERSONAL HISTORY OF MORE THAN NINE SURGERIES, SPINA BIFIDA, OR REPEATED CATHERIZATIONS? NO LATEX RISK : ARE YOU FREQUENTLY EXPOSED TO LATEX PRODUCTS IN YOUR OCCUPATION?NO DATE ASKED : 03/05/2020 BMI CARE GOAL FOLLOW-UP ABOVE NORMAL BMI FOLLOW-UPDIETARY NEEDS EDUCATION ALCOHOL SCREENING DID YOU HAVE A DRINK CONTAINING ALCOHOL IN THE PAST YEAR?NO POINTS0 INTERPRETATIONNEGATIVE RECREATIONAL DRUG USE DENIES, DRUG USE? NO. CAFFEINE 2-5/DAY, CAFFEINE USE? NO. SEXUAL HX HAD SEX IN THE LAST 12 MONTHS (VAGINAL, ORAL, OR ANAL)?NO HAVE YOU EVER HAD AN STD?NO HIV / HEP-C SCREENING HIV TEST OFFERED TO PATIENT:YES DATE OFFERED:02/22/2017 HEP-C TEST OFFERED TO PATIENT:YES DATE OFFERED:02/22/2017 GNOSTICIST NO ORIENTAL ORTHODOX BELIEFS THAT WOULD IMPACT HEALTH CARE. LANGUAGE CAMEROONIAN. EDUCATION LEVEL OF EDUCATION:HIGH SCHOOL LEARNING BARRIERS / SPECIAL NEEDS CHANGE FROM LAST VISIT?NO BARRIERS TO LEARNING?NO HEARING IMPAIRED?NO VISION IMPAIRED?NO COGNITIVELY IMPAIRED?NO READINESS TO LEARN?YES LEARNING PREFERENCES?NO LEARNING CAPABILITIES PRESENT?YES EMOTIONAL BARRIERS?NO SPECIAL DEVICES?NO ROUTE SALESMAN NEEDED?NO OCCUPATION: OFF WORK SINCE OCT 12 2017. DIET: REGULAR. EXERCISE: GYM EVERY OTHER DAY, NOT ABLET O LAST 2 WEEKS. MARITAL STATUS: .. OTHERS AT HOME: CHILDREN. NEW PATIENT PAIN DIARY TODAY'S VISIT NOTES, PATIENT DESCRIBES PAIN : HAVE IT ALL THE TIME, OTHER STATES PAIN FEELS LIKE CONTRACTION, FROM 0-10, WHAT LEVEL IS YOUR PAIN TODAY? 7. PAIN CLINIC PFS, CLERGY, PUBLIC HEALTH REFERRALS HAS THE PATIENT BEEN EDUCATED REGARDING HIS/HER PLAN OF CARE?YES HAS THE PATIENT BEEN EDUCATED REGARDING PAIN, THE RISK FOR PAIN, THE IMPORTANCE OF EFFECTIVE PAIN MANAGEMENT, AND THE PAIN ASSESSMENT PROCESS?YES HOUSING: RENTS APARTMENT. ADVANCE DIRECTIVE ADVANCE DIRECTIVE DISCUSSED WITH PATIENT:YES HCP - VICENTE MALDONADO (DAUGHTER) REVIEWED WITH PATIENT 06/21/18 1339 JSREVIEWED WITH PATIENT 09/19/18 0851 06/19/19 REVIEWED WITH PT. VD. HOSPITALIZATION/MAJOR DIAGNOSTIC PROCEDURE ABD PAIN, OVARIAN CYST 06/16/2016 ECTOPIC 1993 REVIEW OF SYSTEMS CONSTITUTIONAL: ANY RECENT FEVER NO . CHILLS NO . WEIGHT CHANGE OF UNKNOWN REASONS NO . GASTROENTEROLOGY: NEW UNEXPLAINABLE CHANGES IN BOWEL CONTROL NO . CONSTIPATION NO . GENITOURINARY: ANY NEW CHANGE IN BLADDER CONTROL? NO . NEUROLOGY: NEW ONSET DIZZINESS OR NEUROLOGICAL CHANGES NOT MENTIONED NO . NEW NUMBNESS OR PAIN PATTERNS NOT MENTIONED AND PERTINENT TO TODAY'S VISIT NO . CARDIOLOGY: NEW CHEST PRESSURE NO . NEW CHEST PAIN NO . RESPIRATORY: UNEXPLAINABLE COUGH NO . NEW SHORTNESS OF BREATH NO . VITAL SIGNS WT 259.6 LBS, HT 67.5 IN, BMI 40.05 INDEX, BP 125/96 MM HG, HR 90 /MIN, RR 18 /MIN, TEMP 96.8 F, OXYGEN SAT % 99%, SAFE IN ENV? (Y/N) YES, NA INITIALS SC 09:40, REVIEWED BY: HELENA. EXAMINATION GENERAL EXAMINATION: GENERALAWAKE,ALERT ,PLEASANT . PSYCHAFFECT NORMAL . LUNGS:LUNG LAZCANO ARE CLEAR TO AUSCULTATION BILATERALLY. GOOD MOVEMENT OF AIR . HEART:S1, S2 IN A REGULAR RATE AND RHYTHM. NO SIGNIFICANT MURMURS, RUBS OR GALLOPS NOTED . ASSESSMENTS CHRONIC PRESCRIPTION OPIATE USE - Z79.891 (PRIMARY) ABDOMINAL PAIN OF UNKNOWN CAUSE - R10.9 TREATMENT CHRONIC PRESCRIPTION OPIATE USE REFILL IBUPROFEN TABLET, 800 MG, 1 TABLET, ORALLY, THREE TIMES A DAY, 30 DAYS, 90 TABLET, REFILLS 5, NOTES: TAKING 2 800'S EVERY 3 HOURS CONTINUE FLEXERIL 10 MG 30 TABLETS, 10 MG, 1 TAB, ORALLY, TWICE A DAY NEEDED CONTINUE TYLENOL TABLET, 325 MG, 2 TABLETS NEEDED, ORALLY, EVERY 6 HRS CONTINUE GABAPENTIN CAPSULE, 300 MG, 1 CAPSULE, ORALLY, FOUR TIMES DAILY REFILL OXYCODONE HCL TABLET, 15 MG, 1 TABLET, ORALLY, EVERY 6 HRS MDD4, 30 DAYS, 120, REFILLS 0 PROCEDURE CODES FA211 ESTABILISHED PATIENT [facility] CHARGE DISPOSITION & COMMUNICATION FOLLOW UP 3 MONTHS (REASON: ABDOMINAL PAIN/MED MANAGEMENT/U TOX) ELECTRONICALLY SIGNED BY UBALDO MAYERS ON 03/07/2020 AT 03:36 PM EDT DISCLAIMER : THIS IS A VISIT SUMMARY EXTRACTED FROM THE [employer] CHART. IT IS NOT A COPY OF THE [employer] PROGRESS NOTE. TRE
== END ==
LOC: M PAIN 09:15
PROVIDERS: ATTEND Nurse Practitioner Family
DX: R10.9 Unspecified abdominal pain (principal); F43.10 Post-traumatic stress disorder, unspecified; I10 Essential (primary) hypertension; F17.210 Nicotine dependence, cigarettes, uncomplicated; Z79.891 Long term (current) use of opiate analgesic; Z79.899 Other long term (current) drug therapy

== ENCOUNTER → 2020-03-16 | Outpatient (CLI) | payer OTHER | LOC: M LABSMTC 09:19 | PROVIDERS: ATTEND Anesthesiology | DX: Z01.812 Encounter for preprocedural laboratory examination (principal); Z20.828 Contact with and (suspected) exposure to other viral communicable diseases | CPT/HCPCS: C9803; U0003 ==

== ENCOUNTER → 2020-03-26 | Outpatient (CLI) | payer OTHER | LOC: M LABSMTC 13:41 | PROVIDERS: ATTEND Anesthesiology | DX: Z01.818 Encounter for other preprocedural examination (principal) | CPT/HCPCS: C9803; U0003 ==

== ENCOUNTER → 2020-04-11 | Outpatient (CLI) | payer OTHER ==
[~2020-04-11] MED LIST changes: +OXYC-1 PO
== END ==
LOC: M LABSMTC 09:51
PROVIDERS: ATTEND Anesthesiology
DX: Z01.812 Encounter for preprocedural laboratory examination (principal); Z20.828 Contact with and (suspected) exposure to other viral communicable diseases

== ENCOUNTER 2020-04-15 11:01 | Day surgery (SDC) | payer OTHER ==
[~2020-04-15] VITALS: Ht 170.2 cm; Wt 112.4 kg
[~2020-04-15 11:01] MED LIST changes: +LR 1,000 ML IV ONE; -OXYC-1 PO
[2020-04-15] MEDS ORDERED: OXYC-1 PO (11:27)
[2020-04-15] MEDS ORDERED: LIDOCAINE 2% 100MG/5ML SDV (FOR ANES.) As Ordered ONE (13:05)
[2020-04-15] MEDS ORDERED: fentaNYL 100 MCG/2 ML INJECTION (J3010) As Ordered ONE (13:05)
[2020-04-15] MEDS ORDERED: propofoL 200 MG/20 ML VIAL As Ordered ONE (13:05)
[2020-04-15] MEDS ORDERED: dexameTHASONE 4 MG/ML 1ML VIAL (J1100 PER 1MG) As Ordered ONE (13:05)
[2020-04-15] MEDS ORDERED: ONDANSETRON 4MG/2ML VIAL As Ordered ONE (13:05)
[2020-04-15] MEDS ORDERED: MIDAZOLAM INJ 2MG/2ML VIAL (J2250 PER 1MG) As Ordered ONE (13:06)
[2020-04-15] MEDS ORDERED: EPINEPHrine 1MG/ML INJ 30ML MD-VIAL As Ordered ONE (13:50)
[2020-04-15] MEDS ORDERED: BACITRACIN OINTMENT 30GM TUBE As Ordered ONE (13:50)
[2020-04-15] MEDS ORDERED: LIDOCAINE W/EPINEPHRINE 1% 20ML VIAL As Ordered ONE (13:50)
[2020-04-15] MEDS ORDERED: METHYLENE BLUE 0.5% (5MG/ML) 10 ML AMP (PROVAYBLUE) As Ordered ONE (13:50)
[2020-04-15] MEDS ORDERED: oxyCODONE 5MG TAB PO PRN (15:00)
[2020-04-15] MEDS ORDERED: LR 1,000 ML IV SCH (15:00)
[2020-04-15] MEDS ORDERED: fentaNYL 100 MCG/2 ML INJECTION (J3010) IV PRN (15:00)
[2020-04-15] MEDS ORDERED: ONDANSETRON 4MG/2ML VIAL IV PRN (15:00)
[2020-04-15 15:46] VITALS: BP 159/89
--- NOTE | 2020-04-16 12:07 | RO ---
DATE OF OPERATION: 04/15/2020 PREOPERATIVE DIAGNOSIS: Papilloma of right nasal vestibule. POSTOPERATIVE DIAGNOSIS: Papilloma of right nasal vestibule. PROCEDURE: Excision of papilloma of right nasal vestibule. SURGEON: Moreno Olsen MD TOE PULLER: ANESTHESIA: INDICATIONS: This is a 50-year-old who presents with an enlarging soft tissue mass in the right nasal vestibule. DESCRIPTION OF PROCEDURE: Satisfactory mask anesthesia was administered. A 1% Xylocaine with 1:100,000 epinephrine was injected anterior to the nasal vestibule. This lesion appeared to be a pedunculated papilloma. This was grasped with forceps retractor lifting the skin up. Using a 15-blade, the skin below the papilloma was excised in a sort of shaving-type motion. Needle point cautery was then used to coagulate the base of this. There was no significant bleeding. The patient was then awakened, extubated, and sent recovery in satisfactory condition. She will be seen back in the office in one week. TRE
== END 2020-04-15 15:52 | disposition home or self-care (01) ==
LOC: M SDC 11:01
PROVIDERS: ATTEND Specialist
DX: J33.9 Nasal polyp, unspecified (principal); I10 Essential (primary) hypertension; D64.9 Anemia, unspecified; K21.9 Gastro-esophageal reflux disease without esophagitis; M12.9 Arthropathy, unspecified; F43.10 Post-traumatic stress disorder, unspecified; F17.210 Nicotine dependence, cigarettes, uncomplicated; F41.0 Panic disorder [episodic paroxysmal anxiety]; G47.33 Obstructive sleep apnea (adult) (pediatric); J45.909 Unspecified asthma, uncomplicated; R06.83 Snoring; Z79.899 Other long term (current) drug therapy; Z86.010 Personal history of colon polyps; Z90.710 Acquired absence of both cervix and uterus
CPT/HCPCS: 30110; 88305; J1100; J2250; J2405; J3010; Q9968

== ENCOUNTER → 2020-05-05 | Outpatient (CLI) | payer OTHER ==
[~2020-05-05] MED LIST changes: -CYCL-707; +CYCL-707 PO; -GABA-843; +GABA-843 PO; -LR 1,000 ML IV ONE; +OMEP40CA97 PO; -OXYB15TA14; +OXYB15TA14 PO; +OXYC-1 PO
== END ==
LOC: M LABSMTC 09:32
PROVIDERS: ATTEND Anesthesiology
DX: Z01.812 Encounter for preprocedural laboratory examination (principal); Z20.828 Contact with and (suspected) exposure to other viral communicable diseases

== ENCOUNTER → 2020-06-02 | Outpatient (CLI) | payer OTHER ==
--- NOTE | 2020-06-02 15:47 | REP ---
INDICATION: KIM ANKLE EDEMA COMPARISON: None. TECHNIQUE: AP, lateral, bilateral oblique views right and left ankle. FINDINGS: Left ankle demonstrates mild lateral swelling and small corticated densities at the tip of the fibula and medial malleolus which may represent old injury. No acute fracture or dislocation. Ankle mortise appears intact. Right ankle demonstrates mild lateral swelling without evidence for acute or healed injury. Ankle mortise appears intact. IMPRESSION: Mild bilateral swelling. <Electronically signed by Max Salazar > 06/02/20 [id number]
== END ==
LOC: M RAD 15:16
PROVIDERS: ATTEND Physician Assistant Medical
DX: R22.42 Localized swelling, mass and lump, left lower limb (principal)

== ENCOUNTER → 2020-06-13 | Outpatient (REF) | payer OTHER ==
[~2020-06-13] MED LIST changes: +GABA-282 PO; -GABA-843 PO
[2020-06-13 11:22] LABS: HEMATOCRIT 36.2 % (36.0-47.0); HEMOGLOBIN 11.7 g/dl (12.0-15.5); MEAN CORPUSCULAR HGB CONC 32.3 g/dl (32.0-36.5); MEAN CORPUSCULAR VOLUME 95.8 fl (80.0-96.0); PLATELET COUNT, AUTOMATED 377 10^3/uL (150-450); RED BLOOD COUNT 3.78 10^6/uL (4.00-5.40)
[2020-06-13 11:41] LABS: ERYTHROCYTE SEDIMENTATION RATE 22 mm/hr (0-20)
[2020-06-13 12:23] LABS: ALBUMIN 3.8 GM/DL (3.2-5.2); ALT/SGPT 18 U/L (12-78); BILIRUBIN,TOTAL 0.3 MG/DL (0.2-1.0); BLOOD UREA NITROGEN 12 MG/DL (7-18); CALCIUM LEVEL 9.6 MG/DL (8.5-10.1); CARBON DIOXIDE LEVEL 27 MEQ/L (21-32); CHLORIDE LEVEL 106 MEQ/L (98-107); CREATININE FOR GFR 0.89 MG/DL (0.55-1.30); FREE T4 1.08 NG/DL (0.76-1.46); GLOMERULAR FILTRATION RATE > 60.0 (>58); GLUCOSE, FASTING 109 MG/DL (70-100); MAGNESIUM LEVEL 2.2 MG/DL (1.8-2.4); PHOSPHORUS LEVEL 3.8 MG/DL (2.5-4.9); POTASSIUM SERUM 4.1 MEQ/L (3.5-5.1); SODIUM LEVEL 140 MEQ/L (136-145); TOTAL PROTEIN 7.3 GM/DL (6.4-8.2)
[2020-06-13 12:31] LABS: HEMOGLOBIN A1c 5.5 %
== END ==
LOC: M SFHCPLAZ 08:33
PROVIDERS: ATTEND Family Medicine
DX: M25.572 Pain in left ankle and joints of left foot (principal); E88.81 Metabolic syndrome and other insulin resistance

== ENCOUNTER 2020-06-15 13:07 | Emergency (ER) | payer OTHER ==
[~2020-06-15] VITALS: Ht 170.2 cm; Wt 111.6 kg
[2020-06-15] MEDS ORDERED: NS 500 ML IV ONE (14:30)
[2020-06-15] MEDS ORDERED: ISOVUE-370 76% 100ML VIAL As Ordered ONE (14:35)
[2020-06-15] MEDS ORDERED: KETOROLAC 30 MG/ML 1ML VIAL IV ONE (14:45)
[2020-06-15 14:47] LABS: BASO % 0.4 % (0.0-1.0); EOS # 0.1 10^3/uL (0.0-0.5); EOS % 1.3 % (0.0-3.0); HEMATOCRIT 36.7 % (36.0-47.0); LYMPH # 3.3 10^3/uL (1.5-5.0); MEAN CORPUSCULAR HEMOGLOBIN 30.7 pg (27.0-33.0); MEAN CORPUSCULAR HGB CONC 32.7 g/dl (32.0-36.5); MEAN CORPUSCULAR VOLUME 93.9 fl (80.0-96.0); MONO # 0.4 10^3/uL (0.0-0.8); MONO % 6.1 % (0.0-5.0); NEUTROPHILS # 3.2 10^3/uL (1.5-8.5); NEUTROPHILS % 45.1 % (36.0-66.0); PLATELET COUNT, AUTOMATED 413 10^3/uL (150-450); RED BLOOD COUNT 3.91 10^6/uL (4.00-5.40); WHITE BLOOD COUNT 7.1 10^3/uL (4.0-10.0)
--- NOTE | 2020-06-15 15:22 | REP ---
INDICATION: abdominal pain. COMPARISON: Fifteen prior CT examinations of the abdomen and pelvis the latest obtain 06/09/2018 reason pain The prior exam showed no acute disease TECHNIQUE: 100 cc Isovue 370 FINDINGS: The lung bases are clear and unchanged. Respiratory motion artifact obscures the fine detail. Respiratory motion artifact artifact obscures multiple images of the upper abdomen. The images of the liver, gallbladder, spleen, pancreas, adrenal glands, and kidneys unaffected by the motion artifact are unremarkable. The bowel loops and the mesenteries unaffected by the motion artifact are unremarkable. There is no free fluid or free air. There is no mass or adenopathy. There is no significant change in the osseous structures. IMPRESSION: No acute disease. Exam limitations as described above. <Electronically signed by Boni Esquivel > 06/15/20 0549
[2020-06-15] MEDS ORDERED: MORPHINE 4 MG/ML 1ML VIAL/SYRINGE (J2270) IV ONE (15:30)
[2020-06-15 15:58] LABS: ALBUMIN 3.6 GM/DL (3.2-5.2); BILIRUBIN,DIRECT 0.1 MG/DL (0.0-0.2); BILIRUBIN,TOTAL 0.5 MG/DL (0.2-1.0); TOTAL PROTEIN 7.3 GM/DL (6.4-8.2)
[2020-06-15] MEDS ORDERED: CYCLOBENZAPRINE 5MG TABLET PO ONE (17:45)
[2020-06-15] MEDS ORDERED: oxyCODONE 5MG TAB PO ONE (18:00)
[2020-06-15] MEDS ORDERED: oxyBUTYnin 5 MG TAB PO ONE (18:00)
[2020-06-15 18:54] VITALS: BP 154/95
--- NOTE | 2020-06-15 19:13 | REPVR ---
PROCEDURE INFORMATION: Exam: US Nonobstetric Pelvis; Complete Exam date and time: 06/15/2020 6:43 PM Age: 50 years old Clinical indication: Pelvic pain; Prior surgery; Surgery date: 6+ months; Surgery type: Partial hysterectomy with lt ovary removed. RT ovary intact; Additional info: Abdominal pain TECHNIQUE: Imaging protocol: Transabdominal pelvic nonobstetric ultrasound. Complete exam. Real time ultrasound with image documentation. COMPARISON: US PELVIC NON-OB COMPLETE 01/09/2018 11:59 AM FINDINGS: Uterus/cervix: Status post hysterectomy. Right adnexa: Right ovary not visualized either transabdominally or transvaginally secondary to regional bowel gas. Left adnexa: Status post left oophorectomy. Intraperitoneal space: No intraperitoneal fluid. Urinary bladder: Normal. IMPRESSION: 1. Status post hysterectomy. 2. Status post left oophorectomy. Nonvisualized right ovary as described above. Electronically signed by: Carlito Ugalde On 06/15/2020 19:13:27 PM
== END 2020-06-15 19:30 | disposition home or self-care (01) ==
LOC: M ED 13:07
DX: G89.29 Other chronic pain (principal); R10.9 Unspecified abdominal pain; I10 Essential (primary) hypertension; E78.5 Hyperlipidemia, unspecified; D25.9 Leiomyoma of uterus, unspecified; Z79.899 Other long term (current) drug therapy; Z79.3 Long term (current) use of hormonal contraceptives; F17.210 Nicotine dependence, cigarettes, uncomplicated
CPT/HCPCS: 74177; 76830; 76856; 80047; 80076; 81001; 83605; 83690; 85025; 93041; 96361; 96374; 96375; 99284; J1885; J2270; Q9967

== ENCOUNTER → 2020-06-19 | Outpatient (CLI) | payer OTHER ==
--- NOTE | 2020-06-20 02:37 | ECWPNPC ---
PATIENT NAME: MISBAH DELACRUZ : 1970 GENDER: FEMALE VISIT DATE: 06/19/2020 DISCHARGE DATE: 06/19/20 1424 VISIT LOCKED DATE TIME: PHYSICIAN: ED RICARDO PHYSICIAN PAGER NO: ACTIVE RESOURCE: ED RICARDO REASON FOR APPOINTMENT 1. ABDOMINAL PAIN HISTORY OF PRESENT ILLNESS GENERAL: HERE FOR 3 MONTH FOLLOW-UP AND MEDICATION MANAGEMENT FOR CHRONIC ABDOMINAL PAIN. CURRENTLY BEING FOLLOWED BY UROLOGY. REPORTS ER VISIT FOR SEVERE ABDOMINAL CONTRACTION LIKE PAIN IN MARCH. SHE IS SCHEDULED FOR SOME TESTING WITH NEUROLOGY. STATES THAT IMAGING DONE AT ER VISITS HAVE BEEN NEGATIVE. PATIENT DID NOT BRING HER MEDICATION TODAY. INFORMED HER THAT WE NEED MEDICATION HERE IN ALL VISITS. 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 I'VE ENCOURAGED HER TO ASK FOR SOME TIME OFF TO ALL BE EVALUATED HERE AT OUR CLINIC IF NEEDED NEED BE ON BECAUSE WE WOULD NOT BE ABLE TO PRESCRIBE NARCOTIC PAIN MEDICATIONS IN THE FUTURE IF SHE DOES NOT BRING THE MEDICATIONS INTO CLINIC PER CLINIC POLICY. -. FALL RISK SCREENING: SCREENING :NO FALLS REPORTED IN THE LAST YEAR PAIN SCREENING: PATIENT HAS A COMPLAINT OF ACUTE OR CHRONIC PAIN :NO NURSING NOTE: -. PAIN CENTER INTAKE QUESTIONS: DO YOU HAVE A HISTORY OF MRSA? :NO DO YOU TAKE A BLOOD THINNERS? :NO DO YOU HAVE ANY BLEEDING DISORDERS? :NO ANY NEW NUMBNESS OR WEAKNESS IN YOUR LEGS OR ARMS? :NO ANY PACEMAKER,DEFIBRILLATOR, OR DORSAL COLUMN STIMULATOR? :NO DO YOU HAVE ANY RASHES OR OPEN SORES? :NO ARE YOU ALLERGIC TO IV DYE? :YES BURNING ARE YOU DIABETIC? :NO ANY NEW PROBLEMS WITH YOUR MEDICATIONS? :NO HAVE YOU RECEIVED A VACCINE IN THE PAST 30 DAYS? :NO DO YOU PLAN TO RECEIVE A VACCINE IN THE NEXT 21 DAYS? :NO DO YOU NEED ANY PRESCRIPTION? :YES NEEDS REFILL ON OXYCODONE DO YOU TAKE ANY IMMUNOSUPPRESSIVE MEDICATIONS? :NO IS THERE A CHANCE YOU COULD BE ? :NO ARE YOU BREAST FEEDING? :NO CURRENT MEDICATIONS TAKING MIRALAX - PACKET 1 PACKET MIXED WITH 8 OUNCES OF FLUID ORALLY ONCE A DAY NEEDED TAKING NEBULIZER/TUBING/MOUTHPIECE 1 ICD: J45.901 EVERY 4 HOURS NEEDED TAKING SPACER/AERO-HOLDING CHAMBERS 1 DEVICE DIRECTED WITH INHALER Q4HRS PRN SOB/WHEEZE TAKING FLUTICASONE PROPIONATE 50 MCG/ACT SUSPENSION 1 SPRAY IN EACH NOSTRIL NASALLY ONCE A DAY TAKING ZOFRAN ODT 4 MG TABLET DISINTEGRATING 1 TABLET ON THE TONGUE AND ALLOW TO DISSOLVE ORALLY EVERY 8 HRS NEEDED TAKING ARNUITY ELLIPTA 200 MCG/ACT AEROSOL POWDER BREATH ACTIVATED 1 PUFF INHALATION ONCE A DAY TAKING OMEPRAZOLE 40 MG CAPSULE DELAYED RELEASE 1 CAPSULE 30 MINUTES BEFORE MORNING MEAL ORALLY ONCE A DAY TAKING GABAPENTIN 300 MG CAPSULE 1 CAPSULE ORALLY FOUR TIMES DAILY TAKING OXYCODONE HCL 15 MG TABLET 1 TABLET ORALLY EVERY 6 HRS MDD4 TAKING FLEXERIL 10 MG 30 10 MG TABLETS 1 TAB ORALLY TWICE A DAY NEEDED TAKING LOSARTAN POTASSIUM 25 MG TABLET 1 TABLET ORALLY DAILY TAKING QUETIAPINE FUMARATE 50 MG TABLET 2 TABLET AT BEDTIME ORALLY ONCE A DAY TAKING DRISDOL 81605 UNIT CAPSULE 1 CAPSULE ORALLY EVERY TUESDAY TAKING ALBUTEROL SULFATE (2.5 MG/3ML) 0.083% NEBULIZATION SOLUTION 3 ML INHALATION THREE TIMES A DAY PRN TAKING OXYBUTYNIN CHLORIDE ER 15 MG TABLET EXTENDED RELEASE 24 HOUR 1 TABLET ORALLY BID TAKING ALBUTEROL SULFATE HFA 108 MCG/ACT AEROSOL SOLUTION 2 PUFFS NEEDED INHALATION EVERY 4 HRS NOT-TAKING CPAP MACHINE , NOTES: SOMETIMES NOT-TAKING HYDROXYZINE HCL 50 MG TABLET 1 TABLET NEEDED ORALLY THREE TIMES DAILY NEEDED NOT-TAKING BUPROPION HCL 100 MG TABLET 1 TABLET ORALLY DAILY NOT-TAKING LORATADINE 10 MG TABLET 1 TABLET ORALLY ONCE A DAY NEEDED NOT-TAKING IBUPROFEN 800 MG TABLET 1 TABLET ORALLY THREE TIMES A DAY, NOTES: TAKING 2 800'S EVERY 3 HOURS NOT-TAKING TYLENOL 325 MG TABLET 2 TABLETS NEEDED ORALLY EVERY 6 HRS NOT-TAKING AMBIEN 5 MG TABLET 1 TABLET AT BEDTIME ORALLY ONCE A DAY NOT-TAKING CLINDAMYCIN HCL 150 MG CAPSULE 3 CAPSULES ORALLY EVERY 8 HRS MEDICATION LIST REVIEWED AND RECONCILED WITH THE PATIENT PAST MEDICAL HISTORY PTSD PANIC ATTACKS KIDNEY STONES HEMATURIA AUB/FIBROID/PELVIC PAIN - NOW S/P PARTIAL HYSTERECTOMY, RIGHT OVARY INTACT ABDOMINAL PAIN NOS - LIKELY ADHESIONS - PREVIOUSLY NOTED IN OP REPORT NIRALI COMPLIANCE DRUG SEEK BEHAVIOR SUSPICIOUS TOXICOLOGY SCREEN URINARY INCONTINENCE CARPAL TUNNEL ARTHRITIS HTN, GOAL < 140/< 90 ASCVD RISK 07/12/18: 5.6% FX RIGHT WIRST ALLERGIES IV DYE: BURNING - SIDE EFFECTS SURGICAL HISTORY 1989,1991, 1994 1989 R OOPHORECTOMY 2010 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 ARE YOU INTERESTED IN QUITTING?THINKING ABOUT QUITTING PATIENT COUNSELED ON THE DANGERS OF TOBACCO USE AND URGED TO QUIT:09/14/2019 COUNSELED THE PATIENT ON SMOKING CESSATION, EDUCATION [id number]/23/2020 VAPORNO E-CIGARETTENO SMOKING CESSATION INFORMATION GIVEN12/13/2019 PT STATES SHE HAS 2 CIGARETTES A DAY LATEX QUESTIONNAIRE LATEX ALLERGY : HAVE YOU EVER DEVELOPED ANY TYPE OF REACTION AFTER HANDLING LATEX PRODUCTS SUCH RUBBER GLOVES, CONDOMS, DIAPHRAGMS, BALLOONS, SOCKS, OR UNDERWEAR?NO LATEX ALLERGY : HAVE YOU EVER DEVELOPED ANY TYPE OF REACTION DURING OR AFTER DENTAL APPOINTMENT, VAGINAL/RECTAL EXAMINATION, SURGICAL PROCEDURE, OR ANY OTHER EXPOSURE?NO LATEX RISK : HAVE YOU EVER HAD ANY DIFFICULTY BREATHING OR HIVES AFTER EATING OR HANDLING ANY FRUITS, OR VEGETABLES; SUCH KIWI, BANANAS, STONE FRUITS, OR CHESTNUTSNO LATEX RISK : DO YOU HAVE A PREVIOUS PERSONAL HISTORY OF MORE THAN NINE SURGERIES, SPINA BIFIDA, OR REPEATED CATHERIZATIONS? NO LATEX RISK : ARE YOU FREQUENTLY EXPOSED TO LATEX PRODUCTS IN YOUR OCCUPATION?NO DATE ASKED : 06/19/2020 ALCOHOL USE: NO. BMI CARE GOAL FOLLOW-UP ABOVE NORMAL BMI FOLLOW-UPDIETARY NEEDS EDUCATION ALCOHOL SCREENING DID YOU HAVE A DRINK CONTAINING ALCOHOL IN THE PAST YEAR?NO POINTS0 INTERPRETATIONNEGATIVE RECREATIONAL DRUG USE DENIES, DRUG USE? NO. CAFFEINE CAFFEINE USE?YES HOW OFTEN AND HOW MUCH? 2 16 OZ COFFEE SEXUAL HX HAD SEX IN THE LAST 12 MONTHS (VAGINAL, ORAL, OR ANAL)?NO HAVE YOU EVER HAD AN STD?NO HIV / HEP-C SCREENING HIV TEST OFFERED TO PATIENT:YES DATE OFFERED:02/22/2017 HEP-C TEST OFFERED TO PATIENT:YES DATE OFFERED:02/22/2017 ORIENTAL ORTHODOX NO MORMON BELIEFS THAT WOULD IMPACT HEALTH CARE. LANGUAGE SIERRA LEONEAN. 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 DIET: REGULAR. EXERCISE: GYM EVERY OTHER DAY, NOT ABLET O LAST 2 WEEKS. MARITAL STATUS: .. OTHERS AT HOME: CHILDREN. TODAY'S VISIT NOTES, PATIENT DESCRIBES PAIN : HAVE IT ALL THE TIME, OTHER STATES PAIN FEELS LIKE CONTRACTION, FROM 0-10, WHAT LEVEL IS YOUR PAIN TODAY? 7. - HAS THE PATIENT BEEN EDUCATED REGARDING HIS/HER PLAN OF CARE?YES HAS THE PATIENT BEEN EDUCATED REGARDING PAIN, THE RISK FOR PAIN, THE IMPORTANCE OF EFFECTIVE PAIN MANAGEMENT, AND THE PAIN ASSESSMENT PROCESS?YES HOUSING: RENTS APARTMENT. ADVANCE DIRECTIVE ADVANCE DIRECTIVE DISCUSSED WITH PATIENT:YES HCP - VICENTE MALDONADO (DAUGHTER) REVIEWED WITH PATIENT 06/21/18 1339 JSREVIEWED WITH PATIENT 09/19/18 0851 06/19/19 REVIEWED WITH PT. VD. HOSPITALIZATION/MAJOR DIAGNOSTIC PROCEDURE ABD PAIN, OVARIAN CYST 06/16/2016 ECTOPIC 1993 REVIEW OF SYSTEMS CONSTITUTIONAL: ANY RECENT FEVER NO . CHILLS NO . WEIGHT CHANGE OF UNKNOWN REASONS NO . GASTROENTEROLOGY: NEW UNEXPLAINABLE CHANGES IN BOWEL CONTROL NO . CONSTIPATION NO . GENITOURINARY: ANY NEW CHANGE IN BLADDER CONTROL? NO . NEUROLOGY: NEW ONSET DIZZINESS OR NEUROLOGICAL CHANGES NOT MENTIONED NO . NEW NUMBNESS OR PAIN PATTERNS NOT MENTIONED AND PERTINENT TO TODAY'S VISIT NO . CARDIOLOGY: NEW CHEST PRESSURE NO . NEW CHEST PAIN NO . RESPIRATORY: UNEXPLAINABLE COUGH NO . NEW SHORTNESS OF BREATH NO . VITAL SIGNS WT 247.6 LBS, HT 67.5 IN, BMI 38.20 INDEX, BP 144/80 MM HG, HR 102 /MIN, RR 18 /MIN, OXYGEN SAT % 100%, SAFE IN ENV? (Y/N) YES, REVIEWED BY: SANGEETA NEGRON MA. EXAMINATION GENERAL EXAMINATION: GENERALAWAKE,ALERT ,PLEASANT . PSYCHAFFECT NORMAL . LUNGS:LUNG LAZCANO ARE CLEAR TO AUSCULTATION BILATERALLY. GOOD MOVEMENT OF AIR . HEART:S1, S2 IN A REGULAR RATE AND RHYTHM. NO SIGNIFICANT MURMURS, RUBS OR GALLOPS NOTED . ASSESSMENTS CHRONIC PRESCRIPTION OPIATE USE - Z79.891 (PRIMARY) CHRONIC POST-OPERATIVE PAIN - G89.28 TREATMENT CHRONIC PRESCRIPTION OPIATE USE CONTINUE GABAPENTIN CAPSULE, 300 MG, 1 CAPSULE, ORALLY, FOUR TIMES DAILY REFILL OXYCODONE HCL TABLET, 15 MG, 1 TABLET, ORALLY, EVERY 6 HRS MDD4, 30 DAYS, 120, REFILLS 0 CONTINUE FLEXERIL 10 MG 30 TABLETS, 10 MG, 1 TAB, ORALLY, TWICE A DAY NEEDED NOTES: ISTOP REGISTRY REVIEWED AND DEMONSTRATES COMPLLIANCE. RECENT URINE TOXICOLOGY REVIEWED. NO UNAUTHORIZED MEDICATIONS. NO ILLICIT SUBSTANCES AND PRESCRIBED MEDICATIONS WERE PRESENT. REMIND PATIENT TO BRING PAIN MEDICATIONS TO ALL FUTURE APPOINTMENTS TO AVOID DELAY IN PRESCRIBING PER CLINIC POLICY URINE TOX TODAY , RISKS OF NARCOTIC/OPIOD MEDICATIONS INCLUDES BUT IS NOT LIMITED TO RISK OF DEPENDANCE/DEVELOPMENT OF ADDICTION, MOOD DISTURBANCE AND DEPRESSION, OSTEOPOROSIS, HORMONAL AND LABIDAL CHANGES, RESPIRATORY DEPRESSION AND . PATIENT IS ADVISED NOT TO DRIVE OR DRINK ALCOHOL WHILE ON THESE MEDICATIONS. PROCEDURE CODES [id number] ESTABILISHED PATIENT [facility] CHARGE DISPOSITION & COMMUNICATION FOLLOW UP 4-6WKS (REASON: MED MGMNT/PILL COUNT/ID/REVIEW UTOX) ELECTRONICALLY SIGNED BY UBALDO MAYERS ON 06/19/2020 AT 02:58 PM EST DISCLAIMER : THIS IS A VISIT SUMMARY EXTRACTED FROM THE [employer] CHART. IT IS NOT A COPY OF THE [employer] PROGRESS NOTE. TRE
== END ==
LOC: M PAIN 13:45
PROVIDERS: ATTEND Nurse Practitioner Family
DX: G89.28 Other chronic postprocedural pain (principal); F43.10 Post-traumatic stress disorder, unspecified; F41.0 Panic disorder [episodic paroxysmal anxiety]; G47.33 Obstructive sleep apnea (adult) (pediatric); I10 Essential (primary) hypertension; F17.210 Nicotine dependence, cigarettes, uncomplicated; Z91.041 Radiographic dye allergy status; Z79.891 Long term (current) use of opiate analgesic; Z79.899 Other long term (current) drug therapy

== ENCOUNTER → 2020-07-23 | Outpatient (CLI) | payer OTHER ==
--- NOTE | 2020-07-24 00:58 | ECWPNPC ---
PATIENT NAME: MISBAH DELACRUZ : 1970 GENDER: FEMALE VISIT DATE: 07/23/2020 DISCHARGE DATE: 07/23/20926 VISIT LOCKED DATE TIME: PHYSICIAN: ED RICARDO PHYSICIAN PAGER NO: ACTIVE RESOURCE: ED RICARDO REASON FOR APPOINTMENT 1. MED MGMNT/PILL COUNT/ID/REVIEW UTOX HISTORY OF PRESENT ILLNESS GENERAL: HERE FOR FOLLOW-UP OF CHRONIC ABDOMINAL PAIN/MEDICATION MANAGEMENT. OVERALL FEELS HER MEDICATION IS HELPFUL AT REDUCING HER PAIN AND KEEPING HER FUNCTIONAL. DENIES ADVERSE SIDE EFFECTS. BRINGS IN HER MEDICATION WHICH IS APPROPRIATE FOR WHAT WAS DISPENSED. WE WILL HAVE TO DO URINE TOXICOLOGY OVER AGAIN LAST SPECIMEN WAS NOT TESTED DUE TO INSUFFICIENT URINE. -. FALL RISK SCREENING: SCREENING :NO FALLS REPORTED IN THE LAST YEAR PAIN SCREENING: PATIENT HAS A COMPLAINT OF ACUTE OR CHRONIC PAIN :YES LOCATION OF PAIN:ABDOMEN INTENSITY OF PAIN (SCALE OF 1 TO 10):7 WHAT DOES YOUR PAIN FEEL LIKE:OTHER PULLING DURATION:CONTINOUS, CONSTANT, ALL DAY PAIN IS INCREASED BY:ACTIVITIES PAIN IS DECREASED BY:USE OF PAIN MEDICATIONS NURSING NOTE: -. PAIN CENTER INTAKE QUESTIONS: DO YOU HAVE A HISTORY OF MRSA? :NO DO YOU TAKE A BLOOD THINNERS? :NO DO YOU HAVE ANY BLEEDING DISORDERS? :NO ANY NEW NUMBNESS OR WEAKNESS IN YOUR LEGS OR ARMS? :NO ANY PACEMAKER,DEFIBRILLATOR, OR DORSAL COLUMN STIMULATOR? :NO DO YOU HAVE ANY RASHES OR OPEN SORES? :NO ARE YOU ALLERGIC TO IV DYE? :NO ARE YOU DIABETIC? :NO ANY NEW PROBLEMS WITH YOUR MEDICATIONS? :NO HAVE YOU RECEIVED A VACCINE IN THE PAST 30 DAYS? :NO DO YOU PLAN TO RECEIVE A VACCINE IN THE NEXT 21 DAYS? :NO DO YOU NEED ANY PRESCRIPTION? :NO DO YOU TAKE ANY IMMUNOSUPPRESSIVE MEDICATIONS? :NO DO YOU HAVE ANY KIDNEY OR LIVER DISEASE? :NO IS THERE A CHANCE YOU COULD BE ? :NO ARE YOU BREAST FEEDING? :NO CURRENT MEDICATIONS TAKING MIRALAX - PACKET 1 PACKET MIXED WITH 8 OUNCES OF FLUID ORALLY ONCE A DAY NEEDED TAKING NEBULIZER/TUBING/MOUTHPIECE 1 ICD: J45.901 EVERY 4 HOURS NEEDED TAKING SPACER/AERO-HOLDING CHAMBERS 1 DEVICE DIRECTED WITH INHALER Q4HRS PRN SOB/WHEEZE TAKING FLUTICASONE PROPIONATE 50 MCG/ACT SUSPENSION 1 SPRAY IN EACH NOSTRIL NASALLY ONCE A DAY TAKING ZOFRAN ODT 4 MG TABLET DISINTEGRATING 1 TABLET ON THE TONGUE AND ALLOW TO DISSOLVE ORALLY EVERY 8 HRS NEEDED TAKING ARNUITY ELLIPTA 200 MCG/ACT AEROSOL POWDER BREATH ACTIVATED 1 PUFF INHALATION ONCE A DAY TAKING OMEPRAZOLE 40 MG CAPSULE DELAYED RELEASE 1 CAPSULE 30 MINUTES BEFORE MORNING MEAL ORALLY ONCE A DAY TAKING [place]ARTAN POTASSIUM 25 MG TABLET 1 TABLET ORALLY DAILY TAKING QUETIAPINE FUMARATE 50 MG TABLET 2 TABLET AT BEDTIME ORALLY ONCE A DAY TAKING DRISDOL 62209 UNIT CAPSULE 1 CAPSULE ORALLY EVERY TUESDAY TAKING ALBUTEROL SULFATE (2.5 MG/3ML) 0.083% NEBULIZATION SOLUTION 3 ML INHALATION THREE TIMES A DAY PRN TAKING OXYBUTYNIN CHLORIDE ER 15 MG TABLET EXTENDED RELEASE 24 HOUR 1 TABLET ORALLY BID TAKING ALBUTEROL SULFATE HFA 108 MCG/ACT AEROSOL SOLUTION 2 PUFFS NEEDED INHALATION EVERY 4 HRS TAKING GABAPENTIN 300 MG CAPSULE 1 CAPSULE ORALLY FOUR TIMES DAILY TAKING OXYCODONE HCL 15 MG TABLET 1 TABLET ORALLY EVERY 6 HRS MDD4 TAKING FLEXERIL 10 MG 30 10 MG TABLETS 1 TAB ORALLY TWICE A DAY NEEDED NOT-TAKING CPAP MACHINE , NOTES: SOMETIMES NOT-TAKING HYDROXYZINE HCL 50 MG TABLET 1 TABLET NEEDED ORALLY THREE TIMES DAILY NEEDED NOT-TAKING BUPROPION HCL 100 MG TABLET 1 TABLET ORALLY DAILY NOT-TAKING LORATADINE 10 MG TABLET 1 TABLET ORALLY ONCE A DAY NEEDED NOT-TAKING IBUPROFEN 800 MG TABLET 1 TABLET ORALLY THREE TIMES A DAY, NOTES: TAKING 2 800'S EVERY 3 HOURS NOT-TAKING TYLENOL 325 MG TABLET 2 TABLETS NEEDED ORALLY EVERY 6 HRS NOT-TAKING AMBIEN 5 MG TABLET 1 TABLET AT BEDTIME ORALLY ONCE A DAY NOT-TAKING CLINDAMYCIN HCL 150 MG CAPSULE 3 CAPSULES ORALLY EVERY 8 HRS MEDICATION LIST REVIEWED AND RECONCILED WITH THE PATIENT PAST MEDICAL HISTORY PTSD PANIC ATTACKS KIDNEY STONES HEMATURIA AUB/FIBROID/PELVIC PAIN - NOW S/P PARTIAL HYSTERECTOMY, RIGHT OVARY INTACT ABDOMINAL PAIN NOS - LIKELY ADHESIONS - PREVIOUSLY NOTED IN OP REPORT NIRALI COMPLIANCE DRUG SEEK BEHAVIOR SUSPICIOUS TOXICOLOGY SCREEN URINARY INCONTINENCE CARPAL TUNNEL ARTHRITIS HTN, GOAL < 140/< 90 ASCVD RISK 07/12/18: 5.6% FX RIGHT WIRST ALLERGIES IV DYE: BURNING - SIDE EFFECTS SOCIAL HISTORY GENERAL: TOBACCO USE ARE YOU A:CURRENT SMOKER ARE YOU INTERESTED IN QUITTING?THINKING ABOUT QUITTING COUNSELED THE PATIENT ON SMOKING CESSATION, EDUCATION [id number]/23/2020 HOW MANY CIGARETTES A DAY DO YOU SMOKE?5 OR LESS STATES SHE ONLY SMOKES SOMETIMES. HOW SOON AFTER YOU WAKE UP DO YOU SMOKE YOUR FIRST CIGARETTE?AFTER 60 MIN HOW OFTEN DO YOU SMOKE CIGARETTES?SOME DAYS, BUT NOT EVERY DAY PATIENT COUNSELED ON THE DANGERS OF TOBACCO USE AND URGED TO QUIT:09/14/2019 SMOKING CESSATION INFORMATION GIVEN12/13/2019 PT STATES SHE HAS 2 CIGARETTES A DAY VAPORNO E-CIGARETTENO LATEX QUESTIONNAIRE LATEX ALLERGY : HAVE YOU EVER DEVELOPED ANY TYPE OF REACTION AFTER HANDLING LATEX PRODUCTS SUCH RUBBER GLOVES, CONDOMS, DIAPHRAGMS, BALLOONS, SOCKS, OR UNDERWEAR?NO LATEX ALLERGY : HAVE YOU EVER DEVELOPED ANY TYPE OF REACTION DURING OR AFTER DENTAL APPOINTMENT, VAGINAL/RECTAL EXAMINATION, SURGICAL PROCEDURE, OR ANY OTHER EXPOSURE?NO LATEX RISK : HAVE YOU EVER HAD ANY DIFFICULTY BREATHING OR HIVES AFTER EATING OR HANDLING ANY FRUITS, OR VEGETABLES; SUCH KIWI, BANANAS, STONE FRUITS, OR CHESTNUTSNO LATEX RISK : DO YOU HAVE A PREVIOUS PERSONAL HISTORY OF MORE THAN NINE SURGERIES, SPINA BIFIDA, OR REPEATED CATHERIZATIONS? NO LATEX RISK : ARE YOU FREQUENTLY EXPOSED TO LATEX PRODUCTS IN YOUR OCCUPATION?NO DATE ASKED : 07/23/2020 ALCOHOL USE: NO. BMI CARE GOAL FOLLOW-UP ABOVE NORMAL BMI FOLLOW-UPDIETARY NEEDS EDUCATION ALCOHOL SCREENING DID YOU HAVE A DRINK CONTAINING ALCOHOL IN THE PAST YEAR?NO POINTS0 INTERPRETATIONNEGATIVE RECREATIONAL DRUG USE DENIES, DRUG USE? NO. CAFFEINE CAFFEINE USE?YES HOW OFTEN AND HOW MUCH? 2 16 OZ COFFEE SEXUAL HX HAD SEX IN THE LAST 12 MONTHS (VAGINAL, ORAL, OR ANAL)?NO HAVE YOU EVER HAD AN STD?NO HIV / HEP-C SCREENING HIV TEST OFFERED TO PATIENT:YES DATE OFFERED:02/22/2017 HEP-C TEST OFFERED TO PATIENT:YES DATE OFFERED:02/22/2017 TENRIISM NO EVANGELICAL BELIEFS THAT WOULD IMPACT HEALTH CARE. LANGUAGE ESTONIAN. EDUCATION LEVEL OF EDUCATION:HIGH SCHOOL LEARNING BARRIERS / SPECIAL NEEDS CHANGE FROM LAST VISIT?YES BARRIERS TO LEARNING?NO HEARING IMPAIRED?NO VISION IMPAIRED?YES :CORRECTIVE LENSES COGNITIVELY IMPAIRED?NO READINESS TO LEARN?YES LEARNING PREFERENCES?NO LEARNING CAPABILITIES PRESENT?YES EMOTIONAL BARRIERS?NO SPECIAL DEVICES?NO CASER IN NEEDED?NO DOMESTIC VIOLENCE DO YOU FEEL SAFE IN YOUR ENVIRONMENT?YES OCCUPATION: OFF WORK SINCE OCT 12 2017. DIET: REGULAR. EXERCISE: GYM EVERY OTHER DAY, NOT ABLET O LAST 2 WEEKS. MARITAL STATUS: .. OTHERS AT HOME: CHILDREN. TODAY'S VISIT NOTES, PATIENT DESCRIBES PAIN : HAVE IT ALL THE TIME, OTHER STATES PAIN FEELS LIKE CONTRACTION, FROM 0-10, WHAT LEVEL IS YOUR PAIN TODAY? 7. - HAS THE PATIENT BEEN EDUCATED REGARDING HIS/HER PLAN OF CARE?YES HAS THE PATIENT BEEN EDUCATED REGARDING PAIN, THE RISK FOR PAIN, THE IMPORTANCE OF EFFECTIVE PAIN MANAGEMENT, AND THE PAIN ASSESSMENT PROCESS?YES HOUSING: RENTS APARTMENT. ADVANCE DIRECTIVE ADVANCE DIRECTIVE DISCUSSED WITH PATIENT:YES HCP - VICENTE MALDONADO (DAUGHTER) REVIEWED WITH PATIENT 06/21/18 [id number] JSREVIEWED WITH PATIENT 09/19/18 [id number] 06/19/19 REVIEWED WITH PT. MORIAH. REVIEW OF SYSTEMS CONSTITUTIONAL: ANY RECENT FEVER NO . CHILLS NO . WEIGHT CHANGE OF UNKNOWN REASONS NO . GASTROENTEROLOGY: NEW UNEXPLAINABLE CHANGES IN BOWEL CONTROL NO . CONSTIPATION NO . GENITOURINARY: ANY NEW CHANGE IN BLADDER CONTROL? NO . NEUROLOGY: NEW ONSET DIZZINESS OR NEUROLOGICAL CHANGES NOT MENTIONED NO . NEW NUMBNESS OR PAIN PATTERNS NOT MENTIONED AND PERTINENT TO TODAY'S VISIT NO . CARDIOLOGY: NEW CHEST PRESSURE NO . PATIENT DENIES NO . RESPIRATORY: UNEXPLAINABLE COUGH NO . NEW SHORTNESS OF BREATH NO . VITAL SIGNS WT 248 LBS, HT 67.5 IN, BMI 38.26 INDEX, BP 144/91 MM HG, HR 86 /MIN, RR 18 /MIN, TEMP 98 F, OXYGEN SAT % 100%, SAFE IN ENV? (Y/N) YEST.HIRAM VERONICA. EXAMINATION GENERAL EXAMINATION: GENERALAWAKE,ALERT ,PLEASANT . PSYCHAFFECT NORMAL . LUNGS:LUNG LAZCANO ARE CLEAR TO AUSCULTATION BILATERALLY. GOOD MOVEMENT OF AIR . HEART:S1, S2 IN A REGULAR RATE AND RHYTHM. NO SIGNIFICANT MURMURS, RUBS OR GALLOPS NOTED . ASSESSMENTS CHRONIC PRESCRIPTION OPIATE USE - Z79.891 (PRIMARY) CHRONIC POST-OPERATIVE PAIN - G89.28 TREATMENT CHRONIC PRESCRIPTION OPIATE USE REFILL GABAPENTIN CAPSULE, 300 MG, 1 CAPSULE, ORALLY, FOUR TIMES DAILY, 30 DAYS, 120, REFILLS 5 REFILL OXYCODONE HCL TABLET, 15 MG, 1 TABLET, ORALLY, EVERY 6 HRS MDD4, 30 DAYS, 120, REFILLS 0 LAB: URINE TEST GROUP CHRISTINE GANDHI 07/23/2020 9:24:51 AM > LAST DOSE:GABAPENTIN-07/22/2020, OXYCODONE-06/25/2020 NOTES: ISTOP REGISTRY REVIEWED AND DEMONSTRATES COMPLLIANCE. BRINGS IN MEDICATIONS WHICH IS APPROPRIATE FOR WHAT WAS DISPENSED. RECENT URINE TOXICOLOGY REVIEWED. NO UNAUTHORIZED MEDICATIONS. NO ILLICIT SUBSTANCES AND PRESCRIBED MEDICATIONS WERE PRESENT. , RISKS OF NARCOTIC/OPIOD MEDICATIONS INCLUDES BUT IS NOT LIMITED TO RISK OF DEPENDANCE/DEVELOPMENT OF ADDICTION, MOOD DISTURBANCE AND DEPRESSION, OSTEOPOROSIS, HORMONAL AND LABIDAL CHANGES, RESPIRATORY DEPRESSION AND . PATIENT IS ADVISED NOT TO DRIVE OR DRINK ALCOHOL WHILE ON THESE MEDICATIONS. PROCEDURE CODES FA211 ESTABILISHED PATIENT [facility] CHARGE DISPOSITION & COMMUNICATION FOLLOW UP 3 MONTHS (REASON: MED MGMNT/REVIEW UTOX) ELECTRONICALLY SIGNED BY UBALDO MAYERS ON 07/23/2020 AT 02:06 PM EST DISCLAIMER : THIS IS A VISIT SUMMARY EXTRACTED FROM THE [employer] CHART. IT IS NOT A COPY OF THE [employer] PROGRESS NOTE. TRE
== END ==
LOC: M PAIN 09:15
PROVIDERS: ATTEND Nurse Practitioner Family
DX: G89.28 Other chronic postprocedural pain (principal); G47.33 Obstructive sleep apnea (adult) (pediatric); F17.210 Nicotine dependence, cigarettes, uncomplicated; Z86.59 Personal history of other mental and behavioral disorders; Z91.041 Radiographic dye allergy status; Z79.51 Long term (current) use of inhaled steroids; Z79.891 Long term (current) use of opiate analgesic; Z79.899 Other long term (current) drug therapy

== ENCOUNTER → 2020-08-06 | Outpatient (CLI) | payer OTHER ==
[~2020-08-06] MED LIST changes: +ACET-907 PO
== END ==
LOC: M LABSMTC 09:44
PROVIDERS: ATTEND Anesthesiology
DX: Z01.812 Encounter for preprocedural laboratory examination (principal); Z20.822 Contact with and (suspected) exposure to COVID-19

== ENCOUNTER 2020-08-11 11:55 | Day surgery (SDC) | payer OTHER ==
[~2020-08-11] VITALS: Ht 172.7 cm; Wt 108.0 kg
[~2020-08-11 11:55] MED LIST changes: +NS 1,000 ML IV ONE
[2020-08-11] MEDS ORDERED: propofoL 500 MG/50 ML VIAL As Ordered ONE (12:16)
[2020-08-11] MEDS ORDERED: LIDOCAINE 2% 100MG/5ML SDV (FOR ANES.) As Ordered ONE (12:16)
[2020-08-11] MEDS ORDERED: fentaNYL 100 MCG/2 ML INJECTION (J3010) As Ordered ONE (12:16)
[2020-08-11] MEDS ORDERED: MIDAZOLAM INJ 2MG/2ML VIAL (J2250 PER 1MG) As Ordered ONE (13:24)
--- NOTE | 2020-08-11 13:37 | ROOR ---
Patient Name: Grant Simms Procedure Date: 08/11/2020 1:24 PM Date of : 1970 Age: 50 Room: [facility] Gender: Female Note Status: Finalized Procedure: Upper GI endoscopy Indications: Heartburn, Suspected esophageal reflux Providers: Vadim CM MD Referring MD: Jone Diego Do, [facility] [place]: Medicines: Monitored Anesthesia Care Complications: No immediate complications. Procedure: Pre-Anesthesia Assessment: - The heart rate, respiratory rate, oxygen saturations, blood pressure, adequacy of pulmonary ventilation, and response to care were monitored throughout the procedure. The Endoscope was introduced through the mouth, and advanced to the second part of duodenum. The upper GI endoscopy was accomplished without difficulty. The patient tolerated the procedure well. Findings: The esophagus was normal. The stomach was normal. The examined duodenum was normal. Impression: - Normal esophagus. - Normal stomach. - Normal examined duodenum. - No specimens collected. Recommendation: - Observe patient's clinical course. - Follow an antireflux regimen. Procedure Code(s): --- Professional --- 22166, Esophagogastroduodenoscopy, flexible, transoral; diagnostic, including collection of specimen(s) by brushing or washing, when performed (separate procedure) Diagnosis Code(s): --- Professional --- R12, Heartburn CPT copyright 2019 [employer]. All rights reserved. The codes documented in this report are preliminary and upon travel registered nurse oncology review may be revised to meet current compliance requirements. Vadim Cm MD Vadim CM MD 08/11/2020 1:37:30 PM Electronically signed by Vadim CM MD Number of Addenda: 0 Note Initiated On: 08/11/2020 1:24 PM Estimated Blood Loss: Estimated blood loss: none.
[2020-08-11] MEDS ORDERED: SIMETHICONE 40MG/0.6ML DROPS 30ML As Ordered ONE (13:39)
[2020-08-11] MEDS ORDERED: propofoL 200 MG/20 ML VIAL As Ordered ONE (13:57)
--- NOTE | 2020-08-11 14:00 | ROOR ---
Patient Name: Grant Simms Procedure Date: 08/11/2020 1:25 PM Date of : 1970 Age: 50 Room: [facility] Gender: Female Note Status: Finalized Procedure: Colonoscopy Indications: High risk colon cancer surveillance: Personal history of colonic polyps, Incidental - Pelvic pain, Incidental - Constipation Providers: Vadim CM MD Referring MD: Jone Diego Do[place] [facility] [place] Provider: Medicines: Monitored Anesthesia Care Complications: No immediate complications. Procedure: Pre-Anesthesia Assessment: - The heart rate, respiratory rate, oxygen saturations, blood pressure, adequacy of pulmonary ventilation, and response to care were monitored throughout the procedure. The Colonoscope was introduced through the anus and advanced to 10 cm into the ileum. The colonoscopy was performed without difficulty. The patient tolerated the procedure well. The quality of the bowel preparation was fair. Findings: The perianal and digital rectal examinations were normal. The colon (entire examined portion) appeared normal. The terminal ileum appeared normal. Impression: - Preparation of the colon was fair. - Small internal hemorrhoids. - The entire examined colon is normal. - The examined portion of the ileum was normal. - No specimens collected. Recommendation: - Repeat colonoscopy in 3 years because the bowel preparation was suboptimal. Procedure Code(s): --- Professional --- 66399, Colonoscopy, flexible; diagnostic, including collection of specimen(s) by brushing or washing, when performed (separate procedure) Diagnosis Code(s): --- Professional --- Z86.010, Personal history of colonic polyps CPT copyright 2019 [employer]. All rights reserved. The codes documented in this report are preliminary and upon medical insurance coder review may be revised to meet current compliance requirements. Vadim Cm MD Vadim CM MD 08/11/2020 1:59:44 PM Electronically signed by Vadim CM MD Number of Addenda: 0 Note Initiated On: 08/11/2020 1:25 PM Estimated Blood Loss: Estimated blood loss: none.
[2020-08-11 14:32] VITALS: BP 146/87
== END 2020-08-11 14:34 | disposition home or self-care (01) ==
LOC: M OPP 11:55
PROVIDERS: ATTEND Internal Medicine Gastroenterology
DX: Z12.11 Encounter for screening for malignant neoplasm of colon (principal); Z86.010 Personal history of colon polyps; R12 Heartburn; K64.8 Other hemorrhoids; D50.9 Iron deficiency anemia, unspecified; M19.90 Unspecified osteoarthritis, unspecified site; F41.0 Panic disorder [episodic paroxysmal anxiety]; F32.9 Major depressive disorder, single episode, unspecified; J45.909 Unspecified asthma, uncomplicated; G47.30 Sleep apnea, unspecified; F17.210 Nicotine dependence, cigarettes, uncomplicated; F43.10 Post-traumatic stress disorder, unspecified; R32 Unspecified urinary incontinence; Z79.51 Long term (current) use of inhaled steroids; Z79.899 Other long term (current) drug therapy; Z83.6 Family history of other diseases of the respiratory system; Z82.49 Family history of ischemic heart disease and other diseases of the circulatory system; Z80.0 Family history of malignant neoplasm of digestive organs; Z80.52 Family history of malignant neoplasm of bladder; Z80.8 Family history of malignant neoplasm of other organs or systems
CPT/HCPCS: 43235; 45378; J2250; J3010

== ENCOUNTER → 2020-10-24 | Outpatient (CLI) | payer OTHER ==
[~2020-10-24] MED LIST changes: -NS 1,000 ML IV ONE
--- NOTE | 2020-10-25 09:04 | ECWPNPC ---
PATIENT NAME: MISBAH DELACRUZ : 1970 GENDER: FEMALE VISIT DATE: 10/24/2020 DISCHARGE DATE: 10/24/20 09 VISIT LOCKED DATE TIME: PHYSICIAN: ED RICARDO PHYSICIAN PAGER NO: ACTIVE RESOURCE: ED RICARDO REASON FOR APPOINTMENT 1. MED MGMNT/REVIEW UTOX HISTORY OF PRESENT ILLNESS DEPRESSION SCREENING: PHQ-2 (2015 EDITION) LITTLE INTEREST OR PLEASURE IN DOING THINGS?NOT AT ALL FEELING DOWN, DEPRESSED, OR HOPELESS?NOT AT ALL TOTAL SCORE0 GENERAL: HERE FOR FOLLOW-UP OF CHRONIC ABDOMINAL PAIN/MEDICATION MANAGEMENT. OVERALL FEELS HER MEDICATION IS HELPFUL AT REDUCING HER PAIN AND KEEPING HER FUNCTIONAL. DENIES ADVERSE SIDE EFFECTS. BRINGS IN HER MEDICATION WHICH IS APPROPRIATE FOR WHAT WAS DISPENSED. CONTINUES TO SUFFER FROM SEVERE SUPRAPUBIC/BLADDER PAIN WHICH SHE HAS BEEN FOLLOWING WITH UROLOGY.THEY ARE CONSIDERING BOTOX TRIAL.SHE HAS FAILED SCAR NEUROMA INJECTIONS HERE IN THE DISTANT PAST.BRIEFLY DISCUSSED DCS TRIAL. - -. FALL RISK SCREENING: SCREENING : NO FALLS REPORTED IN THE LAST YEAR. PAIN SCREENING: PATIENT HAS A COMPLAINT OF ACUTE OR CHRONIC PAIN :YES LOCATION OF PAIN:ABDOMEN INTENSITY OF PAIN (SCALE OF 1 TO 10):8 WHAT DOES YOUR PAIN FEEL LIKE:ACHING, BURNING " FEEL LIKE CHILDBIRTH ' DURATION:CONTINOUS, CONSTANT, MAINLY DURING THE NIGHT, MAINLY DURING THE DAY PAIN IS INCREASED BY:OTHERS WALKING FOR A LONG TIME PAIN IS DECREASED BY:USE OF PAIN MEDICATIONS NURSING NOTE: -PATIENT IS GOING ON A ROAD TRIP THIS MORNING TO GO LOOK FOR FAMILY MEMEBERS. PATIENT STATED " IT WILL BE [address] PAIN CENTER INTAKE QUESTIONS: DO YOU HAVE A HISTORY OF MRSA? :NO DO YOU TAKE A BLOOD THINNERS? :NO DO YOU HAVE ANY BLEEDING DISORDERS? :NO ANY NEW NUMBNESS OR WEAKNESS IN YOUR LEGS OR ARMS? :NO ANY PACEMAKER,DEFIBRILLATOR, OR DORSAL COLUMN STIMULATOR? :NO DO YOU HAVE ANY RASHES OR OPEN SORES? :NO ARE YOU ALLERGIC TO IV DYE? :YES YES AND NO- HAD PROCEDURE DONE AND NOT SURE IF SHE IS OR NOT ARE YOU DIABETIC? :NO ANY NEW PROBLEMS WITH YOUR MEDICATIONS? :NO HAVE YOU RECEIVED A VACCINE IN THE PAST 30 DAYS? :NO DO YOU PLAN TO RECEIVE A VACCINE IN THE NEXT 21 DAYS? :NO DO YOU NEED ANY PRESCRIPTION? :NO DO YOU TAKE ANY IMMUNOSUPPRESSIVE MEDICATIONS? :NO DO YOU HAVE ANY KIDNEY OR LIVER DISEASE? :NO IS THERE A CHANCE YOU COULD BE ? :NO ARE YOU BREAST FEEDING? :NO CURRENT MEDICATIONS TAKING MIRALAX - PACKET 1 PACKET MIXED WITH 8 OUNCES OF FLUID ORALLY ONCE A DAY NEEDED TAKING NEBULIZER/TUBING/MOUTHPIECE 1 ICD: J45.901 EVERY 4 HOURS NEEDED TAKING SPACER/AERO-HOLDING CHAMBERS 1 DEVICE DIRECTED WITH INHALER Q4HRS PRN SOB/WHEEZE TAKING FLUTICASONE PROPIONATE 50 MCG/ACT SUSPENSION 1 SPRAY IN EACH NOSTRIL NASALLY ONCE A DAY TAKING ZOFRAN ODT 4 MG TABLET DISINTEGRATING 1 TABLET ON THE TONGUE AND ALLOW TO DISSOLVE ORALLY EVERY 8 HRS NEEDED TAKING ARNUITY ELLIPTA 200 MCG/ACT AEROSOL POWDER BREATH ACTIVATED 1 PUFF INHALATION ONCE A DAY TAKING OMEPRAZOLE 40 MG CAPSULE DELAYED RELEASE 1 CAPSULE 30 MINUTES BEFORE MORNING MEAL ORALLY ONCE A DAY TAKING [place]ARTAN POTASSIUM 25 MG TABLET 1 TABLET ORALLY DAILY TAKING QUETIAPINE FUMARATE 50 MG TABLET 2 TABLET AT BEDTIME ORALLY ONCE A DAY TAKING DRISDOL 82806 UNIT CAPSULE 1 CAPSULE ORALLY EVERY TUESDAY TAKING ALBUTEROL SULFATE (2.5 MG/3ML) 0.083% NEBULIZATION SOLUTION 3 ML INHALATION THREE TIMES A DAY PRN TAKING ALBUTEROL SULFATE HFA 108 MCG/ACT AEROSOL SOLUTION 2 PUFFS NEEDED INHALATION EVERY 4 HRS TAKING FLEXERIL 10 MG 30 10 MG TABLETS 1 TAB ORALLY TWICE A DAY NEEDED TAKING OXYBUTYNIN CHLORIDE ER 15 MG TABLET EXTENDED RELEASE 24 HOUR 1 TABLET ORALLY BID TAKING VALIUM 5 MG TABLET 1 TABLET 1 HOUR PRIOR TO YOUR PROCEEDURE ORALLY ONCE, MDD 1 TAKING GABAPENTIN 300 MG CAPSULE 1 CAPSULE ORALLY FOUR TIMES DAILY TAKING OXYCODONE HCL 15 MG TABLET 1 TABLET ORALLY EVERY 6 HRS MDD4 TAKING FLAGYL 500 MG TABLET 1 TABLET ORALLY THREE TIMES A DAY TAKING AMOXICILLIN 500 MG CAPSULE 1 CAPSULE ORALLY EVERY 8 HRS NOT-TAKING CPAP MACHINE , NOTES: SOMETIMES NOT-TAKING HYDROXYZINE HCL 50 MG TABLET 1 TABLET NEEDED ORALLY THREE TIMES DAILY NEEDED NOT-TAKING BUPROPION HCL 100 MG TABLET 1 TABLET ORALLY DAILY NOT-TAKING LORATADINE 10 MG TABLET 1 TABLET ORALLY ONCE A DAY NEEDED NOT-TAKING IBUPROFEN 800 MG TABLET 1 TABLET ORALLY THREE TIMES A DAY, NOTES: TAKING 2 800'S EVERY 3 HOURS NOT-TAKING TYLENOL 325 MG TABLET 2 TABLETS NEEDED ORALLY EVERY 6 HRS NOT-TAKING AMBIEN 5 MG TABLET 1 TABLET AT BEDTIME ORALLY ONCE A DAY NOT-TAKING CLINDAMYCIN HCL 150 MG CAPSULE 3 CAPSULES ORALLY EVERY 8 HRS MEDICATION LIST REVIEWED AND RECONCILED WITH THE PATIENT PAST MEDICAL HISTORY PTSD PANIC ATTACKS KIDNEY STONES HEMATURIA AUB/FIBROID/PELVIC PAIN - NOW S/P PARTIAL HYSTERECTOMY, RIGHT OVARY INTACT ABDOMINAL PAIN NOS - LIKELY ADHESIONS - PREVIOUSLY NOTED IN OP REPORT NIRALI COMPLIANCE DRUG SEEK BEHAVIOR SUSPICIOUS TOXICOLOGY SCREEN URINARY INCONTINENCE CARPAL TUNNEL ARTHRITIS HTN, GOAL < 140/< 90 ASCVD RISK 07/12/18: 5.6% FX RIGHT WIRST ALLERGIES IV DYE: BURNING - SIDE EFFECTS SURGICAL HISTORY 1989,1991, 1994 1989 R OOPHORECTOMY 2009 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 HOW SOON AFTER YOU WAKE UP DO YOU SMOKE YOUR FIRST CIGARETTE?AFTER 60 MIN HOW OFTEN DO YOU SMOKE CIGARETTES?SOME DAYS, BUT NOT EVERY DAY PATIENT COUNSELED ON THE DANGERS OF TOBACCO USE AND URGED TO QUIT:09/14/2019 SMOKING CESSATION INFORMATION GIVEN12/13/2019 PT STATES SHE HAS 2 CIGARETTES A DAY VAPORNO E-CIGARETTENO LATEX QUESTIONNAIRE LATEX ALLERGY : HAVE YOU EVER DEVELOPED ANY TYPE OF REACTION AFTER HANDLING LATEX PRODUCTS SUCH RUBBER GLOVES, CONDOMS, DIAPHRAGMS, BALLOONS, SOCKS, OR UNDERWEAR?NO LATEX ALLERGY : HAVE YOU EVER DEVELOPED ANY TYPE OF REACTION DURING OR AFTER DENTAL APPOINTMENT, VAGINAL/RECTAL EXAMINATION, SURGICAL PROCEDURE, OR ANY OTHER EXPOSURE?NO LATEX RISK : HAVE YOU EVER HAD ANY DIFFICULTY BREATHING OR HIVES AFTER EATING OR HANDLING ANY FRUITS, OR VEGETABLES; SUCH KIWI, BANANAS, STONE FRUITS, OR CHESTNUTSNO LATEX RISK : DO YOU HAVE A PREVIOUS PERSONAL HISTORY OF MORE THAN NINE SURGERIES, SPINA BIFIDA, OR REPEATED CATHERIZATIONS? NO LATEX RISK : ARE YOU FREQUENTLY EXPOSED TO LATEX PRODUCTS IN YOUR OCCUPATION?NO DATE ASKED : 10/24/2020 ALCOHOL USE: NO. BMI CARE GOAL FOLLOW-UP ABOVE NORMAL BMI FOLLOW-UPDIETARY NEEDS EDUCATION ALCOHOL SCREENING DID YOU HAVE A DRINK CONTAINING ALCOHOL IN THE PAST YEAR?NO POINTS0 INTERPRETATIONNEGATIVE RECREATIONAL DRUG USE DENIES, DRUG USE? NO. CAFFEINE CAFFEINE USE?YES HOW OFTEN AND HOW MUCH? 2 16 OZ COFFEE SEXUAL HX HAD SEX IN THE LAST 12 MONTHS (VAGINAL, ORAL, OR ANAL)?NO HAVE YOU EVER HAD AN STD?NO HIV / HEP-C SCREENING HIV TEST OFFERED TO PATIENT:YES DATE OFFERED:02/22/2017 HEP-C TEST OFFERED TO PATIENT:YES DATE OFFERED:02/22/2017 CONGREGATIONAL NO ANGLICAN BELIEFS THAT WOULD IMPACT HEALTH CARE. LANGUAGE FIJIAN. EDUCATION LEVEL OF EDUCATION:HIGH SCHOOL LEARNING BARRIERS / SPECIAL NEEDS CHANGE FROM LAST VISIT?YES BARRIERS TO LEARNING?NO HEARING IMPAIRED?NO VISION IMPAIRED?YES :CORRECTIVE LENSES COGNITIVELY IMPAIRED?NO READINESS TO LEARN?YES LEARNING PREFERENCES?NO LEARNING CAPABILITIES PRESENT?YES EMOTIONAL BARRIERS?NO SPECIAL DEVICES?NO LOAN SERVICE OFFICER NEEDED?NO DOMESTIC VIOLENCE DO YOU FEEL SAFE IN YOUR ENVIRONMENT?YES OCCUPATION: OFF WORK SINCE OCT 12 2017. DIET: REGULAR. EXERCISE: GYM EVERY OTHER DAY, NOT ABLET O LAST 2 WEEKS. MARITAL STATUS: .. OTHERS AT HOME: CHILDREN. TODAY'S VISIT NOTES, PATIENT DESCRIBES PAIN : HAVE IT ALL THE TIME, OTHER STATES PAIN FEELS LIKE CONTRACTION, FROM 0-10, WHAT LEVEL IS YOUR PAIN TODAY? 7. - HAS THE PATIENT BEEN EDUCATED REGARDING HIS/HER PLAN OF CARE?YES HAS THE PATIENT BEEN EDUCATED REGARDING PAIN, THE RISK FOR PAIN, THE IMPORTANCE OF EFFECTIVE PAIN MANAGEMENT, AND THE PAIN ASSESSMENT PROCESS?YES HOUSING: RENTS APARTMENT. ADVANCE DIRECTIVE ADVANCE DIRECTIVE DISCUSSED WITH PATIENT:YES HCP - VICENTE MALDONADO (DAUGHTER) REVIEWED WITH PATIENT 06/21/18 [id number] JSREVIEWED WITH PATIENT 09/19/18 [id number] 06/19/19 REVIEWED WITH PT. MORIAH. HOSPITALIZATION/MAJOR DIAGNOSTIC PROCEDURE ABD PAIN, OVARIAN CYST 06/16/2016 ECTOPIC 1993 REVIEW OF SYSTEMS CONSTITUTIONAL: ANY RECENT FEVER NO . CHILLS NO . WEIGHT CHANGE OF UNKNOWN REASONS NO . GASTROENTEROLOGY: NEW UNEXPLAINABLE CHANGES IN BOWEL CONTROL NO . CONSTIPATION NO . GENITOURINARY: ANY NEW CHANGE IN BLADDER CONTROL? NO . NEUROLOGY: NEW ONSET DIZZINESS OR NEUROLOGICAL CHANGES NOT MENTIONED NO . NEW NUMBNESS OR PAIN PATTERNS NOT MENTIONED AND PERTINENT TO TODAY'S VISIT NO . CARDIOLOGY: NEW CHEST PRESSURE NO . PATIENT DENIES NO . RESPIRATORY: UNEXPLAINABLE COUGH NO . NEW SHORTNESS OF BREATH NO . VITAL SIGNS WT 247 LBS, HT 67.5 IN, BMI 38.11 INDEX, BP 153/82 MM HG, HR 99 /MIN, RR 18 /MIN, TEMP 97.1 F, OXYGEN SAT % 105%, SAFE IN ENV? (Y/N) YEST.HIRAM VERONICA, PATIENT IS DRINKING COFFEE HERE AT HER APPOINTMENT AND HAD 2 CUPS BEFORE THAT. EXAMINATION GENERAL EXAMINATION: GENERALAWAKE,ALERT ,PLEASANT . PSYCHAFFECT NORMAL . LUNGS:LUNG LAZCANO ARE CLEAR TO AUSCULTATION BILATERALLY. GOOD MOVEMENT OF AIR . HEART:S1, S2 IN A REGULAR RATE AND RHYTHM. NO SIGNIFICANT MURMURS, RUBS OR GALLOPS NOTED . ASSESSMENTS GENERALIZED ABDOMINAL PAIN - R10.84 (PRIMARY) CHRONIC PRESCRIPTION OPIATE USE - Z79.891 TREATMENT GENERALIZED ABDOMINAL PAIN REFILL FLEXERIL 10 MG 30 TABLETS, 10 MG, 1 TAB, ORALLY, TWICE A DAY NEEDED, 30 DAYS, 60, REFILLS 2 REFILL GABAPENTIN CAPSULE, 300 MG, 1 CAPSULE, ORALLY, FOUR TIMES DAILY, 30 DAYS, 120, REFILLS 5 REFILL OXYCODONE HCL TABLET, 15 MG, 1 TABLET, ORALLY, EVERY 6 HRS MDD4, 30 DAYS, 120, REFILLS 0 NOTES: ISTOP REGISTRY REVIEWED AND DEMONSTRATES COMPLLIANCE. BRINGS IN MEDICATIONS WHICH IS APPROPRIATE FOR WHAT WAS DISPENSED. RECENT URINE TOXICOLOGY REVIEWED. NO UNAUTHORIZED MEDICATIONS. NO ILLICIT SUBSTANCES AND PRESCRIBED MEDICATIONS WERE PRESENT. , RISKS OF NARCOTIC/OPIOD MEDICATIONS INCLUDES BUT IS NOT LIMITED TO RISK OF DEPENDANCE/DEVELOPMENT OF ADDICTION, MOOD DISTURBANCE AND DEPRESSION, OSTEOPOROSIS, HORMONAL AND LABIDAL CHANGES, RESPIRATORY DEPRESSION AND . PATIENT IS ADVISED NOT TO DRIVE OR DRINK ALCOHOL WHILE ON THESE MEDICATIONS. PROCEDURE CODES FA211 ESTABILISHED PATIENT [facility] CHARGE DISPOSITION & COMMUNICATION FOLLOW UP 3 MONTHS (REASON: MED MGMNT/UTOX) ELECTRONICALLY SIGNED BY UBALDO MAYERS ON 10/24/2020 AT 11:00 AM EDT DISCLAIMER : THIS IS A VISIT SUMMARY EXTRACTED FROM THE [employer] CHART. IT IS NOT A COPY OF THE [employer] PROGRESS NOTE. MTDD
== END ==
LOC: M PAIN 09:00
PROVIDERS: ATTEND Nurse Practitioner Family
DX: R10.84 Generalized abdominal pain (principal); Z79.891 Long term (current) use of opiate analgesic; F43.10 Post-traumatic stress disorder, unspecified; F41.0 Panic disorder [episodic paroxysmal anxiety]; G47.33 Obstructive sleep apnea (adult) (pediatric); I10 Essential (primary) hypertension; Z79.899 Other long term (current) drug therapy; F17.210 Nicotine dependence, cigarettes, uncomplicated; Z91.041 Radiographic dye allergy status

== ENCOUNTER → 2020-10-29 | Outpatient (REF) | payer OTHER ==
[2020-10-29 11:22] LABS: HEMOGLOBIN 10.9 g/dl (12.0-15.5); MEAN CORPUSCULAR HEMOGLOBIN 31.1 pg (27.0-33.0); MEAN CORPUSCULAR HGB CONC 32.1 g/dl (32.0-36.5); MEAN CORPUSCULAR VOLUME 97.1 fl (80.0-96.0); PLATELET COUNT, AUTOMATED 273 10^3/uL (150-450); WHITE BLOOD COUNT 3.5 10^3/uL (4.0-10.0)
[2020-10-29 14:07] LABS: APPEARANCE, URINE HAZY (CLEAR); BACTERIA, URINE AUTO NEGATIVE (NEGATIVE); BILIRUBIN, URINE AUTO NEGATIVE (NEGATIVE); BLOOD, URINE BLOOD 2+ (NEGATIVE); COLOR, URINE YELLOW (YELLOW); GLUCOSE, URINE (UA) AUTO NEGATIVE (NEGATIVE); KETONE, URINE AUTO TRACE mg/dL (NEGATIVE); LEUKOCYTE ESTERASE, URINE AUTO NEGATIVE (NEGATIVE); MUCUS, URINE LARGE (NEGATIVE); NITRITE, URINE AUTO NEGATIVE (NEGATIVE); PROTEIN, URINE AUTO 1+ mg/dL (NEGATIVE); RBC, URINE AUTO 24 /HPF (0-3); SPECIFIC GRAVITY URINE AUTO 1.029 (1.002-1.035); SQUAMOUS EPITHELIAL CELL UR AU 2 /HPF (0-6); WBC, URINE AUTO 1 /HPF (0-3)
[2020-10-29 15:46] LABS: ALBUMIN 3.5 GM/DL (3.2-5.2); ALT/SGPT 17 U/L (12-78); BILIRUBIN,TOTAL 0.3 MG/DL (0.2-1.0); BLOOD UREA NITROGEN 9 MG/DL (7-18); CALCIUM LEVEL 8.9 MG/DL (8.5-10.1); CARBON DIOXIDE LEVEL 26 MEQ/L (21-32); CHLORIDE LEVEL 106 MEQ/L (98-107); CREATININE FOR GFR 0.85 MG/DL (0.55-1.30); GLOMERULAR FILTRATION RATE > 60.0 (>58); GLUCOSE, FASTING 141 MG/DL (70-100); POTASSIUM SERUM 4.2 MEQ/L (3.5-5.1); SODIUM LEVEL 140 MEQ/L (136-145); TOTAL PROTEIN 7.1 GM/DL (6.4-8.2)
== END ==
LOC: M SFHCPLAZ 08:51
PROVIDERS: ATTEND Family Medicine
DX: R31.9 Hematuria, unspecified (principal)

== ENCOUNTER → 2020-11-19 | Outpatient (REF) | payer OTHER ==
[~2020-11-19] MED LIST changes: +OMEP40CA4 PO; -OMEP40CA97 PO
[2020-11-19 18:58] LABS: APPEARANCE, URINE HAZY (CLEAR); BACTERIA, URINE AUTO NEGATIVE (NEGATIVE); BILIRUBIN, URINE AUTO 1+ (NEGATIVE); BLOOD, URINE BLOOD 3+ (NEGATIVE); COLOR, URINE YELLOW (YELLOW); GLUCOSE, URINE (UA) AUTO NEGATIVE (NEGATIVE); KETONE, URINE AUTO TRACE mg/dL (NEGATIVE); LEUKOCYTE ESTERASE, URINE AUTO NEGATIVE (NEGATIVE); MUCUS, URINE SMALL (NEGATIVE); NITRITE, URINE AUTO NEGATIVE (NEGATIVE); PROTEIN, URINE AUTO 1+ mg/dL (NEGATIVE); RBC, URINE AUTO 50 /HPF (0-3); SPECIFIC GRAVITY URINE AUTO 1.031 (1.002-1.035); SQUAMOUS EPITHELIAL CELL UR AU 0 /HPF (0-6); UROBILINOGEN, URINE AUTO 0.2 mg/dL (0.0-2.0); WBC, URINE AUTO 1 /HPF (0-3)
== END ==
LOC: M SMT 18:22
PROVIDERS: ATTEND Nurse Practitioner Women's Health
DX: R31.29 Other microscopic hematuria (principal)

== ENCOUNTER → 2021-01-12 | Outpatient (CLI) | payer OTHER ==
[~2021-01-12] MED LIST changes: +ISOVUE-370 76% 100ML VIAL As Ordered ONE
--- NOTE | 2021-01-12 09:34 | REP ---
INDICATION: MICROHEMATURIA. COMPARISON: 06/15/2020 TECHNIQUE: Axial precontrast, contrast-enhanced and delayed images from the lung bases to the pubic symphysis using 100 cc Isovue 370 intravenous contrast material. Coronal and sagittal reformations obtained. This CT examination was performed using the following dose reduction techniques: Automated exposure control, adjustment of mA and/or kv according to the patient's size, and the use of iterative reconstruction technique. FINDINGS: Liver, spleen, pancreas, gallbladder, bilateral adrenal glands and kidneys are normal. The enteric system including stomach, small, and large bowel appears normal. No evidence for obstruction or acute inflammatory process. Normal terminal ileum and appendix are identified in the right lower quadrant. Pelvis demonstrates normal bladder and prior hysterectomy. No ascites. No free air. No intraperitoneal or retroperitoneal adenopathy. Abdominal aorta and vasculature appear normal. Musculoskeletal structures are intact and without acute osseous abnormality. IMPRESSION: No acute abdominopelvic pathology appreciated. Normal appearance to the urinary tract system. <Electronically signed by Max Salazar > 01/12/21 [id number]
== END ==
LOC: M RAD 08:37
PROVIDERS: ATTEND Urology
DX: R31.9 Hematuria, unspecified (principal)
CPT/HCPCS: 74178; Q9967

== ENCOUNTER → 2021-01-28 | Outpatient (REF) | payer OTHER ==
[~2021-01-28] MED LIST changes: -ISOVUE-370 76% 100ML VIAL As Ordered ONE
[2021-01-28 15:41] LABS: AMORPHOUS SEDIMENT SMALL (NEGATIVE); APPEARANCE, URINE TURBID (CLEAR); BACTERIA, URINE AUTO NEGATIVE (NEGATIVE); BILIRUBIN, URINE AUTO NEGATIVE (NEGATIVE); BLOOD, URINE BLOOD 2+ (NEGATIVE); COLOR, URINE YELLOW (YELLOW); GLUCOSE, URINE (UA) AUTO NEGATIVE (NEGATIVE); KETONE, URINE AUTO NEGATIVE (NEGATIVE); LEUKOCYTE ESTERASE, URINE AUTO NEGATIVE (NEGATIVE); NITRITE, URINE AUTO NEGATIVE (NEGATIVE); PROTEIN, URINE AUTO 1+ mg/dL (NEGATIVE); RBC, URINE AUTO 0 /HPF (0-3); SPECIFIC GRAVITY URINE AUTO 1.024 (1.002-1.035); SQUAMOUS EPITHELIAL CELL UR AU 8 /HPF (0-6); UROBILINOGEN, URINE AUTO 0.2 mg/dL (0.0-2.0); WBC, URINE AUTO 0 /HPF (0-3)
== END ==
LOC: M SMT 15:17
PROVIDERS: ATTEND Urology
DX: R31.29 Other microscopic hematuria (principal)

== ENCOUNTER → 2021-02-19 | Outpatient (REF) | payer OTHER ==
[2021-02-19 14:28] LABS: APPEARANCE, URINE HAZY (CLEAR); BACTERIA, URINE AUTO NEGATIVE (NEGATIVE); BILIRUBIN, URINE AUTO NEGATIVE (NEGATIVE); BLOOD, URINE BLOOD 2+ (NEGATIVE); COLOR, URINE YELLOW (YELLOW); GLUCOSE, URINE (UA) AUTO NEGATIVE (NEGATIVE); KETONE, URINE AUTO NEGATIVE (NEGATIVE); LEUKOCYTE ESTERASE, URINE AUTO NEGATIVE (NEGATIVE); MUCUS, URINE SMALL (NEGATIVE); NITRITE, URINE AUTO NEGATIVE (NEGATIVE); PROTEIN, URINE AUTO NEGATIVE (NEGATIVE); RBC, URINE AUTO 3 /HPF (0-3); SPECIFIC GRAVITY URINE AUTO 1.015 (1.002-1.035); SQUAMOUS EPITHELIAL CELL UR AU 3 /HPF (0-6); UROBILINOGEN, URINE AUTO 0.2 mg/dL (0.0-2.0); WBC, URINE AUTO 1 /HPF (0-3)
== END ==
LOC: M SFHCPLAZ 13:43
PROVIDERS: ATTEND Family Medicine
DX: R39.9 Unspecified symptoms and signs involving the genitourinary system (principal)

== ENCOUNTER → 2021-03-19 | Outpatient (CLI) | payer OTHER | LOC: M PAIN 09:30 | PROVIDERS: ATTEND Anesthesiology | DX: Z51.81 Encounter for therapeutic drug level monitoring (principal); Z79.891 Long term (current) use of opiate analgesic; F17.210 Nicotine dependence, cigarettes, uncomplicated; F43.10 Post-traumatic stress disorder, unspecified; F41.0 Panic disorder [episodic paroxysmal anxiety]; I10 Essential (primary) hypertension; Z79.899 Other long term (current) drug therapy ==

== ENCOUNTER → 2021-03-19 | Outpatient (REF) | payer OTHER ==
[2021-03-19 12:33] LABS: RSV AMPLIFICATION NEGATIVE (NEGATIVE)
== END ==
LOC: M LAB REF 11:20
PROVIDERS: ATTEND Physician Assistant
DX: R05.9 Cough, unspecified (principal); R06.02 Shortness of breath

== ENCOUNTER → 2021-03-27 | Outpatient (CLI) | payer OTHER | LOC: M PAIN 15:15 | PROVIDERS: ATTEND Anesthesiology | DX: R10.84 Generalized abdominal pain (principal); G47.33 Obstructive sleep apnea (adult) (pediatric); F17.210 Nicotine dependence, cigarettes, uncomplicated; Z86.59 Personal history of other mental and behavioral disorders; Z91.041 Radiographic dye allergy status; Z79.51 Long term (current) use of inhaled steroids; Z79.891 Long term (current) use of opiate analgesic; Z79.899 Other long term (current) drug therapy ==

== ENCOUNTER 2021-04-21 18:03 | Emergency (ER) | payer OTHER ==
[~2021-04-21] VITALS: Ht 175.3 cm; Wt 108.2 kg
[~2021-04-21 18:03] MED LIST changes: +LOSA25TA13 PO; -LOSA25TA14 PO
[2021-04-21] MEDS ORDERED: BENA25TA5 PO (18:45)
[2021-04-21] MEDS ORDERED: ERGO500029 (18:45)
[2021-04-21 19:24] LABS: BASO % 0.5 % (0.0-1.0); EOS # 0.1 10^3/uL (0.0-0.5); EOS % 2.1 % (0.0-3.0); HEMATOCRIT 36.1 % (36.0-47.0); HEMOGLOBIN 11.5 g/dl (12.0-15.5); LYMPH # 3.2 10^3/uL (1.5-5.0); LYMPH % 50.2 % (24.0-44.0); MEAN CORPUSCULAR HEMOGLOBIN 28.6 pg (27.0-33.0); MEAN CORPUSCULAR HGB CONC 31.9 g/dl (32.0-36.5); MEAN CORPUSCULAR VOLUME 89.8 fl (80.0-96.0); MONO # 0.4 10^3/uL (0.0-0.8); MONO % 6.3 % (2.0-8.0); NEUTROPHILS # 2.6 10^3/uL (1.5-8.5); NEUTROPHILS % 40.7 % (36.0-66.0); PLATELET COUNT, AUTOMATED 312 10^3/uL (150-450); RED BLOOD COUNT 4.02 10^6/uL (4.00-5.40); WHITE BLOOD COUNT 6.3 10^3/uL (4.0-10.0)
[2021-04-21 19:28] LABS: BLOOD UREA NITROGEN 9 MG/DL (7-18); CALCIUM LEVEL 9.4 MG/DL (8.5-10.1); CARBON DIOXIDE LEVEL 24 MEQ/L (21-32); CHLORIDE LEVEL 109 MEQ/L (98-107); CREATININE FOR GFR 1.04 MG/DL (0.55-1.30); GLOMERULAR FILTRATION RATE > 60.0 (>58); GLUCOSE, FASTING 117 MG/DL (70-100); MAGNESIUM LEVEL 2.1 MG/DL (1.8-2.4); POTASSIUM SERUM 3.6 MEQ/L (3.5-5.1); SODIUM LEVEL 141 MEQ/L (136-145)
[2021-04-21] MEDS ORDERED: atenoloL 25 MG TAB PO ONE (19:40)
[2021-04-21 19:50] VITALS: BP 136/81
[2021-04-21 21:18] VITALS: BP 118/69
[2021-04-21] MEDS ORDERED: ATEN25TA PO (22:12)
== END 2021-04-21 22:30 | disposition home or self-care (01) ==
LOC: M ED 18:03 → EDBD 18:03 → M ED 22:30
DX: I47.2 Ventricular tachycardia (principal); J45.909 Unspecified asthma, uncomplicated; I10 Essential (primary) hypertension; K21.9 Gastro-esophageal reflux disease without esophagitis; Z79.899 Other long term (current) drug therapy; F17.210 Nicotine dependence, cigarettes, uncomplicated

== ENCOUNTER → 2021-05-04 | Outpatient (CLI) | payer OTHER ==
[~2021-05-04] MED LIST changes: +ATEN25TA PO; +BENA25TA5 PO; +ERGO500029; -LOSA25TA13 PO; +LOSA25TA14 PO
== END ==
LOC: M PAIN 10:45
PROVIDERS: ATTEND Anesthesiology
DX: R10.2 Pelvic and perineal pain (principal); D36.15 Benign neoplasm of peripheral nerves and autonomic nervous system of abdomen; F43.10 Post-traumatic stress disorder, unspecified; F41.0 Panic disorder [episodic paroxysmal anxiety]; G47.33 Obstructive sleep apnea (adult) (pediatric); R32 Unspecified urinary incontinence; I10 Essential (primary) hypertension; F17.210 Nicotine dependence, cigarettes, uncomplicated; Z79.891 Long term (current) use of opiate analgesic; Z79.899 Other long term (current) drug therapy; Z91.041 Radiographic dye allergy status

== ENCOUNTER → 2021-07-17 | Outpatient (CLI) | payer OTHER ==
[~2021-07-17] MED LIST changes: +LOSA25TA13 PO; -LOSA25TA14 PO
== END ==
LOC: M PAIN 09:00
PROVIDERS: ATTEND Anesthesiology
DX: R10.2 Pelvic and perineal pain (principal); D36.15 Benign neoplasm of peripheral nerves and autonomic nervous system of abdomen; F43.10 Post-traumatic stress disorder, unspecified; F41.0 Panic disorder [episodic paroxysmal anxiety]; G47.33 Obstructive sleep apnea (adult) (pediatric); R32 Unspecified urinary incontinence; I10 Essential (primary) hypertension; F17.210 Nicotine dependence, cigarettes, uncomplicated; Z79.891 Long term (current) use of opiate analgesic; Z79.899 Other long term (current) drug therapy; Z91.041 Radiographic dye allergy status

== ENCOUNTER → 2021-07-27 | Outpatient (REF) | payer OTHER | LOC: M SFHCPLAZ 09:13 | PROVIDERS: ATTEND Family Medicine | DX: G47.33 Obstructive sleep apnea (adult) (pediatric) (principal); N39.3 Stress incontinence (female) (male) ==

== ENCOUNTER → 2021-08-07 | Outpatient (CLI) | payer OTHER | LOC: M PAIN 09:00 | PROVIDERS: ATTEND Anesthesiology | DX: R10.2 Pelvic and perineal pain (principal); F43.10 Post-traumatic stress disorder, unspecified; F41.0 Panic disorder [episodic paroxysmal anxiety]; G47.33 Obstructive sleep apnea (adult) (pediatric); I10 Essential (primary) hypertension; Z91.041 Radiographic dye allergy status; Z79.891 Long term (current) use of opiate analgesic; Z79.899 Other long term (current) drug therapy ==

== ENCOUNTER → 2021-09-02 | Outpatient (CLI) | payer OTHER ==
[~2021-09-02] MED LIST changes: -ERGO500029; +ERGO500029 PO; -ONDA4TAB6; +ONDA4TAB6 PO
== END ==
LOC: M LABSMTC 09:54
PROVIDERS: ATTEND Anesthesiology
DX: Z11.52 Encounter for screening for COVID-19 (principal); Z20.818 Contact with and (suspected) exposure to other bacterial communicable diseases

== ENCOUNTER → 2021-09-02 | Outpatient (CLI) | payer OTHER ==
[2021-09-02 10:11] LABS: APPEARANCE, URINE CLEAR (CLEAR); BACTERIA, URINE AUTO NEGATIVE (NEGATIVE); BILIRUBIN, URINE AUTO NEGATIVE (NEGATIVE); BLOOD, URINE BLOOD 2+ (NEGATIVE); COLOR, URINE YELLOW (YELLOW); GLUCOSE, URINE (UA) AUTO NEGATIVE (NEGATIVE); KETONE, URINE AUTO NEGATIVE (NEGATIVE); LEUKOCYTE ESTERASE, URINE AUTO NEGATIVE (NEGATIVE); MUCUS, URINE SMALL (NEGATIVE); NITRITE, URINE AUTO NEGATIVE (NEGATIVE); PROTEIN, URINE AUTO NEGATIVE (NEGATIVE); RBC, URINE AUTO 7 /HPF (0-3); SPECIFIC GRAVITY URINE AUTO 1.016 (1.002-1.035); SQUAMOUS EPITHELIAL CELL UR AU 2 /HPF (0-6); UROBILINOGEN, URINE AUTO 0.2 mg/dL (0.0-2.0); WBC, URINE AUTO 1 /HPF (0-3)
[2021-09-02 10:17] LABS: BASO # 0.1 10^3/uL (0.0-0.2); BASO % 0.9 % (0.0-1.0); EOS # 0.1 10^3/uL (0.0-0.5); EOS % 2.1 % (0.0-3.0); HEMATOCRIT 36.7 % (36.0-47.0); HEMOGLOBIN 11.4 g/dl (12.0-15.5); LYMPH # 2.9 10^3/uL (1.5-5.0); LYMPH % 49.4 % (24.0-44.0); MEAN CORPUSCULAR HEMOGLOBIN 29.1 pg (27.0-33.0); MEAN CORPUSCULAR HGB CONC 31.1 g/dl (32.0-36.5); MEAN CORPUSCULAR VOLUME 93.6 fl (80.0-96.0); MONO # 0.3 10^3/uL (0.0-0.8); MONO % 5.9 % (2.0-8.0); NEUTROPHILS # 2.4 10^3/uL (1.5-8.5); NEUTROPHILS % 41.4 % (36.0-66.0); PLATELET COUNT, AUTOMATED 266 10^3/uL (150-450); RED BLOOD COUNT 3.92 10^6/uL (4.00-5.40); WHITE BLOOD COUNT 5.8 10^3/uL (4.0-10.0)
[2021-09-02 10:39] LABS: HEMOGLOBIN A1c 5.8 %
[2021-09-02 10:40] LABS: BLOOD UREA NITROGEN 11 MG/DL (7-18); CALCIUM LEVEL 9.1 MG/DL (8.5-10.1); CARBON DIOXIDE LEVEL 26 MEQ/L (21-32); CHLORIDE LEVEL 107 MEQ/L (98-107); CREATININE FOR GFR 0.99 MG/DL (0.55-1.30); GLOMERULAR FILTRATION RATE > 60.0 (>58); GLUCOSE, FASTING 105 MG/DL (70-100); SODIUM LEVEL 139 MEQ/L (136-145)
== END ==
LOC: M LAB 08:50
PROVIDERS: ATTEND Specialist
DX: Z01.818 Encounter for other preprocedural examination (principal)

== ENCOUNTER 2021-09-07 10:24 | Day surgery (SDC) | payer OTHER ==
[~2021-09-07] VITALS: Ht 170.2 cm; Wt 110.7 kg
[~2021-09-07 10:24] MED LIST changes: +LR 1,000 ML IV ONE
[2021-09-07] MEDS ORDERED: LIDOCAINE W/EPINEPHRINE 1% 20ML VIAL As Ordered ONE (12:55)
[2021-09-07] MEDS ORDERED: MIDAZOLAM INJ 2MG/2ML VIAL (J2250 PER 1MG) As Ordered ONE (13:10)
[2021-09-07] MEDS ORDERED: KETOROLAC 60MG 2ML VIAL As Ordered ONE (13:10)
[2021-09-07] MEDS ORDERED: fentaNYL 100 MCG/2 ML INJECTION As Ordered ONE (13:10)
[2021-09-07] MEDS ORDERED: propofoL 200 MG/20 ML VIAL As Ordered ONE ×2 (13:10→13:12)
[2021-09-07] MEDS ORDERED: LIDOCAINE 2% 100MG/5ML SDV (FOR ANES.) As Ordered ONE (13:10)
[2021-09-07] MEDS ORDERED: ONDANSETRON 4MG/2ML VIAL As Ordered ONE (13:10)
[2021-09-07] MEDS ORDERED: dexameTHASONE 4 MG/ML 1ML VIAL (J1100 PER 1MG) As Ordered ONE (13:10)
[2021-09-07] MEDS ORDERED: ACETAMINOPHEN 1000MG 100ML IV BTL (OFIRMEV) (J0131 PER 10MG) As Ordered ONE (13:11)
[2021-09-07 13:40] VITALS: BP 131/70
== END 2021-09-07 13:52 | disposition home or self-care (01) ==
LOC: M SDC 10:24
PROVIDERS: ATTEND Surgery
DX: D17.1 Benign lipomatous neoplasm of skin and subcutaneous tissue of trunk (principal); I10 Essential (primary) hypertension; J45.909 Unspecified asthma, uncomplicated; K21.9 Gastro-esophageal reflux disease without esophagitis; F33.9 Major depressive disorder, recurrent, unspecified; F41.9 Anxiety disorder, unspecified; D50.9 Iron deficiency anemia, unspecified; G47.9 Sleep disorder, unspecified; M19.90 Unspecified osteoarthritis, unspecified site; Z79.899 Other long term (current) drug therapy; F17.210 Nicotine dependence, cigarettes, uncomplicated
CPT/HCPCS: 21931; 88304; J0131; J1100; J1885; J2250; J2405; J3010

== ENCOUNTER → 2021-10-26 | Outpatient (CLI) | payer OTHER ==
[~2021-10-26] MED LIST changes: +ALBU2.5V10 INH; -ALBU83IN INH; -LR 1,000 ML IV ONE
== END ==
LOC: M PAIN 09:30
PROVIDERS: ATTEND Nurse Practitioner Family
DX: R10.2 Pelvic and perineal pain (principal); G89.29 Other chronic pain; G47.33 Obstructive sleep apnea (adult) (pediatric); M19.90 Unspecified osteoarthritis, unspecified site; F17.210 Nicotine dependence, cigarettes, uncomplicated; Z86.59 Personal history of other mental and behavioral disorders; Z91.041 Radiographic dye allergy status; Z79.51 Long term (current) use of inhaled steroids; Z79.891 Long term (current) use of opiate analgesic; Z79.899 Other long term (current) drug therapy

== ENCOUNTER → 2021-11-19 | Outpatient (REF) | payer OTHER | LOC: M LAB REF 20:44 | PROVIDERS: ATTEND Physician Assistant | DX: B37.3 Candidiasis of vulva and vagina (principal) ==

== ENCOUNTER → 2022-03-25 | Outpatient (CLI) | payer OTHER ==
[~2022-03-25] MED LIST changes: -DULE200A INH; +MOME13HF7 INH
== END ==
LOC: M WHC 14:53
PROVIDERS: ATTEND Obstetrics & Gynecology
DX: R10.30 Lower abdominal pain, unspecified (principal)

== ENCOUNTER → 2022-04-05 | Outpatient (CLI) | payer OTHER | LOC: M PAIN 08:45 | PROVIDERS: ATTEND Nurse Practitioner Family | DX: R10.2 Pelvic and perineal pain (principal); F43.10 Post-traumatic stress disorder, unspecified; F41.0 Panic disorder [episodic paroxysmal anxiety]; G47.33 Obstructive sleep apnea (adult) (pediatric); R32 Unspecified urinary incontinence; M19.90 Unspecified osteoarthritis, unspecified site; F17.210 Nicotine dependence, cigarettes, uncomplicated; Z79.891 Long term (current) use of opiate analgesic; Z79.899 Other long term (current) drug therapy; Z91.041 Radiographic dye allergy status ==

== ENCOUNTER → 2022-04-21 | Outpatient (CLI) | payer OTHER ==
[2022-04-21 14:20] LABS: APPEARANCE, URINE MANUAL CLEAR (CLEAR); BILIRUBIN, URINE MANUAL NEGATIVE (NEGATIVE); COLOR, URINE MANUAL YELLOW (YELLOW); GLUCOSE, URINE (UA) MANUAL NEGATIVE (NEGATIVE); KETONE, URINE MANUAL NEGATIVE (NEGATIVE); LEUKOCYTE ESTERASE, URINE MAN NEGATIVE (NEGATIVE); NITRITE, URINE MANUAL NEGATIVE (NEGATIVE); PROTEIN, URINE MANUAL NEGATIVE (NEGATIVE); SPECIFIC GRAVITY,URINE MANUAL 1.025 (1.002-1.035); UROBILINOGEN, URINE MANUAL NORMAL (NORMAL)
[2022-04-21 14:21] LABS: BLOOD URINE MANUAL POSITIVE (NEGATIVE)
[2022-04-21 14:23] LABS: BASO % 0.7 % (0.0-1.0); EOS # 0.1 10^3/uL (0.0-0.5); EOS % 2.4 % (0.0-3.0); HEMATOCRIT 31.2 % (36.0-47.0); HEMOGLOBIN 9.8 g/dl (12.0-15.5); LYMPH # 3.2 10^3/uL (1.5-5.0); LYMPH % 60.7 % (24.0-44.0); MEAN CORPUSCULAR HGB CONC 31.4 g/dl (32.0-36.5); MEAN CORPUSCULAR VOLUME 95.4 fl (80.0-96.0); MONO # 0.4 10^3/uL (0.0-0.8); MONO % 7.5 % (2.0-8.0); NEUTROPHILS # 1.5 10^3/uL (1.5-8.5); NEUTROPHILS % 28.5 % (36.0-66.0); RED BLOOD COUNT 3.27 10^6/uL (4.00-5.40); WHITE BLOOD COUNT 5.3 10^3/uL (4.0-10.0)
[2022-04-21 14:42] LABS: SQUAMOUS EPITHELIAL CELL URINE SMALL AMOUNT /hpf (SMALL AMT)
[2022-04-21 14:43] LABS: BACTERIA, URINE SMALL AMOUNT; MUCUS, URINE SMALL AMOUNT (NEGATIVE)
[2022-04-21 16:03] LABS: IRON (FE) 362 UG/DL (50-170)
[2022-04-21 16:05] LABS: BLOOD UREA NITROGEN 12 MG/DL (9-23); CALCIUM LEVEL 8.3 MG/DL (8.5-10.1); CARBON DIOXIDE LEVEL 23 MMOL/L (20-31); CHLORIDE LEVEL 105 MMOL/L (98-107); CREATININE FOR GFR 0.93 MG/DL (0.55-1.30); FERRITIN 7.7 NG/ML (7.3-270.7); GLOMERULAR FILTRATION RATE > 60.0 (>51); GLUCOSE, FASTING 96 MG/DL (60-100); PERCENT SATURATION 95.8 % (13.2-45.0); POTASSIUM SERUM 4.2 MMOL/L (3.5-5.1); SODIUM LEVEL 138 MMOL/L (136-145); TOTAL IRON BINDING CAPACITY 378 UG/DL (250-425)
[2022-04-22 12:20] LABS: CHOLESTEROL LEVEL 171 MG/DL (<200); CHOLESTEROL RISK RATIO 2.49 (<5); HDL CHOLESTEROL 68.6 MG/DL (>40); NON-HDL-C 102 MG/DL; TRIGLYCERIDES LEVEL 67 MG/DL (<150)
[2022-04-22 15:24] LABS: ALBUMIN 3.6 G/DL (3.2-5.2); ALKALINE PHOSPHATASE 75 U/L (46-116); ALT/SGPT 13 U/L (7.0-40); AST/SGOT 16 U/L (<34); BILIRUBIN,DIRECT < 0.1 MG/DL (<0.4); BILIRUBIN,TOTAL 0.3 MG/DL (0.3-1.2); TOTAL PROTEIN 6.9 G/DL (5.7-8.2)
== END ==
LOC: M PLALAB 11:46
PROVIDERS: ATTEND Student in an Organized Health Care Education/Training Program
DX: R10.2 Pelvic and perineal pain (principal)

== ENCOUNTER → 2022-04-26 | Outpatient (CLI) | payer OTHER ==
[2022-04-26 11:13] LABS: BASO % 0.7 % (0.0-1.0); EOS # 0.1 10^3/uL (0.0-0.5); EOS % 2.3 % (0.0-3.0); HEMOGLOBIN 9.9 g/dl (12.0-15.5); LYMPH # 2.2 10^3/uL (1.5-5.0); LYMPH % 50.9 % (24.0-44.0); MEAN CORPUSCULAR HEMOGLOBIN 30.2 pg (27.0-33.0); MEAN CORPUSCULAR HGB CONC 30.9 g/dl (32.0-36.5); MEAN CORPUSCULAR VOLUME 97.6 fl (80.0-96.0); MONO # 0.3 10^3/uL (0.0-0.8); MONO % 6.6 % (2.0-8.0); NEUTROPHILS # 1.7 10^3/uL (1.5-8.5); NEUTROPHILS % 39.3 % (36.0-66.0); PLATELET COUNT, AUTOMATED 201 10^3/uL (150-450); RED BLOOD COUNT 3.28 10^6/uL (4.00-5.40); WHITE BLOOD COUNT 4.3 10^3/uL (4.0-10.0)
[2022-04-26 11:21] LABS: PLTBLUE- EDTA FREE CALC 156 K/mm3 (172-450); PLTBLUE- EDTA FREE MACHINE 142 10^3/uL (172-450)
[2022-04-26 14:42] LABS: FOLATE 7.47 NG/ML (>5.4)
[2022-04-26 20:16] LABS: HEMOGLOBIN A1c 5.4 % (4.0-6.0)
== END ==
LOC: M PLALAB 09:13
PROVIDERS: ATTEND Student in an Organized Health Care Education/Training Program
DX: D64.9 Anemia, unspecified (principal)

== ENCOUNTER → 2022-07-19 | Outpatient (CLI) | payer OTHER | LOC: M PAIN 09:00 | PROVIDERS: ATTEND Nurse Practitioner Family | DX: Z79.891 Long term (current) use of opiate analgesic (principal) ==

== ENCOUNTER → 2022-07-22 | Outpatient (CLI) | payer OTHER ==
[2022-07-22 09:55] LABS: BASO % 0.6 % (0.0-1.0); EOS # 0.1 10^3/uL (0.0-0.5); EOS % 1.6 % (0.0-3.0); HEMOGLOBIN 10.2 g/dl (12.0-15.5); LYMPH % 28.8 % (24.0-44.0); MEAN CORPUSCULAR HEMOGLOBIN 29.7 pg (27.0-33.0); MEAN CORPUSCULAR HGB CONC 31.9 g/dl (32.0-36.5); MONO # 0.5 10^3/uL (0.0-0.8); MONO % 7.7 % (2.0-8.0); NEUTROPHILS # 4.3 10^3/uL (1.5-8.5); NEUTROPHILS % 60.9 % (36.0-66.0); PLATELET COUNT, AUTOMATED 261 10^3/uL (150-450); RED BLOOD COUNT 3.44 10^6/uL (4.00-5.40)
[2022-07-22 10:24] LABS: ALBUMIN 3.6 G/DL (3.2-5.2); ALKALINE PHOSPHATASE 78 U/L (46-116); ALT/SGPT 19 U/L (7.0-40); AST/SGOT 28 U/L (<34); BILIRUBIN,DIRECT 0.1 MG/DL (<0.4); BILIRUBIN,TOTAL 0.6 MG/DL (0.3-1.2); FREE T4 1.27 NG/DL (0.89-1.76); THYROID STIMULATING HORMONE 1.026 uIU/ML (0.55-4.78); TOTAL PROTEIN 7.1 G/DL (5.7-8.2)
[2022-07-22 10:39] LABS: HEPATITIS B SURFACE ANTIGEN NEGATIVE (NEGATIVE)
[2022-07-22 10:52] LABS: HIV 1&2 SCREEN CENTAUR NEGATIVE (NEGATIVE)
[2022-07-22 11:00] LABS: HEPATITIS B CORE ANTIBODY IGM NEGATIVE (NEGATIVE); HEPATITIS C VIRUS ABY INDEX 0.1 INDEX (<0.8)
[2022-07-23 08:09] LABS: HEPATITIS B CORE ANTIBODY IGG Negative (Negative)
== END ==
LOC: M LAB 08:20
PROVIDERS: ATTEND Internal Medicine Hematology
DX: D53.9 Nutritional anemia, unspecified (principal)

== ENCOUNTER → 2022-08-16 | Outpatient (CLI) | payer OTHER | LOC: M PAIN 09:00 | PROVIDERS: ATTEND Nurse Practitioner Family | DX: R10.2 Pelvic and perineal pain (principal); F43.10 Post-traumatic stress disorder, unspecified; F41.0 Panic disorder [episodic paroxysmal anxiety]; G47.33 Obstructive sleep apnea (adult) (pediatric); F17.210 Nicotine dependence, cigarettes, uncomplicated; Z79.891 Long term (current) use of opiate analgesic; Z79.899 Other long term (current) drug therapy; Z91.041 Radiographic dye allergy status ==

== ENCOUNTER → 2022-11-29 | Outpatient (CLI) | payer OTHER ==
[~2022-11-29] MED LIST changes: +ALPR0.25 PO; +PRED10TA2 PO; +QUET50TA4 PO; +SYMB80INH INH; -VENTAER; +VENTAER INH
== END ==
LOC: M PAIN 11:15
PROVIDERS: ATTEND Nurse Practitioner Family
DX: R10.2 Pelvic and perineal pain (principal); F43.10 Post-traumatic stress disorder, unspecified; F41.0 Panic disorder [episodic paroxysmal anxiety]; G47.33 Obstructive sleep apnea (adult) (pediatric); M19.90 Unspecified osteoarthritis, unspecified site; F17.210 Nicotine dependence, cigarettes, uncomplicated; Z79.891 Long term (current) use of opiate analgesic; Z79.52 Long term (current) use of systemic steroids; Z79.899 Other long term (current) drug therapy; Z91.041 Radiographic dye allergy status

== ENCOUNTER → 2022-12-30 | Outpatient (CLI) | payer OTHER | LOC: M PAIN 15:00 | PROVIDERS: ATTEND Nurse Practitioner Family | DX: R10.2 Pelvic and perineal pain (principal); G89.29 Other chronic pain; F43.10 Post-traumatic stress disorder, unspecified; F41.0 Panic disorder [episodic paroxysmal anxiety]; G47.33 Obstructive sleep apnea (adult) (pediatric); I10 Essential (primary) hypertension; F17.210 Nicotine dependence, cigarettes, uncomplicated; Z79.891 Long term (current) use of opiate analgesic; Z79.899 Other long term (current) drug therapy; Z91.041 Radiographic dye allergy status ==

== ENCOUNTER 2023-03-25 14:55 | Emergency (ER) | payer MEDICAID, OTHER ==
[2023-03-25] MEDS ORDERED: IPRATROPIUM 0.5MG/ALBUTEROL 2.5MG INH SOL UD 3ML (DUONEB) NEB ONE (15:10)
[2023-03-25 15:37] LABS: BASO # 0.1 10^3/uL (0.0-0.2); BASO % 0.7 % (0.0-1.0); EOS # 0.3 10^3/uL (0.0-0.5); EOS % 3.6 % (0.0-3.0); HEMATOCRIT 36.3 % (36.0-47.0); HEMOGLOBIN 11.4 g/dl (12.0-15.5); LYMPH # 4.5 10^3/uL (1.5-5.0); LYMPH % 55.4 % (24.0-44.0); MEAN CORPUSCULAR HEMOGLOBIN 28.6 pg (27.0-33.0); MEAN CORPUSCULAR HGB CONC 31.4 g/dl (32.0-36.5); MONO # 0.5 10^3/uL (0.0-0.8); MONO % 6.3 % (2.0-8.0); NEUTROPHILS # 2.7 10^3/uL (1.5-8.5); NEUTROPHILS % 33.5 % (36.0-66.0); PLATELET COUNT, AUTOMATED 412 10^3/uL (150-450); RED BLOOD COUNT 3.99 10^6/uL (4.00-5.40); WHITE BLOOD COUNT 8.1 10^3/uL (4.0-10.0)
[2023-03-25 15:47] LABS: VENOUS BASE EXCESS -4.3 (-2.0-2.0); VENOUS HCO3 21.1 MMOL/L (23.0-27.0); VENOUS O2 SATURATION 87.3 % (60.0-80.0); VENOUS PARTIAL PRESSURE O2 54.2 mmHg (30.0-50.0); VENOUS STANDARD HCO3 20.7 MMOL/L; VENOUS TOTAL CO2 22.3 MMOL/L (24.0-28.0)
[2023-03-25 15:53] LABS: ABG HCO3 21.3 MMOL/L (22.0-26.0); ABG O2 SATURATION 98.7 % (95.0-99.0); ABG PARTIAL PRESSURE CO2 22.9 mmHg (35.0-45.0); ABG PARTIAL PRESSURE O2 115.7 mmHg (75.0-100.0); ABG STANDARD HCO3 25.4 MMOL/L. (22.0-26.0); ABG pH (ARTERIAL) 7.587 UNITS (7.350-7.450)
[2023-03-25 16:01] LABS: INR 0.98; PROTHROMBIN TIME 12.7 SECONDS (12.5-14.5)
[2023-03-25 16:02] LABS: PARTIAL THROMBOPLASTIN TIME 29.5 SECONDS (24.8-34.2)
[2023-03-25] MEDS ORDERED: ALPRAZolam 0.5 MG TAB PO ONE (16:05)
[2023-03-25 16:07] LABS: CK-MB VALUE MASS < 1.0 NG/ML (<3.6); LIPASE 26 U/L (12-53)
[2023-03-25] MEDS ORDERED: ISOVUE-370 76% 100ML VIAL As Ordered ONE (16:07)
[2023-03-25 16:09] LABS: ALBUMIN 3.5 G/DL (3.2-5.2); ALKALINE PHOSPHATASE 73 U/L (46-116); ALT/SGPT 14 U/L (7.0-40); AST/SGOT 15 U/L (<34); BILIRUBIN,DIRECT < 0.1 MG/DL (<0.4); BILIRUBIN,TOTAL 0.3 MG/DL (0.3-1.2); BLOOD UREA NITROGEN 8 MG/DL (9-23); CALCIUM LEVEL 9.6 MG/DL (8.5-10.1); CARBON DIOXIDE LEVEL 22 MMOL/L (20-31); CHLORIDE LEVEL 107 MMOL/L (98-107); CPK CREATINE PHOSPHOKINASE 111 U/L (34-145); GLOMERULAR FILTRATION RATE > 60.0 (>51); GLUCOSE, FASTING 124 MG/DL (60-100); POTASSIUM SERUM 4.2 MMOL/L (3.5-5.1); SODIUM LEVEL 141 MMOL/L (136-145); TOTAL PROTEIN 7.2 G/DL (5.7-8.2)
[2023-03-25] MEDS ORDERED: NS 1,000 ML IV ONE (16:40)
[2023-03-25 17:23] LABS: AMPHETAMINES LEVEL URINE NEGATIVE (NEGATIVE); BARBITURATES URINE NEGATIVE (NEGATIVE); BENZODIAZEPINES URINE NEGATIVE (NEGATIVE); CANNABINOIDS URINE NEGATIVE (NEGATIVE); COCAINE METABOLITE URINE NEGATIVE (NEGATIVE); METHADONE URINE NEGATIVE (NEGATIVE); OPIATES URINE NEGATIVE (NEGATIVE); PHENCYCLIDINE URINE NEGATIVE (NEGATIVE)
[2023-03-25] MEDS ORDERED: guaiFENesin 200 MG TAB PO ONE (17:30)
[2023-03-25 17:52] LABS: CK-MB VALUE MASS < 1.0 NG/ML (<3.6)
[2023-03-25] MEDS ORDERED: LEVALBUTEROL 1.25MG 0.5ML CONCENTRATE NEB NEB ONE (17:55)
[2023-03-25] MEDS ORDERED: ACETAMINOPHEN 500 MG TAB PO ONE (17:55)
[2023-03-25 18:01] LABS: CPK CREATINE PHOSPHOKINASE 157 U/L (34-145); MB/CK RELATIVE INDEX 0.63 (< OR =4)
[2023-03-25] MEDS ORDERED: PRED20TA PO (18:34)
[2023-03-25] MEDS ORDERED: IBUPROFEN 800 MG TAB PO ONE (18:55)
[2023-03-25 19:12] VITALS: BP 130/70; TEMP 98.1; O2SAT 99
== END 2023-03-25 19:15 | disposition home or self-care (01) ==
LOC: M ED 14:55 → EDBD 14:55 → M ED 19:15
DX: J45.901 Unspecified asthma with (acute) exacerbation (principal); F41.1 Generalized anxiety disorder; I10 Essential (primary) hypertension; G47.33 Obstructive sleep apnea (adult) (pediatric); F32.A Depression, unspecified; F17.200 Nicotine dependence, unspecified, uncomplicated; Z79.899 Other long term (current) drug therapy
CPT/HCPCS: 36600; 71045; 71275; 80047; 80048; 80076; 80307; 82550; 82553; 82803; 83605; 83690; 83880; 85025; 85610; 85730; 87486; 87581; 87633; 87798; 93005; 93041; 94640; 94760; 96360; 96361; 99291; Q9967

== ENCOUNTER → 2023-03-29 | Outpatient (CLI) | payer OTHER ==
[~2023-03-29] MED LIST changes: +PRED20TA PO
== END ==
LOC: M PAIN 16:00
PROVIDERS: ATTEND Nurse Practitioner Family
DX: R10.2 Pelvic and perineal pain (principal); G89.29 Other chronic pain; F43.10 Post-traumatic stress disorder, unspecified; F41.0 Panic disorder [episodic paroxysmal anxiety]; G47.33 Obstructive sleep apnea (adult) (pediatric); R32 Unspecified urinary incontinence; M19.90 Unspecified osteoarthritis, unspecified site; F17.210 Nicotine dependence, cigarettes, uncomplicated; Z79.891 Long term (current) use of opiate analgesic; Z79.899 Other long term (current) drug therapy; Z91.041 Radiographic dye allergy status

== ENCOUNTER → 2023-06-21 | Outpatient (CLI) | payer OTHER ==
[~2023-06-21] MED LIST changes: +ACET-897 PO; +ADVA115A INH; +ALBU8.5H INH; +GUAI100S51 PO; +OMEP40CA5 PO; +SYMB16INH INH
== END ==
LOC: M PAIN 17:30
PROVIDERS: ATTEND Nurse Practitioner Family
DX: R10.2 Pelvic and perineal pain (principal); Z79.891 Long term (current) use of opiate analgesic; G89.29 Other chronic pain; F43.10 Post-traumatic stress disorder, unspecified; F41.0 Panic disorder [episodic paroxysmal anxiety]; G47.33 Obstructive sleep apnea (adult) (pediatric); I10 Essential (primary) hypertension; F17.210 Nicotine dependence, cigarettes, uncomplicated; Z79.899 Other long term (current) drug therapy; Z91.041 Radiographic dye allergy status

== ENCOUNTER → 2023-07-01 | Outpatient (REF) | payer OTHER ==
[2023-07-01 10:44] LABS: APPEARANCE, URINE CLEAR (CLEAR); BACTERIA, URINE AUTO NEGATIVE (NEGATIVE); BILIRUBIN, URINE AUTO NEGATIVE (NEGATIVE); BLOOD, URINE BLOOD 1+ (NEGATIVE); COLOR, URINE YELLOW (YELLOW); GLUCOSE, URINE (UA) AUTO NEGATIVE (NEGATIVE); KETONE, URINE AUTO NEGATIVE (NEGATIVE); LEUKOCYTE ESTERASE, URINE AUTO NEGATIVE (NEGATIVE); NITRITE, URINE AUTO NEGATIVE (NEGATIVE); PROTEIN, URINE AUTO NEGATIVE (NEGATIVE); RBC, URINE AUTO 5 /HPF (0-3); SPECIFIC GRAVITY URINE AUTO 1.016 (1.002-1.035); SQUAMOUS EPITHELIAL CELL UR AU 1 /HPF (0-6); UROBILINOGEN, URINE AUTO 0.2 mg/dL (0.0-2.0); WBC, URINE AUTO 1 /HPF (0-3)
== END ==
LOC: M SMT 10:07
PROVIDERS: ATTEND Physician Assistant
DX: N39.3 Stress incontinence (female) (male) (principal)

== ENCOUNTER → 2023-09-13 | Outpatient (CLI) | payer OTHER | LOC: M PAIN 10:00 | PROVIDERS: ATTEND Nurse Practitioner Family | DX: R10.2 Pelvic and perineal pain (principal); Z79.891 Long term (current) use of opiate analgesic; G89.29 Other chronic pain; F43.10 Post-traumatic stress disorder, unspecified; F41.0 Panic disorder [episodic paroxysmal anxiety]; G47.33 Obstructive sleep apnea (adult) (pediatric); R32 Unspecified urinary incontinence; F17.210 Nicotine dependence, cigarettes, uncomplicated; Z79.52 Long term (current) use of systemic steroids; Z79.899 Other long term (current) drug therapy; Z91.041 Radiographic dye allergy status ==

== ENCOUNTER → 2023-11-10 | Outpatient (CLI) | payer OTHER ==
[~2023-11-10] MED LIST changes: +ONDA-282 PO; -ONDA4TAB6 PO
== END ==
LOC: M PAIN 10:45
PROVIDERS: ATTEND Nurse Practitioner Family
DX: R10.2 Pelvic and perineal pain (principal); I10 Essential (primary) hypertension; F17.200 Nicotine dependence, unspecified, uncomplicated; Z79.1 Long term (current) use of non-steroidal anti-inflammatories (NSAID); Z79.51 Long term (current) use of inhaled steroids; Z79.52 Long term (current) use of systemic steroids; Z79.891 Long term (current) use of opiate analgesic; Z79.899 Other long term (current) drug therapy; Z91.041 Radiographic dye allergy status

== ENCOUNTER → 2024-01-27 | Outpatient (REF) | payer OTHER ==
[2024-01-27 18:32] LABS: APPEARANCE, URINE HAZY (CLEAR); BACTERIA, URINE AUTO NEGATIVE (NEGATIVE); BILIRUBIN, URINE AUTO NEGATIVE (NEGATIVE); BLOOD, URINE BLOOD 2+ (NEGATIVE); COLOR, URINE YELLOW (YELLOW); GLUCOSE, URINE (UA) AUTO NEGATIVE (NEGATIVE); KETONE, URINE AUTO NEGATIVE (NEGATIVE); LEUKOCYTE ESTERASE, URINE AUTO NEGATIVE (NEGATIVE); MUCUS, URINE SMALL (NEGATIVE); NITRITE, URINE AUTO NEGATIVE (NEGATIVE); PROTEIN, URINE AUTO NEGATIVE (NEGATIVE); RBC, URINE AUTO 14 /HPF (0-3); SPECIFIC GRAVITY URINE AUTO 1.025 (1.002-1.035); SQUAMOUS EPITHELIAL CELL UR AU 2 /HPF (0-6); UROBILINOGEN, URINE AUTO 0.2 mg/dL (0.0-2.0); WBC, URINE AUTO 0 /HPF (0-3)
== END ==
LOC: M LAB REF 17:50
PROVIDERS: ATTEND Physician Assistant
DX: N76.0 Acute vaginitis (principal)

== ENCOUNTER → 2024-02-13 | Outpatient (CLI) | payer OTHER ==
[~2024-02-13] MED LIST changes: +BUDE2SUS3 INH; +FLUT1BLS16 INH; +GABA-1172 PO; -GABA-282 PO; +MIRA50TA2 PO; -ONDA-282 PO; +ONDA-282 SL
== END ==
LOC: M PAIN 14:30
PROVIDERS: ATTEND Nurse Practitioner Family
DX: R10.2 Pelvic and perineal pain (principal); Z79.891 Long term (current) use of opiate analgesic; G89.29 Other chronic pain; F43.10 Post-traumatic stress disorder, unspecified; F41.0 Panic disorder [episodic paroxysmal anxiety]; G47.33 Obstructive sleep apnea (adult) (pediatric); I10 Essential (primary) hypertension; F17.210 Nicotine dependence, cigarettes, uncomplicated; Z79.899 Other long term (current) drug therapy; Z91.041 Radiographic dye allergy status

== ENCOUNTER 2024-02-26 17:23 | Inpatient (IN) | payer OTHER ==
[~2024-02-26] VITALS: Ht 177.8 cm; Wt 102.3 kg
[~2024-02-26 17:23] MED LIST changes: -BUDE2SUS3 INH; -FLUT1BLS16 INH; -MIRA50TA2 PO
[2024-02-26] MEDS: IPRATROPIUM 0.5MG/ALBUTEROL 2.5MG INH SOL UD 3ML (DUONEB) NEB PRN (17:36)
[2024-02-26] MEDS: methylPREDNISolone 125MG 2ML VIAL IV ONE (17:45)
[2024-02-26] MEDS ORDERED: BUDE2SUS3 INH (18:02)
[2024-02-26] MEDS: LORazepam 2 MG/ML 1ML VIAL IV STA (18:09)
[2024-02-26 18:23] LABS: BASO # 0.1 10^3/uL (0.0-0.2); BASO % 0.8 % (0.0-1.0); EOS # 0.3 10^3/uL (0.0-0.5); EOS % 3.8 % (0.0-3.0); HEMATOCRIT 33.7 % (36.0-47.0); HEMOGLOBIN 10.9 g/dl (12.0-15.5); LYMPH # 2.6 10^3/uL (1.5-5.0); LYMPH % 30.6 % (24.0-44.0); MEAN CORPUSCULAR HEMOGLOBIN 30.2 pg (27.0-33.0); MEAN CORPUSCULAR HGB CONC 32.3 g/dl (32.0-36.5); MEAN CORPUSCULAR VOLUME 93.4 fl (80.0-96.0); MONO # 0.9 10^3/uL (0.0-0.8); MONO % 10.6 % (2.0-8.0); NEUTROPHILS # 4.5 10^3/uL (1.5-8.5); PLATELET COUNT, AUTOMATED 300 10^3/uL (150-450); RED BLOOD COUNT 3.61 10^6/uL (4.00-5.40); WHITE BLOOD COUNT 8.3 10^3/uL (4.0-10.0)
[2024-02-26 18:50] LABS: ALBUMIN 3.3 G/DL (3.2-5.2); ALKALINE PHOSPHATASE 62 U/L (46-116); ALT/SGPT < 9 U/L (7.0-40); AST/SGOT 12 U/L (<34); BILIRUBIN,DIRECT < 0.1 MG/DL (<0.4); BILIRUBIN,TOTAL 0.3 MG/DL (0.3-1.2); BLOOD UREA NITROGEN 15 MG/DL (9-23); CALCIUM LEVEL 9.9 MG/DL (8.5-10.1); CARBON DIOXIDE LEVEL 23 MMOL/L (20-31); CHLORIDE LEVEL 110 MMOL/L (98-107); CK-MB VALUE MASS < 1.0 NG/ML (<3.6); CPK CREATINE PHOSPHOKINASE 88 U/L (34-145); CREATININE FOR GFR 0.89 MG/DL (0.55-1.30); GLOMERULAR FILTRATION RATE > 60.0 (>51); GLUCOSE, FASTING 123 MG/DL (60-100); MB/CK RELATIVE INDEX 1.13 (< OR =4); POTASSIUM SERUM 4.1 MMOL/L (3.5-5.1); SODIUM LEVEL 141 MMOL/L (136-145); TOTAL PROTEIN 6.5 G/DL (5.7-8.2)
[2024-02-26] MEDS: MAG SULF 1GM/100ML (MAG RUN) 1 GM in IV 1 EA IV SCH (19:45)
[2024-02-26] MEDS: BENZONATATE 100MG CAPSULE PO ONE (20:10)
[2024-02-26 20:17] LABS: CK-MB VALUE MASS < 1.0 NG/ML (<3.6)
[2024-02-26 20:18] LABS: CPK CREATINE PHOSPHOKINASE 94 U/L (34-145); MB/CK RELATIVE INDEX 1.06 (< OR =4)
[2024-02-26] MEDS: LEVALBUTEROL 1.25MG 0.5ML CONCENTRATE NEB NEB ONE (20:40)
[2024-02-26] MEDS ORDERED: MIRA50TA2 PO (22:30)
[2024-02-26] MEDS ORDERED: FLUT1BLS16 INH (22:30)
[2024-02-26] MEDS: ALBUTEROL SULFATE 2.5MG/0.5ML INH NEB SOLN NEB PRN (22:32)
[2024-02-26] MEDS ORDERED: HOME MED LIST COMPLETE! XX SCH (22:35)
[2024-02-26 23:18] VITALS: BP 138/83; TEMP 98.1; O2SAT 95
[2024-02-26] MEDS: ACETAMINOPHEN 325 MG TAB PO PRN (23:41)
[2024-02-27] MEDS: IPRATROPIUM 0.5MG/ALBUTEROL 2.5MG INH SOL UD 3ML (DUONEB) NEB SCH (01:31)
[2024-02-27] MEDS: CYCLOBENZAPRINE 10MG TABLET PO PRN (01:45)
[2024-02-27] MEDS: oxyCODONE 5MG TAB PO PRN (01:46)
[2024-02-27] MEDS: QUEtiapine FUMARATE 100 MG TAB PO SCH (02:31)
[2024-02-27 04:30] VITALS: BP 119/72; TEMP 97.9; O2SAT 94
[2024-02-27] MEDS ORDERED: guaiFENesin DM LIQ 10ML UD PO PRN (06:45)
[2024-02-27 06:55] LABS: ALBUMIN 3.2 G/DL (3.2-5.2); ALKALINE PHOSPHATASE 62 U/L (46-116); ALT/SGPT < 9 U/L (7.0-40); AST/SGOT < 8 U/L (<34); BILIRUBIN,TOTAL 0.3 MG/DL (0.3-1.2); BLOOD UREA NITROGEN 13 MG/DL (9-23); CALCIUM LEVEL 9.3 MG/DL (8.5-10.1); CARBON DIOXIDE LEVEL 26 MMOL/L (20-31); CHLORIDE LEVEL 109 MMOL/L (98-107); CREATININE FOR GFR 0.67 MG/DL (0.55-1.30); GLOMERULAR FILTRATION RATE > 60.0 (>51); GLUCOSE, FASTING 132 MG/DL (60-100); POTASSIUM SERUM 4.5 MMOL/L (3.5-5.1); SODIUM LEVEL 141 MMOL/L (136-145); TOTAL PROTEIN 6.5 G/DL (5.7-8.2)
[2024-02-27] MEDS: BUDESONIDE 0.5 MG/2 ML INHALATION SUSPENSION NEB SCH (08:00)
[2024-02-27] MEDS: predniSONE 20 MG TAB PO SCH (08:18)
[2024-02-27] MEDS: ENOXAPARIN 40MG/0.4ML SYRINGE (J1650 PER 10MG) SC SCH (08:18)
[2024-02-27] MEDS: GABAPENTIN 300 MG CAP PO SCH (08:19)
[2024-02-27] MEDS: DOCUSATE SODIUM 100MG CAPSULE PO SCH (08:19)
[2024-02-27 08:55] LABS: PROCALCITONIN <0.04 ng/ml
[2024-02-27 09:00] VITALS: O2SAT 96
[2024-02-27] MEDS ORDERED: ONDANSETRON 4MG ORAL DISINTEGRATING TAB SL PRN (09:45)
[2024-02-27] MEDS: ALBUTEROL SULFATE 2.5MG/0.5ML INH NEB SOLN NEB SCH (10:04)
[2024-02-27] MEDS: oxyBUTYnin *DITROPAN XL* 5 MG TABCR PO SCH (10:12)
[2024-02-27] MEDS: LOSARTAN 25 MG TAB PO SCH (10:12)
[2024-02-27] MEDS: OMEPRAZOLE 20MG CAP PO SCH (10:12)
[2024-02-27 12:00] VITALS: BP 107/66; TEMP 98.1; O2SAT 96
[2024-02-27] MEDS: methylPREDNISolone 125MG 2ML VIAL IV SCH (16:29)
[2024-02-27 20:06] VITALS: BP 106/75; TEMP 97; O2SAT 100
[2024-02-28 04:34] VITALS: BP 134/74; TEMP 97.7; O2SAT 98
[2024-02-28 06:02] LABS: HEMATOCRIT 33.5 % (36.0-47.0); HEMOGLOBIN 10.6 g/dl (12.0-15.5); MEAN CORPUSCULAR HGB CONC 31.6 g/dl (32.0-36.5); MEAN CORPUSCULAR VOLUME 94.9 fl (80.0-96.0); PLATELET COUNT, AUTOMATED 271 10^3/uL (150-450); RED BLOOD COUNT 3.53 10^6/uL (4.00-5.40); WHITE BLOOD COUNT 7.4 10^3/uL (4.0-10.0)
[2024-02-28 06:27] LABS: BLOOD UREA NITROGEN 15 MG/DL (9-23); CALCIUM LEVEL 9.2 MG/DL (8.5-10.1); CARBON DIOXIDE LEVEL 25 MMOL/L (20-31); CHLORIDE LEVEL 107 MMOL/L (98-107); CREATININE FOR GFR 0.62 MG/DL (0.55-1.30); GLOMERULAR FILTRATION RATE > 60.0 (>51); GLUCOSE, FASTING 171 MG/DL (60-100); POTASSIUM SERUM 4.2 MMOL/L (3.5-5.1); SODIUM LEVEL 138 MMOL/L (136-145)
[2024-02-28] MEDS: guaiFENesin ER TABLET 600 MG TAB PO SCH (11:17)
[2024-02-28 12:00] VITALS: BP 135/92; TEMP 97.5; O2SAT 96
[2024-02-28] MEDS: IPRATROPIUM 0.5MG/ALBUTEROL 2.5MG INH SOL UD 3ML (DUONEB) NEB SCH (12:00)
[2024-02-28] MEDS: methylPREDNISolone 125MG 2ML VIAL IV STA (13:50)
[2024-02-28] MEDS: MAG SULF 1GM/100ML (MAG RUN) 1 GM in IV 1 EA IV ONE (13:50)
[2024-02-28] MEDS: methylPREDNISolone 125MG 2ML VIAL IV SCH (16:52)
[2024-02-28] MEDS: MOM 30ML SUSPENSION UDC PO PRN (17:31)
[2024-02-28 20:40] VITALS: BP 126/82; TEMP 98.1; O2SAT 96
[2024-02-28] MEDS: atenoloL 25 MG TAB PO SCH (21:27)
[2024-02-28 21:28] LABS: VENOUS BASE EXCESS -2.5 (-2.0-2.0); VENOUS HCO3 22.3 MMOL/L (23.0-27.0); VENOUS O2 SATURATION 83.8 % (60.0-80.0); VENOUS PARTIAL PRESSURE CO2 38.3 mmHg (38.0-50.0); VENOUS PARTIAL PRESSURE O2 50.4 mmHg (30.0-50.0); VENOUS PH 7.382 UNITS (7.330-7.430); VENOUS STANDARD HCO3 22.1 MMOL/L; VENOUS TOTAL CO2 23.4 MMOL/L (24.0-28.0)
[2024-02-28 21:38] LABS: HEMATOCRIT 33.5 % (36.0-47.0); HEMOGLOBIN 10.8 g/dl (12.0-15.5); LYMPH # 0.6 10^3/uL (1.5-5.0); LYMPH % 6.3 % (24.0-44.0); MEAN CORPUSCULAR HEMOGLOBIN 30.6 pg (27.0-33.0); MEAN CORPUSCULAR HGB CONC 32.2 g/dl (32.0-36.5); MEAN CORPUSCULAR VOLUME 94.9 fl (80.0-96.0); MONO # 0.2 10^3/uL (0.0-0.8); MONO % 1.7 % (2.0-8.0); NEUTROPHILS # 8.5 10^3/uL (1.5-8.5); NEUTROPHILS % 91.1 % (36.0-66.0); PLATELET COUNT, AUTOMATED 294 10^3/uL (150-450); RED BLOOD COUNT 3.53 10^6/uL (4.00-5.40); WHITE BLOOD COUNT 9.3 10^3/uL (4.0-10.0)
[2024-02-28 22:01] LABS: D-DIMER QUANT 0.69 ug/mL (<0.5); INR 0.99; PARTIAL THROMBOPLASTIN TIME 26.2 SECONDS (24.8-34.2); PROTHROMBIN TIME 12.8 SECONDS (12.5-14.5)
[2024-02-28] MEDS ORDERED: ISOVUE-370 76% 100ML VIAL As Ordered ONE (22:10)
[2024-02-28 22:23] LABS: ALBUMIN 3.5 G/DL (3.2-5.2); ALKALINE PHOSPHATASE 77 U/L (46-116); ALT/SGPT 10 U/L (7.0-40); AST/SGOT < 8 U/L (<34); BILIRUBIN,TOTAL 0.2 MG/DL (0.3-1.2); BLOOD UREA NITROGEN 18 MG/DL (9-23); CALCIUM LEVEL 9.1 MG/DL (8.5-10.1); CARBON DIOXIDE LEVEL 27 MMOL/L (20-31); CHLORIDE LEVEL 106 MMOL/L (98-107); CK-MB VALUE MASS < 1.0 NG/ML (<3.6); CPK CREATINE PHOSPHOKINASE 66 U/L (34-145); CREATININE FOR GFR 0.71 MG/DL (0.55-1.30); GLOMERULAR FILTRATION RATE > 60.0 (>51); GLUCOSE, FASTING 211 MG/DL (60-100); MAGNESIUM LEVEL 2.6 MG/DL (1.8-2.4); MB/CK RELATIVE INDEX 1.51 (< OR =4); POTASSIUM SERUM 4.2 MMOL/L (3.5-5.1); PROCALCITONIN <0.04 ng/ml; SODIUM LEVEL 138 MMOL/L (136-145)
[2024-02-29 04:46] VITALS: BP 118/72; TEMP 97.9; O2SAT 97
[2024-02-29 06:16] VITALS: O2SAT 95
[2024-02-29 06:37] LABS: BLOOD UREA NITROGEN 18 MG/DL (9-23); CALCIUM LEVEL 8.9 MG/DL (8.5-10.1); CARBON DIOXIDE LEVEL 27 MMOL/L (20-31); CHLORIDE LEVEL 109 MMOL/L (98-107); CREATININE FOR GFR 0.64 MG/DL (0.55-1.30); GLOMERULAR FILTRATION RATE > 60.0 (>51); GLUCOSE, FASTING 158 MG/DL (60-100); POTASSIUM SERUM 4.8 MMOL/L (3.5-5.1); SODIUM LEVEL 140 MMOL/L (136-145)
[2024-02-29 07:00] VITALS: O2SAT 100
[2024-02-29 09:28] LABS: BASO % 0.1 % (0.0-1.0); HEMOGLOBIN 10.2 g/dl (12.0-15.5); LYMPH % 9.3 % (24.0-44.0); MEAN CORPUSCULAR HGB CONC 31.9 g/dl (32.0-36.5); MEAN CORPUSCULAR VOLUME 94.1 fl (80.0-96.0); MONO # 0.5 10^3/uL (0.0-0.8); MONO % 4.5 % (2.0-8.0); NEUTROPHILS # 8.9 10^3/uL (1.5-8.5); NEUTROPHILS % 85.3 % (36.0-66.0); PLATELET COUNT, AUTOMATED 282 10^3/uL (150-450); WHITE BLOOD COUNT 10.5 10^3/uL (4.0-10.0)
[2024-02-29] MEDS: MIRALAX *UNIT DOSE* 17GM PACKET PO PRN (09:57)
[2024-02-29 10:44] LABS: APPEARANCE, URINE CLEAR (CLEAR); BACTERIA, URINE AUTO NEGATIVE (NEGATIVE); BILIRUBIN, URINE AUTO NEGATIVE (NEGATIVE); BLOOD, URINE BLOOD NEGATIVE (NEGATIVE); COLOR, URINE YELLOW (YELLOW); GLUCOSE, URINE (UA) AUTO NEGATIVE (NEGATIVE); KETONE, URINE AUTO NEGATIVE (NEGATIVE); LEUKOCYTE ESTERASE, URINE AUTO NEGATIVE (NEGATIVE); NITRITE, URINE AUTO NEGATIVE (NEGATIVE); PROTEIN, URINE AUTO NEGATIVE (NEGATIVE); RBC, URINE AUTO 2 /HPF (0-3); SPECIFIC GRAVITY URINE AUTO 1.029 (1.002-1.035); SQUAMOUS EPITHELIAL CELL UR AU 1 /HPF (0-6); UROBILINOGEN, URINE AUTO 0.2 mg/dL (0.0-2.0); WBC, URINE AUTO 0 /HPF (0-3)
[2024-02-29 12:00] VITALS: BP 101/66; TEMP 97.7; O2SAT 99
[2024-02-29 19:49] VITALS: BP 129/72; TEMP 97.7; O2SAT 96
[2024-02-29 21:00] VITALS: O2SAT 92
[2024-03-01 04:26] VITALS: BP 123/68; TEMP 97.9; O2SAT 97
[2024-03-01 06:11] LABS: BASO % 0.1 % (0.0-1.0); HEMATOCRIT 31.8 % (36.0-47.0); HEMOGLOBIN 9.8 g/dl (12.0-15.5); LYMPH # 0.7 10^3/uL (1.5-5.0); LYMPH % 7.7 % (24.0-44.0); MEAN CORPUSCULAR HEMOGLOBIN 29.4 pg (27.0-33.0); MEAN CORPUSCULAR HGB CONC 30.8 g/dl (32.0-36.5); MEAN CORPUSCULAR VOLUME 95.5 fl (80.0-96.0); MONO # 0.3 10^3/uL (0.0-0.8); MONO % 3.7 % (2.0-8.0); NEUTROPHILS # 7.9 10^3/uL (1.5-8.5); NEUTROPHILS % 87.4 % (36.0-66.0); PLATELET COUNT, AUTOMATED 252 10^3/uL (150-450); RED BLOOD COUNT 3.33 10^6/uL (4.00-5.40); WHITE BLOOD COUNT 9.1 10^3/uL (4.0-10.0)
[2024-03-01 08:03] VITALS: O2SAT 98
[2024-03-01 12:00] VITALS: BP 124/75; TEMP 97.7; O2SAT 95
[2024-03-01] MEDS: IPRATROPIUM 0.5MG/ALBUTEROL 2.5MG INH SOL UD 3ML (DUONEB) NEB SCH (15:25)
[2024-03-01] MEDS: methylPREDNISolone 125MG 2ML VIAL IV SCH (17:22)
[2024-03-01] MEDS: NICOTINE 7 MG/24 HR TRANSDERMAL TD SCH (18:53)
[2024-03-01] MEDS: FORMOTEROL FUMARATE 20 MCG/2 ML INHALATION SOLUTION (PERFOROMIST) INH SCH (19:04)
[2024-03-01 20:03] VITALS: BP 132/72; TEMP 97.7; O2SAT 99
[2024-03-02 04:00] VITALS: BP 134/74; TEMP 97.7; O2SAT 98
[2024-03-02 12:00] VITALS: BP 137/74; TEMP 97.7; O2SAT 98
[2024-03-02 12:14] LABS: BASO % 0.1 % (0.0-1.0); HEMATOCRIT 32.3 % (36.0-47.0); HEMOGLOBIN 10.4 g/dl (12.0-15.5); LYMPH # 1.4 10^3/uL (1.5-5.0); LYMPH % 14.3 % (24.0-44.0); MEAN CORPUSCULAR HEMOGLOBIN 30.1 pg (27.0-33.0); MEAN CORPUSCULAR HGB CONC 32.2 g/dl (32.0-36.5); MEAN CORPUSCULAR VOLUME 93.4 fl (80.0-96.0); MONO # 0.6 10^3/uL (0.0-0.8); MONO % 5.7 % (2.0-8.0); NEUTROPHILS # 7.9 10^3/uL (1.5-8.5); NEUTROPHILS % 78.4 % (36.0-66.0); PLATELET COUNT, AUTOMATED 267 10^3/uL (150-450); RED BLOOD COUNT 3.46 10^6/uL (4.00-5.40); WHITE BLOOD COUNT 10.1 10^3/uL (4.0-10.0)
[2024-03-02 12:14] LABS: BLOOD UREA NITROGEN 20 MG/DL (9-23); CALCIUM LEVEL 8.5 MG/DL (8.5-10.1); CARBON DIOXIDE LEVEL 24 MMOL/L (20-31); CHLORIDE LEVEL 107 MMOL/L (98-107); CREATININE FOR GFR 0.63 MG/DL (0.55-1.30); GLOMERULAR FILTRATION RATE > 60.0 (>51); GLUCOSE, FASTING 151 MG/DL (60-100); POTASSIUM SERUM 4.2 MMOL/L (3.5-5.1); SODIUM LEVEL 139 MMOL/L (136-145)
[2024-03-02 19:57] VITALS: BP 138/73; TEMP 97.5; O2SAT 100
[2024-03-02] MEDS: GLYCOPYRROLATE INJ 0.2 MG/ML 2 ML VIAL NEB ONE (21:33)
[2024-03-02] MEDS: ALPRAZolam 0.25 MG TAB PO PRN (21:43)
[2024-03-03 04:00] VITALS: BP 123/65; TEMP 97.9; O2SAT 97
[2024-03-03 12:00] VITALS: BP 134/84; TEMP 97.3; O2SAT 94
[2024-03-03] MEDS: GLYCOPYRROLATE INJ 0.2 MG/ML 2 ML VIAL NEB SCH (19:45)
[2024-03-03 20:00] VITALS: BP 127/76; TEMP 97.3; O2SAT 96
[2024-03-04 04:00] VITALS: BP 124/79; TEMP 97.5; O2SAT 94
[2024-03-04 12:00] VITALS: BP 144/79; TEMP 97.5; O2SAT 98
[2024-03-04 20:23] VITALS: BP 123/71; TEMP 97.7; O2SAT 97
[2024-03-05 12:00] VITALS: BP 149/84; TEMP 97.5; O2SAT 100
[2024-03-05] MEDS: methylPREDNISolone 40MG 1ML VIAL IV SCH (16:24)
[2024-03-05] MEDS: NICOTINE POLACRILEX 2 MG GUM PO PRN (16:33)
[2024-03-05 17:00] VITALS: O2SAT 96
[2024-03-05 17:50] VITALS: O2SAT 94
[2024-03-05 20:00] VITALS: BP 131/78; TEMP 96.8; O2SAT 98
[2024-03-05] MEDS: atenoloL 25 MG TAB PO SCH (20:37)
[2024-03-05 21:00] VITALS: O2SAT 95
[2024-03-06 04:00] VITALS: BP 128/69; TEMP 97.3; O2SAT 94
[2024-03-06 12:00] VITALS: BP 135/66; TEMP 97.5; O2SAT 99
[2024-03-06 19:36] VITALS: BP 133/72; TEMP 97.5; O2SAT 95
[2024-03-06 21:00] VITALS: O2SAT 94
[2024-03-07 04:00] VITALS: BP 107/67; TEMP 97.7; O2SAT 97
[2024-03-07] MEDS: predniSONE 20 MG TAB PO SCH (10:48)
[2024-03-07] MEDS ORDERED: DOXY-440 PO (11:32)
[2024-03-07] MEDS ORDERED: ALBU8.5H INH (11:32)
[2024-03-07] MEDS ORDERED: GLYC5INJ NEB (11:32)
[2024-03-07] MEDS ORDERED: PERF20NE2 INH (11:32)
[2024-03-07] MEDS ORDERED: PRED20TA PO ×2 (11:32)
[2024-03-07] MEDS ORDERED: PRED10TA2 PO (11:32)
[2024-03-07] MEDS ORDERED: NICO7PA TD (11:32)
[2024-03-07] MEDS ORDERED: BUDE0.5S6 NEB (11:32)
[2024-03-07] MEDS ORDERED: NICO2GUM PO (11:32)
[2024-03-07] MEDS ORDERED: ALB2.5NEB NEB (11:32)
[2024-03-07 12:00] VITALS: BP 120/75; TEMP 97.7; O2SAT 100
[2024-03-07] MEDS: MAALOX 30 ML SUSP *UDC PO PRN (15:42)
[2024-03-07 20:00] VITALS: O2SAT 98
[2024-03-07 20:16] VITALS: BP 138/79; TEMP 97.5; O2SAT 100
[2024-03-08 04:00] VITALS: BP 120/79; TEMP 97.3; O2SAT 96
[2024-03-08 08:29] VITALS: BP 148/84
[2024-03-08] MEDS: atenoloL 25 MG TAB PO SCH (08:32)
[2024-03-08] MEDS ORDERED: ALPR0.25 PO (09:09)
[2024-03-08] MEDS ORDERED: OXYC-1 PO (11:29)
[2024-03-08] MEDS ORDERED: QUET100T2 PO (11:29)
[2024-03-08] MEDS ORDERED: BROV15NE NEB (11:31)
== END 2024-03-08 12:31 | disposition home or self-care (01) | DRG 141 ==
LOC: M ED 17:23 → M ED INP 17:24 → M MSPAV 23:14 → OBSVTOIN 02-28 16:25
PROVIDERS: ADMIT Internal Medicine; ATTEND General Practice
PROC: B246ZZZ Ultrasonography of Right and Left Heart (ICD-10-PCS; principal; 2024-03-06)
DX: J45.901 Unspecified asthma with (acute) exacerbation (principal); G62.9 Polyneuropathy, unspecified; I10 Essential (primary) hypertension; E66.9 Obesity, unspecified; G47.33 Obstructive sleep apnea (adult) (pediatric); F43.10 Post-traumatic stress disorder, unspecified; F41.0 Panic disorder [episodic paroxysmal anxiety]; K21.9 Gastro-esophageal reflux disease without esophagitis; N32.81 Overactive bladder; R32 Unspecified urinary incontinence; R10.9 Unspecified abdominal pain; E55.9 Vitamin D deficiency, unspecified; E61.1 Iron deficiency; G89.4 Chronic pain syndrome; F17.210 Nicotine dependence, cigarettes, uncomplicated; J06.9 Acute upper respiratory infection, unspecified; K59.00 Constipation, unspecified; R31.29 Other microscopic hematuria; N39.41 Urge incontinence; B97.89 Other viral agents as the cause of diseases classified elsewhere; Z79.891 Long term (current) use of opiate analgesic; Z68.32 Body mass index [BMI] 32.0-32.9, adult; Z79.899 Other long term (current) drug therapy

== ENCOUNTER → 2024-05-07 | Outpatient (CLI) | payer OTHER ==
[~2024-05-07] MED LIST changes: +ALB2.5NEB NEB; +BROV15NE NEB; +BUDE0.5S6 NEB; +BUDE2SUS3 INH; +DOXY-440 PO; +FLUT1BLS16 INH; +GLYC5INJ NEB; +MIRA50TA2 PO; +NICO2GUM PO; +NICO7PA TD; +PERF20NE2 INH; +QUET100T2 PO
== END ==
LOC: M PAIN 16:30
PROVIDERS: ATTEND Nurse Practitioner Family
DX: R10.2 Pelvic and perineal pain (principal); G89.29 Other chronic pain; F17.210 Nicotine dependence, cigarettes, uncomplicated; Z79.51 Long term (current) use of inhaled steroids; Z79.891 Long term (current) use of opiate analgesic; Z79.899 Other long term (current) drug therapy; Z91.041 Radiographic dye allergy status

== ENCOUNTER → 2024-05-08 | Outpatient (REF) | payer OTHER ==
[2024-05-08 13:20] LABS: APPEARANCE, URINE HAZY (CLEAR); BACTERIA, URINE AUTO NEGATIVE (NEGATIVE); BILIRUBIN, URINE AUTO NEGATIVE (NEGATIVE); BLOOD, URINE BLOOD 2+ (NEGATIVE); COLOR, URINE YELLOW (YELLOW); GLUCOSE, URINE (UA) AUTO NEGATIVE (NEGATIVE); KETONE, URINE AUTO TRACE mg/dL (NEGATIVE); LEUKOCYTE ESTERASE, URINE AUTO NEGATIVE (NEGATIVE); MUCUS, URINE SMALL (NEGATIVE); NITRITE, URINE AUTO NEGATIVE (NEGATIVE); PROTEIN, URINE AUTO 1+ mg/dL (NEGATIVE); RBC, URINE AUTO 14 /HPF (0-3); SPECIFIC GRAVITY URINE AUTO 1.023 (1.002-1.035); SQUAMOUS EPITHELIAL CELL UR AU 1 /HPF (0-6); UROBILINOGEN, URINE AUTO 0.2 mg/dL (0.0-2.0); WBC, URINE AUTO 2 /HPF (0-3)
== END ==
LOC: M SMT 12:44
PROVIDERS: ATTEND Physician Assistant
DX: N39.3 Stress incontinence (female) (male) (principal)

== ENCOUNTER → 2024-07-16 | Outpatient (CLI) | payer OTHER | LOC: M PAIN 09:00 | PROVIDERS: ATTEND Nurse Practitioner Family | DX: R10.2 Pelvic and perineal pain (principal); G89.29 Other chronic pain; I10 Essential (primary) hypertension; F17.210 Nicotine dependence, cigarettes, uncomplicated; Z79.891 Long term (current) use of opiate analgesic; Z79.899 Other long term (current) drug therapy; Z91.041 Radiographic dye allergy status ==

== ENCOUNTER → 2025-02-26 | Outpatient (REF) | payer OTHER ==
[~2025-02-26] MED LIST changes: -FLUO10TA30 PO; +FLUO1TAB2 PO
== END ==
LOC: M LAB REF 17:05
PROVIDERS: ATTEND Nurse Practitioner Family
DX: R30.0 Dysuria (principal); N89.8 Other specified noninflammatory disorders of vagina

== ENCOUNTER → 2025-02-27 | Outpatient (CLI) | payer OTHER ==
[2025-02-27 15:43] LABS: ALT/SGPT 15.0 U/L (7.0-40); AST/SGOT 26.0 U/L (<34); CALCIUM LEVEL 8.5 MG/DL (8.5-10.1); CARBON DIOXIDE LEVEL 23.0 MMOL/L (20-31); CHLORIDE LEVEL 108.0 MMOL/L (98-107); CREATININE FOR GFR 0.99 MG/DL (0.55-1.30); GLOMERULAR FILTRATION RATE 68.2 (>51); POTASSIUM SERUM 4.4 MMOL/L (3.5-5.1); SODIUM LEVEL 141.0 MMOL/L (136-145)
[2025-02-27 16:48] LABS: ESTIMATED AVERAGE GLUCOSE 111.0 MG/DL (60-110)
== END ==
LOC: M PLALAB 10:58
PROVIDERS: ATTEND Nurse Practitioner Family
DX: R63.8 Other symptoms and signs concerning food and fluid intake (principal)

== ENCOUNTER → 2025-03-25 | Outpatient (REF) | payer OTHER | LOC: M SFHCPLAZ 15:25 | PROVIDERS: ATTEND Student in an Organized Health Care Education/Training Program | DX: R31.0 Gross hematuria (principal); I10 Essential (primary) hypertension ==

== ENCOUNTER → 2025-03-27 | Outpatient (CLI) | payer OTHER ==
[2025-03-27 09:45] LABS: APPEARANCE, URINE HAZY (CLEAR); BACTERIA, URINE AUTO NEGATIVE (NEGATIVE); BILIRUBIN, URINE AUTO NEGATIVE (NEGATIVE); BLOOD, URINE BLOOD 1+ (NEGATIVE); GLUCOSE, URINE (UA) AUTO NEGATIVE (NEGATIVE); KETONE, URINE AUTO TRACE mg/dL (NEGATIVE); LEUKOCYTE ESTERASE, URINE AUTO NEGATIVE (NEGATIVE); MUCUS, URINE SMALL (NEGATIVE); NITRITE, URINE AUTO NEGATIVE (NEGATIVE); PROTEIN, URINE AUTO NEGATIVE (NEGATIVE); RBC, URINE AUTO 29 /HPF (0-3); SPECIFIC GRAVITY URINE AUTO 1.028 (1.002-1.035); SQUAMOUS EPITHELIAL CELL UR AU 1 /HPF (0-6); UROBILINOGEN, URINE AUTO 2.0 mg/dL (0.0-2.0); WBC, URINE AUTO 1 /HPF (0-3)
[2025-03-27 09:54] LABS: CALCIUM LEVEL 9.4 MG/DL (8.5-10.1); CARBON DIOXIDE LEVEL 28.0 MMOL/L (20-31); CHLORIDE LEVEL 103.0 MMOL/L (98-107); CREATININE FOR GFR 0.94 MG/DL (0.55-1.30); GLOMERULAR FILTRATION RATE 72.6 (>51); POTASSIUM SERUM 4.4 MMOL/L (3.5-5.1); SODIUM LEVEL 140.0 MMOL/L (136-145)
== END ==
LOC: M LAB 08:19
DX: R31.0 Gross hematuria (principal); I10 Essential (primary) hypertension